=== PATIENT | female | born 1955 | race Caucasian/White ===

== ENCOUNTER → 2020-05-08 08:43 | Outpatient (BNV) | payer OTHER, SELFPAY | PROVIDERS: PCP Nurse Practitioner Family; Visit Provider Internal Medicine Medical Oncology | DX: I82.402 Acute embolism and thrombosis of unspecified deep veins of left lower extremity (principal) | CPT/HCPCS: 99213; 99214 ==

== ENCOUNTER → 2020-07-27 11:21 | Outpatient (BNVA) | payer OTHER, SELFPAY | PROVIDERS: PCP Nurse Practitioner Family; Visit Provider Student in an Organized Health Care Education/Training Program | DX: M05.9 Rheumatoid arthritis with rheumatoid factor, unspecified (principal); Z79.899 Other long term (current) drug therapy | CPT/HCPCS: 99212 ==

== ENCOUNTER 2020-08-07 08:45 | Outpatient (REF) | payer OTHER, SELFPAY ==
--- NOTE | ~2020-08-07 | MM_ITS ---
EXAMINATION: BONE DENSITOMETRY CLINICAL INDICATION: Rheumatoid arthritis. COMPARISON: None (current study represents initial baseline exam). TECHNIQUE: Using a [employer] DXA System (software version: 13.1) manufactured by [employer], dual-energy x-ray absorptiometry was performed of the lumbar spine and left hip. The images are of good technical quality. Summary results are attached. FINDINGS: AP SPINE L1-L3 (excluding L4): The data of L1-L4 has been changed to exclude the L4 vertebral body, because degenerative changes at this level may cause overestimation of lumbar spine density. BMD 0.966 g/cm2, Z-score -1.1, T-score -1.7, osteopenia. LEFT FEMUR, NECK: BMD 0.801 g/cm2, Z-score -0.9, T-score -1.7, osteopenia. LEFT FEMUR, TOTAL: BMD 0.854 g/cm2, Z-score -0.7, T-score -1.2, osteopenia. IDENTIFIED RISK FACTORS: Early menopause, rheumatoid arthritis, history of fracture (adult), secondary osteoporosis. HISTORY OF FRACTURE: Mandible, decades ago. No insufficiency fracture reported. MEDICATIONS: Calcium supplements or multivitamin. MM/XR DEXA axial skeleton IMPRESSION: 1. DIAGNOSIS: Osteopenia based on the lowest T-score value of -1.7 in the lumbar spine and femur neck applying World Health Organization criteria. 2. 10-YEAR FRACTURE RISK PREDICTION, FRAX: Major osteoporotic fracture (clinical spine, forearm, hip or shoulder) 6.1%. Hip fracture 0.7%. 3. Treatment Recommendations: NOF guidelines recommend consideration for treatment in postmenopausal women and men age 50 and older presenting with the following: -A hip or vertebral (clinical or morphometric) fracture. -T-score less than or equal to -2.5 at the femoral neck or spine after appropriate evaluation to exclude secondary causes. -Low bone mass at the hip or spine and a 10-year fracture probability by FRAX of greater than or equal to 3% for hip fracture or greater than or equal to 20% for major osteoporotic fracture based on the [place] adapted WHO algorithm. 4. Other Recommendations: All treatment decisions require clinical judgment and consideration of individual patient factors, including patient preferences, comorbidities, previous drug use, risk factors not captured in the FRAX model (e.g. frailty, falls, vitamin D deficiency, increased bone turnover, interval significant decline in bone density) and possible under or overestimation of fracture risk by FRAX. Additional medical evaluation for secondary cause of low bone mineral density may be appropriate. FUTURE SCAN RECOMMENDATION: People with diagnosed cases of osteoporosis or at high risk for fracture should have regular bone mineral density tests. For patients eligible for Medicare, routine testing is allowed once every 2 years. The testing frequency can be increased to one year for patients who have rapidly progressing disease, those who are receiving or discontinuing medical therapy to restore bone mass, or have additional risk factors.
== END 2020-08-07 08:46 | disposition home or self-care (01) ==
LOC: HO.MAMMO 08:45
PROVIDERS: Visit Provider Student in an Organized Health Care Education/Training Program
DX: Z13.820 Encounter for screening for osteoporosis (principal); Z78.0 Asymptomatic menopausal state; M05.9 Rheumatoid arthritis with rheumatoid factor, unspecified
CPT/HCPCS: 77080

== ENCOUNTER 2020-10-04 09:12 | Outpatient (REF) | payer OTHER, SELFPAY ==
[2020-10-04 11:17] LABS: MANUAL DIFF FLAG NO
[2020-10-04 11:43] LABS: Basophils Percent Auto 0.8 % (0-2); Eosinophils Absolute Auto 0.1 X10*3/uL (0.0-0.4); Hemoglobin 13.9 g/dl (12.0-16.0); Imm Gran Abs Auto 0.01 X10*3/uL (0.00-0.03); Imm Gran Pct Auto 0.2 % (0.0-0.4); Lymphocytes Absolute Auto 1.7 X10*3/uL (1.2-4.9); Mean Corpuscular HGB Conc 32.3 g/dl (31.0-35.0); Mean Corpuscular Hemoglobin 30.8 pg (27.0-33.0); Mean Corpuscular Volume 95.3 fL (80-98); Mean Platelet Volume 11.1 fL (9.4-12.3); Monocytes Absolute Auto 0.6 X10*3/uL (0.1-1.2); Neutrophils Absolute Auto 2.9 X10*3/uL (2.0-8.3); Platelet Count 275 X10*3/uL (160-400); Red Blood Count 4.51 X10*6/uL (4.20-5.50); Red Cell Distribution Width 13.5 % (11.0-16.0); White Blood Count 5.2 X10*3/uL (4.8-10.8)
[2020-10-04 12:30] LABS: TSH reflex Free T4 1.64 uIU/mL (0.32-4.0)
[2020-10-04 12:35] LABS: Alanine Aminotransferase 32 U/L (0-31); Albumin Level 4.5 g/dL (3.5-5.0); Alkaline Phosphatase 106 U/L (39-117); Anion Gap 15 (12-20); Aspartate Amino Transferase 27 U/L (5-31); Bilirubin Total 0.5 mg/dL (0.0-1.0); Blood Urea Nitrogen 17 mg/dL (9-16); Calcium 9.7 mg/dL (8.4-10.2); Carbon Dioxide 21 mmol/L (22-29); Chloride 109 mmol/L (96-108); Cholesterol 235 mg/dL; Estimated Glomerular Filt Rate > 60; Glucose Fasting 94 mg/dL (60-99); HDL Cholesterol 66 mg/dL; Iron 113 mcg/dL (30-160); LDL Cholesterol Calculated 145 mg/dl; Percent Iron Saturation 34 % (15-50); Potassium 5.2 mmol/L (3.3-5.1); Sodium 140 mmol/L (135-145); Total Iron Binding Capacity 329 mcg/dL (228-428); Total Protein 7.1 g/dL (6.5-8.0); Triglycerides 121 mg/dL; Unsaturated Iron Binding 216 ug/dL
[2020-10-04 13:43] LABS: Ferritin 113 ng/mL (10-250)
== END 2020-10-04 09:13 | disposition home or self-care (01) ==
LOC: HO.HMGCLDS 09:12
PROVIDERS: PCP Nurse Practitioner Family; Visit Provider Nurse Practitioner Family
DX: R53.83 Other fatigue (principal)
CPT/HCPCS: 36415; 80053; 80061; 82728; 83540; 84443; 85025

== ENCOUNTER 2020-10-10 08:52 | Outpatient (REF) | payer OTHER, SELFPAY ==
[2020-10-10 11:22] LABS: MANUAL DIFF FLAG NO
[2020-10-10 11:37] LABS: Basophils Percent Auto 0.7 % (0-2); Eosinophils Percent Auto 0.9 % (0-4); Hematocrit 42.1 % (37-47); Hemoglobin 13.7 g/dl (12.0-16.0); Imm Gran Abs Auto 0.01 X10*3/uL (0.00-0.03); Imm Gran Pct Auto 0.2 % (0.0-0.4); Lymphocytes Absolute Auto 1.6 X10*3/uL (1.2-4.9); Lymphocytes Percent Auto 37.4 % (20-40); Mean Corpuscular HGB Conc 32.5 g/dl (31.0-35.0); Mean Corpuscular Hemoglobin 30.6 pg (27.0-33.0); Mean Corpuscular Volume 94.2 fL (80-98); Mean Platelet Volume 11.2 fL (9.4-12.3); Monocytes Absolute Auto 0.5 X10*3/uL (0.1-1.2); Neutrophils Absolute Auto 2.2 X10*3/uL (2.0-8.3); Neutrophils Percent Auto 49.8 % (45-73); Platelet Count 261 X10*3/uL (160-400); Red Blood Count 4.47 X10*6/uL (4.20-5.50); Red Cell Distribution Width 13.6 % (11.0-16.0); White Blood Count 4.4 X10*3/uL (4.8-10.8)
[2020-10-10 11:45] LABS: Alanine Aminotransferase 28 U/L (0-31); Albumin Level 4.2 g/dL (3.5-5.0); Alkaline Phosphatase 104 U/L (39-117); Anion Gap 15 (12-20); Aspartate Amino Transferase 29 U/L (5-31); Bilirubin Total 0.5 mg/dL (0.0-1.0); Blood Urea Nitrogen 13 mg/dL (9-16); Calcium 9.6 mg/dL (8.4-10.2); Carbon Dioxide 23 mmol/L (22-29); Chloride 106 mmol/L (96-108); Cholesterol 222 mg/dL; Estimated Glomerular Filt Rate > 60; Glucose Random 91 mg/dL (60-115); HDL Cholesterol 63 mg/dL; LDL Cholesterol Calculated 138 mg/dl; Potassium 4.8 mmol/L (3.3-5.1); Sodium 139 mmol/L (135-145); Total Protein 6.8 g/dL (6.5-8.0); Triglycerides 106 mg/dL
[2020-10-10 12:28] LABS: Erythrocyte Sedimentation Rate 12 MM/HR (0-20)
== END 2020-10-10 08:53 | disposition home or self-care (01) ==
LOC: HO.HMGCLDS 08:52
PROVIDERS: PCP Nurse Practitioner Family; Visit Provider Student in an Organized Health Care Education/Training Program
DX: M05.9 Rheumatoid arthritis with rheumatoid factor, unspecified (principal); E78.5 Hyperlipidemia, unspecified
CPT/HCPCS: 36415; 80053; 80061; 85025; 85652; 86140

== ENCOUNTER 2020-12-04 11:38 | Emergency (ER) | payer OTHER, SELFPAY ==
--- NOTE | ~2020-12-04 | CT_ITS ---
EXAMINATION: CT ABDOMEN AND PELVIS WITH CONTRAST CLINICAL INFORMATION: Left lower quadrant pain. COMPARISON: Pelvic ultrasound dated 09/17/2017. TECHNIQUE: Multidetector volumetric images were obtained from the superior aspect of the liver through the pubic symphysis following administration 85 mL of Omnipaque 350 intravenous contrast. Sagittal and coronal reformatted images were obtained on the technologist's workstation. Oral contrast: No This CT examination was performed using dose optimization techniques as appropriate, variously including the following: *Automated exposure control *Adjustment of mA and/or kV according to patient size (this includes techniques or standardized protocols for targeted exams where dose is matched to indication/reason for exam; i.e. extremities or head) *Use of iterative reconstruction technique DLP: 795 mGy-cm FINDINGS: LUNG BASES: The visualized lung bases are unremarkable. LIVER, GALLBLADDER, AND BILIARY TREE: The liver is normal in size and shape. Parenchymal hypoattenuation, consistent with steatosis. No focal hepatic lesion or biliary ductal dilatation is present. The gallbladder is unremarkable with no evidence of radiopaque gallstones, gallbladder wall thickening, or obvious pericholecystic inflammatory changes. PANCREAS: Unremarkable. SPLEEN: Unremarkable. ADRENAL GLANDS: Unremarkable. KIDNEYS AND URETERS: The kidneys are normal in size, shape, and attenuation. Right upper pole renal stone measuring 0.3 cm, too small to characterize by Hounsfield units. No additional renal or ureteral stone. No hydronephrosis or hydroureter. Posterior left midpole 0.5 cm hypodensity, too small to characterize. BLADDER: Unremarkable. GASTROINTESTINAL TRACT: Sigmoid diverticulosis with left lower quadrant circumferential wall thickening adjacent to a prominent diverticulum. There is significant adjacent inflammatory change. Findings are consistent with acute diverticulitis. No extraluminal air or organized fluid collection to suggest perforation or abscess formation. No additional bowel wall thickening or associated inflammatory change. No small or large bowel obstruction. Unremarkable appendix. Small, sliding hiatal hernia. PERITONEAL CAVITY: No intra-abdominal free air or free fluid. No intra-abdominal mass or organized fluid collection/abscess formation. ABDOMINAL WALL: No significant hernia is appreciated. LYMPH NODES: Normal. VASCULAR: Atherosclerotic calcifications throughout the abdominal aorta and its branch vessels. Peripherally calcified splenic artery aneurysm measuring up to 1.0 cm. PELVIC VISCERA: Redemonstration of a probable posterior fibroid. OSSEOUS STRUCTURES: No concerning lytic or blastic osseous lesion. CT/CT abdomen pelvis w con IMPRESSION: 1. Acute left lower quadrant diverticulitis. No evidence of perforation or abscess formation. 2. Small, sliding hiatal hernia. 3. Hepatic steatosis. No hepatic parenchymal lesion or biliary ductal dilatation. 4. Calcified splenic artery aneurysm measuring up to 1.0 cm.
[2020-12-04 16:46] VITALS: BP 148/69; PULSE 127; RESP 18; TEMP 37.4; O2SAT 98; BMI 36.3
--- NOTE | 2020-12-04 17:11 | ECG_ITS ---
Test Reason : ABDOMINAL PAIN Blood Pressure : / mmHG Vent. Rate : 112 BPM Atrial Rate : 112 BPM P-R Int : 150 ms QRS Dur : 082 ms QT Int : 328 ms P-R-T Axes : 040 000 047 degrees QTc Int : 447 ms Sinus tachycardia Possible Left atrial enlargement Possible Inferior infarct , age undetermined Abnormal ECG No previous ECGs available Referred By: Ibis Islas Electronically Signed By:JANEY PARK MD
[2020-12-04 17:18] LABS: Glucose Urine UA NEG (NEG); Leukocyte Esterase Urine 2+ (NEG); Nitrite Urine NEG (NEG); UACC Culture Trigger YES; Urine Blood NEG (NEG); Urine Ketones NEG (NEG); Urine Protein NEG (NEG-TRACE)
[2020-12-04 17:22] LABS: Appearance Urine CLEAR; Color Urine YELLOW
[2020-12-04 17:40] LABS: MANUAL DIFF FLAG NO
[2020-12-04 17:43] LABS: Bacteria Urine TRACE /LPF; Squamous Epithelial Cell Urine TRACE /LPF
[2020-12-04 17:44] LABS: Basophils Percent Auto 0.4 % (0-2); Eosinophils Absolute Auto 0.1 X10*3/uL (0.0-0.4); Eosinophils Percent Auto 0.6 % (0-4); Hematocrit 38.7 % (37-47); Imm Gran Abs Auto 0.02 X10*3/uL (0.00-0.03); Imm Gran Pct Auto 0.2 % (0.0-0.4); Lymphocytes Absolute Auto 1.5 X10*3/uL (1.2-4.9); Lymphocytes Percent Auto 16.2 % (20-40); Mean Corpuscular HGB Conc 33.6 g/dl (31.0-35.0); Mean Corpuscular Hemoglobin 30.9 pg (27.0-33.0); Mean Corpuscular Volume 91.9 fL (80-98); Mean Platelet Volume 10.8 fL (9.4-12.3); Monocytes Percent Auto 10.9 % (2-11); Neutrophils Absolute Auto 6.5 X10*3/uL (2.0-8.3); Neutrophils Percent Auto 71.7 % (45-73); Platelet Count 246 X10*3/uL (160-400); Red Blood Count 4.21 X10*6/uL (4.20-5.50); Red Cell Distribution Width 13.3 % (11.0-16.0); White Blood Count 9.1 X10*3/uL (4.8-10.8)
[2020-12-04 17:46] LABS: INTERNATIONAL NORM RATIO 1.4 (0.9-1.1); Prothrombin Time 16.2 SEC (10.8-13.0)
[2020-12-04 17:49] VITALS: BP 128/77; PULSE 114; RESP 20; TEMP 37.6; O2SAT 98
[2020-12-04 18:06] LABS: Alanine Aminotransferase 20 U/L (0-31); Albumin Level 4.2 g/dL (3.5-5.0); Alkaline Phosphatase 109 U/L (39-117); Anion Gap 15 (12-20); Aspartate Amino Transferase 19 U/L (5-31); Bilirubin Direct 0.3 mg/dL (0.0-0.5); Bilirubin Total 0.4 mg/dL (0.0-1.0); Blood Urea Nitrogen 18 mg/dL (9-16); Calcium 8.9 mg/dL (8.4-10.2); Carbon Dioxide 19 mmol/L (22-29); Chloride 105 mmol/L (96-108); Creatinine Clr Calc Pharmacy 74.1; Estimated Glomerular Filt Rate > 60; Glucose Random 102 mg/dL (60-115); Lipase 46 U/L (8-78); Potassium 4.3 mmol/L (3.3-5.1); Sodium 135 mmol/L (135-145); Total Protein 6.8 g/dL (6.5-8.0)
--- NOTE | 2020-12-04 18:23 | ED_ITS ---
HPI - Abdominal Pain General Chief Complaint: Abdominal Pain Stated Complaint: lower abd pain Time Seen by Provider: 12/04/20 16:48 Source: patient Mode of arrival: ambulatory Limitations: no limitations History of Present Illness HPI narrative: patient comes emergency room complaining of bilateral lower quadrant pain, seems to be worse in the left lower quadrant. Patient states that she has had increased abdominal pain in the abdomen for the last 2 months, reports dark blood and mucus in the stool for the last month. Patient denies vomiting, had 1 episode of diarrhea, no URI symptoms, no fever. Related Data Home Medications Medication Instructions Recorded Confirmed apixaban [Eliquis] 1 tab PO BID 05/08/20 10/03/20 apixaban 2.5 mg tablet 2.5 mg PO BID 12/04/20 Previous Rx's Medication Instructions Recorded amlodipine 5 mg tablet 5 mg PO DAILY 90 Days #90 tab 04/23/20 methotrexate sodium 2.5 mg tablet 15 mg PO QWEEK #24 tab 08/16/20 etanercept 50 mg/mL (1 mL) 50 mg SUBCUT QWEEK #4 ml 09/11/20 subcutaneous cartridge folic acid 1 mg tablet 1 mg PO DAILY #30 tab 10/02/20 lisinopril 20 mg tablet 20 mg PO DAILY #30 cap 10/02/20 atorvastatin 10 mg tablet 10 mg PO BEDTIME #30 tab 11/01/20 ciprofloxacin HCl 500 mg PO BID #19 tab 12/04/20 metronidazole 500 mg PO BID #19 tab 12/04/20 Allergies Allergy/AdvReac Type Severity Reaction Status Date / Time penicillin G [PENICILLIN G] Allergy Severe ANAPHYLAXIS Verified 10/03/20 15:05 Review of Systems Review of Systems Constitutional : No Weight loss, No Fever, No Chills, No Night Sweats, No Fatigue, No Malaise ENT/Mouth : No Hearing loss, No Ear Pain, No Nasal Congestion, No Sinus Pain, No Hoarseness, No sore throat, No Rhinorrhea, No Swallowing Difficulty Eyes: No Eye Pain, No Swelling, No Redness, No Foreign Body, No Discharge, No Vision Changes Cardiovascular : No Chest Pain, No SOB, No Dyspnea on Exertion, No Orthopnea, No Edema, No Palpitations Respiratory : No Cough, No Sputum, No Wheezing, No Smoke Exposure, No Dyspnea Gastrointestinal : No Nausea, No Vomiting, One episode of Diarrhea, No Constipation, complaining of worsening abdominal pain for 2 months, worse in the left lower quadrant, reports dark bloody like stool and mucus Genitourinary : no irregular bleeding, No Dysuria, No Urinary Frequency, No Hematuria, No Urinary Incontinence, No Urgency, No Flank Pain, No Urinary Flow Changes, No Hesitancy Musculoskeletal : No joint pain, No Myalgias, No Joint Swelling Skin : No Skin Lesions, No rash Neuro : No Weakness, No Numbness, No Paresthesias, No Loss of Consciousness, No Dizziness, No Headache Psych : No Anxiety/Panic, No Depression, No SI/HI/AH/VH, No Social Issues, Heme/Lymph: No Bruising, No Bleeding,No Lymphadenopathy Endocrine : No Polyuria, No Polydipsia, No Temperature Intolerance Physical Exam Vital Signs: Vital Signs: Last Vital Signs Temp 98.8 F 12/04/20 19:15 Pulse 107 H 12/04/20 19:15 Resp 18 12/04/20 19:15 BP 130/79 12/04/20 19:15 Pulse Ox 97 12/04/20 19:15 Body Mass Index 36.3 Appearance: Alert. Oriented X3. No acute distress. Eyes: Pupils equal, round and reactive to light. ENT: Pharynx normal. Neck: Normal inspection. Neck supple. No lymph nodes noted. No crepitus CVS: Normal heart rate and rhythm. Pulses normal. Normal S1 and S2 Respiratory: No respiratory distress. Breath sounds normal. No Wheezing. No rales Abdomen: Soft tenderness to palpation over the left lower quadrant,. No rigidity. No distention. Skin: Skin warm and dry. Normal skin color. Normal skin turgor. Extremities: No lower extremity edema. No lower extremity edema. No Lacerations. No Rash Neuro: Oriented X 3. No motor deficit. No sensory deficit. Moving all extermities. No slurred speech. Course Course Course Narrative: I discussed the labs and imaging with the patient, patient has diverticulitis. So far patient refused pain medication. Patient feels comfortable going home with oral antibiotics and pain medication. Patient instructed to follow-up with her primary care physician MDM - Abdominal Pain Lab Data Result diagrams: 12/04/20 17:34 12/04/20 17:34 Labs: Lab Results 12/04/20 12/04/20 12/04/20 Range/Units 16:57 17:34 17:34 WBC 9.1 (4.8-10.8) X10*3/uL RBC 4.21 (4.20-5.50) X10*6/uL Hgb 13.0 (12.0-16.0) g/dl Hct 38.7 (37-47) % MCV 91.9 (80-98) fL MCH 30.9 (27.0-33.0) pg MCHC 33.6 (31.0-35.0) g/dl RDW 13.3 (11.0-16.0) % Plt Count 246 (160-400) X10*3/uL MPV 10.8 (9.4-12.3) fL Immature Gran % (Auto) 0.2 (0.0-0.4) % Neut % (Auto) 71.7 (45-73) % Lymph % (Auto) 16.2 L (20-40) % [place] % (Auto) 10.9 (2-11) % Eos % (Auto) 0.6 (0-4) % Baso % (Auto) 0.4 (0-2) % Lymph # (Auto) 1.5 (1.2-4.9) X10*3/uL [place] # (Auto) 1.0 (0.1-1.2) X10*3/uL Eos # (Auto) 0.1 (0.0-0.4) X10*3/uL Baso # (Auto) 0.0 (0.0-0.2) X10*3/uL Abs Immat Gran (auto) 0.02 (0.00-0.03) X10*3/uL Absolute Neuts (auto) 6.5 (2.0-8.3) X10*3/uL Absolute Nucleated RBC 0.000 (0.0-0.012) X10*3/uL Nucleated RBC % (auto) 0.0 (0.0-0.2) /100WBC PT (10.8-13.0) SEC INR (0.9-1.1) Sodium 135 (135-145) mmol/L Potassium 4.3 D (3.3-5.1) mmol/L Chloride 105 (96-108) mmol/L Carbon Dioxide 19 L (22-29) mmol/L Anion Gap 15 (12-20) BUN 18 H (9-16) mg/dL Creatinine 0.81 (0.5-1.4) mg/dL Estim Creat Clear Calc 74.1 Estimated GFR > 60 Random Glucose 102 (60-115) mg/dL Lactic Acid (0.5-2.0) mmol/L Calcium 8.9 D (8.4-10.2) mg/dL Total Bilirubin 0.4 (0.0-1.0) mg/dL Direct Bilirubin 0.3 (0.0-0.5) mg/dL AST 19 D (5-31) U/L ALT 20 (0-31) U/L Alkaline Phosphatase 109 (39-117) U/L Total Protein 6.8 (6.5-8.0) g/dL Albumin 4.2 (3.5-5.0) g/dL Lipase 46 (8-78) U/L Urine Color YELLOW Urine Appearance CLEAR Urine pH 6.0 (5.0-8.0) Ur Specific [place] 1.010 (1.005-1.025) Urine Protein NEG (NEG-TRACE) MG/DL Urine Glucose (UA) NEG (NEG) MG/DL Urine Ketones NEG (NEG) MG/DL Urine Blood NEG (NEG) Urine Nitrite NEG (NEG) Ur Leukocyte Esterase 2+ H (NEG) Urine RBC 1-4 (0) /HPF Urine WBC 5-9 H (0-4) /HPF Ur Squamous Epith Cells TRACE /LPF Urine Bacteria TRACE /LPF Stool Occult Blood (NEGATIVE) 12/04/20 12/04/20 12/04/20 Range/Units 17:34 17:34 20:02 WBC (4.8-10.8) X10*3/uL RBC (4.20-5.50) X10*6/uL Hgb (12.0-16.0) g/dl Hct (37-47) % MCV (80-98) fL MCH (27.0-33.0) pg MCHC (31.0-35.0) g/dl RDW (11.0-16.0) % Plt Count (160-400) X10*3/uL MPV (9.4-12.3) fL Immature Gran % (Auto) (0.0-0.4) % Neut % (Auto) (45-73) % Lymph % (Auto) (20-40) % [place] % (Auto) (2-11) % Eos % (Auto) (0-4) % Baso % (Auto) (0-2) % Lymph # (Auto) (1.2-4.9) X10*3/uL [place] # (Auto) (0.1-1.2) X10*3/uL Eos # (Auto) (0.0-0.4) X10*3/uL Baso # (Auto) (0.0-0.2) X10*3/uL Abs Immat Gran (auto) (0.00-0.03) X10*3/uL Absolute Neuts (auto) (2.0-8.3) X10*3/uL Absolute Nucleated RBC (0.0-0.012) X10*3/uL Nucleated RBC % (auto) (0.0-0.2) /100WBC PT 16.2 H (10.8-13.0) SEC INR 1.4 H (0.9-1.1) Sodium (135-145) mmol/L Potassium (3.3-5.1) mmol/L Chloride (96-108) mmol/L Carbon Dioxide (22-29) mmol/L Anion Gap (12-20) BUN (9-16) mg/dL Creatinine (0.5-1.4) mg/dL Estim Creat Clear Calc Estimated GFR Random Glucose (60-115) mg/dL Lactic Acid 1.0 (0.5-2.0) mmol/L Calcium (8.4-10.2) mg/dL Total Bilirubin (0.0-1.0) mg/dL Direct Bilirubin (0.0-0.5) mg/dL AST (5-31) U/L ALT (0-31) U/L Alkaline Phosphatase (39-117) U/L Total Protein (6.5-8.0) g/dL Albumin (3.5-5.0) g/dL Lipase (8-78) U/L Urine Color Urine Appearance Urine pH (5.0-8.0) Ur Specific [place] (1.005-1.025) Urine Protein (NEG-TRACE) MG/DL Urine Glucose (UA) (NEG) MG/DL Urine Ketones (NEG) MG/DL Urine Blood (NEG) Urine Nitrite (NEG) Ur Leukocyte Esterase (NEG) Urine RBC (0) /HPF Urine WBC (0-4) /HPF Ur Squamous Epith Cells /LPF Urine Bacteria /LPF Stool Occult Blood NEGATIVE (NEGATIVE) Imaging Data CT scan - abdomen: Radiologist's impression: FINDINGS: LUNG BASES: The visualized lung bases are unremarkable. LIVER, GALLBLADDER, AND BILIARY TREE: The liver is normal in size and shape. Parenchymal hypoattenuation, consistent with steatosis. No focal hepatic lesion or biliary ductal dilatation is present. The gallbladder is unremarkable with no evidence of radiopaque gallstones, gallbladder wall thickening, or obvious pericholecystic inflammatory changes. PANCREAS: Unremarkable. SPLEEN: Unremarkable. ADRENAL GLANDS: Unremarkable. KIDNEYS AND URETERS: The kidneys are normal in size, shape, and attenuation. Right upper pole renal stone measuring 0.3 cm, too small to characterize by Hounsfield units. No additional renal or ureteral stone. No hydronephrosis or hydroureter. Posterior left midpole 0.5 cm hypodensity, too small to characterize. BLADDER: Unremarkable. GASTROINTESTINAL TRACT: Sigmoid diverticulosis with left lower quadrant circumferential wall thickening adjacent to a prominent diverticulum. There is significant adjacent inflammatory change. Findings are consistent with acute diverticulitis. No extraluminal air or organized fluid collection to suggest perforation or abscess formation. No additional bowel wall thickening or associated inflammatory change. No small or large bowel obstruction. Unremarkable appendix. Small, sliding hiatal hernia. PERITONEAL CAVITY: No intra-abdominal free air or free fluid. No intra-abdominal mass or organized fluid collection/abscess formation. ABDOMINAL WALL: No significant hernia is appreciated. LYMPH NODES: Normal. VASCULAR: Atherosclerotic calcifications throughout the abdominal aorta and its branch vessels. Peripherally calcified splenic artery aneurysm measuring up to 1.0 cm. PELVIC VISCERA: Redemonstration of a probable posterior fibroid. OSSEOUS STRUCTURES: No concerning lytic or blastic osseous lesion. CT/CT abdomen pelvis w con IMPRESSION: 1. Acute left lower quadrant diverticulitis. No evidence of perforation or abscess formation. 2. Small, sliding hiatal hernia. 3. Hepatic steatosis. No hepatic parenchymal lesion or biliary ductal dilatation. 4. Calcified splenic artery aneurysm measuring up to 1.0 cm. Discharge Plan Discharge Clinical Impression: Diverticulitis Patient Disposition: Home, Self-Care Instructions: Diverticulitis (ED), Diverticulitis Diet (ED) Additional Instructions: Please follow-up with your primary care physician tomorrow. If you have any worsening or new symptoms, please return to the emergency room or call 911 Prescriptions: New ciprofloxacin HCl 500 mg tablet 500 mg PO BID Qty: 19 RF: 0 metronidazole 500 mg tablet 500 mg PO BID Qty: 19 RF: 0 No Action amlodipine 5 mg tablet 5 mg PO DAILY 90 Days Qty: 90 RF: 1 methotrexate sodium 2.5 mg tablet 15 mg PO QWEEK Qty: 24 RF: 3 etanercept [Enbrel Mini] 50 mg/mL (1 mL) cartridge 50 mg subcut QWEEK Qty: 4 RF: 4 folic acid 1 mg tablet 1 mg PO DAILY Qty: 30 RF: 5 lisinopril 20 mg tablet 20 mg PO DAILY Qty: 30 RF: 2 atorvastatin 10 mg tablet 10 mg PO BEDTIME Qty: 30 RF: 5 Eliquis 5 mg tablet 1 tab PO BID RF: 0 Eliquis 2.5 mg tablet 2.5 mg PO BID RF: 0 Interventions: LWBS Worksheet Last Done: 12/04/20 13:38 PMFSH Past Medical History Medical History DVT (deep venous thrombosis) HTN (hypertension) Hyperlipemia Rheumatoid arthritis Seropositive rheumatoid arthritis Surgical History History of bunionectomy of both great toes Family History Family History Mother Colon cancer metastasized to multiple sites HTN (hypertension) Maternal Aunt Breast cancer Father HTN (hypertension) Brother HTN (hypertension) Heart attack Enlarged heart Brain aneurysm Brother HTN (hypertension) Sister HTN (hypertension) Sister HTN (hypertension) Sister HTN (hypertension) Social History Social History Alcohol intake: current Alcohol intake frequency: holidays/special occasions only Alcohol type: beer Advance Directives: Yes Advance Directives Information Provided: No Advance Directives on File: No Patient : No
[2020-12-04 19:15] VITALS: BP 130/79; PULSE 107; RESP 18; TEMP 37.1; O2SAT 97
[2020-12-04] MEDS: iohexoL 350 MG/ML 100 ML INFUS..BTL 85 ML IV (19:26)
[2020-12-04 20:09] LABS: OBS Int Ctl Valid YES; OBS1 NEGATIVE (NEGATIVE)
[2020-12-04] MEDS: levoFLOXacin 500 MG TABLET PO (20:22)
[2020-12-04] MEDS: metroNIDAZOLE 500 MG TABLET PO (20:22)
== END 2020-12-04 20:29 | disposition home or self-care (01) ==
PROVIDERS: Emergency Provider Emergency Medicine; PCP Nurse Practitioner Family
DX: K57.92 Diverticulitis of intestine, part unspecified, without perforation or abscess without bleeding (principal); I10 Essential (primary) hypertension; M05.9 Rheumatoid arthritis with rheumatoid factor, unspecified; Z86.718 Personal history of other venous thrombosis and embolism; Z79.01 Long term (current) use of anticoagulants; Z79.899 Other long term (current) drug therapy
CPT/HCPCS: 36415; 74177; 80048; 80076; 81001; 81003; 82272; 83605; 83690; 85025; 85610; 87040; 87086; 93005; 99284; Q9967

== ENCOUNTER 2020-12-06 08:46 | Emergency (ER) | payer OTHER, SELFPAY ==
--- NOTE | ~2020-12-06 | XR_ITS ---
EXAMINATION: XR FOOT, LEFT CLINICAL INFORMATION: Pain. COMPARISON: None TECHNIQUE: AP, lateral, and oblique views of the left foot. FINDINGS: There is loss of first MTP joint space with moderate periarticular spurring. There is a cup deformity distal end proximal phalanx second digit. No visible acute fracture, dislocation or subluxation seen. XR/XR foot LT 2V IMPRESSION: No acute fracture or dislocation. Degenerative arthritic changes first MTP joint. Deformity DIP joint second digit. .
[2020-12-06 09:08] VITALS: BP 130/71; PULSE 110; RESP 16; TEMP 36.7; O2SAT 99; BMI 34.1
--- NOTE | 2020-12-06 10:12 | ED_ITS ---
HPI - General Adult General Chief complaint: Extremity Injury, Lower Stated complaint: FALL FOOT INJ Time Seen by Provider: 12/06/20 10:12 Source: patient Limitations: no limitations History of Present Illness HPI narrative: Patient states she injured her left foot when tripping while getting into a chair. Pain is on the lateral aspect of the left foot that increases with range of motion or weight-bearing. Pain is 7/10. No other com plaints at this time. Symptoms are moderate. onset of symptoms yesterday Related Data Home Medications Medication Instructions Recorded Confirmed apixaban [Eliquis] 1 tab PO BID 05/08/20 10/03/20 apixaban 2.5 mg tablet 2.5 mg PO BID 12/04/20 Previous Rx's Medication Instructions Recorded amlodipine 5 mg tablet 5 mg PO DAILY 90 Days #90 tab 04/23/20 methotrexate sodium 2.5 mg tablet 15 mg PO QWEEK #24 tab 08/16/20 etanercept 50 mg/mL (1 mL) 50 mg SUBCUT QWEEK #4 ml 09/11/20 subcutaneous cartridge folic acid 1 mg tablet 1 mg PO DAILY #30 tab 10/02/20 lisinopril 20 mg tablet 20 mg PO DAILY #30 cap 10/02/20 atorvastatin 10 mg tablet 10 mg PO BEDTIME #30 tab 11/01/20 ciprofloxacin HCl 500 mg PO BID #19 tab 12/04/20 metronidazole 500 mg PO BID #19 tab 12/04/20 Allergies Allergy/AdvReac Type Severity Reaction Status Date / Time penicillin G [PENICILLIN G] Allergy Severe ANAPHYLAXIS Verified 10/03/20 15:05 Review of Systems Constitutional: Constitutional: Denies body ache(s), Denies chills and Denies fever(s) Cardiovascular: Cardiovascular: Denies chest pain, Reports pedal edema and Denies dyspnea Respiratory: Respiratory: Denies cough and Denies dyspnea Gastrointestinal: Gastrointestinal: Denies nausea and Denies vomiting Musculoskeletal: Musculoskeletal: Denies back pain, Denies numbness and Reports other ( left foot pain) Neurologic: Denies numbness and Denies paresthesias Endocrine: Endocrine: Reports no additional endocrine complaints Hematologic/Lymphatic: Hematologic/Lymphatic: Reports no additional hematologic/lymphatic complaints [facility] Past Medical History Attestation statement: The following information was validated with the patient. Medical History DVT (deep venous thrombosis) HTN (hypertension) Hyperlipemia Rheumatoid arthritis Seropositive rheumatoid arthritis Surgical History History of bunionectomy of both great toes Family History Family History Mother Colon cancer metastasized to multiple sites HTN (hypertension) Maternal Aunt Breast cancer Father HTN (hypertension) Brother HTN (hypertension) Heart attack Enlarged heart Brain aneurysm Brother HTN (hypertension) Sister HTN (hypertension) Sister HTN (hypertension) Sister HTN (hypertension) Social History Social History Alcohol intake: current Alcohol intake frequency: a few times a month Alcohol type: beer Patient Tobacco Use Status: Former Tobacco user Smoked in Last 30 Days: No Use of substances other than those prescribed or required for medical reasons: No Advance Directives: Yes Advance Directives Information Provided: No Advance Directives on File: No Physical Exam Vital Signs: Vital Signs: Last Vital Signs Temp 98.0 F 12/06/20 09:08 Pulse 110 H 12/06/20 09:08 Resp 16 12/06/20 09:08 BP 130/71 12/06/20 09:08 Pulse Ox 99 12/06/20 09:08 Body Mass Index 34.1 vital signs have been reviewed as normal and appeared to be correct. Blood pressure normal. Heart rate normal. Respiration rate normal. Temperature normal. Oxygen saturation normal. Appearance: Alert. Oriented X3. No acute distress. Head: Normal external exam. Normocephalic. Atraumatic. No Saavedra signs noted. No raccoon eyes noted Eyes: PERRLA. EOMI. Conjunctiva and sclera normal. Eyelids normal. ENT: Pharynx normal. Uvula midline. Moist mucous membranes. No trismus noted. No drooling noted. No muffled voice noted. Neck: Soft full range of motion, no JVD CVS: Heart regular rate and rhythm no murmurs and rubs Respiratory: Breath sounds are clear to auscultation bilaterally. No accessory muscle use noted. Abdomen: Soft nontender no rebound or guarding positive bowel sounds Back: No CVA tenderness. Full range of motion noted. Skin: Skin warm and dry. Normal skin color. Normal skin turgor. No rashes/lesions/lacerations noted. Extremities: positive tenderness left foot medial aspect positive pulses positive edema Neuro: Oriented X 3. No motor deficit. No sensory deficit. Reflexes normal. 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 Will place patient in a postop shoe follow-up as needed Medical Decision Making Imaging Data foot: Radiologist's impression: [address] [id number] ReportSigned Patient: Krista Liu JMR#: [id number]: 8Acct:[id number]/Sex: 65 / FADM Date: 12/06/20Loc: HO.EDAttending Dr: Ordering Physician: Helder Partida MD Date of Service: 12/06/20 Procedure(s): XR foot LT 2V Accession Number(s): [id number] cc: Helder Partida MD~ EXAMINATION: XR FOOT, LEFT CLINICAL INFORMATION: Pain. COMPARISON: None TECHNIQUE: AP, lateral, and oblique views of the left foot. FINDINGS: There is loss of first MTP joint space with moderate periarticular spurring. There is a cup deformity distal end proximal phalanx second digit. No visible acute fracture, dislocation or subluxation seen. XR/XR foot LT 2V IMPRESSION: No acute fracture or dislocation. Degenerative arthritic changes first MTP joint. Deformity DIP joint second digit. . 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[facility] [place] Discharge Plan Discharge Clinical Impression: Sprain of foot, left Patient Disposition: Home, Self-Care Instructions: Foot Sprain (ED) Additional Instructions: x-ray showed no acute fractures rest ice elevation Prescriptions: No Action amlodipine 5 mg tablet 5 mg PO DAILY 90 Days Qty: 90 RF: 1 methotrexate sodium 2.5 mg tablet 15 mg PO QWEEK Qty: 24 RF: 3 etanercept [Enbrel Mini] 50 mg/mL (1 mL) cartridge 50 mg subcut QWEEK Qty: 4 RF: 4 folic acid 1 mg tablet 1 mg PO DAILY Qty: 30 RF: 5 lisinopril 20 mg tablet 20 mg PO DAILY Qty: 30 RF: 2 atorvastatin 10 mg tablet 10 mg PO BEDTIME Qty: 30 RF: 5 Eliquis 5 mg tablet 1 tab PO BID RF: 0 ciprofloxacin HCl 500 mg tablet 500 mg PO BID Qty: 19 RF: 0 metronidazole 500 mg tablet 500 mg PO BID Qty: 19 RF: 0 Eliquis 2.5 mg tablet 2.5 mg PO BID RF: 0 Referrals: Dennis Hsu, [employer] ERGON[employer]IST-BC [Primary Care Provider] - 2 days
== END 2020-12-06 11:31 | disposition home or self-care (01) ==
PROVIDERS: Emergency Provider Emergency Medicine Emergency Medical Services; PCP Nurse Practitioner Family
DX: S93.602A Unspecified sprain of left foot, initial encounter (principal); I10 Essential (primary) hypertension; Z86.718 Personal history of other venous thrombosis and embolism; Z79.01 Long term (current) use of anticoagulants; Z79.899 Other long term (current) drug therapy; W18.49XA Other slipping, tripping and stumbling without falling, initial encounter; Y93.9 Activity, unspecified; Y92.9 Unspecified place or not applicable; Y99.9 Unspecified external cause status
CPT/HCPCS: 73620; 99283

== ENCOUNTER → 2021-02-13 13:58 | Outpatient (BNVA) | payer OTHER, SELFPAY | PROVIDERS: Visit Provider Student in an Organized Health Care Education/Training Program | DX: M05.9 Rheumatoid arthritis with rheumatoid factor, unspecified (principal) ==

== ENCOUNTER 2021-02-28 09:33 | Outpatient (REF) | payer OTHER, SELFPAY ==
[2021-03-07 06:00] LABS: HPV 16 RNA NOT DETECTED (NOT DETECTED); HPV mRNA E6/E7 rflx Detected (Not Detected)
== END 2021-02-28 09:34 | disposition home or self-care (01) ==
LOC: HO.LAB 09:33
PROVIDERS: Visit Provider Advanced Practice Midwife
DX: Z01.411 Encounter for gynecological examination (general) (routine) with abnormal findings (principal); Z11.51 Encounter for screening for human papillomavirus (HPV); R10.2 Pelvic and perineal pain
CPT/HCPCS: 81003; 87624; 87625; 88142

== ENCOUNTER 2021-03-21 10:36 | Outpatient (REF) | payer OTHER, SELFPAY ==
--- NOTE | ~2021-03-21 | US_ITS ---
EXAMINATION: US PELVIC AND TRANSVAGINAL CLINICAL INFORMATION: Pelvic and perineal pain. Left lower quadrant pain. COMPARISON: Most recent CT abdomen/pelvis dated 12/04/2020. Pelvic ultrasound dated 09/17/2017. TECHNIQUE: Ultrasound of the pelvis is performed using both transabdominal and transvaginal transducers along with Doppler. Transvaginal imaging is performed due to inadequate visualization transabdominally. FINDINGS: Uterus: The uterus is anteverted and measures 6.5 x 1.6 x 5 cm. Trace fluid within the endometrial canal. The double wall endometrial thickness is 0.1 mm. The uterus is smooth in contour and has heterogeneous myometrial echogenicity. No visible fibroid. Adnexa: The ovaries are not well seen on the current examination. US/US pelvic and transvaginal IMPRESSION: 1. Trace fluid within the endometrial canal, similar when compared to the prior ultrasound. Heterogeneous myometrium without a discrete myometrial lesion. 2. Right and left ovary not seen on the current examination.
== END 2021-03-21 10:37 | disposition home or self-care (01) ==
LOC: HO.US 10:36
PROVIDERS: Visit Provider Advanced Practice Midwife
DX: R10.2 Pelvic and perineal pain (principal)
CPT/HCPCS: 76830; 76856

== ENCOUNTER 2021-04-03 10:10 | Outpatient (REF) | payer OTHER, SELFPAY ==
--- NOTE | ~2021-04-03 | XR_ITS ---
EXAMINATION: XR HIP, LEFT CLINICAL INFORMATION: M25.552 - Pain in left hip COMPARISON: Radiographs left hip the 2017, CT abdomen and pelvis 12/04/2020 TECHNIQUE: Two views of the left hip. FINDINGS: There is no fracture, dislocation, destructive process. No interval hip joint narrowing or erosive change or chondrocalcinosis. There is transitional vertebrae again seen at the lumbosacral junction with left hemisacralization right porfirio lumbarization. The SI joints and pubis are unremarkable. Soft tissue planes around the hips are unremarkable. XR/XR hip LT min 2V IMPRESSION: Normal left hip.
[2021-04-03 11:25] LABS: Appearance Urine HAZY; Color Urine STRAW; Glucose Urine UA NEG (NEG); Leukocyte Esterase Urine 1+ (NEG); Nitrite Urine NEG (NEG); PH 5.5 (5.0-8.0); UACC Culture Trigger YES; Urine Blood NEG (NEG); Urine Ketones NEG (NEG); Urine Protein NEG (NEG-TRACE)
[2021-04-03 11:29] LABS: MANUAL DIFF FLAG NO
[2021-04-03 11:33] LABS: Basophils Percent Auto 0.8 % (0-2); Eosinophils Percent Auto 0.3 % (0-4); Hematocrit 42.4 % (37-47); Hemoglobin 13.9 g/dl (12.0-16.0); Imm Gran Abs Auto 0.01 X10*3/uL (0.00-0.03); Imm Gran Pct Auto 0.3 % (0.0-0.4); Lymphocytes Absolute Auto 1.7 X10*3/uL (1.2-4.9); Lymphocytes Percent Auto 43.2 % (20-40); Mean Corpuscular HGB Conc 32.8 g/dl (31.0-35.0); Mean Corpuscular Hemoglobin 30.8 pg (27.0-33.0); Mean Corpuscular Volume 93.8 fL (80-98); Mean Platelet Volume 11.2 fL (9.4-12.3); Monocytes Absolute Auto 0.5 X10*3/uL (0.1-1.2); Monocytes Percent Auto 11.6 % (2-11); Neutrophils Absolute Auto 1.7 X10*3/uL (2.0-8.3); Neutrophils Percent Auto 43.8 % (45-73); Platelet Count 270 X10*3/uL (160-400); Red Blood Count 4.52 X10*6/uL (4.20-5.50); Red Cell Distribution Width 13.2 % (11.0-16.0); White Blood Count 3.9 X10*3/uL (4.8-10.8)
[2021-04-03 11:35] LABS: RBC Urine 0-2 /HPF (0); Squamous Epithelial Cell Urine 1+ /LPF
[2021-04-03 11:36] LABS: Bacteria Urine TRACE /LPF
[2021-04-03 12:12] LABS: Alanine Aminotransferase 25 U/L (0-31); Albumin Level 4.7 g/dL (3.5-5.0); Alkaline Phosphatase 88 U/L (39-117); Anion Gap 14 (12-20); Aspartate Amino Transferase 22 U/L (5-31); Bilirubin Total 0.5 mg/dL (0.0-1.0); Blood Urea Nitrogen 22 mg/dL (9-16); Calcium 10.3 mg/dL (8.4-10.2); Carbon Dioxide 23 mmol/L (22-29); Chloride 105 mmol/L (96-108); Cholesterol 191 mg/dL; Estimated Glomerular Filt Rate > 60; Glucose Fasting 88 mg/dL (60-99); HDL Cholesterol 60 mg/dL; LDL Cholesterol Calculated 110 mg/dl; Sodium 137 mmol/L (135-145); Total Protein 7.3 g/dL (6.5-8.0); Triglycerides 109 mg/dL
[2021-04-03 12:20] LABS: TSH reflex Free T4 2.56 uIU/mL (0.32-4.0)
== END 2021-04-03 10:11 | disposition home or self-care (01) ==
LOC: HO.HMGCLDS 10:10
PROVIDERS: Internal Medicine Medical Oncology; PCP Nurse Practitioner Family; Visit Provider Nurse Practitioner Family
DX: Z00.00 Encounter for general adult medical examination without abnormal findings (principal); I82.409 Acute embolism and thrombosis of unspecified deep veins of unspecified lower extremity; M25.552 Pain in left hip
CPT/HCPCS: 36415; 73502; 80053; 80061; 81001; 84443; 85025; 87086

== ENCOUNTER → 2021-04-10 11:32 | Outpatient (BNVA) | payer OTHER, SELFPAY | PROVIDERS: Visit Provider Advanced Practice Midwife ==

== ENCOUNTER 2021-04-16 09:42 | Outpatient (REF) | payer OTHER, SELFPAY | END 2021-04-16 09:43 | disposition home or self-care (01) | LOC: HO.LAB 09:42 | PROVIDERS: PCP Nurse Practitioner Family; Visit Provider Obstetrics & Gynecology | DX: A63.0 Anogenital (venereal) warts (principal); Z87.891 Personal history of nicotine dependence | CPT/HCPCS: 57454; 88305; 88342; 88360 ==

== ENCOUNTER → 2021-05-01 14:56 | Outpatient (BNVA) | payer OTHER, SELFPAY | PROVIDERS: PCP Nurse Practitioner Family; Visit Provider Obstetrics & Gynecology ==

== ENCOUNTER 2021-05-06 15:26 | Outpatient (REF) | payer OTHER, SELFPAY ==
--- NOTE | ~2021-05-06 | XR_ITS ---
EXAMINATION: XR BILATERAL HIPS CLINICAL INFORMATION: Pain in the right hip COMPARISON: Left hip 04/03/2021. CT scan abdomen pelvis 12/04/2020 TECHNIQUE: Cone-down AP and oblique view of each hip FINDINGS: Joint spaces of the hip are normal bilaterally. There is a small spur of the superior lateral margin of the left acetabular head. No bone erosion. No soft tissue calcification. Normal sacroiliac joints. There is a transitional lumbar vertebrae with the left transverse process articulating with the sacrum. Degenerative disc narrowing and endplate spur at L4-L5. XR/XR hips BELINAD min 3V IMPRESSION: Small degenerative spur the superior lateral margin of the left femoral head. Hip joints are normal bilaterally otherwise.
== END 2021-05-06 15:27 | disposition home or self-care (01) ==
LOC: HO.HMGCX 15:26
PROVIDERS: PCP Nurse Practitioner Family; Visit Provider Nurse Practitioner Family
DX: M25.551 Pain in right hip (principal); M25.552 Pain in left hip; M54.50 Low back pain, unspecified
CPT/HCPCS: 73522

== ENCOUNTER 2021-05-23 15:32 | Outpatient (REF) | payer OTHER, SELFPAY ==
--- NOTE | ~2021-05-23 | XR_ITS ---
EXAMINATION: XR LUMBOSACRAL SPINE CLINICAL INFORMATION: Low back pain COMPARISON: CT 12/04/2020. Lumbar spine radiographs 02/03/2028 TECHNIQUE: AP and lateral views of the lumbar spine with an additional coned down lateral spot view of the lumbosacral junction. FINDINGS: There is transitional thoracolumbar and lumbosacral anatomy. 5 nonrib-bearing lumbar type vertebral bodies are seen. The next segment has a lumbar-type right transverse process with a prominent left transverse process that forms a pseudoarticulation with the sacrum. This can be a pain generator. Following the conventional the prior lumbar spine radiograph, the first nonrib-bearing vertebral body is designated T12. The transitional lumbosacral segment is designated L5. There is severe degenerative disc disease at L4-L5 with loss of disc height, endplate sclerosis, and anterior osteophytosis. Severe lower lumbar facet arthropathy L4-L5 and L5-S1. Abdominal aortic vascular calcifications. No compression fracture. Normal sagittal alignment. Posterior elements are intact. XR/XR lumbar spine 2-3V IMPRESSION: Transitional thoracolumbar and lumbosacral anatomy as described above. Recommend careful anatomic localization prior to any intervention or surgery. No compression fracture or acute osseous abnormality. Severe degenerative disc disease at L4-L5, similar to the earlier CT but progressed since 2018. Worsened facet arthropathy at L4-L5 and L5-S1.
== END 2021-05-23 15:33 | disposition home or self-care (01) ==
LOC: HO.HMGCX 15:32
PROVIDERS: PCP Nurse Practitioner Family; Visit Provider Nurse Practitioner Family
DX: M54.50 Low back pain, unspecified (principal)
CPT/HCPCS: 72100

== ENCOUNTER 2021-06-05 16:00 | Outpatient (RCR) | payer OTHER, SELFPAY ==
--- NOTE | 2021-04-11 19:24 | MHC.PT.EP ---
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 Pt is deemed an appropriate candidate to receive skilled PT in order to address her physical limitations to improve her functional ability. Frequency and Duration: The patient will be seen 2 x / wk x 5 wks. Short Term Goals: Initiate HEP. In 3 weeks: improve baseline pain to , 6/10, initial: 9/10. 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 In 5 weeks: I with HEP. Treatment Plan: Modalities to reduce pain, spasms and effusion. Manual therapy to restore motion and function. Therapeutic exercise to improve strength and flexibility. Neuromuscular re-education for posture and balance. Therapeutic activities to return to functional activities of daily living. Electronically signed by: Arthur Schumacher PT Please sign and return to therapist. Thank you for your referral.
--- NOTE | 2021-06-24 10:37 | MHC.PT.DC ---
[facility] [place] Office [place] Office [place] Office [address] [phone] F: [phone] F: [phone] F: [phone] F: [phone] Physical Therapy Discharge Report Diagnosis: L hip pain Date of Surgery: Date of Evaluation: 04/11/21 Date of Discharge: 06/24/21 Treatments to Date: 11 Cancellations to Date: 2 No Shows to Date: 1 Discharge Status: Improved Function Independent with HEP Patient Elected to Stop Physician Discontinued Tx Discharge Summary: Pt has improved her function significantly while in PT though persisted with lumbar and Leg pain; Pt has had a consult with [facility] and aneudy CORRALES'jorge luis to their care. Electronically signed by: Arthur Schumacher PT. Please sign and return to therapist. Thank you for your referral.
== END 2021-06-24 10:37 | disposition home or self-care (01) ==
LOC: HO.PTCHIC 16:00
PROVIDERS: PCP Nurse Practitioner Family; Visit Provider Nurse Practitioner Family
DX: M25.552 Pain in left hip (principal); M05.9 Rheumatoid arthritis with rheumatoid factor, unspecified; M54.9 Dorsalgia, unspecified
CPT/HCPCS: 97110; 97140; 97161

== ENCOUNTER 2021-06-26 15:19 | Outpatient (REF) | payer OTHER, SELFPAY ==
[2021-06-26 16:59] LABS: C Reactive Protein 0.72 mg/dL (< or = 0.50)
[2021-06-26 17:07] LABS: Erythrocyte Sedimentation Rate 6 MM/HR (0-20)
== END 2021-06-26 15:20 | disposition home or self-care (01) ==
LOC: HO.HMGCLDS 15:19
PROVIDERS: PCP Nurse Practitioner Family; Visit Provider Nurse Practitioner Family
DX: M05.9 Rheumatoid arthritis with rheumatoid factor, unspecified (principal)
CPT/HCPCS: 36415; 85652; 86140

== ENCOUNTER → 2021-07-02 09:09 | Outpatient (BNVA) | payer OTHER, SELFPAY | PROVIDERS: PCP Nurse Practitioner Family; Visit Provider Nurse Practitioner Family | DX: M05.9 Rheumatoid arthritis with rheumatoid factor, unspecified (principal); M54.50 Low back pain, unspecified; Z79.899 Other long term (current) drug therapy | CPT/HCPCS: 99212 ==

== ENCOUNTER 2021-09-30 08:32 | Outpatient (REF) | payer OTHER, SELFPAY ==
[2021-09-30 11:35] LABS: MANUAL DIFF FLAG NO
[2021-09-30 11:54] LABS: Prothrombin Time 11.5 SEC (9.9-13.0)
[2021-09-30 11:56] LABS: Partial Thromboplastin Time 34.6 SEC (24.1-38.0)
[2021-09-30 12:11] LABS: Alanine Aminotransferase 28 U/L (0-31); Albumin Level 4.4 g/dL (3.5-5.0); Alkaline Phosphatase 94 U/L (39-117); Anion Gap 13 (12-20); Aspartate Amino Transferase 23 U/L (5-31); Basophils Percent Auto 0.9 % (0-2); Bilirubin Total 0.4 mg/dL (0.0-1.0); Blood Urea Nitrogen 15 mg/dL (9-16); Calcium 9.9 mg/dL (8.4-10.2); Carbon Dioxide 23 mmol/L (22-29); Chloride 107 mmol/L (96-108); Eosinophils Percent Auto 0.6 % (0-4); Estimated Glomerular Filt Rate > 60; Glucose Random 101 mg/dL (60-115); Lymphocytes Absolute Auto 1.9 X10*3/uL (1.2-4.9); Lymphocytes Percent Auto 39.6 % (20-40); Mean Corpuscular HGB Conc 33.3 g/dl (31.0-35.0); Mean Corpuscular Volume 93.1 fL (80.0-98.0); Mean Platelet Volume 11.1 fL (9.4-12.3); Monocytes Absolute Auto 0.5 X10*3/uL (0.1-1.2); Monocytes Percent Auto 10.2 % (2-11); Neutrophils Absolute Auto 2.3 x10*3/uL (2.0-8.3); Neutrophils Percent Auto 48.7 % (45-73); Platelet Count 275 X10*3/uL (160-400); Potassium 4.5 mmol/L (3.3-5.1); Red Blood Count 4.51 X10*6/uL (4.20-5.50); Red Cell Distribution Width 12.9 % (11.0-16.0); Sodium 138 mmol/L (135-145); Total Protein 7.2 g/dL (6.5-8.0); White Blood Count 4.7 X10*3/uL (4.8-10.8)
== END 2021-09-30 08:33 | disposition home or self-care (01) ==
LOC: HO.HMGCLDS 08:32
PROVIDERS: Visit Provider Nurse Practitioner Family
DX: Z01.818 Encounter for other preprocedural examination (principal)
CPT/HCPCS: 36415; 80053; 85025; 85610; 85730

== ENCOUNTER → 2021-10-03 09:14 | Outpatient (BNVA) | payer OTHER, SELFPAY | PROVIDERS: PCP Nurse Practitioner Family; Visit Provider Nurse Practitioner Family | DX: M05.9 Rheumatoid arthritis with rheumatoid factor, unspecified (principal); M54.50 Low back pain, unspecified; Z86.718 Personal history of other venous thrombosis and embolism; Z79.01 Long term (current) use of anticoagulants; Z79.899 Other long term (current) drug therapy | CPT/HCPCS: 99212 ==

== ENCOUNTER → 2021-11-21 13:39 | Outpatient (BNVA) | payer OTHER, SELFPAY | PROVIDERS: PCP Nurse Practitioner Family; Visit Provider Nurse Practitioner Family | DX: M05.9 Rheumatoid arthritis with rheumatoid factor, unspecified (principal); M54.50 Low back pain, unspecified; Z86.718 Personal history of other venous thrombosis and embolism; Z79.01 Long term (current) use of anticoagulants; Z79.899 Other long term (current) drug therapy | CPT/HCPCS: 99212 ==

== ENCOUNTER 2021-12-05 08:30 | Outpatient (REF) | payer OTHER, SELFPAY ==
[2021-12-05 10:38] LABS: C Reactive Protein 1.51 mg/dL (< or = 0.50)
[2021-12-05 10:51] LABS: Erythrocyte Sedimentation Rate 8 MM/HR (0-20)
== END 2021-12-05 08:31 | disposition home or self-care (01) ==
LOC: HO.LAB 08:30
PROVIDERS: PCP Nurse Practitioner Family; Visit Provider Nurse Practitioner Family
DX: M05.9 Rheumatoid arthritis with rheumatoid factor, unspecified (principal)
CPT/HCPCS: 36415; 85652; 86140

== ENCOUNTER 2022-02-21 11:25 | Outpatient (REF) | payer OTHER, SELFPAY ==
[2022-02-21 12:02] LABS: Basophils Percent Auto 1.3 % (0-2); Hematocrit 38.3 % (37.0-47.0); Hemoglobin 12.7 g/dl (12.0-16.0); Lymphocytes Absolute Auto 1.6 X10*3/uL (1.2-4.9); Lymphocytes Percent Auto 52.2 % (20-40); MANUAL DIFF FLAG SCAN; Mean Corpuscular HGB Conc 33.2 g/dl (31.0-35.0); Mean Corpuscular Hemoglobin 30.7 pg (27.0-33.0); Mean Corpuscular Volume 92.5 fL (80.0-98.0); Mean Platelet Volume 10.4 fL (9.4-12.3); Monocytes Absolute Auto 0.4 X10*3/uL (0.1-1.2); Monocytes Percent Auto 14.4 % (2-11); Neutrophils Absolute Auto 0.9 x10*3/uL (2.0-8.3); Neutrophils Percent Auto 31.1 % (45-73); Platelet Count 213 X10*3/uL (160-400); Red Blood Count 4.14 X10*6/uL (4.20-5.50); Red Cell Distribution Width 13.2 % (11.0-16.0); SCAN SMEAR FLAG 1
[2022-02-21 12:31] LABS: SLIDE REVIEW VERIFIED
[2022-02-21 12:34] LABS: Alanine Aminotransferase 22 U/L (0-31); Aspartate Amino Transferase 23 U/L (5-31); C Reactive Protein 0.81 mg/dL (< or = 0.50); Estimated Glomerular Filt Rate > 60
[2022-02-21 13:24] LABS: Erythrocyte Sedimentation Rate 7 MM/HR (0-20)
== END 2022-02-21 11:26 | disposition home or self-care (01) ==
LOC: HO.LAB 11:25
PROVIDERS: PCP Nurse Practitioner Family; Visit Provider Nurse Practitioner Family
DX: M05.9 Rheumatoid arthritis with rheumatoid factor, unspecified (principal); M54.50 Low back pain, unspecified; D70.9 Neutropenia, unspecified; Z79.899 Other long term (current) drug therapy
CPT/HCPCS: 36415; 82565; 84450; 84460; 85025; 85652; 86140; 99212

== ENCOUNTER 2022-02-26 09:14 | Outpatient (REF) | payer OTHER, SELFPAY ==
[2022-02-26 09:29] LABS: MANUAL DIFF FLAG NO
[2022-02-26 09:43] LABS: Basophils Percent Auto 1.1 % (0-2); Eosinophils Percent Auto 0.8 % (0-4); Hematocrit 40.8 % (37.0-47.0); Hemoglobin 13.4 g/dl (12.0-16.0); Lymphocytes Absolute Auto 1.6 X10*3/uL (1.2-4.9); Lymphocytes Percent Auto 43.4 % (20-40); Mean Corpuscular HGB Conc 32.8 g/dl (31.0-35.0); Mean Corpuscular Hemoglobin 30.5 pg (27.0-33.0); Mean Corpuscular Volume 92.7 fL (80.0-98.0); Mean Platelet Volume 10.2 fL (9.4-12.3); Monocytes Absolute Auto 0.5 X10*3/uL (0.1-1.2); Monocytes Percent Auto 14.2 % (2-11); Neutrophils Absolute Auto 1.5 x10*3/uL (2.0-8.3); Neutrophils Percent Auto 40.5 % (45-73); Platelet Count 233 X10*3/uL (160-400); Red Cell Distribution Width 13.3 % (11.0-16.0); White Blood Count 3.7 X10*3/uL (4.8-10.8)
[2022-02-26 10:13] LABS: Alanine Aminotransferase 30 U/L (0-31); Albumin Level 4.4 g/dL (3.5-5.0); Alkaline Phosphatase 91 U/L (39-117); Anion Gap 16 (12-20); Aspartate Amino Transferase 30 U/L (5-31); Bilirubin Total 0.5 mg/dL (0.0-1.0); Blood Urea Nitrogen 18 mg/dL (9-16); Calcium 9.2 mg/dL (8.4-10.2); Carbon Dioxide 20 mmol/L (22-29); Chloride 109 mmol/L (96-108); Cholesterol 240 mg/dL; Estimated Glomerular Filt Rate > 60; Glucose Fasting 107 mg/dL (60-99); HDL Cholesterol 66 mg/dL; LDL Cholesterol Calculated 148 mg/dl; Potassium 4.5 mmol/L (3.3-5.1); Sodium 140 mmol/L (135-145); Total Protein 6.9 g/dL (6.5-8.0); Triglycerides 133 mg/dL
[2022-02-26 10:37] LABS: TSH reflex Free T4 2.67 uIU/mL (0.32-4.0)
[2022-02-26 11:02] LABS: Appearance Urine Clear; Color Urine Yellow; Glucose Urine UA Negative (Negative); Leukocyte Esterase Urine Small (1+) (Negative); Nitrite Urine Negative (Negative); PH 5.5 (5.0-9.0); UMIC TRIGGER UACC YES; Urine Blood Negative (Negative); Urine Ketones Negative (Negative); Urine Protein Negative (Neg-Trace)
[2022-02-26 11:22] LABS: Bacteria Urine None Seen (None Seen); Hyaline Casts Urine 0-2 /LPF (0-2); RBC Urine 0-2 /HPF (0-2); Squamous Epithelial Cell Urine 0-2 /HPF (0-2); UACC Culture Trigger YES; WBC Urine 0-5 /HPF (0-5)
== END 2022-02-26 09:15 | disposition home or self-care (01) ==
LOC: HO.LAB 09:14
PROVIDERS: PCP Nurse Practitioner Family; Visit Provider Nurse Practitioner Family
DX: Z00.00 Encounter for general adult medical examination without abnormal findings (principal); D70.9 Neutropenia, unspecified
CPT/HCPCS: 36415; 80053; 80061; 81001; 81003; 84443; 85025; 87086

== ENCOUNTER 2022-03-12 08:48 | Outpatient (REF) | payer OTHER, SELFPAY ==
[2022-03-12 10:18] LABS: Eosinophils Percent Auto 0.7 % (0-4); Hematocrit 41.7 % (37.0-47.0); Hemoglobin 13.8 g/dl (12.0-16.0); Lymphocytes Absolute Auto 1.6 X10*3/uL (1.2-4.9); Lymphocytes Percent Auto 55.2 % (20-40); MANUAL DIFF FLAG SCAN; Mean Corpuscular HGB Conc 33.1 g/dl (31.0-35.0); Mean Corpuscular Hemoglobin 30.6 pg (27.0-33.0); Mean Corpuscular Volume 92.5 fL (80.0-98.0); Monocytes Absolute Auto 0.5 X10*3/uL (0.1-1.2); Neutrophils Absolute Auto 0.8 x10*3/uL (2.0-8.3); Neutrophils Percent Auto 27.1 % (45-73); Platelet Count 253 X10*3/uL (160-400); Red Blood Count 4.51 X10*6/uL (4.20-5.50); Red Cell Distribution Width 13.1 % (11.0-16.0); SCAN SMEAR FLAG 1; White Blood Count 2.9 X10*3/uL (4.8-10.8)
[2022-03-12 11:03] LABS: Anion Gap 17 (12-20); Carbon Dioxide 20 mmol/L (22-29); Chloride 107 mmol/L (96-108); Cholesterol 231 mg/dL; HDL Cholesterol 66 mg/dL; LDL Cholesterol Calculated 133 mg/dl; Potassium 4.6 mmol/L (3.3-5.1); Sodium 139 mmol/L (135-145); Triglycerides 160 mg/dL
[2022-03-12 11:14] LABS: SLIDE REVIEW VERIFIED
[2022-03-12 11:24] LABS: Vitamin D 25-OH Total 35.7 ng/mL (>30)
[2022-03-14 16:46] LABS: Calcium, Ionized 4.8 mg/dL (4.8-5.6)
[2022-03-14 19:41] LABS: Calcium (PTHI) 9.2 mg/dL (8.6-10.4); PTHI 54 pg/mL (16-77)
== END 2022-03-12 08:49 | disposition home or self-care (01) ==
LOC: HO.LAB 08:48
PROVIDERS: PCP Nurse Practitioner Family; Visit Provider Nurse Practitioner Family
DX: Z00.00 Encounter for general adult medical examination without abnormal findings (principal); E87.5 Hyperkalemia; E83.52 Hypercalcemia; E78.5 Hyperlipidemia, unspecified
CPT/HCPCS: 36415; 80051; 80061; 82306; 82330; 83970; 85025

== ENCOUNTER 2022-03-25 08:54 | Outpatient (REF) | payer OTHER, SELFPAY ==
[2022-03-25 09:54] LABS: Hematocrit 41.6 % (37.0-47.0); Imm Gran Abs Auto 0.01 X10*3/uL (0.00-0.03); Imm Gran Pct Auto 0.3 % (0.0-0.4); Lymphocytes Absolute Auto 1.4 X10*3/uL (1.2-4.9); Lymphocytes Percent Auto 49.3 % (20-40); MANUAL DIFF FLAG SCAN; Mean Corpuscular HGB Conc 33.7 g/dl (31.0-35.0); Mean Corpuscular Hemoglobin 30.2 pg (27.0-33.0); Mean Corpuscular Volume 89.7 fL (80.0-98.0); Mean Platelet Volume 10.6 fL (9.4-12.3); Monocytes Absolute Auto 0.7 X10*3/uL (0.1-1.2); Monocytes Percent Auto 22.6 % (2-11); Neutrophils Absolute Auto 0.8 x10*3/uL (2.0-8.3); Neutrophils Percent Auto 25.8 % (45-73); Platelet Count 235 X10*3/uL (160-400); Red Blood Count 4.64 X10*6/uL (4.20-5.50); Red Cell Distribution Width 12.4 % (11.0-16.0); SCAN SMEAR FLAG 1; White Blood Count 2.9 X10*3/uL (4.8-10.8)
[2022-03-25 10:23] LABS: SLIDE REVIEW VERIFIED
[2022-03-25 10:25] LABS: Alanine Aminotransferase 16 U/L (0-31); Albumin Level 4.5 g/dL (3.5-5.0); Alkaline Phosphatase 113 U/L (39-117); Anion Gap 18 (12-20); Aspartate Amino Transferase 19 U/L (5-31); Bilirubin Total 0.6 mg/dL (0.0-1.0); Blood Urea Nitrogen 20 mg/dL (9-16); Calcium 9.7 mg/dL (8.4-10.2); Carbon Dioxide 21 mmol/L (22-29); Chloride 104 mmol/L (96-108); Estimated Glomerular Filt Rate > 60; Glucose Random 86 mg/dL (60-115); Potassium 4.9 mmol/L (3.3-5.1); Sodium 138 mmol/L (135-145); Total Protein 7.3 g/dL (6.5-8.0)
[2022-03-25 10:52] LABS: Appearance Urine Clear; Color Urine Yellow; Glucose Urine UA Negative (Negative); Leukocyte Esterase Urine Small (1+) (Negative); Nitrite Urine Negative (Negative); UMIC TRIGGER UACC YES; Urine Blood Negative (Negative); Urine Ketones Negative (Negative); Urine Protein Negative (Neg-Trace)
[2022-03-25 11:24] LABS: Bacteria Urine None Seen (None Seen); Hyaline Casts Urine 0-2 /LPF (0-2); RBC Urine 0-2 /HPF (0-2); Squamous Epithelial Cell Urine 0-2 /HPF (0-2); UACC Culture Trigger YES; WBC Urine 0-5 /HPF (0-5)
== END 2022-03-25 08:55 | disposition home or self-care (01) ==
LOC: HO.LAB 08:54
PROVIDERS: PCP Nurse Practitioner Family; Visit Provider Nurse Practitioner Family
DX: D70.9 Neutropenia, unspecified (principal); M05.9 Rheumatoid arthritis with rheumatoid factor, unspecified
CPT/HCPCS: 36415; 80053; 81001; 85025; 87086; 87147

== ENCOUNTER 2022-04-02 08:52 | Outpatient (REF) | payer OTHER, SELFPAY ==
[2022-04-02 11:31] LABS: Appearance Urine Clear; Color Urine Yellow; Glucose Urine UA Negative (Negative); Leukocyte Esterase Urine Negative (Negative); Nitrite Urine Negative (Negative); Urine Blood Negative (Negative); Urine Ketones Negative (Negative); Urine Protein Negative (Neg-Trace)
== END 2022-04-02 08:53 | disposition home or self-care (01) ==
LOC: HO.HMGCLDS 08:52
PROVIDERS: Absent Provider Nurse Practitioner Family; PCP Nurse Practitioner Family; Visit Provider Nurse Practitioner Family
DX: Z00.00 Encounter for general adult medical examination without abnormal findings (principal)
CPT/HCPCS: 81003

== ENCOUNTER 2022-05-06 08:56 | Outpatient (REF) | payer OTHER, SELFPAY ==
[2022-05-08 19:59] LABS: HPV mRNA E6/E7 rflx Not Detected (Not Detected)
== END 2022-05-06 08:57 | disposition home or self-care (01) ==
LOC: HO.LNP 08:56
PROVIDERS: PCP Nurse Practitioner Family; Visit Provider Obstetrics & Gynecology
DX: Z01.419 Encounter for gynecological examination (general) (routine) without abnormal findings (principal); Z11.51 Encounter for screening for human papillomavirus (HPV); N88.9 Noninflammatory disorder of cervix uteri, unspecified; N87.0 Mild cervical dysplasia; N90.89 Other specified noninflammatory disorders of vulva and perineum
CPT/HCPCS: 57500; 87624; 88142; 88305

== ENCOUNTER 2022-05-09 12:48 | Outpatient (REF) | payer OTHER, SELFPAY ==
--- NOTE | ~2022-05-09 | MM_ITS ---
EXAMINATION: MM SCREENING DIGITAL BREAST TOMOSYNTHESIS, BILATERAL CLINICAL INFORMATION: Screening. Asymptomatic. The lifetime risk of breast cancer based on the Tyrer-Cuzick Model is 4%. COMPARISON: Mammography: 02/20/2020, 02/14/2019, 10/08/2016 TECHNIQUE: Digital breast tomosynthesis is performed in both the craniocaudal and mediolateral oblique views along with computer-aided detection (CAD). Synthesized 2D images are generated from the tomosynthesis. FINDINGS: There are scattered areas of fibroglandular density (ACR BI-RADS breast composition Category b). There are no significant masses, abnormal calcifications, or other abnormalities. Parenchymal pattern is similar to prior studies. There is no developing density or architectural abnormality. The axilla are unremarkable. No significant changes. MM/MM tomosynthesis screening BI IMPRESSION: No mammographic evidence of malignancy. ASSESSMENT: BI-RADS 1: Negative RECOMMENDATION: Routine annual mammography screening. This patient's information was entered into a reminder system with a target due date for their next mammogram.
== END 2022-05-09 12:49 | disposition home or self-care (01) ==
LOC: HO.MAMMO 12:48
PROVIDERS: PCP Nurse Practitioner Family; Visit Provider Nurse Practitioner Family
DX: Z12.31 Encounter for screening mammogram for malignant neoplasm of breast (principal)
CPT/HCPCS: 77063; 77067

== ENCOUNTER → 2022-05-26 08:53 | Outpatient (BNVA) | payer OTHER, SELFPAY | PROVIDERS: PCP Nurse Practitioner Family; Visit Provider Nurse Practitioner Family | DX: M05.9 Rheumatoid arthritis with rheumatoid factor, unspecified (principal); M54.50 Low back pain, unspecified | CPT/HCPCS: 99212 ==

== ENCOUNTER 2022-06-18 13:43 | Outpatient (REF) | payer MEDICARE, MEDICAID, SELFPAY | END 2022-06-18 13:44 | disposition home or self-care (01) | LOC: HO.LNP 13:43 | PROVIDERS: PCP Nurse Practitioner Family; Visit Provider Obstetrics & Gynecology | DX: N90.89 Other specified noninflammatory disorders of vulva and perineum (principal); N88.9 Noninflammatory disorder of cervix uteri, unspecified | CPT/HCPCS: 56605; 88305; 99212 ==

== ENCOUNTER → 2022-07-03 09:13 | Outpatient (BNVA) | payer MEDICARE, MEDICAID, SELFPAY | PROVIDERS: PCP Nurse Practitioner Family; Visit Provider Nurse Practitioner Family | DX: M05.9 Rheumatoid arthritis with rheumatoid factor, unspecified (principal); M54.50 Low back pain, unspecified | CPT/HCPCS: 36415; 82565; 84450; 84460; 85025; 85652; 86140; 99212 ==

== ENCOUNTER 2022-07-03 10:08 | Outpatient (REF) | payer MEDICARE, MEDICAID, SELFPAY ==
[2022-07-03 10:48] LABS: MANUAL DIFF FLAG NO
[2022-07-03 10:58] LABS: Basophils Percent Auto 1.3 % (0-2); Eosinophils Percent Auto 1.3 % (0-4); Hematocrit 41.6 % (37.0-47.0); Hemoglobin 13.9 g/dl (12.0-16.0); Lymphocytes Absolute Auto 1.5 X10*3/uL (1.2-4.9); Lymphocytes Percent Auto 46.2 % (20-40); Mean Corpuscular HGB Conc 33.4 g/dl (31.0-35.0); Mean Corpuscular Hemoglobin 29.1 pg (27.0-33.0); Mean Platelet Volume 10.1 fL (9.4-12.3); Monocytes Absolute Auto 0.5 X10*3/uL (0.1-1.2); Monocytes Percent Auto 14.6 % (2-11); Neutrophils Absolute Auto 1.2 x10*3/uL (2.0-8.3); Neutrophils Percent Auto 36.6 % (45-73); Platelet Count 292 X10*3/uL (160-400); Red Blood Count 4.78 X10*6/uL (4.20-5.50); Red Cell Distribution Width 12.7 % (11.0-16.0); White Blood Count 3.1 X10*3/uL (4.8-10.8)
[2022-07-03 11:22] LABS: Alanine Aminotransferase 15 U/L (0-31); Aspartate Amino Transferase 18 U/L (5-31); C Reactive Protein 1.95 mg/dL (< or = 0.50); Estimated Glomerular Filt Rate > 60
[2022-07-03 11:37] LABS: Erythrocyte Sedimentation Rate 23 MM/HR (0-20)
== END 2022-07-03 10:09 | disposition home or self-care (01) ==
LOC: HO.10HDL 10:08
PROVIDERS: Visit Provider Nurse Practitioner Family
DX: Z13.89 Encounter for screening for other disorder (principal)
CPT/HCPCS: 36415; 82565; 84450; 84460; 85025; 85652; 86140; 99212

== ENCOUNTER 2022-07-09 09:42 | Outpatient (REF) | payer MEDICARE, MEDICAID, SELFPAY ==
[2022-07-09 11:36] LABS: Basophils Percent Auto 0.7 % (0-2); Eosinophils Percent Auto 0.4 % (0-4); Hematocrit 38.8 % (37.0-47.0); Hemoglobin 13.1 g/dl (12.0-16.0); Lymphocytes Absolute Auto 1.2 X10*3/uL (1.2-4.9); Lymphocytes Percent Auto 42.8 % (20-40); MANUAL DIFF FLAG SCAN; Mean Corpuscular HGB Conc 33.8 g/dl (31.0-35.0); Mean Corpuscular Hemoglobin 29.8 pg (27.0-33.0); Mean Corpuscular Volume 88.4 fL (80.0-98.0); Mean Platelet Volume 10.6 fL (9.4-12.3); Monocytes Absolute Auto 0.7 X10*3/uL (0.1-1.2); Monocytes Percent Auto 26.4 % (2-11); Neutrophils Absolute Auto 0.8 x10*3/uL (2.0-8.3); Neutrophils Percent Auto 29.7 % (45-73); Platelet Count 226 X10*3/uL (160-400); Red Blood Count 4.39 X10*6/uL (4.20-5.50); Red Cell Distribution Width 12.5 % (11.0-16.0); SCAN SMEAR FLAG 1; White Blood Count 2.7 X10*3/uL (4.8-10.8)
[2022-07-09 11:49] LABS: Alanine Aminotransferase 18 U/L (0-31); Alkaline Phosphatase 113 U/L (39-117); Anion Gap 13 (12-20); Aspartate Amino Transferase 23 U/L (5-31); Bilirubin Total 0.3 mg/dL (0.0-1.0); Blood Urea Nitrogen 14 mg/dL (9-16); Calcium 8.8 mg/dL (8.4-10.2); Carbon Dioxide 26 mmol/L (22-29); Chloride 103 mmol/L (96-108); Estimated Glomerular Filt Rate > 60; Glucose Random 87 mg/dL (60-115); Potassium 4.2 mmol/L (3.3-5.1); Sodium 138 mmol/L (135-145); Total Protein 6.7 g/dL (6.5-8.0)
[2022-07-09 12:17] LABS: Influenza A PCR NEGATIVE (Negative); Influenza B PCR NEGATIVE (Negative); Resp Syncy Virus RNA Qual PCR NEGATIVE (Negative); SARS COV2 PCR INHOUSE POSITIVE (Negative)
[2022-07-09 12:22] LABS: SLIDE REVIEW VERIFIED
== END 2022-07-09 09:43 | disposition home or self-care (01) ==
LOC: HO.HMGCLDS 09:42
PROVIDERS: PCP Nurse Practitioner Family; Visit Provider Nurse Practitioner Family
DX: Z20.822 Contact with and (suspected) exposure to COVID-19 (principal)
CPT/HCPCS: 0241U; 36415; 80053; 85025

== ENCOUNTER → 2022-12-11 09:18 | Outpatient (BNVA) | payer MEDICARE, MEDICAID, SELFPAY | PROVIDERS: PCP Nurse Practitioner Family; Visit Provider Internal Medicine Rheumatology | DX: M05.9 Rheumatoid arthritis with rheumatoid factor, unspecified (principal); D72.819 Decreased white blood cell count, unspecified | CPT/HCPCS: 99212 ==

== ENCOUNTER 2022-12-11 10:38 | Outpatient (REF) | payer MEDICARE, MEDICAID, SELFPAY | END 2022-12-11 10:39 | disposition home or self-care (01) | LOC: HO.10HDL 10:38 | PROVIDERS: Visit Provider Internal Medicine Rheumatology | DX: D72.819 Decreased white blood cell count, unspecified (principal); M05.9 Rheumatoid arthritis with rheumatoid factor, unspecified; Z79.899 Other long term (current) drug therapy | CPT/HCPCS: 36415; 85025; 85652; 86140 ==

== ENCOUNTER 2023-05-06 11:16 | Outpatient (AMB) | payer MEDICARE, MEDICAID, SELFPAY ==
--- NOTE | 2023-05-06 11:56 | MHC.PC.OV ---
Vital Signs 05/06/23 12:09 Height 5 ft 4 in Weight 186 lb 6 oz BMI 32.0 BP 100/70 Blood Pressure Location Rt brachial Position Sitting Pulse 80 Pulse Source Pulse Oximeter Pulse Oximetry (%) 99 Oxygen Delivery Method Room Air Intake Visit Reasons: Annual Physical Intake Note: Patient here for physical exam. Pt would like to talk about multiple issues such as mood swings, easily annoyed, forgetfulness. Allergies penicillin G [PENICILLIN G] Allergy (Severe, Verified 05/06/23 12:12) ANAPHYLAXIS Tobacco use date assessed: 11/06/22 Fall risk assessment: No Falls in past year Last assessed Fall Risk: 05/06/23 Dental Screening Dental Screen Date: 05/06/23 Did you have a dental visit in the last 12 months?: No Did you have a dental problem in the last 6 months where you did not have access to dental care?: No Was dental information given to patient?: Patient has dentist HPI Annual Physical HPI Details Pt is here for a PE. Will order labs. Due for colon screen. Due for mammo, will order. Due for bone density, will order. Has a multigraph operator. Pt follows up with rheumatology. Will refer for colon screen. Pt reports snapping more at her . Do ? more depression/anxiety lately (+ PQH-9 today). Pt denies any SI or HI. Pt is not interested in meds or therapy, currently, i will think about it . Lastly, pt reported having a possible tick bite on her calf a couple of weeks ago. Denies any current fevers, chills, rashes. Will order tick testing [facility] Medical History (Updated 05/06/23 @ 12:36 by BRANDON Yeboah-VENUS) Cervical carcinoma DDD (degenerative disc disease), lumbar ASCUS (atypical squamous cells of undetermined significance) on gynecologic Papanicolaou smear complicating , antepartum Seropositive rheumatoid arthritis HTN (hypertension) Rheumatoid arthritis Hyperlipemia DVT (deep venous thrombosis) Surgical History History of back surgery S/P lumbar microdiscectomy S/P biopsy of cervix History of bunionectomy of both great toes Family History Mother Colon cancer metastasized to multiple sites HTN (hypertension) Substance use disorder Maternal Aunt Breast cancer Father HTN (hypertension) Substance use disorder Brother HTN (hypertension) Heart attack Enlarged heart Brain aneurysm Brother HTN (hypertension) Sister HTN (hypertension) Sister HTN (hypertension) Sister HTN (hypertension) Social History Household Members: Spouse Housing: Apartment Are you a primary skin care instructor to a significant other at home: No Do you presently have visiting nurse or other home services: No Alcohol intake: current Alcohol intake frequency: a few times a month Alcohol type: beer Patient Tobacco Use Status: Former Tobacco user Years Smoked: 40 years ago e-Cigarette/Vaping Use: Never Used Second Hand Smoke Exposure: No service: No Current occupational status: employed 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 1. Little interest or pleasure in doing things: more than half the days 2. Feeling down, depressed, or hopeless: more than half the days 3. Trouble falling or staying asleep, or sleeping too much: nearly every day 4. Feeling tired or having little energy: several days 5. Poor appetite or overeating: more than half the days 6. Feeling bad about yourself - or that you are a failure or have let yourself or your family down: more than half the days 7. Trouble concentrating on things, such as reading the newspaper or watching television: more than half the days 8. Moving or speaking so slowly that other people could have noticed. Or the opposite - being so fidgety or restless that you have been moving around a lot more than usual: not at all 9. Thoughts that you would be better off or of hurting yourself in some way: not at all Total score: 14 Depression Screening Interpretation: Positive Depression Screening Done: Yes 69560 - PHQ-9 Billing: Yes Source: Developed by Drs. Bobby Barton, Megan Wallace, Da Young and colleagues, with an educational rowan from [employer] Thrive Questionnaire Date Thrive assessed: 11/29/23 I am a: Patient What is your living situation today?: I have a steady place to live Within the past 12 months, did the food you bought not last and you didn't have the money to get more?: Never true Within the past 12 months, did you worry whether your food would run out before you got money to buy more?: Never true Do you have trouble paying for medicines?: No Do you have trouble getting transportation to medical appointments?: No Do you have trouble paying your heating and electricity bill?: No Do you have trouble taking care of your child, family member or friend?: No Do you have trouble with day-to-day activities such as bathing, preparing meals, shopping, managing finances, etc.?: No Are you currently unemployed and looking for a job?: No Are you interested in more education?: No AUDIT C Alcohol Use Questionnaire (AUDIT-C) 1. How often do you have a drink containing alcohol?: Never 3. How often do you have six or more drinks on one occasion?: Never Total Score: 0 Score Reviewed/Action Taken: No ROSA-7 AMB Questionnaire ROSA-7 Date ROSA - 7 assessed: 05/06/23 Source: Developed by Drs. Bobby Barton, Megan Wallace, Da Young and colleagues, with an educational rowan from [employer] ROSA-7 Assessment Billing ROSA-7 Assessment Tool: pt declined-do not bill Review of Systems Const Denies chills and Denies fever(s) Eyes Denies blurry vision ENT Denies vertigo, Denies dizziness and Denies sore throat Card Denies chest pain at rest, Denies chest pain with activity, Denies diaphoresis, Denies dyspnea and Denies dyspnea on exertion Resp Denies cough, Denies dyspnea, Denies dyspnea on exertion and Denies wheezing GI Denies abdominal pain, Denies melena, Denies hematochezia, Denies constipation, Denies diarrhea and Denies loose stools Denies hematuria Musc Denies numbness and Denies tingling Skin/Breast Denies lesions Neuro Denies vertigo, Denies dizziness, Denies numbness and Denies tingling Psych Denies anxiety, Denies depression, Denies homicidal ideation, Denies suicidal ideation and Denies other (substance abuse) Aller/Immun Denies wheezing Physical exam (Primary Care) Vital Signs: Last Vital Signs Pulse 80 05/06/23 12:09 BP 100/70 05/06/23 12:09 Pulse Ox 99 05/06/23 12:09 Oxygen Delivery Method Room Air 05/06/23 12:09 BMI result Body Mass Index 32.0 Tobacco/Smoking Status: Tobacco use Status Tobacco use date assessed 11/06/22 05/06/23 11:57 Patient Tobacco Use Status Former Tobacco user 05/06/23 11:57 e-Cigarette/Vaping Use Never Used 05/06/23 11:57 Depression Screening Interpretation: Positive Thrive Assessment: Date of Thrive Assessment Date Thrive assessed 09/30/21 05/06/23 11:57 Const General: cooperative Nutritional Appearance: well nourished Orientation/consciousness: patient oriented x3 HENMT Head: Yes normal to inspection, Yes normocephalic and Yes atraumatic Ears: TM's normal bilaterally Eyes General: appearance normal, both eyes and all related structures Alignment and Position: alignment normal and position normal Neck Neck: Yes normal visual inspection and Yes no lymphadenopathy Thyroid: Thyroid normal Resp Effort & Inspection: normal respiratory effort Auscultation: clear to auscultation bilaterally Cardio Rate: regular rate Rhythm: regular rhythm Heart sounds: S1 normal heart sound present, S2 normal heart sound present and no murmurs GI Palpation (GI): Soft to palpation and nontender Auscultation: normal bowel sounds Skin Other: several seborrheic keratosis lesions to face, scalp, extrem. several darker skin tags also noted. Rashes: no rashes Neuro General: patient oriented x3, moves all extremities, no focal motor deficits and deep tendon reflexes 2+ bilaterally Romberg Test: Negative Psych Appearance: grossly normal Mental Status: mental status grossly normal Speech and movement: Normal speech and movement present Affect: normal affect Attitude: cooperative Thought process: Normal thought process present Thought content: Normal thought content present Insight: Good insight present (Psych) Judgement: Good judgement present (Psych) Assessment and Plan Assessment & Plan (1) senior living methotrexate user: Code(s): Z79.899 - Other bed bug exterminator (current) drug therapy (2) Postmenopausal: Code(s): Z78.0 - Asymptomatic menopausal state (3) Physical exam: Code(s): Z00.00 - Encounter for general adult medical examination without abnormal findings Plan: labs ordered, gastro referral placed, mammo ordered, pt has a multigraph operator (4) Anxiety with depression: Code(s): F41.8 - Other specified anxiety disorders (5) Tick bite: Code(s): W57.XXXA - Bitten or stung by nonvenomous insect and other nonvenomous arthropods, initial encounter Plan pt will think about meds/therapy Orders: Orders MM screening mammo BI Today Z12.31 - Encounter for screening mammogram for malignant neoplasm of breast Complete Blood Count Auto Diff Today Z00.00 - Encounter for general adult medical examination without abnormal findings TSH reflex Free T4 Today Z00.00 - Encounter for general adult medical examination without abnormal findings Lipid Panel Today Z00.00 - Encounter for general adult medical examination without abnormal findings Vitamin D 25-OH Total Today Z78.0 - Asymptomatic menopausal state Tick-borne Disease Molecular Today W57.XXXA - Bitten or stung by nonvenomous insect and other nonvenomous arthropods, initial encounter XR DEXA axial skeleton Today Z78.0 - Asymptomatic menopausal state, Z79.899 - Other bed bug exterminator (current) drug therapy Comprehensive [place]. Panel Fast Today Z00.00 - Encounter for general adult medical examination without abnormal findings UA CC w/rflx Micro + Cult Today Z00.00 - Encounter for general adult medical examination without abnormal findings Coding Level of Care Code Est Pt Prev Care >65y(37298) Diagnoses bed bug exterminator methotrexate user Z79.899 Postmenopausal Z78.0 Physical exam Z00.00 Anxiety with depression F41.8 Tick bite W57.XXXA
[2023-05-06 12:09] VITALS: BP 100/70; PULSE 80; O2SAT 99; BMI 32.0
== END 2023-05-06 13:51 | disposition home or self-care (01) ==
PROVIDERS: PCP Nurse Practitioner Family; Visit Provider Nurse Practitioner Family
DX: Z00.00 Encounter for general adult medical examination without abnormal findings (principal); Z79.899 Other long term (current) drug therapy; Z78.0 Asymptomatic menopausal state; F41.8 Other specified anxiety disorders; W57.XXXA Bitten or stung by nonvenomous insect and other nonvenomous arthropods, initial encounter
CPT/HCPCS: 99397

== ENCOUNTER 2023-05-07 08:49 | Outpatient (REF) | payer MEDICARE, SELFPAY ==
[2023-05-07 11:42] LABS: Appearance Urine Clear; Color Urine Yellow; Glucose Urine UA Negative (Negative); Leukocyte Esterase Urine Small (1+) (Negative); Nitrite Urine Negative (Negative); PH 5.5 (5.0-9.0); Specific Gravity - Urine 1.015 (1.005-1.025); UMIC TRIGGER UACC YES; Urine Blood Negative (Negative); Urine Ketones Negative (Negative); Urine Protein Negative (Neg-Trace)
[2023-05-07 11:48] LABS: Bacteria Urine None Seen (None Seen); Hyaline Casts Urine 0-2 /LPF (0-2); RBC Urine 0-2 /HPF (0-2); UACC Culture Trigger YES
[2023-05-07 12:27] LABS: Eosinophils Percent Auto 1.5 % (0-4); Hematocrit 40.6 % (37.0-47.0); Hemoglobin 13.4 g/dl (12.0-16.0); Lymphocytes Absolute Auto 1.1 X10*3/uL (1.2-4.9); Lymphocytes Percent Auto 54.9 % (20-40); MANUAL DIFF FLAG SCAN; Mean Corpuscular Hemoglobin 27.7 pg (27.0-33.0); Mean Corpuscular Volume 84.1 fL (80.0-98.0); Mean Platelet Volume 10.3 fL (9.4-12.3); Monocytes Absolute Auto 0.4 X10*3/uL (0.1-1.2); Monocytes Percent Auto 19.1 % (2-11); Neutrophils Absolute Auto 0.5 x10*3/uL (2.0-8.3); Neutrophils Percent Auto 22.5 % (45-73); Platelet Count 271 X10*3/uL (160-400); Red Blood Count 4.83 X10*6/uL (4.20-5.50); Red Cell Distribution Width 13.2 % (11.0-16.0); SCAN SMEAR FLAG 1
[2023-05-07 12:29] LABS: Alanine Aminotransferase 16 U/L (0-31); Albumin Level 4.1 g/dL (3.5-5.0); Alkaline Phosphatase 124 U/L (39-117); Anion Gap 15 (12-20); Aspartate Amino Transferase 17 U/L (5-31); Bilirubin Total 0.5 mg/dL (0.0-1.0); Blood Urea Nitrogen 20 mg/dL (9-16); Calcium 9.7 mg/dL (8.4-10.2); Carbon Dioxide 19 mmol/L (22-29); Chloride 105 mmol/L (96-108); Cholesterol 144 mg/dL (<200); Estimated Glomerular Filt Rate > 60; Glucose Fasting 94 mg/dL (60-99); HDL Cholesterol 42 mg/dL (>40); LDL Cholesterol Calculated 80 mg/dL (<100); Potassium 4.6 mmol/L (3.3-5.1); Sodium 134 mmol/L (135-145); Total Protein 7.6 g/dL (6.5-8.0); Triglycerides 110 mg/dL (<150)
[2023-05-07 12:52] LABS: TSH reflex Free T4 3.28 uIU/mL (0.32-4.0); Vitamin D 25-OH Total 39.8 ng/mL (>30)
[2023-05-07 13:30] LABS: SLIDE REVIEW VERIFIED
[2023-05-09 01:58] LABS: A. Phagocytphilium DNA,RT-PCR NOT DETECTED (NOT DETECTED); Babesia Microti DNA, RT-PCR NOT DETECTED (NOT DETECTED); Borrelia Miyamotoi,DNA RT-PCR NOT DETECTED (NOT DETECTED); E.Chaffeensis DNA RT-PCR NOT DETECTED (NOT DETECTED); Lyme(Borrelia ssp)DNA RT-PCR NOT DETECTED (NOT DETECTED)
== END 2023-05-07 08:50 | disposition home or self-care (01) ==
LOC: HO.HMGCLDS 08:49
PROVIDERS: PCP Nurse Practitioner Family; Visit Provider Nurse Practitioner Family
DX: Z00.00 Encounter for general adult medical examination without abnormal findings (principal); T14.8XXA Other injury of unspecified body region, initial encounter; W57.XXXA Bitten or stung by nonvenomous insect and other nonvenomous arthropods, initial encounter; Z78.0 Asymptomatic menopausal state; R82.90 Unspecified abnormal findings in urine; E55.9 Vitamin D deficiency, unspecified; E78.5 Hyperlipidemia, unspecified; R53.83 Other fatigue
CPT/HCPCS: 36415; 80053; 80061; 81001; 82306; 84443; 85025; 87086; 87468; 87469; 87478; 87484; 87798

== ENCOUNTER 2023-05-12 09:23 | Outpatient (AMB) | payer MEDICARE, SELFPAY ==
--- NOTE | 2023-05-12 09:28 | MHC.OFFVIS ---
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 Complaining of facial hair growth Last Pap/HPV was negative in 04/29, this was preceded by negative Pap/HPV positive, colpo biopsy JACQUE 1 in 02/26 Last Mammogram was BI-RADS 1 in 05/29 No previa Colonoscopy No previous screening DEXA scan [facility] Medical History (Updated 05/12/23 @ 09:54 by Joe Muhammad MD) JACQUE I (cervical intraepithelial neoplasia I) Depression Cervical carcinoma DDD (degenerative disc disease), lumbar ASCUS (atypical squamous cells of undetermined significance) on gynecologic Papanicolaou smear complicating , antepartum Seropositive rheumatoid arthritis HTN (hypertension) Rheumatoid arthritis Hyperlipemia DVT (deep venous thrombosis) Surgical History History of back surgery S/P lumbar microdiscectomy S/P biopsy of cervix History of bunionectomy of both great toes Family History Mother Colon cancer metastasized to multiple sites HTN (hypertension) Substance use disorder Maternal Aunt Breast cancer Father HTN (hypertension) Substance use disorder Brother HTN (hypertension) Heart attack Enlarged heart Brain aneurysm Brother HTN (hypertension) Sister HTN (hypertension) Sister HTN (hypertension) Sister HTN (hypertension) Social History Household Members: Spouse Housing: Apartment Are you a primary gericare aide to a significant other at home: No Do you presently have visiting nurse or other home services: No Alcohol intake: current Alcohol intake frequency: a few times a month Alcohol type: beer Patient Tobacco Use Status: Former Tobacco user Years Smoked: 40 years ago e-Cigarette/Vaping Use: Never Used Second Hand Smoke Exposure: No service: No Current occupational status: employed 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 Current occupational exposures/hazards: No Cognitive needs: No Hearing needs: No Vision needs: No Female Reproductive History Menstrual Total pregnancies: 4 Full term: 3 Number of Living Children: 3 Ab induced: 1 Date of last pap smear: 05/06/22 Date of Mammogram: 05/09/22 Review of Systems Const All systems reviewed & are unremarkable except as noted in HPI and below Card Reports as per HPI Resp Reports as per HPI GI Reports as per HPI and Reports no additional complaints Reports as per HPI Physical Exam Vital Signs: Last Vital Signs BP 114/66 05/12/23 09:35 BMI result Body Mass Index 31.8 Const General: cooperative, healthy appearing and comfortable Chest Chest palpation & inspection: normal inspection of the chest and normal palpation of entire chest wall Breast/axilla inspection: normal inspection of the breasts and normal inspection of the axillae Breast/axilla palpation: normal palpation of the breasts, normal palpation of the axillae and no axillary lymphadenopathy Resp Effort & Inspection: normal respiratory effort Auscultation: clear to auscultation bilaterally Percussion: percussion normal Cardio Palpation: normal PMI Rate: regular rate Rhythm: regular rhythm Heart sounds: no murmurs and no rubs Peripheral pulses: Peripheral pulses 2+ throughout GI Inspection: Yes normal to inspection Palpation (GI): Soft to palpation, nontender, no guarding, not rigid and No hepatosplenomegaly present Percussion: Yes normal to percussion Auscultation: normal bowel sounds Rectal Exam - Female: deferred General: Yes bladder normal to palpation External Female Exam: No lesion Speculum Exam - Vagina: normal appearance of the vagina, normal palpation, normal vaginal discharge and not erythematous Speculum Exam - Cervix: normal appearance of the cervix and normal palpation Bimanual exam- vagina & uterus: normal bimanual exam, normal palpation, uterine size normal, bladder normal to palpation, consistency normal and normal palpation Bimanual Exam- Adnexa, other: normal adnexae, no masses and no tenderness Assessment & Plan Assessment & Plan (1) Well woman exam: Code(s): Z01.419 - Encounter for gynecological examination (general) (routine) without abnormal findings Plan: Co testing not indicated this year, co testing will be done in 2024 Counseled the patient about the recommended dietary allowance of 1200 mg of Calcium & 800 IU of vitamin D. Mammogram ordered. Referred her for screening colonoscopy done. Will order DEXA scan . The patient was instructed to perform monthly self-breast exams and to schedule a 2 week DEXA scan follow-up appointment and an annual exam in a year; All questions answered and the patient verbalized understanding. (2) JACQUE I (cervical intraepithelial neoplasia I): Comment: 02/26 negative Pap/HPV positive, colpo biopsy JACQUE 1 04/29 co testing negative Code(s): N87.0 - Mild cervical dysplasia Plan: Repeat co testing in 2024. (3) Hirsutism: Code(s): L68.0 - Hirsutism Plan: Will order 17 hydroxyprogesterone, testosterone total and free and 24 hour urine cortisol. Instructions given to patient to schedule a 2 week follow-up appointment Orders: Orders MM screening mammo BI Today Z12.31 - Encounter for screening mammogram for malignant neoplasm of breast XR DEXA axial skeleton Today Z78.0 - Asymptomatic menopausal state Testosterone, Free/Total Today L68.0 - Hirsutism 17 Hydroxyprogesterone Today L68.0 - Hirsutism Cortisol, Free 24Hr Urine Today L68.0 - Hirsutism Referrals Gastroenterology Referral Z12.11 - Encounter for screening for malignant neoplasm of colon Coding Level of Care Code Est Pt Level 3 (61267) Est Pt Prev Care 40-64y(23015) Diagnoses Well woman exam Z01.419 JACQUE I (cervical intraepithelial neoplasia I) N87.0 Hirsutism L68.0
[2023-05-12 09:35] VITALS: BP 114/66; BMI 31.8
== END 2023-05-12 09:57 | disposition home or self-care (01) ==
PROVIDERS: Visit Provider Obstetrics & Gynecology
DX: Z01.419 Encounter for gynecological examination (general) (routine) without abnormal findings (principal); L68.0 Hirsutism; N87.0 Mild cervical dysplasia
CPT/HCPCS: 99213; 99397

== ENCOUNTER → 2023-05-12 09:23 | Outpatient (BNVA) | payer MEDICARE, SELFPAY | PROVIDERS: Visit Provider Obstetrics & Gynecology | DX: Z01.419 Encounter for gynecological examination (general) (routine) without abnormal findings (principal); N87.0 Mild cervical dysplasia; L68.0 Hirsutism | CPT/HCPCS: 99212 ==

== ENCOUNTER 2023-05-18 10:43 | Outpatient (AMB) | payer MEDICARE, SELFPAY ==
[2023-05-18 11:09] VITALS: BP 118/74; PULSE 81; BMI 31.9
--- NOTE | 2023-05-18 11:09 | A.OFFVIS_ITS ---
Intake Vital Signs 05/18/23 11:09 Height 5 ft 4 in Weight 186 lb 1.122 oz BMI 31.9 BP 118/74 Blood Pressure Location Lt brachial Position Sitting Pulse 81 Pulse Source Pulse Oximeter Intake Visit Reasons: RA Intake Note: Patient presents today to follow up on RA. Last seen by AIDEN on 12/11/22. Blindstitch Hemmer Required: No Accompanied by: Self / Same As Patient Allergies penicillin G [PENICILLIN G] Allergy (Severe, Verified 05/18/23 11:11) ANAPHYLAXIS HPI HPI Comments History of Present Illness Details Mrs. Liu, 67 yoF, here for follow-up for rheumatoid arthritis. She has had RA for about 9 years. Initial treatment with Enbrel was supplemented with methotrexate in 2016. During 2021 she was noted to have falling white blood cell counts, mostly neutrophils. Hematology workup did not reveal a source. She stopped the methotrexate in February of last year and then in March stopped the Enbrel. She felt a little bit worse after that but then started taking omrg-jxd-snhzkjh turmeric and she thinks that is helpful for her. She also uses occasional Tylenol. She has had no fevers or chills. She continues without swelling, redness and tenderness to her joints. She believes that she is doing well without the immunosuppressants. [facility] Medical History (Updated 05/19/23 @ 09:51 by Isamar Whittaker [facility]) Felty syndrome Leukopenia Leucopenia JACQUE I (cervical intraepithelial neoplasia I) Depression Cervical carcinoma DDD (degenerative disc disease), lumbar ASCUS (atypical squamous cells of undetermined significance) on gynecologic Papanicolaou smear complicating , antepartum Seropositive rheumatoid arthritis HTN (hypertension) Rheumatoid arthritis Hyperlipemia DVT (deep venous thrombosis) Surgical History History of back surgery S/P lumbar microdiscectomy S/P biopsy of cervix History of bunionectomy of both great toes Family History Mother Colon cancer metastasized to multiple sites HTN (hypertension) Substance use disorder Maternal Aunt Breast cancer Father HTN (hypertension) Substance use disorder Brother HTN (hypertension) Heart attack Enlarged heart Brain aneurysm Brother HTN (hypertension) Sister HTN (hypertension) Sister HTN (hypertension) Sister HTN (hypertension) Social History Household Members: Spouse Housing: Apartment Are you a primary complex care nurse practitioner to a significant other at home: No Do you presently have visiting nurse or other home services: No Alcohol intake: current Alcohol intake frequency: a few times a month Alcohol type: beer Patient Tobacco Use Status: Former Tobacco user Years Smoked: 40 years ago e-Cigarette/Vaping Use: Never Used Second Hand Smoke Exposure: No service: No Current occupational status: employed 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 JOINT EXAM:? Cervical Spine:.? Full range of motion without pain; no tenderness. Thoracic Spine:.? No scoliosis.? No tenderness on palpation. Lumbar Spine:.? Alignment normal.? Full range of motion with mild pain at the extremes. No tenderness. She walks with a slapping gait but she said developed after she had back surgery. The Chest Wall:.? No tenderness, swelling, increased warmth or erythema. Hands:.? Right: Normal pain-free range of motion. There is no swelling or tenderness. No thenar atrophy or sensory loss. Left: Normal pain-free range of motion with mild swelling at the 1st 2 MCP joints. There is some mild bony enlargement with tenderness at the base of the thumb. Elsewhere there is no tenderness or swelling. No thenar atrophy, flexor tendon triggering, or sensory loss. Wrists:.? Flexion and extension to limited to about 75 degrees but without pain. There is slight dorsal tenderness on the right but neither wrist has any swelling, increased warmth or erythema. Elbows:. Normal pain-free range of motion without tenderness, swelling, increased warmth or erythema. Shoulders:.?? Full range of motion without pain. No tenderness, weakness, swelling, increased warmth or erythema. Hips:.? Full range of motion without pain. Hip bursa:.? No tenderness. Knees:.?? Normal pain-free range of motion with mild patellofemoral crepitus but no effusion, tenderness, swelling, increased warmth or erythema.? Ankles:.? Normal pain-free range of motion without tenderness, swelling, increased warmth or erythema. Feet:.? Right: There is evidence for surgery over the 1st and 2nd MTP regions. There is limitation of motion, perhaps total fusion at the 1st MTP joint. None of the MTPs have any tenderness. There is no tenderness or swelling in the instep. Left: There is mild bony enlargement and evidence for surgery at the 1st 2 MTP areas. There is no tenderness, soft tissue swelling, redness or warmth. Tender points:.? No tenderness to digital palpation at the occiput, trapezius, second rib, lateral epicondyle, knees, greater trochanter and gluteal area bilaterally. ? Results Reviewed Results Reviewed: Laboratory Tests 12/11/22 12/11/22 05/07/23 10:41 10:41 08:56 WBC 2.0 L Neut % (Auto) 22.5 L Lymph % (Auto) 54.9 H [place] % (Auto) 19.1 H Lymph # (Auto) 1.1 L Absolute Neuts (auto) 0.5 L ESR 30 H Sodium Carbon Dioxide BUN Alkaline Phosphatase C-Reactive Protein 3.94 H 05/07/23 05/07/23 08:56 08:56 WBC Neut % (Auto) Lymph % (Auto) [place] % (Auto) Lymph # (Auto) Absolute Neuts (auto) ESR Sodium 134 L Carbon Dioxide 19 L BUN 20 H Alkaline Phosphatase 124 H C-Reactive Protein Assessment & Plan Assessment & Plan (1) Seropositive rheumatoid arthritis: Comment: Enbrel 05/2014 to March 2022 held because of leukopenia Methotrexate 06/2016 to February 2022 held because of leukopenia Code(s): M05.9 - Rheumatoid arthritis with rheumatoid factor, unspecified (2) Leukopenia: Code(s): D72.819 - Decreased white blood cell count, unspecified Qualifiers: Leukopenia type: neutropenia Neutropenia type: other drug-induced Qualified Code(s): D70.2 - Other drug-induced agranulocytosis (3) 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 Liu has a history of Rheumatoid arthritis and has been off immunosuppressants for over 1 year because of luekopenia. She does not have synovitis on PE and denies any since last visit. There is is enlargement across some of the MCP joints reflecting chronic disease. The leukopenia(05/07/2023 labs) has worsened since last visit 12/2022 and ESR/CRP were elevated on December 25 labs. Patient's exam is more consistent with osteoarthritis. She will continue to take Tylenol as needed. Patient will obtain updated labs before end of year. #Felty/Leukupenia-Neutropenia: The patient was diagnosed with Seropositive rheumatoid arthritis (RF+ CCP++) in 2005 and was taking 6 tabs MTX and Enbrel weekly. Monitoring labs showed consistent leukopenia and neutropenia since 02/2022. Myelosuppression is risk a concern for patients on immunomodulating therapy. Therefore, Methotrexate discontinued, then Enbrel to see if her labs would improve, but there was no stable improvement, hence the nutropenia is less likely due to Myelosuppression. 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 She was referred to Hematology where she was already being followed for DVT on Elequis. Hematology completed further workup for viral infection, collagen vascular disorder, LDH, SIEP(Serum immunoreactive erythropoietin) and all were unrevealing. 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 However, patient has not had imaging of her spleen since the leukopenia started - last CT of abdomen was 12/04/2020(spleen unremarkable). I will obtain a CT scan to check for spleen enlargement. If the spleen shows enlargment, we will restart MTX at a low dose, 4 or five pills. Treatment for?Felty syndrome focuses on controlling the und erlying RA and treating the neutropenia to prevent infections. I discussed with patient, her increased risk for infection given her low WBC. We discussed increased precautions with germ exposure and food. Patient verbalized understanding. The goal is to achieve a?granulocyte count of more than 2000/microliter.?Neutropenia without evidence of infection is not an indication for treatment; however, the presence of neutropenia in patients with RA can help in adjusting disease-modifying antirheumatic drugs (DMARD) therapy. Improvement of the neutrophil count with the treatment of RA indicates a component of FS. Patients with neutropenia should undergo a thorough examination to look for signs of infection. The presence of systemic symptoms should prompt treatment. Care of neutropenic patients involves good dental and oral hygiene as well as scheduled age-appropriate immunizations. The clinician should initiate appropriate treatment of infections with broad-spectrum antibiotics, and neutro penic precautions are necessary. An infectious disease specialist consult can be helpful (Gomez Jade. Felty Syndrome. [Updated 2021Dec 09]. In: [employer] [Internet]. [facility]): [employer]; 2022-.?Available from: https://www.ncbi.nlm.nih.gov/books/BEH086220/). Follow-up in 6 months - patient knows to call if sooner appointment is needed. Orders: Orders CT abdomen wo/w IV con 05/18/23 D72.819 - Decreased white blood cell count, unspecified, M05.9 - Rheumatoid arthritis with rheumatoid factor, unspecified C Reactive Protein 05/18/23 D72.819 - Decreased white blood cell count, unspecified, M05.9 - Rheumatoid arthritis with rheumatoid factor, unspecified Coding Level of Care Code Est Pt Level 4 (81455) Diagnoses Seropositive rheumatoid arthritis M05.9 Other drug-induced neutropenia D70.2 Leukopenia type: neutropenia Neutropenia type: other drug-induced Felty syndrome M05.00
== END 2023-05-18 11:42 | disposition home or self-care (01) ==
PROVIDERS: PCP Nurse Practitioner Family; Visit Provider Nurse Practitioner Family
DX: M05.79 Rheumatoid arthritis with rheumatoid factor of multiple sites without organ or systems involvement (principal); D70.2 Other drug-induced agranulocytosis; M05.00 Felty's syndrome, unspecified site
CPT/HCPCS: 99214

== ENCOUNTER → 2023-05-18 10:43 | Outpatient (BNVA) | payer MEDICARE, SELFPAY | PROVIDERS: PCP Nurse Practitioner Family; Visit Provider Nurse Practitioner Family | DX: M05.9 Rheumatoid arthritis with rheumatoid factor, unspecified (principal); D70.2 Other drug-induced agranulocytosis; M05.00 Felty's syndrome, unspecified site | CPT/HCPCS: 99212 ==

== ENCOUNTER 2023-05-22 08:55 | Outpatient (REF) | payer MEDICARE, SELFPAY ==
[2023-05-22 10:40] LABS: Alanine Aminotransferase 10 U/L (0-31); Albumin Level 4.2 g/dL (3.5-5.0); Alkaline Phosphatase 117 U/L (39-117); Anion Gap 14 (12-20); Aspartate Amino Transferase 15 U/L (5-31); Bilirubin Total 0.6 mg/dL (0.0-1.0); Blood Urea Nitrogen 15 mg/dL (9-16); C Reactive Protein 6.82 mg/dL (< or = 0.50); Calcium 9.4 mg/dL (8.4-10.2); Carbon Dioxide 21 mmol/L (22-29); Chloride 106 mmol/L (96-108); Estimated Glomerular Filt Rate > 60; Glucose Random 86 mg/dL (60-115); Potassium 4.2 mmol/L (3.3-5.1); Sodium 137 mmol/L (135-145); Total Protein 7.6 g/dL (6.5-8.0)
== END 2023-05-22 08:56 | disposition home or self-care (01) ==
LOC: HO.LAB 08:55
PROVIDERS: Nurse Practitioner Family; PCP Nurse Practitioner Family; Visit Provider Internal Medicine Medical Oncology
DX: M05.9 Rheumatoid arthritis with rheumatoid factor, unspecified (principal); D72.819 Decreased white blood cell count, unspecified; R93.5 Abnormal findings on diagnostic imaging of other abdominal regions, including retroperitoneum
CPT/HCPCS: 36415; 80053; 86140

== ENCOUNTER 2023-05-28 10:48 | Outpatient (REF) | payer MEDICARE, SELFPAY ==
[2023-05-28] MEDS: iohexoL 350 MG/ML 100 ML INFUS..BTL IV (11:50)
== END 2023-05-28 10:49 | disposition home or self-care (01) ==
LOC: HO.CT 10:48
PROVIDERS: PCP Nurse Practitioner Family; Visit Provider Nurse Practitioner Family
DX: D72.819 Decreased white blood cell count, unspecified (principal); M05.9 Rheumatoid arthritis with rheumatoid factor, unspecified
CPT/HCPCS: 74170; Q9967

== ENCOUNTER 2023-06-16 13:35 | Outpatient (REF) | payer MEDICARE, SELFPAY ==
--- NOTE | ~2023-06-16 | MM_ITS ---
EXAMINATION: BONE DENSITOMETRY CLINICAL INDICATION: Menopause. COMPARISON: Baseline BD dated 08/07/2020. TECHNIQUE: Using a [employer] DXA System (software version: 13.1) manufactured by [employer], dual-energy x-ray absorptiometry was performed of the lumbar spine and left hip. The images are of good technical quality. Summary results are attached. FINDINGS: LEFT FEMUR, NECK: Current: BMD 0.758 g/cm2, Z-score -0.9, T-score -2.0, osteopenia. Baseline: BMD 0.801 g/cm2. LEFT FEMUR, TOTAL: Current: BMD 0.805 g/cm2, Z-score -0.8, T-score -1.6, osteopenia, 5.7% decrease from baseline (<5% change is not significant). Baseline: BMD 0.854 g/cm2. AP SPINE L1-L3 (excluding L4): The data of L1-L4 has been changed to exclude the L4 vertebral body, because degenerative sclerosis at this level may cause overestimation of lumbar spine density. Current: BMD 0.953 g/cm2, Z-score -0.8, T-score -1.8, osteopenia, 1.3% decrease from baseline (<5% change is not significant). Baseline: BMD 0.966 g/cm2. IDENTIFIED RISK FACTORS: Early menopause, rheumatoid arthritis, secondary osteoporosis. HISTORY OF FRACTURE: None listed. MEDICATIONS: Calcium, vitamin D. MM/XR DEXA axial skeleton IMPRESSION: 1. DIAGNOSIS: Osteopenia based on the lowest T-score value of -2.0 in the femoral neck applying World Health Organization criteria. 2. 10-YEAR FRACTURE RISK PREDICTION, FRAX: Major osteoporotic fracture (clinical spine, forearm, hip or shoulder) 13.5%. Hip fracture 2.3%. 3. Treatment Recommendations: NOF guidelines recommend consideration for treatment in postmenopausal women and men age 50 and older presenting with the following: -A hip or vertebral (clinical or morphometric) fracture. -T-score less than or equal to -2.5 at the femoral neck or spine after appropriate evaluation to exclude secondary causes. -Low bone mass at the hip or spine and a 10-year fracture probability by FRAX of greater than or equal to 3% for hip fracture or greater than or equal to 20% for major osteoporotic fracture based on the [place] adapted WHO algorithm. 4. Other Recommendations: All treatment decisions require clinical judgment and consideration of individual patient factors, including patient preferences, comorbidities, previous drug use, risk factors not captured in the FRAX model (e.g. frailty, falls, vitamin D deficiency, increased bone turnover, interval significant decline in bone density) and possible under or overestimation of fracture risk by FRAX. Additional medical evaluation for secondary cause of low bone mineral density may be appropriate. FUTURE SCAN RECOMMENDATION: People with diagnosed cases of osteoporosis or at high risk for fracture should have regular bone mineral density tests. For patients eligible for Medicare, routine testing is allowed once every 2 years. The testing frequency can be increased to one year for patients who have rapidly progressing disease, those who are receiving or discontinuing medical therapy to restore bone mass, or have additional risk factors.
== END 2023-06-16 13:36 | disposition home or self-care (01) ==
LOC: HO.MAMMO 13:35
PROVIDERS: PCP Nurse Practitioner Family; Visit Provider Obstetrics & Gynecology
DX: Z12.31 Encounter for screening mammogram for malignant neoplasm of breast (principal); Z13.820 Encounter for screening for osteoporosis; Z78.0 Asymptomatic menopausal state
CPT/HCPCS: 77063; 77067; 77080

== ENCOUNTER → 2023-06-16 14:30 | Outpatient (BNV) | payer MEDICARE, SELFPAY | PROVIDERS: PCP Nurse Practitioner Family; Visit Provider Radiology Diagnostic Radiology | DX: Z12.31 Encounter for screening mammogram for malignant neoplasm of breast (principal) | CPT/HCPCS: 77063; 77067 ==

== ENCOUNTER 2023-07-06 09:56 | Outpatient (REF) | payer MEDICARE, SELFPAY ==
[2023-07-06 10:19] LABS: Baso%MD 1.8 %; Eos%MD 1.2 %; Hematocrit 41.3 % (37.0-47.0); Hemoglobin 13.7 g/dl (12.0-16.0); Mean Corpuscular HGB Conc 33.2 g/dl (31.0-35.0); Mean Corpuscular Hemoglobin 27.8 pg (27.0-33.0); Mean Corpuscular Volume 83.9 fL (80.0-98.0); Platelet Count 218 X10*3/uL (160-400); Red Blood Count 4.92 X10*6/uL (4.20-5.50); Red Cell Distribution Width 13.1 % (11.0-16.0)
[2023-07-06 10:20] LABS: White Blood Count 1.7 X10*3/uL (4.8-10.8)
[2023-07-06 11:10] LABS: Band Neutrophils Percent 0 % (3-5); Neutrophils Absolute Manual 0.3 X10*3/uL (2.0-8.3); Neutrophils Percent Manual 18 % (45-73)
[2023-07-06 11:11] LABS: Basophils Percent Manual 1 % (0-2); Eosinophils Percent Manual 2 % (0-4); Metamyelocytes Absolute 1.1 X10*3/uL; Metamyelocytes Percent 64 %; Monocytes Absolute Manual 0.2 X10*3/uL (0.1-1.2); Monocytes Percent Manual 14 % (2-11)
[2023-07-06 11:12] LABS: Platelet Estimate NORMAL (NORMAL); RBC Morphology NORMAL
[2023-07-06 11:13] LABS: Platelet Morphology Comment NORM
== END 2023-07-06 09:57 | disposition home or self-care (01) ==
LOC: HO.LAB 09:56
PROVIDERS: PCP Nurse Practitioner Family; Visit Provider Internal Medicine Medical Oncology
DX: D72.819 Decreased white blood cell count, unspecified (principal)
CPT/HCPCS: 36415; 85007; 85027

== ENCOUNTER 2023-07-20 09:41 | Outpatient (REF) | payer MEDICARE, SELFPAY ==
[2023-07-20 10:25] LABS: Eos%MD 1.5 %; Hematocrit 40.2 % (37.0-47.0); Hemoglobin 13.3 g/dl (12.0-16.0); Lymph%MD 44.8 %; Mean Corpuscular HGB Conc 33.1 g/dl (31.0-35.0); Mean Corpuscular Hemoglobin 27.7 pg (27.0-33.0); Mean Corpuscular Volume 83.6 fL (80.0-98.0); Mean Platelet Volume 10.4 fL (9.4-12.3); Mono%MD 20.2 %; Neut%MD 31.5 %; Platelet Count 217 X10*3/uL (160-400); Red Blood Count 4.81 X10*6/uL (4.20-5.50); Red Cell Distribution Width 12.6 % (11.0-16.0)
[2023-07-20 10:44] LABS: Alanine Aminotransferase 11 U/L (0-31); Albumin Level 4.1 g/dL (3.5-5.0); Alkaline Phosphatase 130 U/L (39-117); Anion Gap 14 (12-20); Aspartate Amino Transferase 14 U/L (5-31); Bilirubin Total 0.4 mg/dL (0.0-1.0); Blood Urea Nitrogen 15 mg/dL (9-16); Calcium 9.6 mg/dL (8.4-10.2); Carbon Dioxide 25 mmol/L (22-29); Chloride 106 mmol/L (96-108); Estimated Glomerular Filt Rate > 60; Glucose Random 96 mg/dL (60-115); Potassium 4.9 mmol/L (3.3-5.1); Sodium 140 mmol/L (135-145); Total Protein 7.6 g/dL (6.5-8.0)
[2023-07-20 11:14] LABS: Atypical Lymphs Percent Manual 1 % (0-6); Band Neutrophils Percent 12 % (3-5); Eosinophils Percent Manual 1 % (0-4); Lymphocytes Absolute Manual 0.9 X10*3/uL (1.2-4.9); Lymphocytes Percent Manual 47 % (20-40); Microcytosis 1+ (5-14) /OIF; Monocytes Absolute Manual 0.3 X10*3/uL (0.1-1.2); Monocytes Percent Manual 17 % (2-11); Neutrophils Absolute Manual 0.7 X10*3/uL (2.0-8.3); Neutrophils Percent Manual 22 % (45-73); Platelet Estimate NORMAL (NORMAL); Platelet Morphology Comment NORMAL; RBC Morphology NOTED
[2023-07-20 11:15] LABS: Ovalocytes 1+ (5-14) /OIF; Rouleau PRESENT; Schistocytes 1+ (0-2) /OIF; Tear Drop Cells 1+ (0-2) /OIF
== END 2023-07-20 09:42 | disposition home or self-care (01) ==
LOC: HO.LAB 09:41
PROVIDERS: PCP Nurse Practitioner Family; Visit Provider Internal Medicine Medical Oncology
DX: D72.819 Decreased white blood cell count, unspecified (principal); Z86.718 Personal history of other venous thrombosis and embolism
CPT/HCPCS: 36415; 80053; 85007; 85027

== ENCOUNTER 2023-08-03 12:02 | Outpatient (AMB) | payer MEDICARE, SELFPAY ==
--- NOTE | 2023-08-03 12:03 | MHC.OFFVIS ---
Intake Vital Signs 08/03/23 12:10 Height 5 ft 4 in Weight 186 lb 1.122 oz BMI 31.9 BP 141/79 H Blood Pressure Location Lt brachial Position Sitting Pulse 80 Intake Visit Reasons: colonoscopy screening Intake Note: Patient is seen in office for colonoscopy screening. Pt c/o: admits to diarrhea, gas at all times, unable to have meals after 6pm due to bloating, denies blood in stool and when cleaning Automation Qa Tester Required: No Accompanied by: Spouse Allergies penicillin G [PENICILLIN G] Allergy (Severe, Verified 08/03/23 12:08) ANAPHYLAXIS Medication List - Last Reconciled 08/03/23 by Rabia Adams PA-C acetaminophen (Tylenol Extra Strength) 1,000 mg PO Q6H aspirin (Adult Low Dose Aspirin) 81 mg PO DAILY atorvastatin 40 mg PO BEDTIME buspirone 5 mg PO BID leflunomide 10 mg PO DAILY lisinopril 20 mg PO DAILY 90 days omega 6-eim-fiw-fish oil 100-160-1,000 mg (Fish Oil) 100 caps PO DAILY vitamin F90-ybafb acid 500-400 mcg 1 tab PO DAILY HPI HPI Comments History of Present Illness Details A 68 y/o female chronic diarrhea- her entire life-gassy- lsfwzfny-rsueqrxdux-igg day- taking imodium/ gasx- very little benefit She has multiple episodes at least every other day with urgency-no blood noted stool. 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 Anguiano hx diverticulitis-she has not had any recent events Appetite is good-acid reflux- takes husbands ppi-unable to identify anything specific No nausea, vomiting hematemesis, hematochezia fever or chills No body rash Colonoscopy- 2018- [facility]- [facility] Medical History (Updated 08/03/23 @ 14:52 by Rabia Adams PA-C) Leukopenia Leucopenia JACQUE I (cervical intraepithelial neoplasia I) Depression Cervical carcinoma DDD (degenerative disc disease), lumbar ASCUS (atypical squamous cells of undetermined significance) on gynecologic Papanicolaou smear complicating , antepartum Seropositive rheumatoid arthritis HTN (hypertension) Rheumatoid arthritis Hyperlipemia DVT (deep venous thrombosis) Surgical History History of back surgery S/P lumbar microdiscectomy S/P biopsy of cervix History of bunionectomy of both great toes Family History Mother Colon cancer metastasized to multiple sites HTN (hypertension) Substance use disorder Maternal Aunt Breast cancer Father HTN (hypertension) Substance use disorder Brother HTN (hypertension) Heart attack Enlarged heart Brain aneurysm Brother HTN (hypertension) Sister HTN (hypertension) Sister HTN (hypertension) Sister HTN (hypertension) Social History Household Members: Spouse Housing: Apartment Are you a primary clinical care coordinator to a significant other at home: No Do you presently have visiting nurse or other home services: No Alcohol intake: current Alcohol intake frequency: a few times a month Alcohol type: beer Patient Tobacco Use Status: Former Tobacco user Years Smoked: 40 years ago e-Cigarette/Vaping Use: Never Used Second Hand Smoke Exposure: No service: No Current occupational status: employed 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 Current occupational exposures/hazards: No Cognitive needs: No Hearing needs: No Vision needs: No Review of Systems Const All systems reviewed & are unremarkable except as noted in HPI and below Card Denies chest pain and Denies dyspnea Resp Denies dyspnea GI Denies abdominal pain, Denies hematochezia, Reports heartburn, Reports diarrhea, Denies nausea and Denies vomiting Psych Reports anxiety Physical Exam Vital Signs: Last Vital Signs Pulse 80 08/03/23 12:10 BP 141/79 H 08/03/23 12:10 BMI result Body Mass Index 31.9 Const General: cooperative, healthy appearing, comfortable and no acute distress Orientation/consciousness: patient oriented x3 Limitations: no limitations Eyes Sclerae: sclerae normal Resp Effort & Inspection: normal respiratory effort and able to speak in complete sentences Auscultation: clear to auscultation bilaterally, no rales, no rhonchi and no wheezes Cardio Rate: regular rate Rhythm: regular rhythm Heart sounds: S1 normal heart sound present and S2 normal heart sound present GI Palpation (GI): Soft to palpation and nontender Auscultation: normal bowel sounds Skin General skin exam: no rashes or lesions noted Neuro General: patient oriented x3 Extrem General: Yes full ROM Psych Appearance: well kempt Mental Status: mental status grossly normal Speech and movement: Normal speech and movement present and Clear speech present Affect: Anxious affect present Attitude: cooperative Thought process: Normal thought process present Thought content: Normal thought content present Insight: Good insight present (Psych) Judgement: Good judgement present (Psych) Results Reviewed Results Reviewed: 05/2023- IMPRESSION: Mild splenomegaly. Stable central mesenteric haziness and mild prominent lymph nodes. This is a nonspecific finding and may represent panniculitis. The finding can rarely be associated with lymphoma, however the lymph nodes are not bulky and the stability over 2 years would argue against the diagnosis of lymphoma. Hepatic steatosis without evidence of cirrhosis. Small hiatal hernia. Colonic diverticulosis. Assessment & Plan Assessment & Plan (1) Chronic diarrhea: Comment: entire life- gassy- otc imodium- anti gas- Code(s): K52.9 - Noninfective gastroenteritis and colitis, unspecified (2) Acid reflux: Comment: Acid reflux ongoing however had been using her 's medications-with good response Code(s): K21.9 - Gastro-esophageal reflux disease without esophagitis Plan: EGD colonoscopy, Pantoprazole 40 mg May continue Imodium Plan EGD/colon- soon if possible TY MG Orders: Orders EGD/[place] Combo - GI Use Only 08/03/23 D72.819 - Decreased white blood cell count, unspecified, K52.9 - Noninfective gastroenteritis and colitis, unspecified Lactoferrin, Fecal, Quant. 08/03/23 K52.9 - Noninfective gastroenteritis and colitis, unspecified Transglutaminase IgA 08/03/23 R19.7 - Diarrhea, unspecified CDiff Gene PCR 08/03/23 R19.7 - Diarrhea, unspecified GI Panel 08/03/23 R19.7 - Diarrhea, unspecified H pylori Ag Stool 08/03/23 A04.8 - Other specified bacterial intestinal infections Medications: New bisacodyl (Dulcolax (bisacodyl)) Day before procedure @ 12 noon Take 4 tablets by mouth followed by large glass of water 20 mg (4 x 5 mg) PO ONCE 1 day PRN 4 tabs 0RF colonoscopy prep Z12.11 - Encounter for screening for malignant neoplasm of colon polyethylene glycol 3350 (Miralax) Take as directed by mouth the day before your procedure. 238 grams PO ONCE 1 day PRN 238 grams 0RF laxative effect pantoprazole 40 mg PO DAILY 30 days 30 tabs 11RF menthol-zinc oxide 0.44-20.6 % (Calmoseptine) 1 appl topical BID PRN 113 grams 1RF skin irritation Patient Instructions: Pleasant 68-year-old female chronic diarrhea-needs further evaluation rule out underlying cause to include IBD/CD etc She is agreeable to stool studies as well as labs to include celiac markers Schedule EGD colonoscopy Pantoprazole 40 mg Reflux precautions reviewed May continue Imodium Encouraged to call questions or concerns Coding Level of Care Code New Pt Level 4 (68360) Diagnoses Chronic diarrhea K52.9 Acid reflux K21.9 Time Spent (min) 35
[2023-08-03 12:10] VITALS: BP 141/79; PULSE 80; BMI 31.9
== END 2023-08-03 13:20 | disposition home or self-care (01) ==
PROVIDERS: PCP Nurse Practitioner Family; Visit Provider Physician Assistant
DX: K52.9 Noninfective gastroenteritis and colitis, unspecified (principal); K21.9 Gastro-esophageal reflux disease without esophagitis
CPT/HCPCS: 99204; 99214

== ENCOUNTER → 2023-08-03 12:02 | Outpatient (BNVA) | payer MEDICARE, SELFPAY | PROVIDERS: PCP Nurse Practitioner Family; Visit Provider Physician Assistant | DX: K52.9 Noninfective gastroenteritis and colitis, unspecified (principal); K21.9 Gastro-esophageal reflux disease without esophagitis | CPT/HCPCS: 99202 ==

== ENCOUNTER 2023-10-06 08:22 | Day surgery (SDC) | payer MEDICARE, SELFPAY ==
[2023-10-02 12:27] VITALS: BMI 31.9
--- NOTE | 2023-10-05 08:53 | HO.ANESPROP2 ---
Documented by User: Roxana Cat NP 10/05/23 08:54 HPI - Anesthesia Eval Consult details Narrative: 68yo F for Upper Endoscopy and Colonoscopy PMFSH Active Problems Active Problems: All Active Problems Acid reflux (Acute) Chronic diarrhea (Acute) Felty syndrome (Acute) Hirsutism (Acute) Tick bite (Acute) Anxiety with depression (Acute) Postmenopausal (Acute) Leucopenia (Acute) Labial lesion (Acute) Cervical lesion (Acute) HPV in female (Acute) Hyperkalemia (Acute) FDC methotrexate user (Acute) DVT (deep venous thrombosis) (Acute) Leukopenia (Acute) JACQUE I (cervical intraepithelial neoplasia I) (Acute) HTN (hypertension) (Acute) DDD (degenerative disc disease), lumbar (Acute) Hyperlipemia (Acute) Seropositive rheumatoid arthritis (Acute) Past Medical History Medical History Leukopenia Depression Cervical carcinoma DDD (degenerative disc disease), lumbar JACQUE I (cervical intraepithelial neoplasia I) ASCUS (atypical squamous cells of undetermined significance) on gynecologic Papanicolaou smear complicating , antepartum Seropositive rheumatoid arthritis HTN (hypertension) Rheumatoid arthritis Hyperlipemia DVT (deep venous thrombosis) Family History Family History Mother Colon cancer metastasized to multiple sites HTN (hypertension) Substance use disorder Maternal Aunt Breast cancer Father HTN (hypertension) Substance use disorder Brother HTN (hypertension) Heart attack Enlarged heart Brain aneurysm Brother HTN (hypertension) Sister HTN (hypertension) Sister HTN (hypertension) Sister HTN (hypertension) Surgical History Surgical History History of back surgery S/P lumbar microdiscectomy S/P biopsy of cervix History of bunionectomy of both great toes Social History Social History Household Members: Spouse Housing: Apartment Are you a primary team primary care physician to a significant other at home: No Do you presently have visiting nurse or other home services: No Alcohol intake: current Alcohol intake frequency: a few times a month Alcohol type: beer Patient Tobacco Use Status: Former Tobacco user Quit Date: age 28 Tobacco use type: Cigarette Years Smoked: 40 years ago e-Cigarette/Vaping Use: Never Used Second Hand Smoke Exposure: No Advance Directives: No Advance Directives Information Provided: Yes Advance Directives on File: No service: No Current occupational status: employed 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 Current occupational exposures/hazards: No Cognitive needs: No Hearing needs: No Vision needs: No Meds Allergies Allergy/AdvReac Type Severity Reaction Status Date / Time penicillin G [PENICILLIN G] Allergy Severe ANAPHYLAXIS Verified 08/03/23 12:08 Home Medications ?Medication ?Instructions ?Recorded ?Confirmed ?Last Taken ?Type acetaminophen 500 mg tablet 1,000 mg PO Q6H 07/02/21 10/02/23 Unknown History (Tylenol Extra Strength) aspirin 81 mg tablet,delayed 81 mg PO DAILY 01/06/22 10/02/23 10/05/23 History release (Adult Low Dose Aspirin) vitamin B12 500 mcg-folic acid 400 1 tab PO DAILY 11/06/22 10/06/23 Unknown History mcg tablet omega 4-vgk-rma-fish oil 100 100 cap PO DAILY 05/06/23 10/02/23 09/06/23 History mg-160 mg-1,000 mg capsule (Fish Oil) Exam Height,Weight and Vital Signs: Height 5 ft 4 in Weight 84.368 kg Assessment and Plan Assessment Anesthesia Assessment: Chart Reviewed Documented by User: Halie Mathis MD 10/06/23 09:54 [facility] Past Medical History Medical History Leukopenia Depression Cervical carcinoma DDD (degenerative disc disease), lumbar JACQUE I (cervical intraepithelial neoplasia I) ASCUS (atypical squamous cells of undetermined significance) on gynecologic Papanicolaou smear complicating , antepartum Seropositive rheumatoid arthritis HTN (hypertension) Rheumatoid arthritis Hyperlipemia DVT (deep venous thrombosis) Family History Family History Mother Colon cancer metastasized to multiple sites HTN (hypertension) Substance use disorder Maternal Aunt Breast cancer Father HTN (hypertension) Substance use disorder Brother HTN (hypertension) Heart attack Enlarged heart Brain aneurysm Brother HTN (hypertension) Sister HTN (hypertension) Sister HTN (hypertension) Sister HTN (hypertension) Surgical History Surgical History History of back surgery S/P lumbar microdiscectomy S/P biopsy of cervix History of bunionectomy of both great toes History of Problems with Anesthesia: No Social History Social History Household Members: Spouse Housing: Apartment Are you a primary team primary care physician to a significant other at home: No Do you presently have visiting nurse or other home services: No Alcohol intake: current Alcohol intake frequency: a few times a month Alcohol type: beer Patient Tobacco Use Status: Former Tobacco user Quit Date: age 28 Tobacco use type: Cigarette Years Smoked: 40 years ago e-Cigarette/Vaping Use: Never Used Second Hand Smoke Exposure: No Advance Directives: No Advance Directives Information Provided: Yes Advance Directives on File: No service: No Current occupational status: employed 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 Current occupational exposures/hazards: No Cognitive needs: No Hearing needs: No Vision needs: No Meds Allergies Allergy/AdvReac Type Severity Reaction Status Date / Time penicillin G [PENICILLIN G] Allergy Severe ANAPHYLAXIS Verified 08/03/23 12:08 Home Medications ?Medication ?Instructions ?Recorded ?Confirmed ?Last Taken ?Type acetaminophen 500 mg tablet 1,000 mg PO Q6H 07/02/21 10/02/23 Unknown History (Tylenol Extra Strength) aspirin 81 mg tablet,delayed 81 mg PO DAILY 01/06/22 10/02/23 10/05/23 History release (Adult Low Dose Aspirin) vitamin B12 500 mcg-folic acid 400 1 tab PO DAILY 11/06/22 10/06/23 Unknown History mcg tablet omega 5-las-zaa-fish oil 100 100 cap PO DAILY 05/06/23 10/02/23 09/06/23 History mg-160 mg-1,000 mg capsule (Fish Oil) Exam Airway Mallampati Class: II TM Dist: >3cm Neck ROM: Full Loose/Missing/Broken Teeth: No Heart: RRR Lungs: CTA Assessment and Plan Assessment Anesthesia Assessment: Anesthesia Plan Discussed Final Anesthetic Review History of Problems with Anesthesia: No NPO: Yes ASA Class: II Final Preanesthetic Review: Meds/Allgs Chart Reviewed, Consent Obtained/Reviewed and Anes Risks/Benef Reviewed Patient Risk: Low Procedure Risk: Intermediate Anesthetic Plan Anesthetic Plan: MAC: Disposition: Standard PACU
[2023-10-06 08:58] VITALS: BMI 31.2
[2023-10-06 09:06] VITALS: BP 150/90; RESP 18; TEMP 36.1; O2SAT 98
[2023-10-06] MEDS: Lactated Ringers 1,000 ML 100 ML IVCONT (09:19)
--- NOTE | 2023-10-06 10:44 | MHC.SHP ---
Pre-Procedural Eval Section A - 24 Hr Update-Section A only Date of Service: 10/06/23 Section B - Complete if H&P > 30 days Chief Complaint: GERD, diarrhea Details of Present Illness: Leukopenia Leucopenia JACQUE I (cervical intraepithelial neoplasia I) Depression Cervical carcinoma DDD (degenerative disc disease), lumbar ASCUS (atypical squamous cells of undetermined significance) on gynecologic Papanicolaou smear complicating , antepartum Seropositive rheumatoid arthritis HTN (hypertension) Rheumatoid arthritis Hyperlipemia DVT (deep venous thrombosis) Surgical History History of back surgery S/P lumbar microdiscectomy S/P biopsy of cervix History of bunionectomy of both great toes Present Medications: see Short Stay Collaborative assessment Allergies: Allergies Allergy/AdvReac Type Severity Reaction Status Date / Time penicillin G [PENICILLIN G] Allergy Severe ANAPHYLAXIS Verified 08/03/23 12:08 Review of Systems Review of Systems Comment: Ten point ROS as above Exam Exam Comment: Gen appear: No acute distress HEENT: no icterus Chest: No overt resp distress Abd: soft, nontender, nondistended Psych: Stable affect, answering questions appropriately Neuro: A/Ox3 noted to move all extremities spontaneously Ext: no peripheral edema Plan Diagnosis/Plan: Unchanged I have reviewed the history and physical and performed a pertinent physical examination on my patient. No changes have occurred unless specified. Time Spent With Patient Time: Total time managing care of this patient today ____ minutes.
--- NOTE | 2023-10-06 10:45 | P.OP_ITS ---
Operative Note Operative Note Date of Service: 10/06/23 Narrative: Procedure: Upper endoscopy and colonoscopy Indication: GERD, chronic diarrhea Endoscopist: Bonnie Valle MD Anesthesia Provider: Wero Simms CRNA Anesthesia type: MAC Instrument: [id number] and [id number]-[id number] EGD Procedure:?? The procedure, indications, preparation and potential complications were reviewed with the patient, who indicated understanding and gave written informed consent to proceed. Physical exam was performed. The endoscope was introduced through the mouth, and advanced to the 3rd part of the duodenum. The mucosa was carefully examined on slow withdrawal of the endoscope. The patient tolerated the procedure well. There were no immediate complications.? EGD Findings:? * Esophagus:? Tortuous esophagus but otherwise normal mucosa. The Z-line was at 33 cm. A moderate sized hiatal hernia was noted with the diaphragmatic pinch at 37 cm. * Stomach:?Nodularity and enlarged folds were noted in the cardia. Cold forceps biopsies were taken. Remaining mucosa had patchy erythema with lacy whitish/pale centers. Cold forceps biopsies were taken to r/o H Pylori and GIM. Retroflexion was performed in the cardia that showed Hill grade III hiatal hernia. * Duodenum:? Normal duodenal mucosa. Large duodenal diverticulum next to the ampulla with a small gallstone in it. Cold forceps biopsies were taken from the duodenal bulb and 2nd portion of the duodenum to rule out celiac sprue. Colonoscopy Procedure:? The patient was then turned for the colonoscopy. A digital rectal exam was performed which was normal.? A distal attachment cap was affixed to the tip of the scope and the colonoscope was then inserted through the anus and advanced through the colon and advanced to the cecum at 75 cm and terminal ileum.? Appendiceal orifice and ileocecal valve were identified. Mucosa was carefully examined under high definition white light as the instrument was slowly withdrawn in a retrograde panoramic fashion. Retroflexion was performed in rectum. The procedure was not difficult. The quality of the prep was BBPS: 2+2+2 = adequate Withdrawal time 8 minutes Limitations: No limitations Findings: Mucosa: Normal colon and terminal ileum mucosa. Cold forceps biopsies were taken from right and left-sided colon to rule out microscopic colitis. Protruding lesions: * Medium internal hemorrhoids without stigmata of recent bleeding. Excavated lesions: * Moderate diverticulosis in the left colon Impression: 1. Tortuous esophagus 2. Hiatal hernia 3. Gastritis 4. Duodenal diverticulum with gallstone 5. Normal colon and terminal ileum mucosa 6. Diverticulosis 7. Internal hemorrhoids Recommendations:?? * Follow-up path results * Repeat colonoscopy in 5-7 years due to prep
[2023-10-06 11:33] VITALS: BP 96/66; PULSE 84; RESP 16; TEMP 36.6; O2SAT 96
[2023-10-06 11:48] VITALS: BP 101/51; PULSE 85; RESP 18; TEMP 36.6; O2SAT 99
== END 2023-10-06 14:05 | disposition home or self-care (01) ==
PROVIDERS: PCP Nurse Practitioner Family; Visit Provider Internal Medicine
PROC: (CPT 45380; principal; 2023-10-06 11:00)
DX: K52.9 Noninfective gastroenteritis and colitis, unspecified (principal); K57.30 Diverticulosis of large intestine without perforation or abscess without bleeding; K64.8 Other hemorrhoids; K21.9 Gastro-esophageal reflux disease without esophagitis; K22.89 Other specified disease of esophagus; K29.70 Gastritis, unspecified, without bleeding; K57.10 Diverticulosis of small intestine without perforation or abscess without bleeding; K80.20 Calculus of gallbladder without cholecystitis without obstruction; K44.9 Diaphragmatic hernia without obstruction or gangrene; I10 Essential (primary) hypertension; Z86.718 Personal history of other venous thrombosis and embolism
CPT/HCPCS: 45380; 43239; 88305; 88313; 88342; J2704; J3010

== ENCOUNTER → 2023-10-06 08:22 | Outpatient (BNV) | payer MEDICARE, SELFPAY | PROVIDERS: PCP Nurse Practitioner Family; Visit Provider Internal Medicine | DX: K21.9 Gastro-esophageal reflux disease without esophagitis (principal); K22.89 Other specified disease of esophagus; K29.70 Gastritis, unspecified, without bleeding; K57.11 Diverticulosis of small intestine without perforation or abscess with bleeding; K52.9 Noninfective gastroenteritis and colitis, unspecified; K64.8 Other hemorrhoids; K57.30 Diverticulosis of large intestine without perforation or abscess without bleeding | CPT/HCPCS: 43239; 45380 ==

== ENCOUNTER 2023-10-14 15:48 | Outpatient (AMB) | payer MEDICARE, SELFPAY ==
--- NOTE | 2023-10-14 15:59 | MHC.PC.OV ---
Vital Signs 10/14/23 16:03 Height 5 ft 4 in Weight 186 lb BMI 31.9 BP 122/80 Blood Pressure Location Rt brachial Position Sitting Pulse 82 Pulse Source Pulse Oximeter Pulse Oximetry (%) 97 Oxygen Delivery Method Room Air Intake Visit Reasons: Follow UP Intake Note: Patient here for anxiety follow up. pt states her anxiety has been very good lately. Allergies penicillin G [PENICILLIN G] Allergy (Severe, Verified 10/14/23 17:41) ANAPHYLAXIS Medication List - Last Reconciled 10/14/23 by GRAEME Yeboah acetaminophen (Tylenol Extra Strength) 1,000 mg PO Q6H apixaban (Eliquis) 10 mg (2 x 5 mg) PO BID 30 days atorvastatin 40 mg PO BEDTIME buspirone 5 mg PO BID leflunomide 10 mg PO DAILY lisinopril 20 mg PO DAILY 90 days menthol-zinc oxide 0.44-20.6 % (Calmoseptine) 1 appl topical BID PRN omega 8-gcv-sgw-fish oil 100-160-1,000 mg (Fish Oil) 100 caps PO DAILY pantoprazole 40 mg PO DAILY 30 days Tobacco use date assessed: 10/14/23 Fall risk assessment: No Falls in past year Last assessed Fall Risk: 10/14/23 Dental Screening Dental Screen Date: 10/14/23 Did you have a dental visit in the last 12 months?: No Did you have a dental problem in the last 6 months where you did not have access to dental care?: No Was dental information given to patient?: No HPI Follow UP HPI Details Pt has a hx of DVT. She is currently on aspirin and no other blood thinner. Pt reports pain and swelling of her left calf, noticed it more a few days ago. Will order US, though I assume this is a DVT. Will restart eliquis 10mg bid x7 days then 5mg bid, stop ASA when starting eliquis. Will have pt follow up with hematology as she has not recently. Denies chest pain, shortness of breath, and dizziness. Pt reports several papular skin tags/moles to her upper chest as well as more macular raised lesions to her face. Will refer to derm. [facility] Medical History (Updated 10/14/23 @ 16:44 by GRAEME Yeboah) Leukopenia Depression Cervical carcinoma DDD (degenerative disc disease), lumbar JACQUE I (cervical intraepithelial neoplasia I) ASCUS (atypical squamous cells of undetermined significance) on gynecologic Papanicolaou smear complicating , antepartum Seropositive rheumatoid arthritis HTN (hypertension) Rheumatoid arthritis Hyperlipemia DVT (deep venous thrombosis) Surgical History (Updated 10/14/23 @ 10:06 by Alena Gale) History of esophagogastroduodenoscopy (EGD) Hx of colonoscopy History of back surgery S/P lumbar microdiscectomy S/P biopsy of cervix History of bunionectomy of both great toes Family History Mother Colon cancer metastasized to multiple sites HTN (hypertension) Substance use disorder Maternal Aunt Breast cancer Father HTN (hypertension) Substance use disorder Brother HTN (hypertension) Heart attack Enlarged heart Brain aneurysm Brother HTN (hypertension) Sister HTN (hypertension) Sister HTN (hypertension) Sister HTN (hypertension) Social History Household Members: Spouse Housing: Apartment Are you a primary memory care program resident to a significant other at home: No Do you presently have visiting nurse or other home services: No Alcohol intake: current Alcohol intake frequency: a few times a month Alcohol type: beer Patient Tobacco Use Status: Former Tobacco user Quit Date: age 28 Tobacco use type: Cigarette Years Smoked: 40 years ago e-Cigarette/Vaping Use: Never Used Second Hand Smoke Exposure: No service: No Current occupational status: employed 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 76397 - PHQ-9 Billing: Patient declined-do not bill Source: Developed by Drs. Bobby Barton, Megan Wallace, Da Young and colleagues, with an educational rowan from [employer]. Thrive Questionnaire Date Thrive assessed: 05/06/23 Currently or been in a relationship where the following occur: no concerns reported THRIVE Score: 0 AUDIT C Alcohol Use Questionnaire (AUDIT-C) 1. How often do you have a drink containing alcohol?: Never 3. How often do you have six or more drinks on one occasion?: Never Total Score: 0 Score Reviewed/Action Taken: No ROSA-7 AMB Questionnaire ROSA-7 Date ROSA - 7 assessed: 05/06/23 Source: Developed by Drs. Bobby Barton, Megan Wallace, Da Young and colleagues, with an educational rowan from [employer]. ROSA-7 Assessment Billing ROSA-7 Assessment Tool: pt declined-do not bill Review of Systems Const Reports as per HPI Physical exam (Primary Care) Vital Signs: Last Vital Signs Pulse 82 10/14/23 16:03 BP 122/80 10/14/23 16:03 Pulse Ox 97 10/14/23 16:03 Oxygen Delivery Method Room Air 10/14/23 16:03 BMI result Body Mass Index 31.9 Tobacco/Smoking Status: Tobacco use Status Tobacco use date assessed 10/14/23 10/14/23 16:12 Patient Tobacco Use Status Former Tobacco user 10/14/23 16:00 Tobacco use type Cigarette 10/14/23 16:00 e-Cigarette/Vaping Use Never Used 10/14/23 16:00 Thrive Assessment: Date of Thrive Assessment Date Thrive assessed 05/06/23 10/14/23 16:00 Currently or been in a relationship where the following occur: no concerns reported Const General: cooperative Nutritional Appearance: obese Orientation/consciousness: patient oriented x3 Resp Effort & Inspection: normal respiratory effort Auscultation: clear to auscultation bilaterally Cardio Rate: regular rate Rhythm: regular rhythm Heart sounds: S1 normal heart sound present and S2 normal heart sound present Skin Other: several papular skin tags/moles to upper chest, more macular raised lesions to face Neuro General: patient oriented x3 Extrem Other: left calf tenderness with palpation, swelling, indurated Psych Appearance: grossly normal Mental Status: mental status grossly normal Speech and movement: Normal speech and movement present Affect: normal affect Attitude: cooperative Thought process: Normal thought process present Thought content: Normal thought content present Insight: Good insight present (Psych) Judgement: Good judgement present (Psych) Assessment and Plan Assessment & Plan (1) Left leg swelling: Code(s): M79.89 - Other specified soft tissue disorders Plan: US ordered, eliquis sent, pt will follow up with hematology (2) Skin lesions: Code(s): L98.9 - Disorder of the skin and subcutaneous tissue, unspecified Plan: referred to derm Plan The patient agreed to the use of a chief medical officer for this encounter. Scribed for GRAEME Fair by Cande Sosa chief medical officer, on 10/14/2023 at 16:30 EST. Orders: Orders US venous duplex LE LT Today M79.89 - Other specified soft tissue disorders Referrals Dermatology Referral L98.9 - Disorder of the skin and subcutaneous tissue, unspecified Medications: New apixaban (Eliquis) 10mg twice a day for 7 days, then 5mg twice a day thereafter 10 mg (2 x 5 mg) PO BID 74 tabs 1RF 30 days Coding Level of Care Code Est Pt Level 3 (01309) Diagnoses Left leg swelling M79.89 Skin lesions L98.9
[2023-10-14 16:03] VITALS: BP 122/80; PULSE 82; O2SAT 97; BMI 31.9
== END 2023-10-14 17:12 | disposition home or self-care (01) ==
PROVIDERS: PCP Nurse Practitioner Family; Visit Provider Nurse Practitioner Family
DX: M79.89 Other specified soft tissue disorders (principal); L98.9 Disorder of the skin and subcutaneous tissue, unspecified
CPT/HCPCS: 99213

== ENCOUNTER 2023-10-15 08:54 | Outpatient (REF) | payer MEDICARE, SELFPAY ==
--- NOTE | ~2023-10-15 | US_ITS ---
EXAMINATION: US VENOUS ULTRASOUND WITH DOPPLER LOWER EXTREMITY, LEFT CLINICAL INFORMATION: Left lower extremity edema with history of DVT COMPARISON: Left lower extremity DVT study 11/07/2019 TECHNIQUE: Ultrasound of the deep veins is performed from the hip to the calf with compression sonography and color and pulse Doppler assessment. Spectral analysis with color-flow imaging is performed. FINDINGS: Extensive left lower extremity DVT is present with thrombus in the peroneal vein extending up through the popliteal vein, femoral vein and common femoral vein. The profunda femoris vein and the posterior tibial vein appear patent, There is no significant popliteal fossa cyst. The contralateral right common femoral vein appeared normal. Should be noted that in the past on 12/20/2018 the patient had similar appearing disease which had resolved by 11/07/2019 with persistent chronic changes. The findings on today's study represents recurrent acute disease on top of chronic disease. 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 The patient's physician is aware of this diagnosis and was prescribed anticoagulation.
== END 2023-10-15 08:55 | disposition home or self-care (01) ==
LOC: HO.HMGCX 08:54
PROVIDERS: PCP Nurse Practitioner Family; Visit Provider Nurse Practitioner Family
DX: M79.89 Other specified soft tissue disorders (principal); M79.605 Pain in left leg
CPT/HCPCS: 93971

== ENCOUNTER 2023-10-19 09:32 | Outpatient (AMB) | payer MEDICARE, SELFPAY ==
--- NOTE | 2023-10-19 09:44 | A.OFFVIS_ITS ---
Vital Signs 10/19/23 09:48 Height 5 ft 2 in Weight 182 lb BMI 33.3 BP 129/65 Blood Pressure Location Lt brachial Position Sitting Pulse 92 Intake Visit Reasons: s/p egd/colon Intake Note: Patient follow up for EGD/Colonoscopy results Patient cc: acid reflex with burning sensation, swallowing problems with solid and some liquid, too and everything is taste like sodium. Denies any other GI issues. Clerk General Required: No Accompanied by: Self / Same As Patient Allergies penicillin G [PENICILLIN G] Allergy (Severe, Verified 10/19/23 09:44) ANAPHYLAXIS HPI Comments Details: A 68 y/o female f/u after EGD and and colonoscopy She has hx DVT-no anticoags She had DVT post procedure- next day- now taking eliquis- She has no GI c/o Appetite gd- episodes of dysphagia, heartburn-unable to identify anything specific -, eats night snack/ cereal/ yogurt-notes increased heartburn Bowels- ok, no issues there No abdominal pain- Reviewed procedure report, pathology and recommendation Opportunity for questions [facility] Medical History (Updated 10/19/23 @ 12:40 by Rabia Adams PA-C) Leukopenia Depression Cervical carcinoma DDD (degenerative disc disease), lumbar JACQUE I (cervical intraepithelial neoplasia I) ASCUS (atypical squamous cells of undetermined significance) on gynecologic Papanicolaou smear complicating , antepartum Seropositive rheumatoid arthritis HTN (hypertension) Rheumatoid arthritis Hyperlipemia DVT (deep venous thrombosis) Surgical History History of esophagogastroduodenoscopy (EGD) Hx of colonoscopy History of back surgery S/P lumbar microdiscectomy S/P biopsy of cervix History of bunionectomy of both great toes Family History Mother Colon cancer metastasized to multiple sites HTN (hypertension) Substance use disorder Maternal Aunt Breast cancer Father HTN (hypertension) Substance use disorder Brother HTN (hypertension) Heart attack Enlarged heart Brain aneurysm Brother HTN (hypertension) Sister HTN (hypertension) Sister HTN (hypertension) Sister HTN (hypertension) Social History Household Members: Spouse Housing: Apartment Are you a primary specialist wound care to a significant other at home: No Do you presently have visiting nurse or other home services: No Alcohol intake: current Alcohol intake frequency: a few times a month Alcohol type: beer Patient Tobacco Use Status: Former Tobacco user Quit Date: age 28 Tobacco use type: Cigarette Years Smoked: 40 years ago e-Cigarette/Vaping Use: Never Used Second Hand Smoke Exposure: No service: No Current occupational status: employed 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 Current occupational exposures/hazards: No Cognitive needs: No Hearing needs: No Vision needs: No Review of Systems Const All systems reviewed & are unremarkable except as noted in HPI and below Card Denies chest pain and Denies dyspnea Resp Denies dyspnea GI Denies abdominal pain, Reports heartburn, Denies nausea and Denies vomiting Physical Exam Vital Signs: Last Vital Signs Pulse 92 10/19/23 09:48 BP 129/65 10/19/23 09:48 BMI result Body Mass Index 33.3 Const General: cooperative, healthy appearing, comfortable and no acute distress Orientation/consciousness: patient oriented x3 Limitations: no limitations Resp Effort & Inspection: normal respiratory effort and able to speak in complete sentences Neuro General: patient oriented x3 Psych Appearance: grossly normal Mental Status: mental status grossly normal Speech and movement: Normal speech and movement present Affect: normal affect Attitude: cooperative Thought process: Normal thought process present Thought content: Normal thought content present Insight: Good insight present (Psych) Judgement: Good judgement present (Psych) Results Reviewed Results Reviewed: Impression: 1. Tortuous esophagus 2. Hiatal hernia 3. Gastritis 4. Duodenal diverticulum with gallstone 5. Normal colon and terminal ileum mucosa 6. Diverticulosis 7. Internal hemorrhoids Recommendations:?? * Follow-up path results * Repeat colonoscopy in 5-7 years due to prep Addendum Addendum #1 Immunostains for H. pylori are non-reactive (B and C). No other additions or changes are made to the diagnoses. Electronically Signed By: Roman Yoo MD 10/12/23 1312 Diagnosis A. Duodenum, biopsy: Duodenal mucosa with preserved villi and no specific change; no evidence of celiac disease. B. Gastric cardia, nodular mucosa, biopsy: Moderate chronic gastritis with minimal activity; negative for intestinal metaplasia and dysplasia (see comment). C. Stomach, random, biopsy: Mild chronic gastritis with minimal activity and focal intestinal metaplasia; negative for dysplasia (see comment). D. Colon, right, biopsy: Colonic mucosa with lymphoid aggregates and no specific change; no evidence of microscopic colitis. E. Colon, left, biopsy: Colonic mucosa with lymphoid aggregates and no specific change; no evidence of microscopic colitis. Comment: (B and C): Immunostains for H. pylori pending; addendum to follow. Clinical History Pre-Op Dx: GERD, diarrhea Post-Op Dx: Duodenal diverticulum, hiatal hernia, gallstones, gastritis, diverticulosis, hemorrhoids Microscopic Description Microscopic sections reviewed. AB/PAS on A is negative for evidence of chronic injury. AB/PAS on B is negative for intestinal metaplasia. AB/PAS on C is positive for focal intestinal metaplasia. Control stains Patient: Krista Liu Age/Sex: 68/F MR#: [id number] Page 1 of 3 Assessment & Plan Assessment & Plan (1) Acid reflux: Comment: Acid reflux Code(s): K21.9 - Gastro-esophageal reflux disease without esophagitis Category: Medical Plan: Continue PPI Reflux precautions Eat slowly, chew well (2) Hemorrhoids: Code(s): K64.9 - Unspecified hemorrhoids Category: Medical Plan: High-fiber Avoid straining Offer surgical consult (3) Diverticulosis of colon: Code(s): K57.30 - Diverticulosis of large intestine without perforation or abscess withou t bleeding Category: Medical Plan: ER protocol Maintain high-fiber diet (4) Dysphagia: Code(s): R13.10 - Dysphagia, unspecified Category: Medical Plan: BS with pill if need f/u EGD -[phone] Consider ref [place]-consult (5) Hiatal hernia: Code(s): K44.9 - Diaphragmatic hernia without obstruction or gangrene Category: Medical (6) Duodenal diverticulum: Code(s): K57.10 - Diverticulosis of small intestine without perforation or abscess without bleeding Category: Medical Plan Repeat asymptomatic colonoscopy 5 years Reflux precautions Eat slowly, chew well Continue PPI Maintain high-fiber Avoid straining ER protocol Orders: Orders FL barium swallow Today K44.9 - Diaphragmatic hernia without obstruction or gangrene, K57.10 - Diverticulosis of small intestine without perforation or abscess without bleeding, R13.10 - Dysphagia, unspecified Patient Instructions: Repeat asymptomatic colonoscopy 5 years Reflux precautions-remain upright 2-3 hours after eating especially evening meal Eat slowly, chew well-avoid choking-continue to monitor symptoms Continue PPI Barium swallow with pill to further evaluate- Maintain [id number]-agqke-dbnhuxvxion Avoid straining-surgical consult offered declined this time will keep us posted ER protocol= diverticulosis/diverticular Encouraged to call with questions or concerns Coding Level of Care Code Est Pt Level 4 (55230) Diagnoses Acid reflux K21.9 Hemorrhoids K64.9 Diverticulosis of colon K57.30 Dysphagia R13.10 Hiatal hernia K44.9 Duodenal diverticulum K57.10 Time Spent (min) 35
[2023-10-19 09:48] VITALS: BP 129/65; PULSE 92; BMI 33.3
== END 2023-10-19 11:30 | disposition home or self-care (01) ==
PROVIDERS: PCP Nurse Practitioner Family; Visit Provider Physician Assistant
DX: K21.9 Gastro-esophageal reflux disease without esophagitis (principal); K64.9 Unspecified hemorrhoids; K57.30 Diverticulosis of large intestine without perforation or abscess without bleeding; R13.10 Dysphagia, unspecified; K44.9 Diaphragmatic hernia without obstruction or gangrene; K57.10 Diverticulosis of small intestine without perforation or abscess without bleeding
CPT/HCPCS: 99214

== ENCOUNTER → 2023-10-19 09:32 | Outpatient (BNVA) | payer MEDICARE, SELFPAY | PROVIDERS: PCP Nurse Practitioner Family; Visit Provider Physician Assistant | DX: K21.9 Gastro-esophageal reflux disease without esophagitis (principal); K64.9 Unspecified hemorrhoids; K57.30 Diverticulosis of large intestine without perforation or abscess without bleeding; K44.9 Diaphragmatic hernia without obstruction or gangrene; K57.10 Diverticulosis of small intestine without perforation or abscess without bleeding; R13.10 Dysphagia, unspecified | CPT/HCPCS: 99212 ==

== ENCOUNTER 2023-11-18 09:42 | Outpatient (AMB) | payer MEDICARE, SELFPAY ==
[2023-11-18 09:47] VITALS: BP 122/64; PULSE 85; O2SAT 98; BMI 31.8
--- NOTE | 2023-11-18 09:47 | A.OFFVIS_ITS ---
Vital Signs 11/18/23 09:47 Height 5 ft 4 in Weight 185 lb 3.013 oz BMI 31.8 BP 122/64 Blood Pressure Location Rt brachial Position Sitting Pulse 85 Pulse Source Pulse Oximeter Pulse Oximetry (%) 98 Oxygen Delivery Method Room Air Intake Visit Reasons: Rheumatoid Arthritis in Remission. Intake Note: Patient last seen 05/18/23 by Remedios, presents today for follow up and test results. Mailing Machine Helper Required: No Accompanied by: Self / Same As Patient Allergies penicillin G [PENICILLIN G] Allergy (Severe, Verified 11/18/23 09:53) ANAPHYLAXIS HPI Comments Details: Mrs. 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 She denies side effect from Leflunomide, and has no rash on PE. Since last visit; had EGD/Colonoscopy for trouble swallowing - started one year ago; choking and gagging. vomits at nights; sees GI. - recent colonoscopy and endoscopy, developed a blood clot to leg within same week after procedures - was put on Eloquis. Will be doing a repeat egd to assess hiatal hernia - incidental finding on on last procedure. Was started on pantaprozole, was prescribed 40mg QD but takes it BID due to having more reflux at night. She has had RA for about 9 years. Initial treatment with Enbrel was supplemented with methotrexate in 2016. During 2021 she was noted to have decreased white blood cell counts, mostly neutrophils. Hematology workup did not reveal a source. She stopped the methotrexate in February of last year and then in March stopped the Enbrel. She felt a little bit worse after that but then started taking ezxc-hlf-alhsoov turmeric and she thinks that is helpful for her. She also uses occasional Tylenol. She has had no fevers or chills. She continues without swelling, redness and tenderness to her joints. [facility] Medical History (Updated 10/29/23 @ 09:05 by Nikhil Anguiano MD) Leukopenia Depression Cervical carcinoma DDD (degenerative disc disease), lumbar JACQUE I (cervical intraepithelial neoplasia I) ASCUS (atypical squamous cells of undetermined significance) on gynecologic Papanicolaou smear complicating , antepartum Seropositive rheumatoid arthritis HTN (hypertension) Rheumatoid arthritis Hyperlipemia DVT (deep venous thrombosis) Surgical History History of esophagogastroduodenoscopy (EGD) Hx of colonoscopy History of back surgery S/P lumbar microdiscectomy S/P biopsy of cervix History of bunionectomy of both great toes Family History Mother Colon cancer metastasized to multiple sites HTN (hypertension) Substance use disorder Maternal Aunt Breast cancer Father HTN (hypertension) Substance use disorder Brother HTN (hypertension) Heart attack Enlarged heart Brain aneurysm Brother HTN (hypertension) Sister HTN (hypertension) Sister HTN (hypertension) Sister HTN (hypertension) Social History Household Members: Spouse Housing: Apartment Are you a primary pet care technician to a significant other at home: No Do you presently have visiting nurse or other home services: No Alcohol intake: current Alcohol intake frequency: a few times a month Alcohol type: beer Patient Tobacco Use Status: Former Tobacco user Tobacco use type: Cigarette Years Smoked: 40 years ago e-Cigarette/Vaping Use: Never Used Second Hand Smoke Exposure: No service: No Current occupational status: employed 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 Antalgic gait JOINT EXAM:? Cervical Spine:.? Full range of motion without pain; no tenderness. Thoracic Spine:.? No scoliosis.? No tenderness on palpation. Lumbar Spine:.? Alignment normal.? Full range of motion with mild pain at the extremes. No tenderness. She walks with a slapping gait but she said developed after she had back surgery. The Chest Wall:.? No tenderness, swelling, increased warmth or erythema. Hands:.? Right: Normal pain-free range of motion. There is no swelling or tenderness. No thenar atrophy or sensory loss. Left: Normal pain-free range of motion with mild swelling at the 1st 2 MCP joints. There is some mild bony enlargement with tenderness at the base of the thumb. Elsewhere there is no tenderness or swelling. No thenar atrophy, flexor tendon triggering, or sensory loss. Wrists:.? Flexion and extension to limited to about 75 degrees but without pain. Today there is no slight dorsal tenderness on the right and neither wrist has any swelling, increased warmth or erythema. Elbows:. Normal pain-free range of motion without tenderness, swelling, increased warmth or erythema. Shoulders:.?? Full range of motion without pain. No tenderness, weakness, swe lling, increased warmth or erythema. Hips:.? Full range of motion without pain. Hip bursa:.? No tenderness. Knees:.?? Normal pain-free range of motion with mild patellofemoral crepitus but no effusion, tenderness, swelling, increased warmth or erythema.? Ankles:.? Normal pain-free range of motion without tenderness, swelling, increased warmth or erythema. Feet:.? Right: There is evidence for surgery over the 1st and 2nd MTP regions. There is limitation of motion, perhaps total fusion at the 1st MTP joint. None of the MTPs have any tenderness. There is no tenderness or swelling in the instep. Left: There is mild bony enlargement and evidence for surgery at the 1st 2 MTP areas. There is no tenderness, soft tissue swelling, redness or warmth. Tender points:.? No tenderness to digital palpation at the occiput, trapezius, second rib, lateral epicondyle, knees, greater trochanter and gluteal area bilaterally. ? Results Reviewed Results Reviewed: Laboratory Tests 10/29/23 09:02 WBC 2.0 L Neut % (Auto) 30.5 L Lymph % (Auto) 51.0 H [place] % (Auto) 14.0 H Creatinine 0.80 Estimated GFR > 60 Calcium 9.4 AST 19 ALT 14 Alkaline Phosphatase [address] [address] [address] Scan Report Signed Patient: Krista Liu MR#: [id number] : 1955 Acct:[id number] Age/Sex: 67 / F ADM Date: 05/28/23 Loc: HO.CT Attending Dr: Isamar Whittaker [facility] Ordering Physician: Isamar Whittaker Date of Service: 05/28/23 Procedure(s): CT abdomen wo/w IV con Accession Number(s): [id number] cc: Dennis Hsu [facility]; Isamar Whittaker [facility]~ EXAMINATION: CT ABDOMEN WITHOUT AND WITH CONTRAST CLINICAL INFORMATION: Decreased white blood cell count, history of rheumatoid arthritis and leukopenia. Question Felty's syndrome. Question enlarged spleen. COMPARISON: CT abdomen and pelvis 01/03/2021. TECHNIQUE: Contiguous axial thin section helical images of the abdomen were performed before and after the administration of oral contrast and 85 mL of Omnipaque 350 intravenous contrast. The data set was reformatted in the coronal and sagittal planes and reviewed on an independent workstation. This CT examination was performed using dose optimization techniques as appropriate, variously including the following: *Automated exposure control *Adjustment of mA and/or kV according to patient size (this includes techniques or standardized protocols for targeted exams where dose is matched to indication/reason for exam; i.e. extremities or head) *Use of iterative reconstruction technique DLP: 667 mGy-cm FINDINGS: LUNG BASES: No suspicious lung nodules. No pericardial effusion. LIVER, GALLBLADDER, AND BILIARY TREE: Noncontrast attenuation of the liver is low relative to the spleen suggesting mild hepatic steatosis. Postcontrast imaging of the liver shows no discrete liver mass. There is no biliary ductal dilatation. The gallbladder is unremarkable. The portal vein is patent. No evidence of portosystemic collateralization. PANCREAS: No discrete pancreatic mass. No pancreatic ductal dilatation SPLEEN: Elongated spleen measuring 15.3 cm without discrete lesion. Longest radial thickness measurable on the current study is 7.3 cm and on the prior study 5.7 cm. 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 The splenic vein is patent. ADRENAL GLANDS AND KIDNEYS: No adrenal mass. Mild cortical scarring bilaterally. No suspicious renal mass. No visible nephrolithiasis. No hydronephrosis. BOWEL LOOPS: Small hiatal hernia. Diverticulosis of the visible ascending and transverse colonic segments. Unchanged mild haziness in the central mesentery with mildly prominent mesenteric lymph nodes. LYMPH NODES: No retroperitoneal, peripancreatic, ceferino hepatic, or gastrohepatic lymphadenopathy. VASCULAR: Mild aortoiliac atherosclerosis. Stable small peripherally calcified splenic artery aneurysm. No aortic aneurysm. Retroaortic left renal vein. BONES: Degenerative changes in the spine. CT/CT abdomen wo/w IV con IMPRESSION: Mild splenomegaly. Stable central mesenteric haziness and mild prominent lymph nodes. This is a nonspecific finding and may represent panniculitis. The finding can rarely be associated with lymphoma, however the lymph nodes are not bulky and the stability over 2 years would argue against the diagnosis of lymphoma. Hepatic steatosis without evidence of cirrhosis. Small hiatal hernia. Colonic diverticulosis. Fleischner guidelines were followed. Dictated By: William Fowler MD Signed By: <Electronically signed by William Fowler MD in OV> 06/10/23 1254 DD/ 1152 TD/TT: Liquor Blender: DANA Assessment & Plan Assessment & Plan (1) Seropositive rheumatoid arthritis: Comment: Enbrel 05/2014 to March 2022 held because of leukopenia Methotrexate 06/2016 to February 2022 held because of leukopenia Code(s): M05.9 - Rheumatoid arthritis with rheumatoid factor, unspecified Category: Medical (2) Leukopenia: Code(s): D72.819 - Decreased white blood cell count, unspecified Category: Medical Qualifiers: Leukopenia type: neutropenia Neutropenia type: other drug-induced Qualified Code(s): D70.2 - Other drug-induced agranulocytosis (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 - CT abdomen 05/2023 Mild Splenomegaly compared to 2020. The patient was diagnosed with Seropositive rheumatoid arthritis (RF+ CCP++) in 2005 and was taking 6 tabs MTX and Enbrel weekly. Monitoring labs showed consistent leukopenia and neutropenia since 02/2022. Myelosuppression is risk a concern for patients on immunomodulating therapy. Therefore, Methotrexate discontinued, then Enbrel to see if her labs would improve, but there was no stable improvement, hence the nutropenia is less likely due to Myelosuppression. 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 She was referred to Hematology where she was already being followed for DVT on Elequis. Hematology completed further workup for viral infection, collagen vascular disorder, LDH, SIEP(Serum immunoreactive erythropoietin) and all were unrevealing. 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 However, patient has not had imaging of her spleen since the leukopenia started - last CT of abdomen was 11/07(spleen unremarkable). I obtain a CT scan to check for spleen enlargement and it shows mild splenomegaly compared to [address] CT. Treatment for?Felty syndrome focuses on controlling the underlying RA and treating the neutropenia to prevent infections. I discussed with patient, her increased risk for infection given her low WBC. We discussed increased precautions with germ exposure and food. Patient verbalized understanding. #Sandblaster Supervisor Use: Continue to monitor CBC and CMP. #Mrs. Liu has a history of Rheumatoid arthritis and has been off immunosuppressants for over 1 year because of luekopenia. She does not have synovitis on PE and denies any since last visit. There is is enlargement across some of the MCP joints reflecting chronic disease. The leukopenia(05/07/2023 labs) has worsened since last visit 12/2022 and ESR/CRP were elevated on December 2022 labs. Patient's exam is more consistent with osteoarthritis. She will continue to take Tylenol as needed. Patient will obtain updated labs before end of year. The goal is to achieve a?granulocyte count of more than 2000/microliter.?Neutropenia without evidence of infection is not an indication for treatment; however, the presence of neutropenia in patients with RA can help in adjusting disease-modifying antirheumatic drugs (DMARD) therapy. Improvement of the neutrophil count with the treatment of RA indicates a component of FS. Patients with neutropenia should undergo a thorough examination to look for signs of infection. The presence of systemic symptoms should prompt treatment. Care of neutropenic patients involves good dental and oral hygiene as well as scheduled age-appropriate immunizations. The clinician should initiate appropriate treatment of infections with broad-spectrum antibiotics, and neutropenic precautions are necessary. An infectious disease specialist consult can be helpful (Philip R, Akhondi H. Felty Syndrome. [Updated 2021Dec 09]. In: [employer]Medicare [Internet]. [place] ([place]): [employer]; 2022-.?Available from: https://www.ncbi.nlm.nih.gov/books/JEW393676/). Follow-up in 4 months - patient knows to call if sooner appointment is needed. 30 mins to review chart, evaluate patient and document Orders: Orders Erythrocyte Sedimentation Rate 4 Months M05.9 - Rheumatoid arthritis with rheumatoid factor, unspecified, Z79.899 - Other termite exterminator helper (current) drug therapy Complete Blood Count Auto Diff 4 Months M05.9 - Rheumatoid arthritis with rheumatoid factor, unspecified, Z79.899 - Other termite exterminator helper (current) drug therapy Immunofixation Pnl, Serum 4 Months M05.9 - Rheumatoid arthritis with rheumatoid factor, unspecified, Z79.899 - Other residential (current) drug therapy Protein Electrophoresis, Serum 4 Months M05.9 - Rheumatoid arthritis with rheumatoid factor, unspecified, Z79.899 - Other residential (current) drug therapy Comprehensive Met. Panel 4 Months M05.9 - Rheumatoid arthritis with rheumatoid factor, unspecified, Z79.899 - Other termite exterminator helper (current) drug therapy C Reactive Protein 4 Months M05.9 - Rheumatoid arthritis with rheumatoid factor, unspecified, Z79.899 - Other residential (current) drug therapy Immunoglobulins,IgG IgA IgM 4 Months M05.9 - Rheumatoid arthritis with rheumatoid factor, unspecified, Z79.899 - Other termite exterminator helper (current) drug therapy Coding Level of Care Code Est Pt Level 3 (21809) Complex EM visit Add On G2211 Diagnoses Seropositive rheumatoid arthritis M05.9 Other drug-induced neutropenia D70.2 Leukopenia type: neutropenia Neutropenia type: other drug-induced Felty syndrome M05.00
== END 2023-11-18 10:29 | disposition home or self-care (01) ==
PROVIDERS: PCP Nurse Practitioner Family; Visit Provider Nurse Practitioner Family
DX: M05.79 Rheumatoid arthritis with rheumatoid factor of multiple sites without organ or systems involvement (principal); D70.2 Other drug-induced agranulocytosis; M05.00 Felty's syndrome, unspecified site
CPT/HCPCS: 99214; G2211

== ENCOUNTER → 2023-11-18 09:42 | Outpatient (BNVA) | payer MEDICARE, SELFPAY | PROVIDERS: PCP Nurse Practitioner Family; Visit Provider Nurse Practitioner Family | DX: M05.9 Rheumatoid arthritis with rheumatoid factor, unspecified (principal); M05.00 Felty's syndrome, unspecified site; D70.2 Other drug-induced agranulocytosis | CPT/HCPCS: 99212 ==

== ENCOUNTER 2023-12-16 09:19 | Outpatient (REF) | payer MEDICARE, SELFPAY ==
[2023-12-16 10:24] LABS: Baso%MD 1.8 %; Eos%MD 0.4 %; Hematocrit 39.1 % (37.0-47.0); Hemoglobin 12.8 g/dl (12.0-16.0); Lymph%MD 46.4 %; Mean Corpuscular HGB Conc 32.7 g/dl (31.0-35.0); Mean Corpuscular Hemoglobin 27.5 pg (27.0-33.0); Mean Corpuscular Volume 84.1 fL (80.0-98.0); Mean Platelet Volume 10.9 fL (9.4-12.3); Mono%MD 20.5 %; Neut%MD 30.9 %; Platelet Count 240 X10*3/uL (160-400); Red Blood Count 4.65 X10*6/uL (4.20-5.50); Red Cell Distribution Width 13.9 % (11.0-16.0)
[2023-12-16 10:25] LABS: White Blood Count 2.2 X10*3/uL (4.8-10.8)
[2023-12-16 10:50] LABS: Atypical Lymphs Percent Manual 2 % (0-6); Band Neutrophils Percent 2 % (3-5); Basophils Percent Manual 2 % (0-2); Lymphocytes Absolute Manual 1.2 X10*3/uL (1.2-4.9); Lymphocytes Percent Manual 56 % (20-40); Monocytes Absolute Manual 0.2 X10*3/uL (0.1-1.2); Monocytes Percent Manual 10 % (2-11); Neutrophils Absolute Manual 0.7 X10*3/uL (2.0-8.3); Neutrophils Percent Manual 28 % (45-73)
[2023-12-16 10:52] LABS: Platelet Estimate NORMAL (NORMAL); Platelet Morphology Comment NORMAL; RBC Morphology NORMAL
[2023-12-16 11:16] LABS: Alanine Aminotransferase 16 U/L (0-31); Albumin Level 4.2 g/dL (3.5-5.0); Alkaline Phosphatase 116 U/L (39-117); Anion Gap 13 (12-20); Aspartate Amino Transferase 18 U/L (5-31); Bilirubin Total 0.2 mg/dL (0.0-1.0); Blood Urea Nitrogen 19 mg/dL (9-16); Calcium 9.3 mg/dL (8.4-10.2); Carbon Dioxide 22 mmol/L (22-29); Chloride 109 mmol/L (96-108); Estimated Glomerular Filt Rate 49; Glucose Random 99 mg/dL (60-115); Potassium 4.8 mmol/L (3.3-5.1); Sodium 139 mmol/L (135-145); Total Protein 7.5 g/dL (6.5-8.0)
== END 2023-12-16 09:20 | disposition home or self-care (01) ==
LOC: HO.10HDL 09:19
PROVIDERS: Visit Provider Internal Medicine Medical Oncology
DX: D72.819 Decreased white blood cell count, unspecified (principal)
CPT/HCPCS: 36415; 80053; 85007; 85027

== ENCOUNTER 2023-12-23 07:27 | Outpatient (REF) | payer MEDICARE, SELFPAY | END 2023-12-23 07:28 | disposition home or self-care (01) | LOC: HO.XRAY 07:27 | PROVIDERS: Visit Provider Physician Assistant | DX: Z13.89 Encounter for screening for other disorder (principal) ==

== ENCOUNTER 2024-03-01 09:03 | Outpatient (REF) | payer MEDICARE, SELFPAY ==
--- NOTE | ~2024-03-01 | FL_ITS ---
EXAMINATION: XR FLUOROSCOPY UPPER GI WITH AIR CLINICAL INFORMATION: Dysphagia COMPARISON: None TECHNIQUE: Fluoroscopic air contrast upper GI examination was performed utilizing standard techniques with thin and thick barium and effervescent granules. Numerous spot images were obtained. FINDINGS: Lateral cine images of the oropharynx and hypopharynx demonstrate normal swallow mechanism with normal epiglottic inversion and soft palate elevation. No tracheal penetration, glottic or subglottic aspiration identified. No nasopharyngeal reflux present. Hypopharyngeal structures appear normal without evidence of mass or diverticulum. There was no significant cricopharyngeal achalasia. Dual and single contrast images of the esophagus demonstrate normal caliber, contour, and mucosal pattern. No evidence of stricture, mass, or ulcerations identified. Esophageal peristalsis was normal. The patient swallowed barium tablet without any difficulty. The tablet passed freely into the stomach without any evidence of stasis. A small type I hiatal hernia is present. Gastroesophageal reflux seen up to the thoracic inlet. Dual contrast and single contrast images of the stomach demonstrated a normal contour. The areae gastrica have a thickened appearance, suggestive of gastritis. No masses are seen. Contrast freely passed into the gastric antrum and duodenal bulb without delay. Single and air-contrast images of the duodenal bulb demonstrate no abnormality. The duodenal sweep has a normal appearance, course, and mucosal fold appearance. Second segment duodenal diverticulum. The imaged proximal jejunum has a normal fold pattern and caliber. FLUOROSCOPY TIME: 3 minutes 27 seconds Number of Spot Images: 4 Number of Cine: 16 DOSE AREA PRODUCT: 2213 uGy-m2 (microgray-meter squared) FL/FL barium swallow with air IMPRESSION: 1. Small type I hiatal hernia. 2. Moderate severe gastroesophageal reflux. 3. Prominent appearance of the areae gastricae, suggestive of gastritis. 4. Second segment duodenal diverticulum. This procedure was performed by Christiano Lyles PA-C, and supervised by Dr. Tapia Electronically signed by: Ryan Tapia MD 03/04/2024 04:43 PM EDT
== END 2024-03-01 09:04 | disposition home or self-care (01) ==
LOC: HO.XRAY 09:03
PROVIDERS: PCP Nurse Practitioner Family; Visit Provider Physician Assistant
DX: R13.10 Dysphagia, unspecified (principal); K44.9 Diaphragmatic hernia without obstruction or gangrene; K57.10 Diverticulosis of small intestine without perforation or abscess without bleeding
CPT/HCPCS: 74221

== ENCOUNTER → 2024-03-01 09:06 | Outpatient (BNV) | payer MEDICARE, SELFPAY | PROVIDERS: PCP Nurse Practitioner Family; Visit Provider Radiology Diagnostic Radiology | DX: R13.10 Dysphagia, unspecified (principal) | CPT/HCPCS: 74246 ==

== ENCOUNTER 2024-04-05 08:54 | Outpatient (REF) | payer MEDICARE, SELFPAY ==
[2024-04-05 10:22] LABS: Basophils Percent Auto 2.2 % (0-2); Eosinophils Percent Auto 2.2 % (0-4); Hematocrit 34.6 % (37.0-47.0); Hemoglobin 11.2 g/dl (12.0-16.0); Lymphocytes Absolute Auto 0.5 X10*3/uL (1.2-4.9); Lymphocytes Percent Auto 57.1 % (20-40); MANUAL DIFF FLAG SCAN; Mean Corpuscular HGB Conc 32.4 g/dl (31.0-35.0); Mean Corpuscular Hemoglobin 27.8 pg (27.0-33.0); Mean Corpuscular Volume 85.9 fL (80.0-98.0); Mean Platelet Volume 10.7 fL (9.4-12.3); Monocytes Absolute Auto 0.2 X10*3/uL (0.1-1.2); Monocytes Percent Auto 25.3 % (2-11); Neutrophils Absolute Auto 0.1 x10*3/uL (2.0-8.3); Neutrophils Percent Auto 13.2 % (45-73); Platelet Count 211 X10*3/uL (160-400); Red Blood Count 4.03 X10*6/uL (4.20-5.50); SCAN SMEAR FLAG 1
[2024-04-05 10:46] LABS: Alanine Aminotransferase 10 U/L (0-31); Albumin Level 3.7 g/dL (3.5-5.0); Alkaline Phosphatase 103 U/L (39-117); Anion Gap 12 (12-20); Aspartate Amino Transferase 19 U/L (5-31); Bilirubin Total 0.4 mg/dL (0.0-1.0); Blood Urea Nitrogen 15 mg/dL (9-16); C Reactive Protein 3.69 mg/dL (< or = 0.50); Calcium 9.1 mg/dL (8.4-10.2); Carbon Dioxide 22 mmol/L (22-29); Chloride 111 mmol/L (96-108); Estimated Glomerular Filt Rate > 60; Glucose Random 100 mg/dL (60-115); Potassium 4.2 mmol/L (3.3-5.1); Sodium 141 mmol/L (135-145); Total Protein 6.8 g/dL (6.5-8.0)
[2024-04-05 11:08] LABS: White Blood Count 0.9 X10*3/uL (4.8-10.8)
[2024-04-05 11:11] LABS: SLIDE REVIEW VERIFIED
[2024-04-05 12:08] LABS: Erythrocyte Sedimentation Rate 34 MM/HR (0-20)
[2024-04-07 14:28] LABS: Prot Elec - Albumin 3.5 g/dL (3.8-4.8); Prot Elec - Alpha1 0.5 g/dL (0.2-0.3); Prot Elec - Alpha2 0.7 g/dL (0.5-0.9); Prot Elec - Beta 1 0.5 g/dL (0.4-0.6); Prot Elec - Beta 2 0.5 g/dL (0.2-0.5); Prot Elec - Gamma 0.7 g/dL (0.8-1.7); Prot Elec - Total Protein 6.3 g/dL (6.1-8.1)
[2024-04-08 16:23] LABS: IgA 398 mg/dL (70-320); IgG 786 mg/dL (600-1540); IgM 78 mg/dL (50-300)
== END 2024-04-05 08:55 | disposition home or self-care (01) ==
LOC: HO.HMGCLDS 08:54
PROVIDERS: PCP Nurse Practitioner Family; Visit Provider Nurse Practitioner Family
DX: M05.9 Rheumatoid arthritis with rheumatoid factor, unspecified (principal); Z79.899 Other long term (current) drug therapy
CPT/HCPCS: 36415; 80053; 82784; 84165; 85025; 85652; 86140; 86334

== ENCOUNTER 2024-04-07 08:40 | Outpatient (AMB) | payer MEDICARE, SELFPAY ==
[2024-04-07 08:49] VITALS: BP 118/68; PULSE 72; O2SAT 99; BMI 32.2
--- NOTE | 2024-04-07 08:49 | A.OFFVIS_ITS ---
Vital Signs 04/07/24 08:49 Height 5 ft 4 in Weight 187 lb 9.814 oz BMI 32.2 BP 118/68 Blood Pressure Location Lt brachial Position Sitting Pulse 72 Pulse Source Pulse Oximeter Pulse Oximetry (%) 99 Oxygen Delivery Method Room Air Intake Visit Reasons: Rheumatoid Arthritis in Remission./cm Intake Note: Patient is here for follow up on RA, she states she has no symptoms today. Allergies penicillin G [PENICILLIN G] Allergy (Severe, Verified 04/07/24 08:53) ANAPHYLAXIS Medication List - Last Reconciled 04/07/24 by Tanika Oliva MD acetaminophen (Tylenol Extra Strength) 1,000 mg PO Q6H apixaban (Eliquis) 5 mg PO BID apixaban (Eliquis) 10 mg (2 x 5 mg) PO BID 30 days atorvastatin 40 mg PO BEDTIME buspirone 5 mg PO BID 90 days folic acid 1 mg PO DAILY 90 days lisinopril 20 mg PO DAILY 90 days menthol-zinc oxide 0.44-20.6 % (Calmoseptine) 1 appl topical BID PRN methotrexate sodium 15 mg (6 x 2.5 mg) PO QWEEK 90 days pantoprazole 40 mg PO DAILY 30 days HPI Comments Details: Patient is a 68-year-old female with hypertension, hyperlipidemia who presents for follow-up of 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 At that time she was started on leflunomide. Her rheumatoid arthritis was Jenna flare in the setting of not being on any medication on a background of methotrexate and Enbrel being stopped because of Felty syndrome. Today patient reports that she is doing well overall. Has some minor aches and pains but no prolonged morning stiffness. No recent fevers or illness. Rheumatologic History: Diagnosed with rheumatoid arthritis in 2005. Previously on methotrexate and Enbrel and was stable on this. However in 2021 she was noted to have falling white counts mostly neutrophils. Was seen by Hematology for workup but this did not reveal a source. The methotrexate was held and then the Enbrel was held. This did not improve her counts. She was subsequently evaluated for Felty syndrome and CT imaging of her abdomen showed splenomegaly. She was s ubsequently restarted on leflunomide and the Enbrel was held given the possibility of Felty syndrome Current Rheumatology Medication(s): Leflunomide 10mg PFSH Medical History (Updated 04/07/24 @ 09:27 by Tanika Oliva MD) Leukopenia Depression Cervical carcinoma DDD (degenerative disc disease), lumbar JACQUE I (cervical intraepithelial neoplasia I) ASCUS (atypical squamous cells of undetermined significance) on gynecologic Papanicolaou smear complicating , antepartum Seropositive rheumatoid arthritis HTN (hypertension) Rheumatoid arthritis Hyperlipemia DVT (deep venous thrombosis) Surgical History History of esophagogastroduodenoscopy (EGD) Hx of colonoscopy History of back surgery S/P lumbar microdiscectomy S/P biopsy of cervix History of bunionectomy of both great toes Family History Mother Colon cancer metastasized to multiple sites HTN (hypertension) Substance use disorder Maternal Aunt Breast cancer Father HTN (hypertension) Substance use disorder Brother HTN (hypertension) Heart attack Enlarged heart Brain aneurysm Brother HTN (hypertension) Sister HTN (hypertension) Sister HTN (hypertension) Sister HTN (hypertension) Social History Household Members: Spouse Housing: Apartment Are you a primary intensive care ambulance paramedic to a significant other at home: No Do you presently have visiting nurse or other home services: No Alcohol intake: current Alcohol intake frequency: a few times a month Alcohol type: beer Patient Tobacco Use Status: Former Tobacco user Tobacco use type: Cigarette Years Smoked: 40 years ago e-Cigarette/Vaping Use: Never Used Second Hand Smoke Exposure: No service: No Current occupational status: employed 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 Current occupational exposures/hazards: No Cognitive needs: No Hearing needs: No Vision needs: No Review of Systems Const Details: Review of Systems Constitutional: Denies fever, chills, weight loss ENT: Denies vision changes, eye pain or eye redness, dental caries, dry mouth GI: Denies nausea, vomiting, diarrhea, abdominal pain, change in BM Pulm: Denies SOB, KAMARA, hemoptysis, wheezing Cards: Denies chest pain, palpitations Skin: Denies Raynaud's, rash, nail changes, photosensitivity, PRODUCT SUPPORT TECHNICIAN: Denies headaches, weakness, paresthesias, recurrent falls MSK: as per HPI All other systems reviewed and are unremarkable except noted above Physical Exam Vital Signs: Last Vital Signs Pulse 72 04/07/24 08:49 BP 118/68 04/07/24 08:49 Pulse Ox 99 04/07/24 08:49 Oxygen Delivery Method Room Air 04/07/24 08:49 BMI result Body Mass Index 32.2 Physical Examination CONSTITUITIONAL Patient alert and cooperative. Well appearing and in no apparent painful distress HEENT Conjunctiva and sclera clear. ?Pupils equal round and reactive to light. ?No lymphadenopathy. ?Normal dentition. No oral or nasal ulcers noted. No evidence of discoid rash to the anali of ears CHEST/RESPIRATORY SYSTEM Normal respiratory effort and able to speak in complete sentences. ?Clear to auscultation bilaterally. ?No crackles, rales, rhonchi, wheezes heard. CARDIAC SYSTEM Regular rate and rhythm. ?S1 and S2 heard no murmurs. ?Radial pulses intact bila terally MSK Hands: ?Good avionics manager strength bilaterally - 5/5. ?No deformities noted. ?No synovitis noted to the MCPs, PIPs or DIPs. ?No tenderness to palpation of these joints. Wrists: ?Full range of motion at the wrists without pain. ?No tenderness to palpation or synovitis noted to the wrists. Elbows: Full range of motion without pain. No tenderness, weakness, swelling, increased warmth or erythema. Shoulders: Full range of motion without pain. No tenderness, weakness, swelling, increased warmth or erythema. Knees: ?Full range of motion. ?No tenderness, swelling, increased warmth or erythema.?No effusion or crepitations Ankles: Full range of motion. ?No tenderness, swelling, increased warmth or erythema.? Feet: ?Negative squeeze test. ?No tenderness to palpation or swelling of the MTPs. Tender points:??No tenderness to palpation of the neck, shoulders, chest, elbows, hips, buttocks or knees. SKIN Skin intact without rashes. Results Reviewed Results Reviewed: Laboratory Tests 12/16/23 04/05/24 09:24 09:02 WBC 2.2 L 0.9 L* RBC 4.65 4.03 L Hgb 12.8 11.2 L Hct 39.1 34.6 L Plt Count 240 211 Neut % (Auto) 13.2 L Absolute Neuts (auto) 0.1 L ESR 34 H Sodium 141 Potassium 4.2 Chloride 111 H Carbon Dioxide 22 Anion Gap 12 BUN 15 Creatinine 0.88 AST 19 ALT 10 C-Reactive Protein 3.69 H Assessment & Plan Assessment & Plan (1) Seropositive rheumatoid arthritis: Comment: Enbrel 05/2014 to March 2022 held because of leukopenia Methotrexate 06/2016 to February 2022 held because of leukopenia Leflunomide started 11/2023, stopped 03/2024 Methotrexate restarted 03/2024 Code(s): M05.9 - Rheumatoid arthritis with rheumatoid factor, unspecified Category: Medical Plan: #Seropositive RA Patient with 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 Today she has pretty severe neutropenia with ANC of 1000. No fevers or chills. No evidence of infection at this time. We will stop leflunomide as this not has not been shown to be effective in Felty syndrome. The 2 medications that have been shown to be effective and feels his syndrome are methotrexate and rituximab. We will restart methotrexate at 6 pills weekly (50 mg weekly) and folic acid 1 mg daily. Discussed with patient at length about the diagnosis of Felty syndrome and the importance of keeping away from ill contacts. Also if she is to get a fever or chills she is to present to the emergency department at once for evaluation. 1. Vinny Mcpherson, King MW, King JM. Oral methotrexate in the treatment of Felty's syndrome. J Rheumatol. 1992;20(3):599-601. PMID: [id number]. (2) Felty syndrome: Code(s): M05.00 - Felty's syndrome, unspecified site Category: Medical Plan: #RA Complicated by Felty's Syndrome Patient with a diagnosis of Felty syndrome based on seropositive rheumatoid arthritis, unexplained neutropenia and splenomegaly Started on methotrexate. If this is not effective we will consider rituximab. 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 Limit alcohol and avoid Bactrim ? Monitoring: ?CBC, BMP, LFTs every 3 months. Hepatitis serologies as needed Plan I spent 30 minutes reviewing the record and labs, seeing the patient, discussing the treatment plan and documenting in the medical record ? For next visit: * Neutrophil count Orders: Orders Comprehensive Met. Panel 3 Months M05.00 - Felty's syndrome, unspecified site, M05.9 - Rheumatoid arthritis with rheumatoid factor, unspecified, Z79.899 - Other senior care (current) drug therapy C Reactive Protein 3 Months M05.00 - Felty's syndrome, unspecified site, M05.9 - Rheumatoid arthritis with rheumatoid factor, unspecified, Z79.899 - Other senior care (current) drug therapy Erythrocyte Sedimentation Rate 3 Months M05.00 - Felty's syndrome, unspecified site, M05.9 - Rheumatoid arthritis with rheumatoid factor, unspecified, Z79.899 - Other buttermilk drier operator (current) drug therapy Hepatitis A,B,C Profile 3 Months M05.00 - Felty's syndrome, unspecified site, M05.9 - Rheumatoid arthritis with rheumatoid factor, unspecified, Z79.899 - Other buttermilk drier operator (current) drug therapy Complete Blood Count Auto Diff 3 Months M05.00 - Felty's syndrome, unspecified site, M05.9 - Rheumatoid arthritis with rheumatoid factor, unspecified, Z79.899 - Other buttermilk drier operator (current) drug therapy Medications: New methotrexate sodium 15 mg (6 x 2.5 mg) PO QWEEK 90 days 78 tabs 1RF M05.00 - Felty's syndrome, unspecified site, M05.9 - Rheumatoid arthritis with rheumatoid factor, unspecified folic acid 1 mg PO DAILY 90 days 90 tabs 1RF M05.00 - Felty's syndrome, unspecified site, M05.9 - Rheumatoid arthritis with rheumatoid factor, unspecified Discontinued leflunomide Discontinued Reason: Doctor's Order 10 mg PO DAILY 90 tabs 1RF M05.00 - Felty's syndrome, unspecified site, M05.9 - Rheumatoid arthritis with rheumatoid factor, unspecified Coding Level of Care Code Est Pt Level 4 (86499) Complex EM visit Add On G2211 Diagnoses Seropositive rheumatoid arthritis M05.9 Felty syndrome M05.00 intermission coordinator methotrexate user Z79.899
== END 2024-04-07 09:24 | disposition home or self-care (01) ==
LOC: HO.RHE 08:41
PROVIDERS: PCP Nurse Practitioner Family; Visit Provider Student in an Organized Health Care Education/Training Program
DX: M05.79 Rheumatoid arthritis with rheumatoid factor of multiple sites without organ or systems involvement (principal); M05.00 Felty's syndrome, unspecified site; Z79.899 Other long term (current) drug therapy
CPT/HCPCS: 99214; G2211

== ENCOUNTER → 2024-04-07 08:40 | Outpatient (BNVA) | payer MEDICARE, SELFPAY | PROVIDERS: PCP Nurse Practitioner Family; Visit Provider Student in an Organized Health Care Education/Training Program | DX: M05.9 Rheumatoid arthritis with rheumatoid factor, unspecified (principal); M05.00 Felty's syndrome, unspecified site; Z79.899 Other long term (current) drug therapy | CPT/HCPCS: 99212 ==

== ENCOUNTER 2024-04-21 08:52 | Outpatient (AMB) | payer MEDICARE, SELFPAY ==
[2024-04-21 08:54] VITALS: BP 126/80; PULSE 73; O2SAT 100; BMI 32.3
--- NOTE | 2024-04-21 08:54 | A.OFFPC_ITS ---
Vital Signs 04/21/24 08:54 Height 5 ft 4 in Weight 188 lb 7 oz BMI 32.3 BP 126/80 Blood Pressure Location Rt brachial Position Sitting Pulse 73 Pulse Source Pulse Oximeter Pulse Oximetry (%) 100 Oxygen Delivery Method Room Air Intake Visit Reasons: PE Intake Note: Pt is here today for her Annual Physical. Allergies penicillin G [PENICILLIN G] Allergy (Severe, Verified 04/21/24 08:55) ANAPHYLAXIS Medication List - Last Reconciled 04/21/24 by GRAEME Yeboah acetaminophen (Tylenol Extra Strength) 1,000 mg PO Q6H apixaban (Eliquis) 5 mg PO BID atorvastatin 40 mg PO BEDTIME buspirone 5 mg PO BID 90 days folic acid 1 mg PO DAILY 90 days lisinopril 20 mg PO DAILY 90 days methotrexate sodium 15 mg (6 x 2.5 mg) PO QWEEK 90 days pantoprazole 40 mg PO DAILY 30 days Tobacco use date assessed: 04/21/24 Fall risk assessment: No Falls in past year Last assessed Fall Risk: 04/21/24 Dental Screening Dental Screen Date: 04/21/24 Did you have a dental visit in the last 12 months?: Yes Did you have a dental problem in the last 6 months where you did not have access to dental care?: No Was dental information given to patient?: Patient has dentist HPI PE HPI Details Pt is here for a PE. Will order labs. Colon screen is up to date. Mammo is up to date. 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 Due for bone density, will order. Pt is following up with rheumatology, hematology/oncology, and GI. Pt has scattered skin tags, freckles, and age related spots to her face, chest, and upper torso. These range in size, shape, and pigmentation. Will refer to derm. NOTE: pt denies any SI or HI. Pt reports fighting more with her at home. I mentioned couples therapy. She reports he is not interested in this. Pt feels safe and does not feel threatened. She does have some depression, would rather not start or change any meds. She knows to contact myself with any further questions or concerns. [facility] Medical History (Updated 04/21/24 @ 10:15 by GRAEME Yeboah) Leukopenia Depression Cervical carcinoma DDD (degenerative disc disease), lumbar JACQUE I (cervical intraepithelial neoplasia I) ASCUS (atypical squamous cells of undetermined significance) on gynecologic Papanicolaou smear complicating , antepartum Seropositive rheumatoid arthritis HTN (hypertension) Rheumatoid arthritis Hyperlipemia DVT (deep venous thrombosis) Surgical History History of esophagogastroduodenoscopy (EGD) Hx of colonoscopy History of back surgery S/P lumbar microdiscectomy S/P biopsy of cervix History of bunionectomy of both great toes Family History Mother Colon cancer metastasized to multiple sites HTN (hypertension) Substance use disorder Maternal Aunt Breast cancer Father HTN (hypertension) Substance use disorder Brother HTN (hypertension) Heart attack Enlarged heart Brain aneurysm Brother HTN (hypertension) Sister HTN (hypertension) Sister HTN (hypertension) Sister HTN (hypertension) Social History Household Members: Spouse Housing: Apartment Are you a primary live in caregiver to a significant other at home: No Do you presently have visiting nurse or other home services: No Alcohol intake: current Alcohol intake frequency: a few times a month Alcohol type: beer Patient Tobacco Use Status: Former Tobacco user Tobacco use type: Cigarette Years Smoked: 40 years ago e-Cigarette/Vaping Use: Never Used Second Hand Smoke Exposure: No service: No Current occupational status: employed 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 1. Little interest or pleasure in doing things: not at all 2. Feeling down, depressed, or hopeless: not at all 3. Trouble falling or staying asleep, or sleeping too much: not at all 4. Feeling tired or having little energy: not at all 5. Poor appetite or overeating: not at all 6. Feeling bad about yourself - or that you are a failure or have let yourself or your family down: not at all 7. Trouble concentrating on things, such as reading the newspaper or watching television: not at all 8. Moving or speaking so slowly that other people could have noticed. Or the opposite - being so fidgety or restless that you have been moving around a lot more than usual: not at all 9. Thoughts that you would be better off or of hurting yourself in some way: not at all Total score: 0 Depression Screening Interpretation: Negative Depression Screening Done: Yes 62429 - PHQ-9 Billing: Yes Source: Developed by Drs. Bobby Barton, Megan Wallace, Da Young and colleagues, with an educational rowan from [employer]. Thrive Questionnaire Date Thrive assessed: 04/21/24 I am a: Patient What is your living situation today?: I choose not to answer this question Within the past 12 months, did the food you bought not last and you didn't have the money to get more?: I choose not to answer this question Within the past 12 months, did you worry whether your food would run out before you got money to buy more?: I choose not to answer this question Do you have trouble paying for medicines?: I choose not to answer this question Do you have trouble getting transportation to medical appointments?: I choose not to answer this question Do you have trouble paying your heating and electricity bill?: I choose not to answer this question Do you have trouble taking care of your child, family member or friend?: I choose not to answer this question Do you have trouble with day-to-day activities such as bathing, preparing meals, shopping, managing finances, etc.?: I choose not to answer this question Are you currently unemployed and looking for a job?: I choose not to answer this question Are you interested in more education?: I choose not to answer this question Please select the resources that you would like help with: None Currently or been in a relationship where the following occur: I choose not to answer THRIVE Score: 0 AUDIT C Alcohol Use Questionnaire (AUDIT-C) 1. How often do you have a drink containing alcohol?: Never 3. How often do you have six or more drinks on one occasion?: Never Total Score: 0 Score Reviewed/Action Taken: Yes ROSA-7 AMB Questionnaire ROSA-7 Date ROSA - 7 assessed: 04/21/24 Feeling nervous, anxious, or on edge: 0 = Not at all Not being able to stop or control worryin = Not at all Worrying too much about different things: 0 = Not at all Trouble relaxin = Not at all Being so restless that it is hard to sit still: 0 = Not at all Becoming easily annoyed or irritable: 0 = Not at all Feeling afraid as if something awful might happen: 0 = Not at all Total ROSA-7 score (0-4 normal; 5-9 mild; 10-14 moderate; 15-21 severe): 0 Source: Developed by Drs. Bobby Barton, Megan Wallace, Da Young and colleagues, with an educational rowan from [employer]. ROSA-7 Assessment Billing ROSA-7 Assessment Tool: ROSA-7 Assessment 75042 Review of Systems Const Denies chills and Denies fever(s) Eyes Denies blurry vision ENT Denies vertigo, Denies dizziness and Denies sore throat Card Denies chest pain at rest, Denies chest pain with activity, Denies diaphoresis, Denies dyspnea and Denies dyspnea on exertion Resp Denies cough, Denies dyspnea, Denies dyspnea on exertion and Denies wheezing GI Denies abdominal pain, Denies melena, Denies hematochezia, Denies constipation, Denies diarrhea and Denies loose stools Denies hematuria Musc Denies numbness and Denies tingling Skin/Breast Denies lesions Neuro Denies vertigo, Denies dizziness, Denies numbness and Denies tingling Psych Denies anxiety, Denies depression, Denies homicidal ideation, Denies suicidal ideation and Denies other (substance abuse) Aller/Immun Denies wheezing Physical exam (Primary Care) Vital Signs: Last Vital Signs Pulse 73 04/21/24 08:54 BP 126/80 04/21/24 08:54 Pulse Ox 100 04/21/24 08:54 Oxygen Delivery Method Room Air 04/21/24 08:54 BMI result Body Mass Index 32.3 Tobacco/Smoking Status: Tobacco use Status Tobacco use date assessed 04/21/24 04/21/24 08:57 Patient Tobacco Use Status Former Tobacco user 04/21/24 08:57 Tobacco use type Cigarette 04/21/24 08:57 e-Cigarette/Vaping Use Never Used 04/21/24 08:57 PHQ-9: PHQ-9 Score PHQ-9: Total score 0 04/21/24 09:20 Depression Screening Interpretation: Negative Thrive Assessment: Date of Thrive Assessment Date Thrive assessed 04/21/24 04/21/24 09:04 Currently or been in a relationship where the following occur: I choose not to answer Const General: cooperative Nutritional Appearance: obese Orientation/consciousness: patient oriented x3 HENMT Head: Yes normal to inspection, Yes normocephalic and Yes atraumatic Ears: TM's normal bilaterally Eyes General: appearance normal, both eyes and all related structures Alignment and Position: alignment normal and position normal Neck Neck: Yes normal visual inspection, Yes no lymphadenopathy and Yes supple Resp Effort & Inspection: normal respiratory effort Auscultation: clear to auscultation bilaterally Cardio Rate: regular rate Rhythm: regular rhythm Heart sounds: S1 normal heart sound present, S2 normal heart sound present and no murmurs GI Palpation (GI): Soft to palpation and nontender Auscultation: normal bowel sounds Skin Other: scattered skin tags, freckles, and age related growths to face, chest, and upper torso, ranging in size, shape, and pigmentation Rashes: no rashes Neuro General: patient oriented x3, moves all extremities, no focal motor deficits and deep tendon reflexes 2+ bilaterally Romberg Test: Negative Extrem Right lower extremity: no edema Left lower extremity: no edema Psych Appearance: grossly normal Mental Status: mental status grossly normal Speech and movement: Normal speech and movement present Affect: normal affect Attitude: cooperative Thought process: Normal thought process present Thought content: Normal thought content present Insight: Good insight present (Psych) Judgement: Good judgement present (Psych) Office Procedures Flu Questionnaire Does the patient have a severe egg allergy?: No Does the patient have severe life threatening allergies?: No Does the patient have a fever or illness today?: No Has the patient ever had Guillain-[place] Syndrome?: No Has the patient ever had any past reaction to a flu shot?: No Immunizations Fluarix Triv [id number] (PF) 45 mcg (15 mcg x 3)/0.5 mL IM syringe Performing Provider: GRAEME Yeboah Performing Location: [facility] – [place] Adult Primary [facility] Administered by: Nicky Oneil CMA on 04/21/24 10:06 Dose Route Admin Location Dispensed Lot Number Expiration Date [employer] Contract Manager 0.5 mL IM Left Deltoid 0.5 mL [id number] 12/05/24 [id number] [place] VIS Given Date VIS Provided VIS Publication Date 04/21/24 Single Vaccine 21 Eligibility Eligibility Date Funding Source Not VFC Eligible 04/21/24 Private Coding Level of Care Code Est Pt Prev Care >65y(09208) Diagnoses Physical exam Z00.00 Postmenopausal Z78.0 Skin lesions L98.9 Stress at home F43.9 Depression F32.A Additional Codes ROSA-7 Assessment Billing - ROSA-7 Assessment Tool: ROSA-7 Assessment 77377 ([id number]) PHQ-9 - 89820 - PHQ-9 Billing: Yes ([id number]) Assessment & Plan Assessment & Plan (1) Physical exam: Code(s): Z00.00 - Encounter for general adult medical examination without abnormal findings Category: Medical Plan: Labs ordered (2) Postmenopausal: Code(s): Z78.0 - Asymptomatic menopausal state Category: Medical Plan: Bone density ordered, vitamin d (3) Skin lesions: Code(s): L98.9 - Disorder of the skin and subcutaneous tissue, unspecified Category: Medical Plan: Referred to derm (4) Stress at home: Code(s): F43.9 - Reaction to severe stress, unspecified Category: Social Hx Plan: did mention couples therapy, pt knows to contact myself with further questions or concerns or with wishes for a therapist for herself. (5) Depression: Code(s): F32.A - Depression, unspecified Category: Medical Plan: did mention couples therapy, pt knows to contact myself with further questions or concerns or with wishes for a therapist herself Plan The patient agreed to the use of a program medical director for this encounter. Scribed for [employer] by Cande Sosa program medical director, on 04/21/2024 at 09:15 EST. Orders: Orders Complete Blood Count Auto Diff Today Z00.00 - Encounter for general adult medical examination without abnormal findings Comprehensive [place]. Panel Fast Today Z00.00 - Encounter for general adult medical examination without abnormal findings UA CC w/rflx Micro + Cult Today Z00.00 - Encounter for general adult medical examination without abnormal findings Lipid Panel Today Z00.00 - Encounter for general adult medical examination without abnormal findings XR DEXA axial skeleton Today Z78.0 - Asymptomatic menopausal state Vitamin D 25-OH Total Today Z78.0 - Asymptomatic menopausal state TSH reflex Free T4 Today Z00.00 - Encounter for general adult medical examination without abnormal findings Influenza [id number] Immunization Today Z23 - Encounter for immunization Referrals Dermatology Referral L98.9 - Disorder of the skin and subcutaneous tissue, unspecified
== END 2024-04-21 10:09 | disposition home or self-care (01) ==
PROVIDERS: PCP Nurse Practitioner Family; Visit Provider Nurse Practitioner Family
DX: Z00.00 Encounter for general adult medical examination without abnormal findings (principal); Z78.0 Asymptomatic menopausal state; L98.9 Disorder of the skin and subcutaneous tissue, unspecified; F43.9 Reaction to severe stress, unspecified; F32.A Depression, unspecified

== ENCOUNTER → 2024-04-21 08:52 | Outpatient (BNVA) | payer MEDICARE, SELFPAY | PROVIDERS: PCP Nurse Practitioner Family; Visit Provider Nurse Practitioner Family | DX: Z00.00 Encounter for general adult medical examination without abnormal findings (principal); Z23 Encounter for immunization; L98.9 Disorder of the skin and subcutaneous tissue, unspecified; F43.9 Reaction to severe stress, unspecified; F32.A Depression, unspecified; Z78.0 Asymptomatic menopausal state | CPT/HCPCS: 90471; 90656; 96127; 99397 ==

== ENCOUNTER 2024-07-05 09:10 | Outpatient (REF) | payer MEDICARE, SELFPAY ==
[2024-07-05 10:20] LABS: Basophils Percent Auto 2.1 % (0-2); Hematocrit 31.4 % (37.0-47.0); Hemoglobin 10.1 g/dl (12.0-16.0); Lymphocytes Absolute Auto 0.6 X10*3/uL (1.2-4.9); Lymphocytes Percent Auto 57.7 % (20-40); MANUAL DIFF FLAG SCAN; Mean Corpuscular HGB Conc 32.2 g/dl (31.0-35.0); Mean Corpuscular Hemoglobin 28.1 pg (27.0-33.0); Mean Corpuscular Volume 87.2 fL (80.0-98.0); Mean Platelet Volume 10.1 fL (9.4-12.3); Monocytes Absolute Auto 0.2 X10*3/uL (0.1-1.2); Monocytes Percent Auto 22.7 % (2-11); Neutrophils Absolute Auto 0.2 x10*3/uL (2.0-8.3); Neutrophils Percent Auto 16.5 % (45-73); Platelet Count 230 X10*3/uL (160-400); Red Cell Distribution Width 14.2 % (11.0-16.0); SCAN SMEAR FLAG 1
[2024-07-05 10:59] LABS: Erythrocyte Sedimentation Rate 38 MM/HR (0-20)
[2024-07-05 11:03] LABS: Alanine Aminotransferase 13 U/L (0-31); Albumin Level 3.6 g/dL (3.5-5.0); Alkaline Phosphatase 99 U/L (39-117); Anion Gap 9 (12-20); Aspartate Amino Transferase 23 U/L (5-31); Bilirubin Total 0.4 mg/dL (0.0-1.0); Blood Urea Nitrogen 15 mg/dL (9-16); C Reactive Protein 4.87 mg/dL (< or = 0.50); Calcium 8.5 mg/dL (8.4-10.2); Carbon Dioxide 21 mmol/L (22-29); Chloride 111 mmol/L (96-108); Estimated Glomerular Filt Rate > 60; Glucose Random 81 mg/dL (60-115); Potassium 4.5 mmol/L (3.3-5.1); Sodium 136 mmol/L (135-145)
[2024-07-05 11:06] LABS: SLIDE REVIEW VERIFIED
[2024-07-05 11:29] LABS: HBS Num1 > 1000.00 mIU/mL (0-7.99); HBc Num1 9.31 S/CO (0.00-0.79); HBsAGNum1 0.34 S/CO (0.00-0.99); Hepatitis A Antibody IgM 0.31 Index (0-0.79); Hepatitis B Surface Antigen Negative (Negative); ~HepC Num1 0.07 S/CO (0.00-0.79); ~Hepatitis A Antibody IgM Nonreactive (Nonreactive); ~Hepatitis B Surface Antibody REACTIVE (Nonreactive); ~Hepatitis C Antibody Nonreactive (Nonreactive)
[2024-07-05 14:23] LABS: HBc Num2 9.28 S/CO; Hepatitis B Core Antibody Reactive (Nonreactive)
== END 2024-07-05 09:11 | disposition home or self-care (01) ==
LOC: HO.HMGCLDS 09:10
PROVIDERS: PCP Nurse Practitioner Family; Visit Provider Student in an Organized Health Care Education/Training Program
DX: M05.00 Felty's syndrome, unspecified site (principal); M05.9 Rheumatoid arthritis with rheumatoid factor, unspecified; Z79.899 Other long term (current) drug therapy
CPT/HCPCS: 36415; 80053; 85025; 85652; 86140; 86704; 86706; 86709; 86803; 87340

== ENCOUNTER 2024-08-24 10:48 | Outpatient (AMB) | payer MEDICARE, SELFPAY ==
--- NOTE | 2024-08-24 11:02 | MHC.OFFVIS ---
Vital Signs 08/24/24 11:14 Height 5 ft 4 in Weight 186 lb 4.65 oz BMI 32.0 BP 122/80 Blood Pressure Location Lt brachial Position Sitting Pulse 96 Pulse Source Pulse Oximeter Pulse Oximetry (%) 98 Oxygen Delivery Method Room Air Intake Visit Reasons: RA Intake Note: Patient presents for RA. 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 At that time she was leflunomide for her RA c/b felty syndrome. Discussed with her that ideally she should be on methotrexate for her Felty syndrome and she was restarted on methotrexate. Unfortunately since that time patient switched insurances and the new insurance requires her to pay a deductible of over 300 dollars per month to get all of her medications including methotrexate, Eliquis and others. Patient states that she is on a fixed income and is unable to afford that monthly and so she has not been taking any of her medications including Eliquis. To help with her joint pain she has been doing turmeric teas In addition to that she has had viral illness and so has not felt comfortable taking her medications due to concern about suppressing the immune system while having an infection. Rheumatologic History: Diagnosed with rheumatoid arthritis in 2005. Previously on methotrexate and Enbrel and was stable on this. However in 2021 she was noted to have falling white counts mostly neutrophils. Was seen by Hematology for workup but this did not reveal a source. The methotrexate was held and then the Enbrel was held. This did not improve her counts. She was subsequently evaluated for Felty syndrome and CT imaging of her abdomen showed splenomegaly. She was subsequently restarted on leflunomide and the Enbrel was held given the possibility of Felty syndrome Current Rheumatology Medication(s): Methotrexate 15mg PO weekly Folic acid 1mg daily PFSH Medical History (Updated 04/21/24 @ 10:15 by Dennis Hsu [facility]) Leukopenia Depression Cervical carcinoma DDD (degenerative disc disease), lumbar JACQUE I (cervical intraepithelial neoplasia I) ASCUS (atypical squamous cells of undetermined significance) on gynecologic Papanicolaou smear complicating , antepartum Seropositive rheumatoid arthritis HTN (hypertension) Rheumatoid arthritis Hyperlipemia DVT (deep venous thrombosis) Surgical History History of esophagogastroduodenoscopy (EGD) Hx of colonoscopy History of back surgery S/P lumbar microdiscectomy S/P biopsy of cervix History of bunionectomy of both great toes Family History Mother Colon cancer metastasized to multiple sites HTN (hypertension) Substance use disorder Maternal Aunt Breast cancer Father HTN (hypertension) Substance use disorder Brother HTN (hypertension) Heart attack Enlarged heart Brain aneurysm Brother HTN (hypertension) Sister HTN (hypertension) Sister HTN (hypertension) Sister HTN (hypertension) Social History Household Members: Spouse Housing: Apartment Are you a primary career guidance counselor to a significant other at home: No Do you presently have visiting nurse or other home services: No Alcohol intake: current Alcohol intake frequency: a few times a month Alcohol type: beer Patient Tobacco Use Status: Former Tobacco user Tobacco use type: Cigarette Years Smoked: 40 years ago e-Cigarette/Vaping Use: Never Used Second Hand Smoke Exposure: No service: No Current occupational status: employed 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 Current occupational exposures/hazards: No Cognitive needs: No Hearing needs: No Vision needs: No Review of Systems Const Details: Review of Systems Constitutional: Denies fever, chills, weight loss ENT: Denies vision changes, eye pain or eye redness, dental caries, dry mouth GI: Denies nausea, vomiting, diarrhea, abdominal pain, change in BM Pulm: Denies SOB, KAMARA, hemoptysis, wheezing Cards: Denies chest pain, palpitations Skin: Denies Raynaud's, rash, nail changes, photosensitivity, TECHNICAL PROGRAM MANAGER: Denies headaches, weakness, paresthesias, recurrent falls MSK: as per HPI All other systems reviewed and are unremarkable except noted above Physical Exam Vital Signs: Last Vital Signs Pulse 96 08/24/24 11:14 BP 122/80 08/24/24 11:14 Pulse Ox 98 08/24/24 11:14 Oxygen Delivery Method Room Air 08/24/24 11:14 BMI result Body Mass Index 32.0 Vital signs reviewed Physical Examination CONSTITUITIONAL Patient alert and cooperative. Well appearing and in no apparent painful distress HEENT Conjunctiva and sclera clear. ?Pupils equal round and reactive to light. ?No lymphadenopathy. ?Normal dentition. No oral or nasal ulcers noted. No evidence of discoid rash to the anali of ears CHEST/RESPIRATORY SYSTEM Normal respiratory effort and able to speak in complete sentences. ?Clear to auscultation bilaterally. ?No crackles, rales, rhonchi, wheezes heard. CARDIAC SYSTEM Regular rate and rhythm. ?S1 and S2 heard no murmurs. ?Radial pulses intact bilaterally MSK Hands: ?Good prosthetic lab technician strength bilaterally. No deformities noted. ?No synovitis noted to the MCPs, PIPs or DIPs. ?No tenderness to palpation of these joints. Herbeden's nodes noted Wrists: ?Full range of motion at the wrists without pain. ?No tenderness to palpation or synovitis noted to the wrists. Elbows: Full range of motion without pain. No tenderness, weakness, swelling, increased warmth or erythema. Shoulders: Full range of motion without pain. No tenderness, weakness, swelling, increased warmth or erythema. Knees: ?Full range of motion. ?No tenderness, swelling, increased warmth or erythema.?No effusion or crepitations Ankles: Full range of motion. ?Mild swelling noted bilaterally but no tenderness to palpation of the ankle joint? Feet: ?Negative squeeze test. ?No tenderness to palpation or swelling of the MTPs. Tender points:??No tenderness to palpation of the neck, shoulders, chest, elbows, hips, buttocks or knees. SKIN Skin intact without rashes. Results Reviewed Results Reviewed: Laboratory Tests 04/05/24 07/05/24 09:02 09:26 WBC 0.9 L* 1.0 L RBC 4.03 L 3.60 L Hgb 11.2 L 10.1 L Hct 34.6 L 31.4 L ESR 34 H 38 H Sodium 136 Potassium 4.5 Chloride 111 H Carbon Dioxide 21 L BUN 15 Creatinine 0.82 Total Bilirubin 0.4 AST 23 ALT 13 Alkaline Phosphatase 99 C-Reactive Protein 3.69 H 4.87 H Total Protein 7.0 Albumin 3.6 Immunology labs 06/19/23 08:59 Rheumatoid Factor 56.9 H NURY Screen NEGATIVE Assessment & Plan Assessment & Plan (1) Seropositive rheumatoid arthritis: Comment: Enbrel 05/2014 to March 2022 held because of leukopenia Methotrexate 06/2016 to February 2022 held because of leukopenia Leflunomide started 11/2023, stopped 03/2024 Methotrexate restarted 03/2024 Code(s): M05.9 - Rheumatoid arthritis with rheumatoid factor, unspecified Category: Medical Plan: #Seropositive RA Patient with 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 She was started on methotrexate for her Felty syndrome but due to insurance issues and a recent viral illness she has not been on methotrexate or any other immunosuppression since May 2024 Her most recent blood work showed slight improvement in her white blood cell count. My concern for this patient is at because of her insurance issues she may not be able to afford methotrexate which is slightly more expensive than leflunomide. Because of her insurance issues we will switch her back to leflunomide and I can give her a good Rx coupon for three-month supply which is only $45 I will also try to reach out to social work to see if they can assist her in getting better insurance coverage She is to repeat her blood work as soon as possible Plan - Stop methotrexate and folic acid - Start leflunomide 20mg PO daily - Labs today: CBC, CMP, ESR, CRP, hepatitis panel, T spot - RTC 3 months - Social work referral (2) Felty syndrome: Code(s): M05.00 - Felty's syndrome, unspecified site Category: Medical Plan: #RA Complicated by Felty's Syndrome Patient with a diagnosis of Felty syndrome based on seropositive rheumatoid arthritis, unexplained neutropenia and splenomegaly Had to switch back to leflunomide due to insurance issues. 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 ?Has a very long half-life. ?Needs cholestyramine washout if there is desire for Initiation: ?CBC, BMP, LFTs, hepatitis-B and C serologies every 2-4 weeks for 3 months Monitoring: ?CBC, BMP, LFTs, hepatitis B and C serologies Plan I spent 45 minutes reviewing the record and labs, taking a history, examining the patient, discussing the treatment plan, ordering diagnostic work up, discussing patient's insurance issues and researching alternative treatment options that are cost effective and documenting in the medical record Orders: Orders Complete Blood Count Auto Diff Today M05.9 - Rheumatoid arthritis with rheumatoid factor, unspecified C Reactive Protein Today M05.9 - Rheumatoid arthritis with rheumatoid factor, unspecified Comprehensive Met. Panel Today M05.9 - Rheumatoid arthritis with rheumatoid factor, unspecified Erythrocyte Sedimentation Rate Today M05.9 - Rheumatoid arthritis with rheumatoid factor, unspecified Hepatitis A,B,C Profile Today M05.9 - Rheumatoid arthritis with rheumatoid factor, unspecified T Spot TB Today M05.9 - Rheumatoid arthritis with rheumatoid factor, unspecified Referrals Safety Counselor Referral Z59.71 - Insufficient health insurance coverage Medications: New leflunomide 20 mg PO DAILY 90 tabs 1RF M05.9 - Rheumatoid arthritis with rheumatoid factor, unspecified Discontinued folic acid Discontinued Reason: Doctor's Order 1 mg PO DAILY 90 tabs 1RF M05.00 - Felty's syndrome, unspecified site, M05.9 - Rheumatoid arthritis with rheumatoid factor, unspecified methotrexate sodium Discontinued Reason: Doctor's Order 15 mg (6 x 2.5 mg) PO QWEEK 90 days 78 tabs 1RF M05.00 - Felty's syndrome, unspecified site, M05.9 - Rheumatoid arthritis with rheumatoid factor, unspecified Coding Level of Care Code Est Pt Level 5 (30064) Complex EM visit Add On G2211 Diagnoses Seropositive rheumatoid arthritis M05.9 Felty syndrome M05.00 Encounter for monitoring leflunomide therapy Z51.81; Z79.69
[2024-08-24 11:14] VITALS: BP 122/80; PULSE 96; O2SAT 98; BMI 32.0
== END 2024-08-24 12:09 | disposition home or self-care (01) ==
LOC: HO.RHE 10:49
PROVIDERS: PCP Nurse Practitioner Family; Visit Provider Student in an Organized Health Care Education/Training Program
DX: M05.79 Rheumatoid arthritis with rheumatoid factor of multiple sites without organ or systems involvement (principal); M05.00 Felty's syndrome, unspecified site; Z51.81 Encounter for therapeutic drug level monitoring; Z79.69 Long term (current) use of other immunomodulators and immunosuppressants
CPT/HCPCS: 99215; G2211

== ENCOUNTER → 2024-08-24 10:48 | Outpatient (BNVA) | payer MEDICARE, SELFPAY | PROVIDERS: PCP Nurse Practitioner Family; Visit Provider Student in an Organized Health Care Education/Training Program | DX: M05.9 Rheumatoid arthritis with rheumatoid factor, unspecified (principal); M05.00 Felty's syndrome, unspecified site; Z51.89 Encounter for other specified aftercare; Z79.69 Long term (current) use of other immunomodulators and immunosuppressants | CPT/HCPCS: 99212 ==

== ENCOUNTER 2024-09-15 09:11 | Outpatient (AMB) | payer MEDICARE, SELFPAY ==
--- NOTE | 2024-09-15 09:27 | AM.OFFWIN_ITS ---
Intake Vital Signs 09/15/24 09:35 Height 5 ft 4 in Weight 186 lb BMI 31.9 BP 122/78 Blood Pressure Location Lt brachial Position Sitting Pulse 99 Pulse Source Pulse Oximeter Pulse Oximetry (%) 97 Oxygen Delivery Method Room Air Intake Visit Reasons: EP ? sinus infection Patient Tobacco Use Status: Former Tobacco user Allergies penicillin G [PENICILLIN G] Allergy (Severe, Verified 09/15/24 09:35) ANAPHYLAXIS Do you need a note to return to daycare/school/sports/work: Yes HPI HPI Comments History of Present Illness Details History of Present Illness - The patient is a 69-year-old female pr esenting with acute left sided facial/under eye swellingx1 wk. - Extensive swelling on the side of the face, affecting areas around the nose, ear, and eye, experienced over the past month following a cold. - Notable head congestion and associated headaches with no episode of fever recorded. - Visual disturbances, particularly blur riness in left eye from the swelling below it, have impacted daily activities like crossing guards and driving. - Tenderness and warmth observed locally in this area. - Initially noted the presence of ocular crusts, now predominantly on one side, raising consideration for infection. - Uses a generic allergy medication anjana men recently commenced every four hours for symptomatic relief. - Includes a history of rheumatoid arthr itis with prior use of corticosteroid treatments, currently under oral medication management. Physical Exam General: Cooperative, healthy appearing, comfortable, no acute distress and well developed Orientation: Patient oriented x3 Limitations: No limitations Head: Normal to inspection Ears: Hearing grossly normal bilaterally, TMs normal bilaterally Nose: left nare ttp Face and sinus: Inferior to left lower eyelid with edema, erythema, warmth and ttp. Eyes: right eye normal appearing. left eye is normal appearing. Neck: Normal visual inspection and Yes full ROM Respiratory: Normal respiratory effort and able to speak in complete sentences. Skin: No rashes or lesions noted Neuro: Patient oriented x3 Extremities: Normal to inspection [facility] Medical History (Updated 09/15/24 @ 10:12 by Carmelina Tabares PA-C) Leukopenia Depression Cervical carcinoma DDD (degenerative disc disease), lumbar JACQUE I (cervical intraepithelial neoplasia I) ASCUS (atypical squamous cells of undetermined significance) on gynecologic Papanicolaou smear complicating , antepartum Seropositive rheumatoid arthritis HTN (hypertension) Rheumatoid arthritis Hyperlipemia DVT (deep venous thrombosis) Surgical History History of esophagogastroduodenoscopy (EGD) Hx of colonoscopy History of back surgery S/P lumbar microdiscectomy S/P biopsy of cervix History of bunionectomy of both great toes Family History Mother Colon cancer metastasized to multiple sites HTN (hypertension) Substance use disorder Maternal Aunt Breast cancer Father HTN (hypertension) Substance use disorder Brother HTN (hypertension) Heart attack Enlarged heart Brain aneurysm Brother HTN (hypertension) Sister HTN (hypertension) Sister HTN (hypertension) Sister HTN (hypertension) Social History Household Members: Spouse Housing: Apartment Are you a primary child adolescent care to a significant other at home: No Do you presently have visiting nurse or other home services: No Alcohol intake: current Alcohol intake frequency: a few times a month Alcohol type: beer Patient Tobacco Use Status: Former Tobacco user Tobacco use type: Cigarette Years Smoked: 40 years ago e-Cigarette/Vaping Use: Never Used Second Hand Smoke Exposure: No service: No Current occupational status: employed 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 Current occupational exposures/hazards: No Cognitive needs: No Hearing needs: No Vision needs: No Review of Systems Const All systems reviewed & are unremarkable except as noted in HPI and below Physical Exam Vital Signs: Last Vital Signs Pulse 99 09/15/24 09:35 BP 122/78 09/15/24 09:35 Pulse Ox 97 09/15/24 09:35 Oxygen Delivery Method Room Air 09/15/24 09:35 BMI result Body Mass Index 31.9 Assessment & Plan Assessment & Plan (1) Cellulitis: Code(s): L03.90 - Cellulitis, unspecified Qualifiers: Site of cellulitis: face Qualified Code(s): L03.211 - Cellulitis of face Plan: The patient presents with symptoms consistent with both allergic rhinitis and a possible sinus infection, necessitating a multifaceted treatment approach. An oral antibiotic regimen with Cephalexin, administered every six hours, was selected considering her penicillin allergy. To control acute inflammation, a daily dose of Prednisone was instructed for five days, scheduled in the morning to minimize sleep disturbances. The importance of monitoring for any further changes in vision was emphasized, with a recommendation for an immediate ophthalmology consultation or ED if symptoms worsen. The patient's recent history with a generic allergy medication supports its current use for managing symptoms. Patient was informed and verbally consented to the use of an ambient scribe for clinic note documentation during this visit. Medications: New cephalexin 500 mg PO Q6H 28 caps 0RF prednisone 40 mg (2 x 20 mg) PO QAM 10 tabs 0RF Coding Level of Care Code Est Pt Level 3 (48845) Diagnoses Cellulitis of face L03.211 Site of cellulitis: face
[2024-09-15 09:35] VITALS: BP 122/78; PULSE 99; O2SAT 97; BMI 31.9
== END 2024-09-15 10:22 | disposition home or self-care (01) ==
PROVIDERS: PCP Nurse Practitioner Family; Visit Provider Physician Assistant
DX: L03.211 Cellulitis of face (principal)

== ENCOUNTER → 2024-09-15 09:11 | Outpatient (BNVA) | payer MEDICARE, SELFPAY | PROVIDERS: PCP Nurse Practitioner Family; Visit Provider Physician Assistant | DX: L03.211 Cellulitis of face (principal) | CPT/HCPCS: 99212 ==

== ENCOUNTER 2024-09-21 08:56 | Outpatient (AMB) | payer MEDICARE, SELFPAY ==
[2024-09-21 09:05] VITALS: BP 120/90; PULSE 75; TEMP 36.5; O2SAT 98
--- NOTE | 2024-09-21 09:05 | MHC.OFFWIV ---
Intake Vital Signs 09/21/24 09:05 Weight 187 lb BP 120/90 H Blood Pressure Location Rt brachial Position Sitting Pulse 75 Pulse Source Pulse Oximeter Temp 97.7 F Temp Source Oral Pulse Oximetry (%) 98 Oxygen Delivery Method Room Air Intake Visit Reasons: EP-sinus infection Intake Note: Patient here for sinus infection. Patient Tobacco Use Status: Former Tobacco user Allergies penicillin G [PENICILLIN G] Allergy (Severe, Verified 09/21/24 09:05) ANAPHYLAXIS Do you need a note to return to daycare/school/sports/work: No HPI HPI Comments History of Present Illness Details SHe was seen 09/15 for L sided facial cellulitis Given Prednisone 40mg x 5 days and then antibiotic Has 4 days left of antibiotic pain to face now No vision changes Redness gone States she feels the swelling L lower eye upon waking yesterday am; last dose of prednisone was day before No fever or chills Swelling was worse in am; she did not notice it getting worse throughout day No cough, CP, SOB, cough + sinus congestion is baseline for her and unchanged [facility] Medical History (Updated 09/21/24 @ 09:20 by Ana Maria Elkins PA-C) Leukopenia Depression Cervical carcinoma DDD (degenerative disc disease), lumbar JACQUE I (cervical intraepithelial neoplasia I) ASCUS (atypical squamous cells of undetermined significance) on gynecologic Papanicolaou smear complicating , antepartum Seropositive rheumatoid arthritis HTN (hypertension) Rheumatoid arthritis Hyperlipemia DVT (deep venous thrombosis) Surgical History History of esophagogastroduodenoscopy (EGD) Hx of colonoscopy History of back surgery S/P lumbar microdiscectomy S/P biopsy of cervix History of bunionectomy of both great toes Family History Mother Colon cancer metastasized to multiple sites HTN (hypertension) Substance use disorder Maternal Aunt Breast cancer Father HTN (hypertension) Substance use disorder Brother HTN (hypertension) Heart attack Enlarged heart Brain aneurysm Brother HTN (hypertension) Sister HTN (hypertension) Sister HTN (hypertension) Sister HTN (hypertension) Social History Household Members: Spouse Housing: Apartment Are you a primary workforce investment act career manager to a significant other at home: No Do you presently have visiting nurse or other home services: No Alcohol intake: current Alcohol intake frequency: a few times a month Alcohol type: beer Patient Tobacco Use Status: Former Tobacco user Tobacco use type: Cigarette Years Smoked: 40 years ago e-Cigarette/Vaping Use: Never Used Second Hand Smoke Exposure: No service: No Current occupational status: employed 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 Current occupational exposures/hazards: No Cognitive needs: No Hearing needs: No Vision needs: No Review of Systems Const Denies chills, Denies fatigue, Denies fever(s) and Denies headache(s) Eyes Denies change in vision ENT Denies dizziness, Denies headache(s), Reports nasal discharge, Denies sinus pain, Denies sore throat and Denies throat swelling Card Denies chest pain, Denies syncope and Denies dyspnea Resp Denies cough and Denies dyspnea Skin/Breast Denies rash and Reports skin swelling (under L eye) Neuro Denies dizziness, Denies syncope and Denies headache(s) Endo Denies fatigue Aller/Immun Denies throat swelling Physical Exam Vital Signs: Last Vital Signs Temp 97.7 F 09/21/24 09:05 Pulse 75 09/21/24 09:05 BP 120/90 H 09/21/24 09:05 Pulse Ox 98 09/21/24 09:05 Oxygen Delivery Method Room Air 09/21/24 09:05 General: Non-toxic, NAD. Speaking full sentences. Skin: Warm dry throughout. Face is symmetrical bilaterally. I do not appreciate any edema, erythema or ecchymosis. Eyelids are symmetrical and there is no facial droop appreciated Eye: EOMI, PERRL HENT: Airway patent. Uvula midline. No pharyngeal erythema or edema. No SQL SSIS DEVELOPER. Bilateral canals clear. TM non-erythematous, non-bulging. No TM perforation or hemotympanum noted. Respiratory: CTA bilaterally. No wheezes, rales or rhonchi Cardiac: RRR. No murmur Neurology: Alert. No aphasia or facial droop. Gait without abnormality Psych: Good mood and affect Assessment & Plan Assessment & Plan (1) Encounter for wound re-check: Code(s): Z51.89 - Encounter for other specified aftercare Plan: Patient seen and evaluated. She has no sign of remaining cellulitis No facial edema noted She will finish antibiotic course Discussed extended script for prednisone was not warranted She has eliquis located on med list but states was on it for DVT and has not had since May due to cost increase into the 300 She said she called boat worker about it but not able to be seen yet. Has appointment with pcp in 3 weeks I discussed the importance of blood thinner use with hx of DVT and advised that she call her specialist immediately upon leaving to discuss management as this can lead to serious medical conditions She will be given naproxen to take for next 3-4 days for concern edema Told her to keep head elevated at rest to avoid worsening swelling in the morning Patient gave verbal understanding and had no additional questions or concerns at time of discharge All questions answered Medications: New naproxen 375 mg PO BID PRN 10 tabs 0RF pain Coding Level of Care Code Est Pt Level 3 (80780) Diagnoses Encounter for wound re-check Z51.89
== END 2024-09-21 09:44 | disposition home or self-care (01) ==
PROVIDERS: PCP Nurse Practitioner Family; Visit Provider Physician Assistant
DX: Z51.89 Encounter for other specified aftercare (principal)

== ENCOUNTER → 2024-09-21 08:56 | Outpatient (BNVA) | payer MEDICARE, SELFPAY | PROVIDERS: PCP Nurse Practitioner Family; Visit Provider Physician Assistant | DX: L03.211 Cellulitis of face (principal) | CPT/HCPCS: 99212 ==

== ENCOUNTER 2024-09-28 07:59 | Outpatient (REF) | payer MEDICARE, SELFPAY ==
[2024-09-28 10:17] LABS: Basophils Percent Auto 2.3 % (0-2); Eosinophils Percent Auto 3.1 % (0-4); Hematocrit 39.1 % (37.0-47.0); Hemoglobin 12.7 g/dl (12.0-16.0); Imm Gran Abs Auto 0.01 X10*3/uL (0.00-0.03); Imm Gran Pct Auto 0.8 % (0.0-0.4); Lymphocytes Absolute Auto 0.7 X10*3/uL (1.2-4.9); Lymphocytes Percent Auto 53.9 % (20-40); MANUAL DIFF FLAG SCAN; Mean Corpuscular HGB Conc 32.5 g/dl (31.0-35.0); Mean Corpuscular Hemoglobin 27.9 pg (27.0-33.0); Mean Corpuscular Volume 85.9 fL (80.0-98.0); Mean Platelet Volume 10.6 fL (9.4-12.3); Monocytes Absolute Auto 0.3 X10*3/uL (0.1-1.2); Monocytes Percent Auto 23.4 % (2-11); Neutrophils Absolute Auto 0.2 x10*3/uL (2.0-8.3); Neutrophils Percent Auto 16.5 % (45-73); Platelet Count 212 X10*3/uL (160-400); Red Blood Count 4.55 X10*6/uL (4.20-5.50); Red Cell Distribution Width 12.9 % (11.0-16.0); SCAN SMEAR FLAG 1
[2024-09-28 10:19] LABS: White Blood Count 1.3 X10*3/uL (4.8-10.8)
[2024-09-28 10:36] LABS: D Dimer High Sensitivity 2228 NG/ML
[2024-09-28 10:57] LABS: Appearance Urine Clear; Color Urine Yellow; Glucose Urine UA Negative (Negative); Leukocyte Esterase Urine Negative (Negative); Nitrite Urine Negative (Negative); Specific Gravity - Urine <= 1.005 (1.005-1.025); Urine Blood Negative (Negative); Urine Ketones Negative (Negative); Urine Protein Negative (Neg-Trace)
[2024-09-28 11:02] LABS: SLIDE REVIEW VERIFIED
[2024-09-28 11:24] LABS: Alanine Aminotransferase 13 U/L (0-31); Albumin Level 4.2 g/dL (3.5-5.0); Alkaline Phosphatase 114 U/L (39-117); Anion Gap 14 (12-20); Aspartate Amino Transferase 23 U/L (5-31); Bilirubin Total 0.4 mg/dL (0.0-1.0); Blood Urea Nitrogen 19 mg/dL (9-16); Calcium 9.3 mg/dL (8.4-10.2); Carbon Dioxide 22 mmol/L (22-29); Chloride 105 mmol/L (96-108); Cholesterol 230 mg/dL (<200); Estimated Glomerular Filt Rate > 60; Glucose Fasting 95 mg/dL (60-99); HDL Cholesterol 50 mg/dL (>40); LDL Cholesterol Calculated 145 mg/dL (<100); Potassium 4.6 mmol/L (3.3-5.1); Sodium 136 mmol/L (135-145); TSH reflex Free T4 3.17 uIU/mL (0.32-4.0); Total Protein 7.9 g/dL (6.5-8.0); Triglycerides 176 mg/dL (<150); Vitamin D 25-OH Total 30.5 ng/mL (>30)
== END 2024-09-28 08:00 | disposition home or self-care (01) ==
LOC: HO.HMGCLDS 07:59
PROVIDERS: PCP Nurse Practitioner Family; Referring Provider Internal Medicine Medical Oncology; Visit Provider Nurse Practitioner Family
DX: Z13.89 Encounter for screening for other disorder (principal)
CPT/HCPCS: 36415; 80053; 80061; 81003; 82306; 84443; 85025; 85379

== ENCOUNTER 2024-09-28 17:08 | Emergency (ER) | payer MEDICARE, SELFPAY ==
--- NOTE | ~2024-09-28 | XR_ITS ---
CLINICAL HISTORY: sob Two views of the chest. COMPARISON: None FINDINGS: Normal heart and mediastinal contours. No consolidation. No pleural effusion or pneumothorax. No fracture identified. IMPRESSION: 1. No consolidation. This document has been electronically signed by: Elvin Reyes MD on 09/28/2024 19:22:56
--- NOTE | ~2024-09-28 | CT_ITS ---
CLINICAL HISTORY: sob CT angiography chest with contrast. 3D Postprocessing. Comparison: None Findings: The heart size is normal. RV/LV ratio is normal. Unremarkable thoracic aorta and great vessels. No aneurysm. No acute pulmonary embolus. Small hiatal hernia. There are a few scattered micro nodules in both lungs. Largest measures 3 mm right lower lobe image 62. No consolidation or effusion. 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 No acute fractures. IMPRESSION: 1. No acute pulmonary embolus. 2. A few scattered micro nodules are noted. Recommend 1 year follow-up chest CT if there are risk factors for lung cancer. 3. Additional nonacute findings as above. This document has been electronically signed by: Leonidas Wynn MD on 09/28/2024 21:28:42
[2024-09-28 17:51] VITALS: BP 171/96; PULSE 103; RESP 18; TEMP 36.6; O2SAT 100; BMI 31.9
--- NOTE | 2024-09-28 17:51 | ED.SOB ---
HPI - SOB/Dyspnea General Chief Complaint: Dyspnea Stated Complaint: sob, sent from Dr. Anguiano Time Seen by Provider: 09/28/24 18:42 Related Data Home Medications ?Medication ?Instructions ?Recorded ?Confirmed acetaminophen 500 mg tablet 1,000 mg PO Q6H 07/02/21 08/24/24 (Tylenol Extra Strength) Previous Rx's ?Medication ?Instructions ?Recorded apixaban 5 mg tablet (Eliquis) 5 mg PO BID #60 tabs 01/14/24 buspirone 5 mg tablet 5 mg PO BID 90 days #180 tabs 06/28/24 lisinopril 20 mg tablet 20 mg PO DAILY 90 days #90 caps 08/12/24 leflunomide 20 mg tablet 20 mg PO DAILY #90 tabs 08/24/24 cephalexin 500 mg capsule 500 mg PO Q6H #28 caps 09/15/24 prednisone 20 mg tablet 40 mg (2 x 20 mg) PO QAM #10 tabs 09/15/24 naproxen 375 mg tablet 375 mg PO BID PRN pain #10 tabs 09/21/24 apixaban 5 mg tablet (Eliquis) 5 mg PO BID dvt 28 days #70 tabs 09/28/24 Allergies Allergy/AdvReac Type Severity Reaction Status Date / Time penicillin G [PENICILLIN G] Allergy Severe ANAPHYLAXIS Verified 09/28/24 17:51 PMFSH Past Medical History Medical History Leukopenia Depression Cervical carcinoma DDD (degenerative disc disease), lumbar JACQUE I (cervical intraepithelial neoplasia I) ASCUS (atypical squamous cells of undetermined significance) on gynecologic Papanicolaou smear complicating , antepartum Seropositive rheumatoid arthritis HTN (hypertension) Rheumatoid arthritis Hyperlipemia DVT (deep venous thrombosis) Surgical History History of esophagogastroduodenoscopy (EGD) Hx of colonoscopy History of back surgery S/P lumbar microdiscectomy S/P biopsy of cervix History of bunionectomy of both great toes Family History Family History Mother Colon cancer metastasized to multiple sites HTN (hypertension) Substance use disorder Maternal Aunt Breast cancer Father HTN (hypertension) Substance use disorder Brother HTN (hypertension) Heart attack Enlarged heart Brain aneurysm Brother HTN (hypertension) Sister HTN (hypertension) Sister HTN (hypertension) Sister HTN (hypertension) Social History Social History Household Members: Spouse Housing: Apartment Are you a primary care professional to a significant other at home: No Do you presently have visiting nurse or other home services: No Alcohol intake: current Alcohol intake frequency: a few times a month Alcohol type: beer Patient Tobacco Use Status: Former Tobacco user Tobacco use type: Cigarette Years Smoked: 40 years ago Smoked in Last 30 Days: No e-Cigarette/Vaping Use: Never Used Second Hand Smoke Exposure: No Use of substances other than those prescribed or required for medical reasons: No Advance Directives: No Advance Directives Information Provided: No service: No Current occupational status: employed 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 Full HPI, ROS and PE to be performed by primary ED provider. 69 yo F w/PMHx DDD, HTN, RA, HLD, DVT presenting to the ED c/o SOB x3 weeks, sent in by Dr. Anguiano to r/o PE. States stopped taking Eliquis in May (for DVT) due to dean @ pharmacy (is supposed to be taking it). +CP. denies pedal edema PE: appears SOB, talking in complete sentences, HTNsive Plan: EKG, labs, CXR, SARs Medications Administered Discontinued Medications Generic Name Dose Route Start Last Admin Trade Name Freq PRN Reason Stop Dose Admin Iohexol 75 ml 09/28/24 20:22 09/28/24 20:22 Iohexol 350 Mg/Ml 100 Ml Infus..Btl IV 09/28/24 20:23 75 ml ONCE ONE Administration Medical Decision Making Lab Data 09/28/24 18:09 09/28/24 18:09 Labs: Lab Results 09/28/24 Range/Units 18:09 WBC 1.5 L (4.8-10.8) X10*3/uL RBC 4.47 (4.20-5.50) X10*6/uL Hgb 12.6 (12.0-16.0) g/dl Hct 37.5 (37.0-47.0) % MCV 83.9 (80.0-98.0) fL MCH 28.2 (27.0-33.0) pg MCHC 33.6 (31.0-35.0) g/dl RDW 12.7 (11.0-16.0) % Plt Count 204 (160-400) X10*3/uL MPV 10.1 (9.4-12.3) fL Immature Gran % (Auto) 0.0 (0.0-0.4) % Neut % (Auto) 8.9 L (45-73) % Lymph % (Auto) 64.4 H (20-40) % Price % (Auto) 21.9 H (2-11) % Eos % (Auto) 2.7 (0-4) % Baso % (Auto) 2.1 H (0-2) % Lymph # (Auto) 0.9 L (1.2-4.9) X10*3/uL Price # (Auto) 0.3 (0.1-1.2) X10*3/uL Eos # (Auto) 0.0 (0.0-0.4) X10*3/uL Baso # (Auto) 0.0 (0.0-0.2) X10*3/uL Abs Immat Gran (auto) 0.00 (0.00-0.03) X10*3/uL Absolute Neuts (auto) 0.1 L (2.0-8.3) x10*3/uL Absolute Nucleated RBC 0.000 (0.0-0.012) X10*3/uL Nucleated RBC % (auto) 0.0 (0.0-0.2) /100WBC Smear Tech's Comments VERIFIED PT 11.3 (10.9-12.4) SEC INR 1.0 (0.9-1.1) D-Dimer High Sensitivty 1917 NG/ML Sodium 138 (135-145) mmol/L Potassium 4.1 (3.3-5.1) mmol/L Chloride 106 (96-108) mmol/L Carbon Dioxide 22 (22-29) mmol/L Anion Gap 14 (12-20) BUN 21 H (9-16) mg/dL Creatinine 0.78 (0.5-1.4) mg/dL Estim Creat Clear Calc 73.4 Estimated GFR > 60 Random Glucose 111 (60-115) mg/dL Calcium 9.7 (8.4-10.2) mg/dL Magnesium 1.9 (1.6-2.6) mg/dL Total Bilirubin 0.3 (0.0-1.0) mg/dL Direct Bilirubin 0.1 (0.0-0.5) mg/dL AST 25 (5-31) U/L ALT 12 (0-31) U/L Alkaline Phosphatase 112 (39-117) U/L Troponin I High Sens < 2.7 (<3.5-17.0) ng/L B-Natriuretic Peptide < 10 (<100) pg/mL Total Protein 7.7 (6.5-8.0) g/dL Albumin 4.1 (3.5-5.0) g/dL Influenza Type A (PCR) NEGATIVE (Negative) Influenza Type B (PCR) NEGATIVE (Negative) RSV RNA Qual (PCR) NEGATIVE (Negative) SARS-CoV-2 RNA (RT-PCR) NEGATIVE (Negative) Discharge Plan Discharge Clinical Impression: Mild shortness of breath Patient Disposition: Home, Self-Care Instructions: Shortness of Breath (ED) Prescriptions: New Eliquis 5 mg tablet 5 mg PO BID 28 Days Qty: 70 0RF Rx Instructions: Two tabs twice a day for 7 days followed by 1 tab twice a day No Action buspirone 5 mg tablet 5 mg PO BID 90 Days Qty: 180 1RF lisinopril 20 mg tablet 20 mg PO DAILY 90 Days Qty: 90 1RF Eliquis 5 mg Tablet 5 mg PO BID Qty: 60 4RF acetaminophen [Tylenol Extra Strength] 500 mg tablet 1,000 mg PO Q6H prednisone 20 mg tablet 40 mg PO QAM Qty: 10 0RF cephalexin 500 mg capsule 500 mg PO Q6H Qty: 28 0RF leflunomide 20 mg tablet 20 mg PO DAILY Qty: 90 1RF naproxen 375 mg tablet 375 mg PO BID PRN (Reason: pain) Qty: 10 0RF Referrals: Nikhil Anguiano MD [Physician] - 10/03/24 Print Language: Singaporean
--- NOTE | 2024-09-28 17:55 | ECG_ITS ---
Test Reason : SOB Blood Pressure : */* mmHG Vent. 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
[2024-09-28 18:16] LABS: Basophils Percent Auto 2.1 % (0-2); Eosinophils Percent Auto 2.7 % (0-4); Hematocrit 37.5 % (37.0-47.0); Hemoglobin 12.6 g/dl (12.0-16.0); Lymphocytes Absolute Auto 0.9 X10*3/uL (1.2-4.9); Lymphocytes Percent Auto 64.4 % (20-40); MANUAL DIFF FLAG SCAN; Mean Corpuscular HGB Conc 33.6 g/dl (31.0-35.0); Mean Corpuscular Hemoglobin 28.2 pg (27.0-33.0); Mean Corpuscular Volume 83.9 fL (80.0-98.0); Mean Platelet Volume 10.1 fL (9.4-12.3); Monocytes Absolute Auto 0.3 X10*3/uL (0.1-1.2); Monocytes Percent Auto 21.9 % (2-11); Neutrophils Absolute Auto 0.1 x10*3/uL (2.0-8.3); Neutrophils Percent Auto 8.9 % (45-73); Platelet Count 204 X10*3/uL (160-400); Red Blood Count 4.47 X10*6/uL (4.20-5.50); Red Cell Distribution Width 12.7 % (11.0-16.0); SCAN SMEAR FLAG 1; White Blood Count 1.5 X10*3/uL (4.8-10.8)
[2024-09-28 18:25] VITALS: BP 176/89; PULSE 100; RESP 18; O2SAT 99
[2024-09-28 18:29] LABS: Alanine Aminotransferase 12 U/L (0-31); Albumin Level 4.1 g/dL (3.5-5.0); Alkaline Phosphatase 112 U/L (39-117); Anion Gap 14 (12-20); Aspartate Amino Transferase 25 U/L (5-31); Bilirubin Direct 0.1 mg/dL (0.0-0.5); Bilirubin Total 0.3 mg/dL (0.0-1.0); Blood Urea Nitrogen 21 mg/dL (9-16); Calcium 9.7 mg/dL (8.4-10.2); Carbon Dioxide 22 mmol/L (22-29); Chloride 106 mmol/L (96-108); Creatinine Clr Calc Pharmacy 73.4; Estimated Glomerular Filt Rate > 60; Glucose Random 111 mg/dL (60-115); Magnesium 1.9 mg/dL (1.6-2.6); Potassium 4.1 mmol/L (3.3-5.1); Prothrombin Time 11.3 SEC (10.9-12.4); Sodium 138 mmol/L (135-145); Total Protein 7.7 g/dL (6.5-8.0)
[2024-09-28 18:35] LABS: B Type Natriuretic Peptide < 10 pg/mL (<100); SLIDE REVIEW VERIFIED
[2024-09-28 18:36] LABS: Troponin-I High Sensitivity < 2.7 ng/L (<3.5-17.0)
[2024-09-28 18:50] LABS: D Dimer High Sensitivity 1917 NG/ML
[2024-09-28 18:51] LABS: Influenza A PCR NEGATIVE (Negative); Influenza B PCR NEGATIVE (Negative); Resp Syncy Virus RNA Qual PCR NEGATIVE (Negative); SARS COV2 PCR INHOUSE NEGATIVE (Negative)
--- NOTE | 2024-09-28 20:11 | ED.SOB ---
HPI - SOB/Dyspnea General Chief Complaint: Dyspnea Stated Complaint: sob, sent from Dr. Anguiano Time Seen by Provider: 09/28/24 18:42 History of Present Illness HPI Narrative: Patient is a 69-year-old female with a history of DVT presented today with having shortness of breath. Patient denies any worsening leg swelling but feels that she is short of breath. She is supposed to be on Eliquis but has been off her medication since May due to insufficient fundus. Patient denies any fever chills. There is no chest pain there is no diaphoresis. Shortness breath is worse with ambulation. Patient is from home. History of hypertension. Did take her medication. No coughing or congestion or upper respiratory symptoms. No diaphoresis. Related Data Home Medications ?Medication ?Instructions ?Recorded ?Confirmed acetaminophen 500 mg tablet 1,000 mg PO Q6H 07/02/21 08/24/24 (Tylenol Extra Strength) Previous Rx's ?Medication ?Instructions ?Recorded apixaban 5 mg tablet (Eliquis) 5 mg PO BID #60 tabs 01/14/24 buspirone 5 mg tablet 5 mg PO BID 90 days #180 tabs 06/28/24 lisinopril 20 mg tablet 20 mg PO DAILY 90 days #90 caps 08/12/24 leflunomide 20 mg tablet 20 mg PO DAILY #90 tabs 08/24/24 cephalexin 500 mg capsule 500 mg PO Q6H #28 caps 09/15/24 prednisone 20 mg tablet 40 mg (2 x 20 mg) PO QAM #10 tabs 09/15/24 naproxen 375 mg tablet 375 mg PO BID PRN pain #10 tabs 09/21/24 apixaban 5 mg tablet (Eliquis) 5 mg PO BID dvt 28 days #70 tabs 09/28/24 Allergies Allergy/AdvReac Type Severity Reaction Status Date / Time penicillin G [PENICILLIN G] Allergy Severe ANAPHYLAXIS Verified 09/28/24 17:51 Review of Systems Review of Systems: Positive shortness of breath Yes all other systems are reviewed and are negative PMFSH Past Medical History Attestation statement: The following information was validated with the patient. Medical History Leukopenia Depression Cervical carcinoma DDD (degenerative disc disease), lumbar AJCQUE I (cervical intraepithelial neoplasia I) ASCUS (atypical squamous cells of undetermined significance) on gynecologic Papanicolaou smear complicating , antepartum Seropositive rheumatoid arthritis HTN (hypertension) Rheumatoid arthritis Hyperlipemia DVT (deep venous thrombosis) Surgical History History of esophagogastroduodenoscopy (EGD) Hx of colonoscopy History of back surgery S/P lumbar microdiscectomy S/P biopsy of cervix History of bunionectomy of both great toes Family History Family History Mother Colon cancer metastasized to multiple sites HTN (hypertension) Substance use disorder Maternal Aunt Breast cancer Father HTN (hypertension) Substance use disorder Brother HTN (hypertension) Heart attack Enlarged heart Brain aneurysm Brother HTN (hypertension) Sister HTN (hypertension) Sister HTN (hypertension) Sister HTN (hypertension) Social History Social History Household Members: Spouse Housing: Apartment Are you a primary childcare center administrator to a significant other at home: No Do you presently have visiting nurse or other home services: No Alcohol intake: current Alcohol intake frequency: a few times a month Alcohol type: beer Patient Tobacco Use Status: Former Tobacco user Tobacco use type: Cigarette Years Smoked: 40 years ago Smoked in Last 30 Days: No e-Cigarette/Vaping Use: Never Used Second Hand Smoke Exposure: No Use of substances other than those prescribed or required for medical reasons: No Advance Directives: No Advance Directives Information Provided: No service: No Current occupational status: employed 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 Oriented X3. No acute distress. Eyes: Pupils equal, round and reactive to light. ENT: Pharynx normal. Neck: Normal inspection. Neck supple. No lymph nodes noted. No crepitus CVS: Normal heart rate and rhythm. Pulses normal. Normal S1 and S2 Respiratory: No respiratory distress. Breath sounds normal. No Wheezing. No rales Abdomen: Soft and nontender. No rigidity. No distention. good BS x4 Skin: Skin warm and dry. Normal skin color. Normal skin turgor. Extremities: No lower extremity edema. Neurovascular intact to all extremities. No Lacerations. No Rash Neuro: Oriented X 3. No motor deficit. No sensory deficit. Moving all extermities. No slurred speech Medications Administered Discontinued Medications Generic Name Dose Route Start Last Admin Trade Name Freq PRN Reason Stop Dose Admin Iohexol 75 ml 09/28/24 20:22 09/28/24 20:22 Iohexol 350 Mg/Ml 100 Ml Infus..Btl IV 09/28/24 20:23 75 ml ONCE ONE Administration Medical Decision Making Medical Decision Making [facility] Narrative: My interpretation patient's EKG showed a sinus pattern heart rate is 90 there is a Q-wave over the anterior leads. There is no acute ST segment elevation MA QRS QTC normal when compared to previous EKGs unchanged. Patient's chest x-ray by my interpretation showed no acute infiltrate no pneumonia. Patient's COVID flu RSV were all negative. Troponin is negative. Her BNP is negative no signs of congestive heart failure. Patient's D-dimer was elevated at 1917 in the setting of history of DVT will get a CTA of the chest to rule out the possibility PE O2 sat is actually normal in the emergency department. Patient's O2 sat was normal. CTA of the chest was negative for PE he did not have any chest pain. She is well-appearing. Will discharge patient home. Started patient on Eliquis 10 mg twice a day for 7 days followed by 5 mg twice a day for another 3 weeks total 4 week supply given. Patient explained the need for follow-up on an outpatient basis. In stable condition. Differential Diagnosis Differential Diagnoses: The differential diagnosis associated with the presentation includes DVT, PE, congestive heart failure, ACS Lab Data [facility] Lab Attestation statement: I reviewed the patient's lab results. 09/28/24 18:09 09/28/24 18:09 Labs: Lab Results 09/28/24 Range/Units 18:09 WBC 1.5 L (4.8-10.8) X10*3/uL RBC 4.47 (4.20-5.50) X10*6/uL Hgb 12.6 (12.0-16.0) g/dl Hct 37.5 (37.0-47.0) % MCV 83.9 (80.0-98.0) fL MCH 28.2 (27.0-33.0) pg MCHC 33.6 (31.0-35.0) g/dl RDW 12.7 (11.0-16.0) % Plt Count 204 (160-400) X10*3/uL MPV 10.1 (9.4-12.3) fL Immature Gran % (Auto) 0.0 (0.0-0.4) % Neut % (Auto) 8.9 L (45-73) % Lymph % (Auto) 64.4 H (20-40) % Reagan % (Auto) 21.9 H (2-11) % Eos % (Auto) 2.7 (0-4) % Baso % (Auto) 2.1 H (0-2) % Lymph # (Auto) 0.9 L (1.2-4.9) X10*3/uL Reagan # (Auto) 0.3 (0.1-1.2) X10*3/uL Eos # (Auto) 0.0 (0.0-0.4) X10*3/uL Baso # (Auto) 0.0 (0.0-0.2) X10*3/uL Abs Immat Gran (auto) 0.00 (0.00-0.03) X10*3/uL Absolute Neuts (auto) 0.1 L (2.0-8.3) x10*3/uL Absolute Nucleated RBC 0.000 (0.0-0.012) X10*3/uL Nucleated RBC % (auto) 0.0 (0.0-0.2) /100WBC Smear Tech's Comments VERIFIED PT 11.3 (10.9-12.4) SEC INR 1.0 (0.9-1.1) D-Dimer High Sensitivty 1917 NG/ML Sodium 138 (135-145) mmol/L Potassium 4.1 (3.3-5.1) mmol/L Chloride 106 (96-108) mmol/L Carbon Dioxide 22 (22-29) mmol/L Anion Gap 14 (12-20) BUN 21 H (9-16) mg/dL Creatinine 0.78 (0.5-1.4) mg/dL Estim Creat Clear Calc 73.4 Estimated GFR > 60 Random Glucose 111 (60-115) mg/dL Calcium 9.7 (8.4-10.2) mg/dL Magnesium 1.9 (1.6-2.6) mg/dL Total Bilirubin 0.3 (0.0-1.0) mg/dL Direct Bilirubin 0.1 (0.0-0.5) mg/dL AST 25 (5-31) U/L ALT 12 (0-31) U/L Alkaline Phosphatase 112 (39-117) U/L Troponin I High Sens < 2.7 (<3.5-17.0) ng/L B-Natriuretic Peptide < 10 (<100) pg/mL Total Protein 7.7 (6.5-8.0) g/dL Albumin 4.1 (3.5-5.0) g/dL Influenza Type A (PCR) NEGATIVE (Negative) Influenza Type B (PCR) NEGATIVE (Negative) RSV RNA Qual (PCR) NEGATIVE (Negative) SARS-CoV-2 RNA (RT-PCR) NEGATIVE (Negative) Independent Interpretation I performed an independent interpretation of an: EKG (Sinus heart rate is 90 MA QRS QTC normal no acute ST segment elevation) Radiology Impression Discussion of test interpretation with radiology: I have reviewed the radiologist's reading. (I reviewed radiology's reading of the CTA chest) External Record Review External record reviewed: Inpatient record Social Determinants Patient?s care significantly limited by Social Determinants of Health including: Low income Discharge Plan Discharge Clinical Impression: Mild shortness of breath Patient Disposition: Home, Self-Care Instructions: Shortness of Breath (ED) Prescriptions: New Eliquis 5 mg tablet 5 mg PO BID 28 Days Qty: 70 0RF Rx Instructions: Two tabs twice a day for 7 days followed by 1 tab twice a day No Action buspirone 5 mg tablet 5 mg PO BID 90 Days Qty: 180 1RF lisinopril 20 mg tablet 20 mg PO DAILY 90 Days Qty: 90 1RF Eliquis 5 mg Tablet 5 mg PO BID Qty: 60 4RF acetaminophen [Tylenol Extra Strength] 500 mg tablet 1,000 mg PO Q6H prednisone 20 mg tablet 40 mg PO QAM Qty: 10 0RF cephalexin 500 mg capsule 500 mg PO Q6H Qty: 28 0RF leflunomide 20 mg tablet 20 mg PO DAILY Qty: 90 1RF naproxen 375 mg tablet 375 mg PO BID PRN (Reason: pain) Qty: 10 0RF Referrals: Nikhil Anguiano MD [Physician] - 10/03/24 Print Language: Slovenian
[2024-09-28] MEDS: iohexoL 350 MG/ML 100 ML INFUS..BTL 75 ML IV (20:22)
[2024-09-28 22:27] VITALS: BP 151/89; RESP 18; TEMP 36.4; O2SAT 99
[2024-09-28] MEDS: Apixaban 5 MG TABLET 10 MG PO (22:28)
[2024-09-28 22:31] VITALS: BP 151/89; PULSE 97; RESP 18; TEMP 36.4; O2SAT 99
== END 2024-09-28 22:35 | disposition home or self-care (01) ==
PROVIDERS: Physician Assistant; Emergency Provider Emergency Medicine Emergency Medical Services; PCP Nurse Practitioner Family
DX: R06.02 Shortness of breath (principal); I10 Essential (primary) hypertension; E78.5 Hyperlipidemia, unspecified; M06.9 Rheumatoid arthritis, unspecified; Z86.718 Personal history of other venous thrombosis and embolism; Z79.01 Long term (current) use of anticoagulants; Z03.818 Encounter for observation for suspected exposure to other biological agents ruled out
CPT/HCPCS: 0241U; 36415; 71046; 71275; 80048; 80053; 80061; 80076; 81003; 82306; 83735; 83880; 84443; 84484; 85025; 85379; 85610; 93005; 99284; 99285; Q9967

== ENCOUNTER → 2024-09-28 17:55 | Outpatient (BNV) | payer MEDICARE, SELFPAY | PROVIDERS: Emergency Provider Emergency Medicine Emergency Medical Services; PCP Nurse Practitioner Family; Visit Provider Internal Medicine | DX: I25.2 Old myocardial infarction (principal); R06.02 Shortness of breath | CPT/HCPCS: 93010 ==

== ENCOUNTER → 2024-09-28 17:56 | Outpatient (BNV) | payer MEDICARE, SELFPAY | PROVIDERS: Emergency Provider Emergency Medicine Emergency Medical Services; PCP Nurse Practitioner Family; Visit Provider Radiology Diagnostic Radiology | DX: R91.8 Other nonspecific abnormal finding of lung field (principal); R06.02 Shortness of breath | CPT/HCPCS: 71046; 71275 ==

== ENCOUNTER 2024-10-03 09:52 | Outpatient (AMB) | payer MEDICARE, SELFPAY ==
--- NOTE | 2024-10-03 10:05 | A.OFFPC_ITS ---
Vital Signs 10/03/24 10:07 Height 5 ft 4 in Weight 184 lb BMI 31.6 BP 120/82 Blood Pressure Location Lt brachial Position Sitting Pulse 86 Pulse Source Pulse Oximeter Pulse Oximetry (%) 97 Intake Visit Reasons: 6 months f/up Accompanied by: Spouse Allergies penicillin G [PENICILLIN G] Allergy (Severe, Verified 10/03/24 10:56) ANAPHYLAXIS Medication List - Last Reconciled 10/03/24 by MYLA YeboahP- acetaminophen (Tylenol Extra Strength) 1,000 mg PO Q6H apixaban (Eliquis) 5 mg PO BID 28 days buspirone 5 mg PO BID 90 days leflunomide 20 mg PO DAILY lisinopril 20 mg PO DAILY 90 days naproxen 375 mg PO BID PRN pantoprazole 40 mg PO DAILY Tobacco use date assessed: 10/03/24 Fall risk assessment: No Falls in past year Last assessed Fall Risk: 10/03/24 Dental Screening Dental Screen Date: 10/03/24 Did you have a dental visit in the last 12 months?: Yes Did you have a dental problem in the last 6 months where you did not have access to dental care?: No Was dental information given to patient?: Patient has dentist HPI 6 months f/up HPI Details Chief Complaint The patient is here for a follow-up on dyslipidemia and ongoing leukopenia. History of Present Illness The patient is a 69-year-old female presenting with a follow-up for dyslipidemia and ongoing leukopenia. Recently, laboratory evaluations have confirmed the presence of dyslipidemia. Pertinent details regarding the onset and any initial management efforts were not discussed, yet the condition necessitates continuous monitoring. For leukopenia, hematologic evaluations have been previously established, as the patient is under specialized care for this purpose. The patient indicates that she has been feeling well overall with no notable exacerbations or complications related to these conditions. Social History - No social determinants of health were discussed in the conversation. Health Maintenance Review of Systems - Cardiovascular: Reports feeling well, no issues mentioned. - Respiratory: Reports feeling well, osmar gs were clear. Physical Exam General: Cooperative, healthy appearing, comfortable, no acute distress and well developed, obese Orientation: Patient oriented x3 Limitations: No limitations Head: Normal to inspection Ears: Hearing grossly normal bilaterally Nose: Normal external nose present Face and sinus: Normal facial exam Eyes: Appearance normal, both eyes and all related structures Neck: Normal visual inspection and Yes full ROM Respiratory: Normal respiratory effort and able to speak in complete sentences. Clear to auscultation bilaterally Cardiovascular: Regular rate and rhythm. Normal S1 and S2 GI: Normal to inspection. Soft to palpation and nontender Skin: No rashes or lesions noted Neuro: Patient oriented x3 Extremities: Normal to inspection Results - Labs: Recent lab results indicate dysl ipidemia. Ongoing evaluations for leukopenia. Plan I have initiated a low-dose statin regimen for the patient's dyslipidemia to be administered at night. This decision is based on recent laboratory findings. Potential side effects, such as muscle aches, and the necessity of adequate hydration were discussed. A follow-up to reassess her dyslipidemia is scheduled in two months. As for leukopenia, this condition continues to be monitored and managed by hematology, and no new interventions are required at this time. Discussion Notes I discussed the initiation of a low-dose statin for the management of dyslipi demia with the patient, outlining the potential side effects, including muscle aches, and stressed the importance of taking the medication at night. I explained that staying hydrated can help mitigate side effects. We agreed on a follow-up plan to recheck her lipid levels in two months. Regarding leukopenia, I confirmed that she will continue her care with hematology specialists and did not propose any additional interventions for it during this visit. Patient Instructions - Take the prescribed statin medication at night. - Stay hydrated to help prevent muscle a ches. - Return in two months for reevaluation of lipid levels. - Continue follow-up with hematology for leukopenia as scheduled. [facility] Medical History Leukopenia Depression Cervical carcinoma DDD (degenerative disc disease), lumbar JACQUE I (cervical intraepithelial neoplasia I) ASCUS (atypical squamous cells of undetermined significance) on gynecologic Papanicolaou smear complicating , antepartum Seropositive rheumatoid arthritis HTN (hypertension) Rheumatoid arthritis Hyperlipemia DVT (deep venous thrombosis) Surgical History History of esophagogastroduodenoscopy (EGD) Hx of colonoscopy History of back surgery S/P lumbar microdiscectomy S/P biopsy of cervix History of bunionectomy of both great toes Family History Mother Colon cancer metastasized to multiple sites HTN (hypertension) Substance use disorder Maternal Aunt Breast cancer Father HTN (hypertension) Substance use disorder Brother HTN (hypertension) Heart attack Enlarged heart Brain aneurysm Brother HTN (hypertension) Sister HTN (hypertension) Sister HTN (hypertension) Sister HTN (hypertension) Social History Household Members: Spouse Housing: Apartment Are you a primary healthcare economics manager to a significant other at home: No Do you presently have visiting nurse or other home services: No Alcohol intake: current Alcohol intake frequency: a few times a month Alcohol type: beer Patient Tobacco Use Status: Former Tobacco user Tobacco use type: Cigarette Years Smoked: 40 years ago e-Cigarette/Vaping Use: Never Used Second Hand Smoke Exposure: No service: No Current occupational status: employed 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 1. Little interest or pleasure in doing things: not at all 2. Feeling down, depressed, or hopeless: not at all 3. Trouble falling or staying asleep, or sleeping too much: not at all 4. Feeling tired or having little energy: not at all 5. Poor appetite or overeating: not at all 6. Feeling bad about yourself - or that you are a failure or have let yourself or your family down: not at all 7. Trouble concentrating on things, such as reading the newspaper or watching television: not at all 8. Moving or speaking so slowly that other people could have noticed. Or the opposite - being so fidgety or restless that you have been moving around a lot more than usual: not at all 9. Thoughts that you would be better off or of hurting yourself in some way: not at all Total score: 0 Depression Screening Interpretation: Negative Depression Screening Done: Yes 67861 - PHQ-9 Billing: Yes Source: Developed by Drs. Bobby Barton, Megan Wallace, Da Young and colleagues, with an educational rowan from [employer]. Thrive Questionnaire Date Thrive assessed: 10/03/24 I am a: Patient What is your living situation today?: I choose not to answer this question Within the past 12 months, did the food you bought not last and you didn't have the money to get more?: I choose not to answer this question Within the past 12 months, did you worry whether your food would run out before you got money to buy more?: I choose not to answer this question Do you have trouble paying for medicines?: I choose not to answer this question Do you have trouble getting transportation to medical appointments?: I choose not to answer this question Do you have trouble paying your heating and electricity bill?: I choose not to answer this question Do you have trouble taking care of your child, family member or friend?: I choose not to answer this question Do you have trouble with day-to-day activities such as bathing, preparing meals, shopping, managing finances, etc.?: I choose not to answer this question Are you currently unemployed and looking for a job?: I choose not to answer this question Are you interested in more education?: I choose not to answer this question Please select the resources that you would like help with: None Currently or been in a relationship where the following occur: I choose not to answer THRIVE Score: 0 AUDIT C Alcohol Use Questionnaire (AUDIT-C) 1. How often do you have a drink containing alcohol?: Never 3. How often do you have six or more drinks on one occasion?: Never Total Score: 0 Score Reviewed/Action Taken: Yes ROSA-7 AMB Questionnaire ROSA-7 Date ROSA - 7 assessed: 10/03/24 Feeling nervous, anxious, or on edge: 0 = Not at all Not being able to stop or control worryin = Not at all Worrying too much about different things: 0 = Not at all Trouble relaxin = Not at all Being so restless that it is hard to sit still: 0 = Not at all Becoming easily annoyed or irritable: 0 = Not at all Feeling afraid as if something awful might happen: 0 = Not at all Total ROSA-7 score (0-4 normal; 5-9 mild; 10-14 moderate; 15-21 severe): 0 Source: Developed by Drs. Bobby Barton, Megan Wallace, Da Young and colleagues, with an educational rowan from [employer]. ROSA-7 Assessment Billing ROSA-7 Assessment Tool: ROSA-7 Assessment 06447 Physical exam (Primary Care) Vital Signs: Last Vital Signs Pulse 86 10/03/24 10:07 BP 120/82 10/03/24 10:07 Pulse Ox 97 10/03/24 10:07 BMI result Body Mass Index 31.6 Tobacco/Smoking Status: Tobacco use Status Tobacco use date assessed 10/03/24 10/03/24 10:13 Patient Tobacco Use Status Former Tobacco user 10/03/24 10:05 Tobacco use type Cigarette 10/03/24 10:05 e-Cigarette/Vaping Use Never Used 10/03/24 10:05 PHQ-9: PHQ-9 Score PHQ-9: Total score 0 10/03/24 10:16 Depression Screening Interpretation: Negative Thrive Assessment: Date of Thrive Assessment Date Thrive assessed 10/03/24 10/03/24 10:13 Currently or been in a relationship where the following occur: I choose not to answer Coding Level of Care Code Est Pt Level 3 (15344) Diagnoses Hyperlipemia E78.5 Additional Codes ROSA-7 Assessment Billing - ROSA-7 Assessment Tool: ROSA-7 Assessment 55686 ([id number]) PHQ-9 - 22506 - PHQ-9 Billing: Yes ([id number]) Assessment & Plan Assessment & Plan (1) Hyperlipemia: Code(s): E78.5 - Hyperlipidemia, unspecified Category: Medical Plan . Orders: Orders Lipid Panel 2 Days E78.5 - Hyperlipidemia, unspecified Comprehensive [place]. Panel Fast 2 Days E78.5 - Hyperlipidemia, unspecified Medications: New pantoprazole 40 mg PO DAILY 90 tabs 0RF atorvastatin 10 mg PO BEDTIME 30 days 30 tabs 2RF
[2024-10-03 10:07] VITALS: BP 120/82; PULSE 86; O2SAT 97; BMI 31.6
== END 2024-10-03 11:06 | disposition home or self-care (01) ==
LOC: HO.HMCC 09:53
PROVIDERS: PCP Nurse Practitioner Family; Visit Provider Nurse Practitioner Family
DX: E78.5 Hyperlipidemia, unspecified (principal)

== ENCOUNTER → 2024-10-03 09:52 | Outpatient (BNVA) | payer MEDICARE, SELFPAY | PROVIDERS: PCP Nurse Practitioner Family; Visit Provider Nurse Practitioner Family | DX: E78.5 Hyperlipidemia, unspecified (principal) | CPT/HCPCS: 96127; 99212 ==

== ENCOUNTER 2024-12-27 09:13 | Outpatient (AMB) | payer MEDICARE, SELFPAY ==
--- NOTE | 2024-12-27 09:32 | A.OFFVIS_ITS ---
Vital Signs 12/27/24 09:38 Height 5 ft 4 in Weight 182 lb 1.629 oz BMI 31.3 BP 130/72 Blood Pressure Location Lt brachial Position Sitting Pulse 79 Pulse Source Pulse Oximeter Pulse Oximetry (%) 98 Oxygen Delivery Method Room Air Intake Visit Reasons: RA Intake Note: Patient presents for RA follow up. 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 - Stopped all her medications due to insurance issues - Drinking tumeric to help with joint pains - Gave good rx coupon for leflunomide and referred to social work Since then - Had appt 09/15 with PCP for cellulitis and placed on antibiotics and steroids - Improved 09/21 at follow up Today, - Restarted her meds - Doing well Rheumatologic History: Diagnosed with rheumatoid arthritis in 2005. Previously on methotrexate and Enbrel and was stable on this. However in 2021 she was noted to have falling white counts mostly neutrophils. Was seen by Hematology for workup but this did not reveal a source. The methotrexate was held and then the Enbrel was held. This did not improve her counts. She was subsequently evaluated for Felty syndrome and CT imaging of her abdomen showed splenomegaly. She was subsequently restarted on leflunomide and the Enbrel was held given the possibility of Felty syndrome Current Rheumatology Medication(s): Leflunomide 20mg daily [facility] Medical History (Updated 12/27/24 @ 10:08 by Tanika Oliva MD) Osteopenia Leukopenia Depression Cervical carcinoma DDD (degenerative disc disease), lumbar JACQUE I (cervical intraepithelial neoplasia I) ASCUS (atypical squamous cells of undetermined significance) on gynecologic Papanicolaou smear complicating , antepartum Seropositive rheumatoid arthritis HTN (hypertension) Rheumatoid arthritis Hyperlipemia DVT (deep venous thrombosis) Surgical History History of esophagogastroduodenoscopy (EGD) Hx of colonoscopy History of back surgery S/P lumbar microdiscectomy S/P biopsy of cervix History of bunionectomy of both great toes Family History Mother Colon cancer metastasized to multiple sites HTN (hypertension) Substance use disorder Maternal Aunt Breast cancer Father HTN (hypertension) Substance use disorder Brother HTN (hypertension) Heart attack Enlarged heart Brain aneurysm Brother HTN (hypertension) Sister HTN (hypertension) Sister HTN (hypertension) Sister HTN (hypertension) Social History Household Members: Spouse Housing: Apartment Are you a primary day care director to a significant other at home: No Do you presently have visiting nurse or other home services: No Alcohol intake: current Alcohol intake frequency: a few times a month Alcohol type: beer Patient Tobacco Use Status: Former Tobacco user Tobacco use type: Cigarette Years Smoked: 40 years ago e-Cigarette/Vaping Use: Never Used Second Hand Smoke Exposure: No service: No Current occupational status: employed 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 Current occupational exposures/hazards: No Cognitive needs: No Hearing needs: No Vision needs: No Review of Systems Const Details: Review of Systems Constitutional: Denies fever, chills, weight loss ENT: Denies vision changes, eye pain or eye redness, dental caries, dry mouth GI: Denies nausea, vomiting, diarrhea, abdominal pain, change in BM Pulm: Denies SOB, KAMARA, hemoptysis, wheezing Cards: Denies chest pain, palpitations Skin: Denies Raynaud's, rash, nail changes, photosensitivity, [employer] PRODUCTION MANAGER: Denies headaches, weakness, paresthesias, recurrent falls MSK: as per HPI All other systems reviewed and are unremarkable except noted above Physical Exam Exam Exam: Vital signs reviewed Physical Examination CONSTITUITIONAL Patient alert and cooperative. Well appearing and in no apparent painful distress HEENT Conjunctiva and sclera clear. No lymphadenopathy. CHEST/RESPIRATORY SYSTEM Normal respiratory effort and able to speak in complete sentences. Clear to auscultation bilaterally. No crackles, rales, rhonchi, wheezes heard. CARDIAC SYSTEM Regular rate and rhythm. S1 and S2 heard no murmurs. Radial pulses intact bilaterally MSK Hands * Right Hand: Able to make a fist. No swelling or tenderness to palpation of these joints. * Left Hand: Able to make a fist. No swelling or tenderness to palpation of these joints. * Herbedens nodes noted bilaterally Wrists * Right Wrist: Full ROM. 70 degrees of wrist flexion, 80 degrees of wrist extension. No swelling or TTP * Left Wrist: Full ROM. 70 degrees of wrist flexion, 80 degrees of wrist extension. No swelling or TTP Elbows * Right Elbow: Full ROM. No swelling or TTP. No TTP of the medial and lateral epicondyles * Left Elbow: Full ROM. No swelling or TTP. No TTP of the medial and lateral epicondyles Shoulders * Right shoulder: Full ROM. No swelling noted. No TTP of the AC joint, subacromial bursa or posterior shoulder * Left shoulder: Full ROM. No swelling noted. No TTP of the AC joint, subacromial bursa or posterior shoulder Knees * Right knee: Full ROM. No swelling noted. No TTP of the knee joint lie or pes anserine bursa * Left knee: Full ROM. No swelling noted. No TTP of the knee joint lie or pes anserine bursa. * Crepitations felt bilaterally Ankles * Right ankle: Good ankle dorsiflexion and plantar flexion. No swelling. No TTP of the ankle joint * Left ankle: Good ankle dorsiflexion and plantar flexion. No swelling. No TTP of the ankle joint Feet * Right foot: Negative squeeze test * Left foot: Negative squeeze test Tender points? * No tenderness to palpation of the bilateral trapezius, supraspinatus, anterior costochondral junctions, bilateral suboccipital muscle insertions SKIN No rashes Vital Signs: Last Vital Signs Pulse 79 12/27/24 09:38 BP 130/72 12/27/24 09:38 Pulse Ox 98 12/27/24 09:38 Oxygen Delivery Method Room Air 12/27/24 09:38 BMI result Body Mass Index 31.3 Results Reviewed Results Reviewed: Laboratory Tests 09/28/24 10/03/24 18:09 15:49 WBC 1.5 L RBC 4.47 Hgb 12.6 Plt Count 204 ESR 39 H Sodium 141 Potassium 4.3 Chloride 108 Carbon Dioxide 24 BUN 15 Creatinine 0.77 AST 19 ALT 10 C-Reactive Protein 4.40 H DEXA 06/2023 FINDINGS: LEFT FEMUR, NECK: Current: BMD 0.758 g/cm2, Z-score -0.9, T-score -2.0, osteopenia. Baseline: BMD 0.801 g/cm2. LEFT FEMUR, TOTAL: Current: BMD 0.805 g/cm2, Z-score -0.8, T-score -1.6, osteopenia, 5.7% decrease from baseline (<5% change is not significant). Baseline: BMD 0.854 g/cm2. AP SPINE L1-L3 (excluding L4): The data of L1-L4 has been changed to exclude the L4 vertebral body, because degenerative sclerosis at this level may cause overestimation of lumbar spine density. Current: BMD 0.953 g/cm2, Z-score -0.8, T-score -1.8, osteopenia, 1.3% decrease from baseline (<5% change is not significant). Baseline: BMD 0.966 g/cm2. 10-YEAR FRACTURE RISK PREDICTION, FRAX: Major osteoporotic fracture (clinical spine, forearm, hip or shoulder) 13.5%. Hip fracture 2.3%. 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 Currently on leflunomide and sx stable Elevated CRP in the setting of her infection Plan - Leflunomide 20mg PO daily - Labs today: CBC, CMP, ESR, CRP, hepatitis panel, T spot - RTC 6 months (2) Felty syndrome: Code(s): M05.00 - Felty's syndrome, unspecified site Category: Medical Plan: #RA Complicated by Felty's Syndrome Patient with a diagnosis of Felty syndrome based on seropositive rheumatoid arth ritis, unexplained neutropenia and splenomegaly Had to switch back to leflunomide due to insurance issues. We will continue to monitor closely (3) Osteopenia: Comment: DEXA 06/2023: AP Spine -1.8, Left femur neck -2.0, Left femur total -1.6. FRAX 13.5/2.3 Code(s): M85.80 - Other specified disorders of bone density and structure, unspecified site Category: Medical Qualifiers: Osteopenia location: multiple sites Qualified Code(s): M85.89 - Other specified disorders of bone density and structure, multiple sites Plan: #Osteopenia Patient with osteopenia and FRAX index not at the criteria for treatment Continue Vit D (4) Encounter for monitoring leflunomide therapy: Code(s): Z51.81 - Encounter for therapeutic drug level monitoring; Z79 - lobsterman (current) use of other immunomodulators and immunosuppressants Plan: #Long-term leflunomide Discussed with patient the benefits and risks of leflunomide for managing the rheumatic condition Benefits include: - Reduced pain, maintenance of remission and reduction of flares Risks include: - GI upset especially diarrhea, skin rash, cytopenias, hepatotoxicity, weight loss, neuropathy Leflunomide is highly teratogenic. Has a very long half-life. Needs cholestyramine washout if there is desire for Initiation: CBC, BMP, LFTs, hepatitis-B and C serologies every 2-4 weeks for 3 months Monitoring: CBC, BMP, LFTs, hepatitis B and C serologies Plan I spent 30 minutes reviewing the record and labs, taking a history, examining the patient, discussing the treatment plan, ordering diagnostic work up and documenting in the medical record Orders: Orders Erythrocyte Sedimentation Rate Today M05.9 - Rheumatoid arthritis with rheumatoid factor, unspecified C Reactive Protein 6 Months M05.9 - Rheumatoid arthritis with rheumatoid factor, unspecified C Reactive Protein Today M05.9 - Rheumatoid arthritis with rheumatoid factor, unspecified Complete Blood Count Auto Diff 6 Months M05.9 - Rheumatoid arthritis with rheumatoid factor, unspecified Comprehensive Met. Panel 6 Months M05.9 - Rheumatoid arthritis with rheumatoid factor, unspecified Erythrocyte Sedimentation Rate 6 Months M05.9 - Rheumatoid arthritis with rheumatoid factor, unspecified Vitamin D 25-OH Total Today E55.9 - Vitamin D deficiency, unspecified Vitamin D 25-OH Total 6 Months E55.9 - Vitamin D deficiency, unspecified Coding Level of Care Code Est Pt Level 4 (21507) Complex EM visit Add On G2211 Diagnoses Seropositive rheumatoid arthritis M05.9 Felty syndrome M05.00 Osteopenia of multiple sites M85.89 Osteopenia location: multiple sites Encounter for monitoring leflunomide therapy Z51.81; Z79.69
[2024-12-27 09:38] VITALS: BP 130/72; PULSE 79; O2SAT 98; BMI 31.3
--- OUTSIDE RECORDS SUMMARY | 2024-12-27 09:47 | XMS_ITS | Patient Health Record ---
Author Organization [facility] Address [address] [place] [id number] Care Team Providers Care Call Center Manager Name Role Phone GENIE GORE Primary Care Provider Jared Gupta Jr Unavailable [phone] Allergies Allergen (clinical drug ingredient) Drug/Non Drug Allergy documented on EMR Reaction Allergy Type Onset Date Status Penicillin Unknown Drug Allergy Active Reason For Referral No Information Medications Medication SIG (Take, Route, Fr equency, Duration) Notes Start Date End Date Status Vitamin C Active Vitamin D3 Active Multivitamin Adults Active Golytely 236 GM as directed before c olonoscopy Orally every 15 minutes for 1 day(s) Active Fish Oil Active Pravastatin Sodium A ctive amLODIPine Besylate Active Lisinopril 20 MG Orally Act hao Social History Tobacco Use: Social History Observation Description Date Details (start date - stop date) Never Smoker NA - NA Tobacco Use/Smoking Question Answer Notes Patient is a nonsmoker Alcohol Screen Question Answer Notes Did you have a drink containing alcohol in the p ast year? No Points 0 Interpretation Negative Problems Problem Type SNOMED Code ICD Code Onset Dates Problem Status W/U Status Risk Notes Problem [id number] Colon cancer screening (Z12.11) Active confirmed Plan Of Treatment Future Test Test Name Order Date COLONOSCOPY 10/22/2017 Insurance Providers Payer Name Payer Address Payer Phone Subscriber Number Group Number Insured Name Patient Relationship to Insured Coverage Start Date Coverage End Date [facility] [employer] [facility] [address] [address] [place], [place] [id number] LILIANE BINGHAMELA Self - patient is the insured MEDICAID OF [facility] [address] [place] [address] [id number] ZACHERY FRANCES Self - patient is the insured Medical (General) History Medical History History ICD Code hypertension elevated cholesterol vitamin D deficiency
== END 2024-12-27 10:02 | disposition home or self-care (01) ==
LOC: HO.RHE 09:14
PROVIDERS: PCP Nurse Practitioner Family; Visit Provider Student in an Organized Health Care Education/Training Program
DX: M05.79 Rheumatoid arthritis with rheumatoid factor of multiple sites without organ or systems involvement (principal); M05.00 Felty's syndrome, unspecified site; M85.89 Other specified disorders of bone density and structure, multiple sites; Z51.81 Encounter for therapeutic drug level monitoring; Z79.69 Long term (current) use of other immunomodulators and immunosuppressants
CPT/HCPCS: 99214; G2211

== ENCOUNTER → 2024-12-27 09:13 | Outpatient (BNVA) | payer MEDICARE, SELFPAY | PROVIDERS: PCP Nurse Practitioner Family; Visit Provider Student in an Organized Health Care Education/Training Program | DX: M05.9 Rheumatoid arthritis with rheumatoid factor, unspecified (principal); M05.00 Felty's syndrome, unspecified site; M85.89 Other specified disorders of bone density and structure, multiple sites; Z51.81 Encounter for therapeutic drug level monitoring; Z79.69 Long term (current) use of other immunomodulators and immunosuppressants | CPT/HCPCS: 99212 ==

== ENCOUNTER 2024-12-27 10:05 | Outpatient (REF) | payer MEDICARE, SELFPAY ==
[2024-12-27 13:49] LABS: Hematocrit 38.0 % (37.0-47.0); Hemoglobin 12.5 g/dl (12.0-16.0); Imm Gran Abs Auto 0.00 X10*3/uL (0.00-0.03); Imm Gran Pct Auto 0.0 % (0.0-0.4); Lymphocytes Absolute Auto 0.7 X10*3/uL (1.2-4.9); MANUAL DIFF FLAG SCAN; Mean Corpuscular HGB Conc 32.9 g/dl (31.0-35.0); Mean Corpuscular Hemoglobin 26.9 pg (27.0-33.0); Mean Corpuscular Volume 81.9 fL (80.0-98.0); NRBC Abs Auto 0.000 X10*3/uL (0.0-0.012); NRBC Pct Auto 0.0 /100WBC (0.0-0.2); Platelet Count 220 X10*3/uL (160-400); Red Blood Count 4.64 X10*6/uL (4.20-5.50); SCAN SMEAR FLAG 1
[2024-12-27 13:54] LABS: White Blood Count 1.1 X10*3/uL (4.8-10.8)
[2024-12-27 14:22] LABS: Alanine Aminotransferase 10 U/L (0-31); Albumin Level 4.5 g/dL (3.5-5.0); Alkaline Phosphatase 116 U/L (39-117); Anion Gap 16 (12-20); Aspartate Amino Transferase 20 U/L (5-31); Blood Urea Nitrogen 14 mg/dL (9-16); Calcium 9.3 mg/dL (8.4-10.2); Carbon Dioxide 24 mmol/L (22-29); Chloride 107 mmol/L (96-108); Estimated Glomerular Filt Rate > 60; Potassium 4.7 mmol/L (3.3-5.1); Sodium 142 mmol/L (135-145); Total Protein 7.6 g/dL (6.5-8.0)
[2024-12-27 14:24] LABS: HBS Num1 > 1000.00 mIU/mL (0-7.99); HBc Num1 11.40 S/CO (0.00-0.79); HBsAGNum1 0.34 S/CO (0.00-0.99); Hepatitis A Antibody IgM 0.31 Index (0-0.79); Hepatitis B Surface Antigen Negative (Negative); ~HepC Num1 0.07 S/CO (0.00-0.79); ~Hepatitis A Antibody IgM Nonreactive (Nonreactive); ~Hepatitis B Surface Antibody REACTIVE (Nonreactive); ~Hepatitis C Antibody Nonreactive (Nonreactive)
[2024-12-28 08:27] LABS: HBc Num2 10.15 S/CO; HBc Num3 10.24 S/CO
== END 2024-12-27 10:06 | disposition home or self-care (01) ==
LOC: HO.10HDL 10:05
PROVIDERS: Visit Provider Student in an Organized Health Care Education/Training Program
DX: M05.9 Rheumatoid arthritis with rheumatoid factor, unspecified (principal)
CPT/HCPCS: 36415; 80053; 85025; 86704; 86706; 86709; 86803; 87340

== ENCOUNTER 2025-04-03 15:28 | Outpatient (REF) | payer MEDICARE, SELFPAY | END 2025-04-03 15:29 | disposition home or self-care (01) | LOC: HO.LAB 15:28 | PROVIDERS: PCP Nurse Practitioner Family | DX: R30.0 Dysuria (principal); Z13.89 Encounter for screening for other disorder | CPT/HCPCS: 87086; 87088; 87186 ==

== ENCOUNTER 2025-04-03 15:28 | Outpatient (AMB) | payer MEDICARE, SELFPAY ==
[2025-04-03 15:32] VITALS: BP 122/88; PULSE 95; TEMP 36.6; O2SAT 99; BMI 30.5
--- NOTE | 2025-04-03 15:32 | AM.OFFWIN_ITS ---
Intake Vital Signs 04/03/25 15:32 Height 5 ft 4 in Weight 177 lb 8 oz BMI 30.5 BP 122/88 Blood Pressure Location Lt brachial Position Sitting Pulse 95 Pulse Source Pulse Oximeter Temp 97.9 F Temp Source Oral Pulse Oximetry (%) 99 Oxygen Delivery Method Room Air Intake Visit Reasons: EP-uti Intake Note: pt presents with lower abdominal pain and cramping, urine frequency for about 3 days Patient Tobacco Use Status: Former Tobacco user Allergies penicillin G (PENICILLIN G) Allergy (Severe, Verified 04/03/25 15:41) ANAPHYLAXIS Do you need a note to return to daycare/school/sports/work: No HPI HPI Comments History of Present Illness Details History - The patient is a 69-year-old female pr esenting with symptoms suggestive of a urinary tract infection. - Symptoms began three days ago, includi ng pain, burning sensation during urination, and urinary frequency. - The patient attempted self-treatment w ith vinegar water, which was ineffective. - No fever, chills, back pain, nausea, o r vomiting reported. - No blood noted with urination but has pressure and discomfort in the abdominal region. - No history of kidney stones. - She denies vaginal discharge or itchin g. Physical Exam General: Cooperative, healthy appearing, comfortable, no acute distress and well developed Cardiac: Normal S1 and S2. RRR, no M/R/G noted. Respiratory: Normal respiratory effort and able to speak in complete sentences. Clear to auscultation bilaterally. No w/r/r noted. Skin: No rashes or lesions noted. GI: Normal inspection. Normal BS noted. Soft, tender, non-distended. Tenderness to palpation noted in the lower abdomen. No guarding or rebound tenderness noted. Back: Negative CVA bilaterally Patient was informed and verbally consented to the use of an ambient scribe for clinic note documentation during this visit. [facility] Medical History Osteopenia Leukopenia Depression Cervical carcinoma DDD (degenerative disc disease), lumbar JACQUE I (cervical intraepithelial neoplasia I) ASCUS (atypical squamous cells of undetermined significance) on gynecologic Papanicolaou smear complicating , antepartum Seropositive rheumatoid arthritis HTN (hypertension) Rheumatoid arthritis Hyperlipemia DVT (deep venous thrombosis) Surgical History History of esophagogastroduodenoscopy (EGD) Hx of colonoscopy History of back surgery S/P lumbar microdiscectomy S/P biopsy of cervix History of bunionectomy of both great toes Family History Mother Colon cancer metastasized to multiple sites HTN (hypertension) Substance use disorder Maternal Aunt Breast cancer Father HTN (hypertension) Substance use disorder Brother HTN (hypertension) Heart attack Enlarged heart Brain aneurysm Brother HTN (hypertension) Sister HTN (hypertension) Sister HTN (hypertension) Sister HTN (hypertension) Social History Household Members: Spouse Housing: Apartment Are you a primary primary care sales representative to a significant other at home: No Do you presently have visiting nurse or other home services: No Alcohol intake: current Alcohol intake frequency: a few times a month Alcohol type: beer Patient Tobacco Use Status: Former Tobacco user Tobacco use type: Cigarette Years Smoked: 40 years ago e-Cigarette/Vaping Use: Never Used Second Hand Smoke Exposure: No service: No Current occupational status: employed 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 Current occupational exposures/hazards: No Cognitive needs: No Hearing needs: No Vision needs: No Review of Systems Const All systems reviewed & are unremarkable except as noted in HPI and below Physical Exam Vital Signs: Last Vital Signs Temp 97.9 F 04/03/25 15:32 Pulse 95 04/03/25 15:32 BP 122/88 04/03/25 15:32 Pulse Ox 99 04/03/25 15:32 Oxygen Delivery Method Room Air 04/03/25 15:32 BMI result Body Mass Index 30.5 Results AMB Urinalysis, Automated UA Leukoctes 0 Caity/uL Last Edit by Rika De Oliveira MA on 04/03/25 15:52 UA Nitrite Negative Last Edit by Rika De Oliveira MA on 04/03/25 15:52 UA Urobilinogen 0.2 mg/dL Last Edit by Rika De Oliveira MA on 04/03/25 15:52 UA Protein 0 mg/dL Last Edit by Rika De Oliveira MA on 04/03/25 15:52 UA pH 6.0 Last Edit by Rika De Oliveira MA on 04/03/25 15:52 UA Blood 200 Miah/uL Last Edit by Rika De Oliveira MA on 04/03/25 15:52 3+ Rika De Oliveira 04/03/25 15:52 UA Specific [place] 1.010 Last Edit by Rika De Oliveira MA on 04/03/25 15:5 2 UA Ketone Negative Last Edit by Rika De Oliveira MA on 04/03/25 15:52 UA Bilirubin 0 mg/dL Last Edit by Rika De Oliveira MA on 04/03/25 15:52 UA Glucose 0 mg/dL Last Edit by Rika De Oliveira MA on 04/03/25 15:52 Results Reviewed Results Reviewed: Laboratory Last Values Urine pH (Auto) 6.0 04/03/25 15:50 Specific [place] (Auto) 1.010 04/03/25 15:50 Urine Protein (Auto) 0 mg/dL 04/03/25 15:50 Glucose (UA)(Auto) 0 mg/dL 04/03/25 15:50 Urine Ketones (Auto) Negative 04/03/25 15:50 Urine Blood (Auto) 200 Miah/uL H* 04/03/25 15:50 Urine Nitrite (Auto) Negative 04/03/25 15:50 Urine Bilirubin (Auto) 0 mg/dL 04/03/25 15:50 Urine Urobilinogen (Auto) 0.2 mg/dL 04/03/25 15:50 Leukocyte Esterase (Auto) 0 Caity/uL 04/03/25 15:50 Assessment & Plan Assessment & Plan (1) Dysuria: Code(s): R30.0 - Dysuria Plan Most likely UTI UA 3+ blood Plan - Initiate antibiotic therapy to address the urinary tract infection symptoms. - Urine culture to be conducted to identify bacterial presence and guide antibiotic selection. - Consideration of phenazopyridine for symptomatic relief of urinary discomfort. - Advise increased fluid intake, including water and cranberry juice, to aid in symptom relief and prevention. Orders: Orders AMB Urinalysis Automated Today Z13.9 - Encounter for screening, unspecified Urine Culture Today N39.0 - Urinary tract infection, site not specified Medications: New phenazopyridine 100 mg PO tid PRN 6 tabs 0RF Pain nitrofurantoin monohyd/m-cryst 100 mg (Macrobid) must administer with a meal/food 100 mg PO Q12H 10 caps 0RF 5 days Coding Level of Care Code Est Pt Level 3 (11196) Diagnoses Dysuria R30.0
--- OUTSIDE RECORDS SUMMARY | 2025-04-03 18:38 | XMS_ITS | Patient Health Record ---
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 Assembly And Packing Supervisor Name Role Phone GENIE GORE Primary Care Provider Jared Gupta Jr Unavailable Allergies Allergen (clinical drug ingredient) Drug/Non Drug Allergy documented on EMR Reaction Allergy Type Onset Date Status Penicillin Unknown Drug Allergy Active Reason For Referral No Information Medications Medication SIG (Take, Route, Fr equency, Duration) Notes Start Date End Date Status Vitamin C Active Vitamin D3 Active Multivitamin Adults Active Golytely 236 GM as directed before c olonoscopy Orally every 15 minutes; Duration: 1 day(s) Active Fish Oil Active Pravastatin [...] Problem Status W/U Status Risk Notes Problem Colon cancer screening ([id number]) Colon cancer screening (Z12.11) Active confirmed Plan Of Treatment Future Test Test Name Order Date COLONOSCOPY 10/22/2017 Insurance Providers Payer Name Payer Address Payer Phone Subscriber Number Group Number Insured Name Patient Relationship to Insured Coverage Start Date Coverage End Date [facility] Plan [address] [address] [place], [place] [phone] [id number] ZACHERY FRANCES Self - patient is the insured MED[employer] [facility] [address] [place] [address] [phone] [id number] FRANCES BINGHAM Self - patient is the insured Medical (General) History Medical History History ICD Code hypertension elevated cholesterol vitamin D deficiency
== END 2025-04-03 16:15 | disposition home or self-care (01) ==
PROVIDERS: PCP Nurse Practitioner Family; Visit Provider Physician Assistant Medical
DX: R30.0 Dysuria (principal); Z13.9 Encounter for screening, unspecified

== ENCOUNTER 2025-04-27 09:10 | Outpatient (AMB) | payer MEDICARE, SELFPAY ==
--- NOTE | 2025-04-27 09:42 | MHC.PC.OV ---
Vital Signs 04/27/25 09:48 Height 5 ft 4 in Weight 172 lb BMI 29.5 BP 124/72 Blood Pressure Location Lt brachial Position Sitting Respiration 16 Pulse 92 Pulse Source Pulse Oximeter Pulse Oximetry (%) 97 Oxygen Delivery Method Room Air Intake Visit Reasons: Annual PE - see comments Business Services Representative Required: No Allergies penicillin G (PENICILLIN G) Allergy (Severe, Verified 04/27/25 10:38) ANAPHYLAXIS Medication List - Last Reconciled 04/27/25 by BRANDON Yeboah- acetaminophen (Tylenol Extra Strength) 1,000 mg PO Q6H apixaban (Eliquis) 5 mg PO BID atorvastatin 10 mg PO BEDTIME 30 days buspirone 5 mg PO BID 90 days folic acid 1 mg PO DAILY leflunomide 20 mg PO DAILY lisinopril 20 mg PO DAILY 90 days pantoprazole 40 mg PO DAILY phenazopyridine 100 mg PO tid PRN Tobacco use date assessed: 04/27/25 Fall risk assessment: No Falls in past year Last assessed Fall Risk: 04/27/25 Dental Screening Dental Screen Date: 04/27/25 Did you have a dental visit in the last 12 months?: No Did you have a dental problem in the last 6 months where you did not have access to dental care?: No Was dental information given to patient?: Patient has dentist HPI Annual PE - see comments HPI Details Chief Complaint The patient presents for a physical exam with a 2 to 3-week history of bloody diarrhea, left lower quadrant pain, suprapubic pain, and hematuria. History of Present Illness The patient is a 69 year old individual presenting for a physical exam. The patient reports a 2 to 3-week history of ongoing bloody diarrhea, left lower quadrant pain, suprapubic pain, and hematuria. The patient also experiences chills at night but is uncertain about the presence of fever. Social History - Transportation: The patient will be going to the emergency room by private car. Health Maintenance - The patient presented for a physical exam. Review of Systems - Constitutional: Reports chills at night; denies known fevers. - Gastrointestinal: Reports bloody diarrhea for 2-3 weeks and left lower quadrant pain. - Genitourinary: Reports hematuria and suprapubic pain. Physical Exam General: Cooperative, healthy appearing, comfortable, no acute distress and well developed,obese Orientation: Patient oriented x3 Limitations: No limitations Head: Normal to inspection Ears: Hearing grossly normal bilaterally Nose: Normal external nose present Face and sinus: Normal facial exam Eyes: Appearance normal, both eyes and all related structures Neck: Normal visual inspection and Yes full ROM Respiratory: Normal respiratory effort and able to speak in complete sentences. Clear to auscultation bilaterally Cardiovascular: Regular rate and rhythm. Normal S1 and S2 GI: Significant left lower quadrant tenderness with the slightest palpation. Tenderness noted over the suprapubic region with palpation. Skin: No rashes or lesions noted Neuro: Patient oriented x3 Extremities: Normal to inspection Results Plan 1. Acute Abdominal Pain, Hematochezia, And Hematuria Due to the patient's presentation with bloody diarrhea, LLQ pain, suprapubic pain, and hematuria, the patient will be referred directly to the [facility] emergency room for a full and expedited workup. The patient will travel via private car. Follow-up will be arranged post-discharge as needed. Discussion Notes I discussed with the patient that the presenting symptoms of bloody diarrhea, abdominal pain, and hematuria are concerning and warrant an urgent, comprehensive evaluation. I explained that this workup is best performed in an emergency department setting to ensure it is done as soon as possible. A report was called to the emergency room at [facility], and the patient will be proceeding there directly. We will follow up with the patient after discharge if needed. Patient Instructions - Go to the emergency room at [facility] right away for a full check-up. - You will travel there by a private car. - We will be in touch with you after you are released from the hospital, if necessary. [facility] Medical History Osteopenia Leukopenia Depression Cervical carcinoma DDD (degenerative disc disease), lumbar JACQUE I (cervical intraepithelial neoplasia I) ASCUS (atypical squamous cells of undetermined significance) on gynecologic Papanicolaou smear complicating , antepartum Seropositive rheumatoid arthritis HTN (hypertension) Rheumatoid arthritis Hyperlipemia DVT (deep venous thrombosis) Surgical History History of esophagogastroduodenoscopy (EGD) Hx of colonoscopy History of back surgery S/P lumbar microdiscectomy S/P biopsy of cervix History of bunionectomy of both great toes Family History Mother Colon cancer metastasized to multiple sites HTN (hypertension) Substance use disorder Maternal Aunt Breast cancer Father HTN (hypertension) Substance use disorder Brother HTN (hypertension) Heart attack Enlarged heart Brain aneurysm Brother HTN (hypertension) Sister HTN (hypertension) Sister HTN (hypertension) Sister HTN (hypertension) Social History Household Members: Spouse Housing: Apartment Are you a primary healthcare sales representative to a significant other at home: No Do you presently have visiting nurse or other home services: No Alcohol intake: current Alcohol intake frequency: a few times a month Alcohol type: beer Patient Tobacco Use Status: Former Tobacco user Tobacco use type: Cigarette Years Smoked: 40 years ago e-Cigarette/Vaping Use: Never Used Second Hand Smoke Exposure: No service: No Current occupational status: employed 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 1. Little interest or pleasure in doing things: not at all 2. Feeling down, depressed, or hopeless: not at all 3. Trouble falling or staying asleep, or sleeping too much: not at all 4. Feeling tired or having little energy: not at all 5. Poor appetite or overeating: not at all 6. Feeling bad about yourself - or that you are a failure or have let yourself or your family down: not at all 7. Trouble concentrating on things, such as reading the newspaper or watching television: not at all 8. Moving or speaking so slowly that other people could have noticed. Or the opposite - being so fidgety or restless that you have been moving around a lot more than usual: not at all 9. Thoughts that you would be better off or of hurting yourself in some way: not at all Total score: 0 Depression Screening Interpretation: Negative Depression Screening Done: Yes 08150 - PHQ-9 Billing: Yes Source: Developed by Drs. Bobby Barton, Megan B.W. Da Wallace and colleagues, with an educational rowan from [employer]. Thrive Questionnaire Date Thrive assessed: 10/03/24 I am a: Patient What is your living situation today?: I choose not to answer this question Within the past 12 months, did the food you bought not last and you didn't have the money to get more?: I choose not to answer this question Within the past 12 months, did you worry whether your food would run out before you got money to buy more?: I choose not to answer this question Do you have trouble paying for medicines?: I choose not to answer this question Do you have trouble getting transportation to medical appointments?: I choose not to answer this question Do you have trouble paying your heating and electricity bill?: I choose not to answer this question Do you have trouble taking care of your child, family member or friend?: I choose not to answer this question Do you have trouble with day-to-day activities such as bathing, preparing meals, shopping, managing finances, etc.?: I choose not to answer this question Are you currently unemployed and looking for a job?: I choose not to answer this question Are you interested in more education?: I choose not to answer this question Please select the resources that you would like help with: None Currently or been in a relationship where the following occur: I choose not to answer THRIVE Score: 0 ROSA-7 AMB Questionnaire ROSA-7 Date ROSA - 7 assessed: 10/03/24 Source: Developed by Drs. Bobby Barton, Da Briseno and colleagues, with an educational rowan from [employer]. Physical exam (Primary Care) Vital Signs: Last Vital Signs Pulse 92 04/27/25 09:48 Resp 16 04/27/25 09:48 BP 124/72 04/27/25 09:48 Pulse Ox 97 04/27/25 09:48 Oxygen Delivery Method Room Air 04/27/25 09:48 BMI result Body Mass Index 29.5 Tobacco/Smoking Status: Tobacco use Status Tobacco use date assessed 04/27/25 04/27/25 09:54 Patient Tobacco Use Status Former Tobacco user 04/27/25 09:44 Tobacco use type Cigarette 04/27/25 09:44 e-Cigarette/Vaping Use Never Used 04/27/25 09:44 PHQ-9: PHQ-9 Score PHQ-9: Total score 0 04/27/25 09:54 Depression Screening Interpretation: Negative Thrive Assessment: Date of Thrive Assessment Date Thrive assessed 10/03/24 04/27/25 09:44 Currently or been in a relationship where the following occur: I choose not to answer Coding Level of Care Code Est Pt Level 3 (40523) Diagnoses Pelvic pressure in female R10.20 Hematuria R31.9 Diarrhea R19.7 Additional Codes PHQ-9 - 74320 - PHQ-9 Billing: Yes ([id number]) Assessment & Plan Assessment & Plan (1) Pelvic pressure in female: Code(s): R10.20 - Pelvic and perineal pain unspecified side Category: Medical (2) Hematuria: Code(s): R31.9 - Hematuria, unspecified Category: Medical (3) Diarrhea: Code(s): R19.7 - Diarrhea, unspecified Category: Medical Plan . Orders: Orders Comprehensive [place]. Panel Fast Today Z00.01 - Encounter for general adult medical examination with abnormal findings TSH reflex Free T4 Today Z00.01 - Encounter for general adult medical examination with abnormal findings CT abdomen pelvis wo/w IV con Today R10.20 - Pelvic and perineal pain unspecified side, R19.7 - Diarrhea, unspecified, R31.9 - Hematuria, unspecified Complete Blood Count Auto Diff Today Z00.01 - Encounter for general adult medical examination with abnormal findings UA CC w/rflx Micro + Cult Today Z00.01 - Encounter for general adult medical examination with abnormal findings Lipid Panel Today Z00.01 - Encounter for general adult medical examination with abnormal findings Urine Culture Today R10.20 - Pelvic and perineal pain unspecified side
[2025-04-27 09:48] VITALS: BP 124/72; PULSE 92; RESP 16; O2SAT 97; BMI 29.5
--- OUTSIDE RECORDS SUMMARY | 2025-04-27 11:46 | XMS_ITS | Patient Health Record ---
Author Organization [facility] Address [address] [place] [id number] Care Team Providers Care Felt Cementer Name Role Phone GENIE GORE Primary Care Provider Jared Gupta Jr Unavailable Allergies Allergen (clinical drug ingredient) Drug/Non Drug Allergy documented on EMR Reaction Allergy Type Onset Date Status Penicillin Unknown Drug Allergy Active Reason For Referral No Information Medications Medication SIG (Take, Route, Frequency, Duration) Notes Start Date End Date Status Vitamin C Active Vitamin D3 Active Multivitamin Adults Active Golytely 236 GM Solution Reconstituted as directed before colonoscopy Orally every 15 minutes; Duration: 1 day(s) Active Fish Oil Active Pravastatin Sodium A ctive amLODIPine Besylate Active Lisinopril 20 MG Tablet Orally Active Social History Tobacco Use: Social History Observation Description Date Details (start date - stop date) Never Smoker NA - NA Social History Drugs/Alcohol: Social Info Question Answer Notes Alcohol Screen Did you have a drink containing alcohol in the past year? 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 Problems Problem Type SNOMED Code ICD Code Onset Dates Problem Status W/U Status Risk Notes Problem Colon cancer screening (875132170) Colon cancer screening (Z12.11) Active confirmed Plan Of Treatment Future Test Test Name Order Date COLONOSCOPY 10/22/2017 Insurance Providers Payer Name Payer Address Payer Phone Subscriber Number Group Number Insured Name Patient Relationship to Insured Coverage Start Date Coverage End Date [facility] [employer] [facility] [address] [address] [place], [place] [id number] FRANCES BINGHAM Self - patient is the insured MEDICAID OF [facility] [address] [place] [address] [id number] FRANCES BINGHAM Self - patient is the insured Medical (General) History Medical History History ICD Code hypertension elevated cholesterol vitamin D deficiency
== END 2025-04-27 11:44 | disposition home or self-care (01) ==
LOC: HO.HMCC 09:11
PROVIDERS: PCP Nurse Practitioner Family; Visit Provider Nurse Practitioner Family
DX: R10.20 Pelvic and perineal pain unspecified side (principal); R31.9 Hematuria, unspecified; R19.7 Diarrhea, unspecified

== ENCOUNTER 2025-04-27 10:32 | Inpatient (IN) | payer MEDICARE, SELFPAY ==
--- NOTE | ~2025-04-27 | CT_ITS ---
CLINICAL HISTORY: DVT --- Additional Notes or Special Instructions: Please do CT venogram with delayed images. Please evaluate CT angiography abdomen and pelvis with contrast. 3-D post processing. Comparison: CT/REG/VA/SR - CT ABDOMEN PELVIS WITH IV CONTRAST - 04/27/25 12:56 EST Findings: Aorta, mesenteric/renal arteries, and iliofemoral systems are within normal limits. No consolidation or effusion. Hepatic steatosis. The gallbladder is within normal limits. The spleen is homogeneous in attenuation. The left and right kidney demonstrate symmetric corticomedullary enhancement. The adrenals are within normal limits. The pancreas demonstrates homogeneous attenuation. Sigmoid colon pericolonic inflammatory changes with extraluminal fluid collection, 2.2 cm. Mild calcified atherosclerotic disease of the abdominal aorta. Diverticulosis. The appendix is within normal limits. The uterus is mildly atrophic. The bones are intact. IMPRESSION: 1. Sigmoid colon diverticulitis with 2.2 cm extraluminal abscess, stable. 2. Hepatic steatosis. This document has been electronically signed by: Trung Sharpe MD on 05/01/2025 21:36:31
--- NOTE | ~2025-04-27 | CT_ITS ---
EXAMINATION: CT ABDOMEN AND PELVIS WITH CONTRAST CLINICAL INFORMATION: Left lower quadrant pain and rectal bleed. COMPARISON: CT abdomen 05/28/2023 TECHNIQUE: Multidetector volumetric images were obtained from the superior aspect of the liver through the pubic symphysis following administration 85 mL of Omnipaque 350 intravenous contrast. Sagittal and coronal reformatted images were obtained on the technologist's workstation. Oral contrast: No This CT examination was performed using dose optimization techniques as appropriate, variously including the following: *Automated exposure control *Adjustment of mA and/or kV according to patient size (this includes techniques or standardized protocols for targeted exams where dose is matched to indication/reason for exam; i.e. extremities or head) *Use of iterative reconstruction technique FINDINGS: LUNG BASES: No suspicious findings. No focal consolidation. LIVER, GALLBLADDER, AND BILIARY TREE: Low-attenuation liver with respect to spleen, suggesting hepatic steatosis.. No suspicious hepatic lesion or biliary ductal dilatation is present. Gallbladder appears unremarkable. CBD caliber is within normal limits. PANCREAS: Unremarkable. Stable small calcification in the pancreatic neck. No inflammatory changes. No Main ductal dilatation. SPLEEN: Enlarged measuring 15.4 cm craniocaudal. ADRENAL GLANDS: Unremarkable. KIDNEYS AND URETERS: Symmetric enhancement. No suspicious lesions. No radiopaque calculi. No hydronephrosis. BLADDER: Partially distended. GASTROINTESTINAL TRACT: There is diverticulosis of the transverse, descending and sigmoid colon. There is a hypodense focus involving the anterior/right side of the sigmoid colon and the surrounding soft tissues. This measures 4.8 x 3.4 x 4.7 cm. (AP, transverse, length). Hounsfield measurement 6. This is prominent soft tissue stranding. These findings could could represent diverticulitis, phlegmon/abscess, or a combination of these.. There are multiple foci of air within this, which raises concern for possible bowel perforation, pneumoperitoneum. There is wall prominence of the left portion of the transverse colon, descending colon and the remainder of the sigmoid colon. This could relate to lack of distention versus colitis. Small hiatal hernia. The stomach is partially distended, thick-walled, which could be attributed to the lack of distention. No dilated small bowel loops. The appendix is normal. Redemonstrated mild haziness in the central mesentery with small lymph nodes, similar to the prior study. ABDOMINAL WALL: No significant hernia is appreciated. LYMPH NODES: No pathologically enlarged lymph nodes is seen. VASCULAR: Aortobiiliac vessel calcification redemonstrated. Redemonstrated is stable peripherally calcified small splenic artery aneurysm. PELVIC VISCERA: Unremarkable. OSSEOUS STRUCTURES: Degenerative changes in the spine. CT/CT abdomen pelvis w IV con IMPRESSION: *Sigmoid diverticulosis. Hypodense focus associated with the anterior/right side of the sigmoid colon, measuring 4.8 x 3.4 x 4.7 cm. (Hounsfield units 6). There is associated inflammatory changes present. Findings are suggestive of diverticulitis,, phlegmon/abscess or a combination of these. There are multiple foci of air in the hypodense region, region of inflammatory changes,, which raises concern for possible bowel perforation, pneumoperitoneum. Recommend surgical consultation. *Diverticulosis of the transverse, descending and sigmoid colon otherwise, with wall thickening which could be related to lack of distention or colitis. Given the clinical history of rectal bleeding, recommend follow-up workup such as colonoscopy to exclude neoplasm. *Hepatic steatosis. *Splenomegaly. *Redemonstrated haziness of the central mesentery with small lymph nodes. Findings similar to previous. This is nonspecific, could represent panniculitis. This result was discussed with and 1:50 PM on 04/27/2025 * Fleischner guidelines were followed. Electronically signed by: Dallas Greenberg MD 04/27/2025 01:54 PM [facility]
--- NOTE | ~2025-04-27 | US_ITS ---
EXAMINATION: US TRIPLEX LOWER EXTREMITY, LEFT CLINICAL INFORMATION: History of DVT left lower extremity. COMPARISON: 10/15/2023. TECHNIQUE: Color-flow triplex imaging with spectral analysis and compression Doppler were performed on the left lower extremity. FINDINGS: Respiratory variation, normal compression and augmented flow are noted throughout the left lower extremity. The visualized common femoral vein, profunda femoral vein, popliteal vein and midcalf peroneal and posterior tibial venous segments show no evidence of deep venous thrombosis. There is partial noncompressibility of the mid and distal superficial femoral vein, however there is color Doppler flow present, likely representing partially recannulated thrombus from old DVT. There is no Carlson's cyst. US/US venous duplex LE LT IMPRESSION: 1. The left mid and distal femoral vein are not fully compressible, although there is internal color Doppler flow present. This likely represents chronic changes of recannulated old thrombus. 2. There is otherwise no evidence of left lower extremity deep venous thrombosis. Electronically signed by: Ryan Tapia MD 05/01/2025 04:25 PM [facility]
[2025-04-27 10:42] VITALS: BP 169/78; PULSE 99; RESP 20; TEMP 36.9; O2SAT 99; BMI 31.3
--- NOTE | 2025-04-27 10:47 | ED_ITS ---
HPI - General Adult General Chief complaint: Abdominal Pain Stated complaint: abd pain, sent by PCP Time Seen by Provider: 04/27/25 12:12 Source: patient, family ( Daughter) and old records reviewed Mode of arrival: ambulatory Limitations: no limitations History of Present Illness ED Provider: DR. Felton HPI narrative: 69-year-old female came in for evaluation of left lower abdominal pain and blood in the urine and blood in the stool on and off for the past 2 weeks, had intermittent bloody bowel movement, no nausea, no vomiting, no dysuria, frequency urination, never had intra-abdominal surgery in the past, last bowel movement was this morning and was formed stool with maroon color blood mixed with the stool, no nausea, no vomiting, no recent use of antibiotic patient was placed on Pyridium for dysuria but no recent antibiotic use. Patient was seen by her PCP today who sent her for further evaluation in the ED. Related Data Home Medications ?Medication ?Instructions ?Recorded ?Confirmed acetaminophen 500 mg tablet 1,000 mg PO Q6H PRN Pain 0 07/02/21 04/27/25 (Tylenol Extra Strength) folic acid 1 mg tablet 1 mg PO DAILY 04/03/2504/27 pantoprazole 40 mg tablet,delayed 40 mg PO DAILY@1630 04/27/25 04/27/25 release Previous Rx's ?Medication ?Instructions ?Recorded buspirone 5 mg tablet 5 mg PO BID 90 days #180 tab s 01/30/25 leflunomide 20 mg tablet 20 mg PO DAILY #90 tabs 02/06 10/30 atorvastatin 10 mg tablet 10 mg PO BEDTIME 30 days #30 tabs 03/06/25 lisinopril 20 mg tablet 20 mg PO DAILY 90 days #90 c aps 03/06/25 apixaban 5 mg tablet (Eliquis) 5 mg PO BID #180 tabs 1 Allergies Allergy/AdvReac Type Severity Reaction Status Date / Time penicillin G (PENICILLIN G) Allergy Severe ANAPHYLAXIS Verified 04/27/25 10:45 Review of Systems 2 Review of Systems: All other systems are reviewed and are negative Constitutional: Reports as per HPI and Reports no additional constitutional complaints Eyes: Reports as per HPI and Reports no additional eye complaints Reports system reviewed and no additional complaints, except as documented Cardiovascular: Reports as per HPI and Reports no additional cardiovascular complaints Respiratory: Reports as per HPI and Reports no additional respiratory complaints Gastrointestinal: Reports as per HPI and Reports no additional gastrointestinal complaints Genitourinary: Reports no additional female genitourinary complaints Musculoskeletal: Reports no additional musculoskeletal complaints Skin/Breast: Reports system reviewed and no additional complaints, except as docu Psychiatric: Reports no additional psychiatric complaints Endocrine: Reports no additional endocrine complaints Hematologic/Lymphatic: Reports no additional hematologic/lymphatic complaints Allergic/Immunologic: Reports no additional allergic/immunologic complaints Reports system reviewed and no additional complaints, except as documented and Reports Abnormal speech present FOR[facility]LY [facility] Past Medical History Medical History Osteopenia Leukopenia Depression Cervical carcinoma DDD (degenerative disc disease), lumbar JACQUE I (cervical intraepithelial neoplasia I) ASCUS (atypical squamous cells of undetermined significance) on gynecologic Papanicolaou smear complicating , antepartum Seropositive rheumatoid arthritis HTN (hypertension) Rheumatoid arthritis Hyperlipemia DVT (deep venous thrombosis) Surgical History History of esophagogastroduodenoscopy (EGD) Hx of colonoscopy History of back surgery S/P lumbar microdiscectomy S/P biopsy of cervix History of bunionectomy of both great toes Family History Family History Mother Colon cancer metastasized to multiple sites HTN (hypertension) Substance use disorder Maternal Aunt Breast cancer Father HTN (hypertension) Substance use disorder Brother HTN (hypertension) Heart attack Enlarged heart Brain aneurysm Brother HTN (hypertension) Sister HTN (hypertension) Sister HTN (hypertension) Sister HTN (hypertension) Social History Social History Household Members: Spouse Housing: Apartment Are you a primary wild animal caretaker to a significant other at home: No Do you presently have visiting nurse or other home services: No Alcohol intake: current Alcohol intake frequency: does not drink Alcohol type: beer Patient Tobacco Use Status: Former Tobacco user Tobacco use type: Cigarette Years Smoked: 40 years ago e-Cigarette/Vaping Use: Never Used Second Hand Smoke Exposure: No service: No Current occupational status: employed 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 Blood pressure elevated. Heart rate normal. Respiratory rate normal. Temperature normal. Oxygen saturation normal. Appearance: Alert. Oriented X3. No acute distress. Head: Normal external exam. Normocephalic. Atraumatic. No Saavedra signs noted. No raccoon eyes noted Eyes: PERRLA. EOMI. Conjunctiva and sclera normal. Eyelids normal. ENT: TM's Normal. Pharynx normal. Uvula midline. Moist mucous membranes. No trismus noted. No drooling noted. No muffled voice noted. Neck: Normal inspection. Neck supple. FROM. No adenopathy. Thyroid Normal. No meningeal signs. No neck mass noted. CVS: Normal heart rate and rhythm. Heart sound normal. No murmurs noted. Pulses normal throughout. Respiratory: No respiratory distress. Painless inspiration. Breath sounds normal. No wheezes/rales/rhonchi noted. Chest nontender. No accessory muscle usage noted or decreased air movement noted. Abdomen: Soft , mild left lower quadrant abdominal tenderness, no rebound tenderness, no guarding. Bowel sounds normal in all 4 quadrants. No distention noted. No organomegaly noted. No visible injury noted. Rectal exam: Brown stool with trace of blood in the stool. Back: No CVA tenderness. Full range of motion noted. Skin: Skin warm and dry. Normal skin color. Normal skin turgor. No rashes/lesions/lacerations noted. Extremities: No lower extremity edema. Extremities exhibit normal range of motion. Extremities nontender. Neuro: Oriented X 3. Cranial nerve exam: II-XII are grossly intact No motor deficit. No sensory deficit. Reflexes normal. Course Course Course Narrative: RME: 69-year-old female with past medical history of diverticulitis presents to the ED for lower abdominal pain with blood in urine and stool. Patient is sent from PCP for evaluation. Labs ordered Reevaluation(s) Reevaluation #1: 69-year-old female came in with left lower quadrant abdominal pain CT reveals diverticulitis complicated with abscess, no definitive perforation or microperforation. Dr. Farris was consulted awaiting for evaluate the patient. Blood culture/lactic acid / the Zithromax and Flagyl was administrated. Time: 14:29 Reevaluation #2: patient was seen and evaluated by Fortino Hernandez from General surgery recommended to admit the patient to medical service secondary to her past medical history, continue with antibiotic and surgery will consult as an inpatient. Time: 15:36 Medications Administered Generic Name Dose Route Start Last Admin Trade Name Freq PRN Reason Stop Dose Admin Acetaminophen 650 mg 04/27/25 16:32 04/30/25 08:54 Acetaminophen 325 Mg Tablet PO 650 mg Q6H PRN Administration Pain, Mild 1-3,fever,headache Buspirone HCl 5 mg 04/27/25 21:00 05/01/25 08:51 Buspirone Hcl 5 Mg Tablet PO 5 mg BID KANDICE Administration Heparin Sodium (Porcine) 3,100 unit 04/27/25 18:09 04/28/25 15:48 Heparin Sodium,Porcine 5,000 Unit/Ml Vial 40 unit/kg (3100 unit) 3,100 unit IVPUSH Administration PROTOCOL BOLUS PRN 40 unit/kg - Heparin Protocol Protocol Heparin Sodium/Sodium Chloride 25,000 unit in 250 mls @ 0 mls/hr 04/27/25 18:15 05/01/25 06:53 Heparin Sodium,Porcine/1/2ns IVCONT 16 units/kg/hr .Q0M KANDICE 12.29 mls/hr Protocol Titration Per Protocol Aztreonam 1 gm/ Sodium 50 mls @ 100 mls/hr 04/28/25 18:00 05/01/25 10:21 Chloride IV Infused Q8H KANDICE Infusion Lisinopril 20 mg 04/29/25 11:30 05/01/25 08:51 Lisinopril 20 Mg Tablet PO 20 mg DAILY KANDICE Administration Protocol Metronidazole 500 mg 04/30/25 14:00 05/01/25 05:36 Metronidazole 500 Mg Tablet PO 500 mg Q8H KANDICE Administration Sodium Chloride 3 ml 04/28/25 00:00 05/01/25 08:52 0.9 % Sodium Chloride Flush 3 Ml Syringe IVFLUSH Not Given QSHIFT KANDICE Discontinued Medications Generic Name Dose Route Start Last Admin Trade Name Freq PRN Reason Stop Dose Admin Azithromycin 500 mg/ Sodium 250 mls @ 125 mls/hr 04/27/25 13:54 04/27/25 18:11 Chloride IV 04/27/25 15:53 Infused ONCE ONE Infusion Metronidazole 500 mg in 100 mls @ 100 mls/hr 04/27/25 13:54 04/27/25 15:27 Flagyl IV 04/27/25 14:53 Infused ONCE ONE Infusion Dextrose/Sodium Chloride 1,000 mls @ 100 mls/hr 04/27/25 16:45 04/29/25 18:30 D51/2ns IVCONT Infused .Q10H KANDICE Infusion Levofloxacin 750 mg in 150 mls @ 100 mls/hr 04/27/25 17:00 04/27/25 19:03 Levaquin IV Infused Q24H KANDICE Infusion Metronidazole 500 mg in 100 mls @ 100 mls/hr 04/27/25 22:00 04/30/25 07:03 Flagyl IV Infused Q8H KANDICE Infusion Doxycycline Hyclate 100 mg/ 250 mls @ 166.67 mls/hr 04/27/25 19:00 04/28/25 09:36 Sodium Chloride IV Infused Q12H KANDICE Infusion Iohexol 100 ml 04/27/25 13:02 04/27/25 13:03 Iohexol 350 Mg/Ml 100 Ml Infus..Btl IV 04/27/25 13:03 85 ml ONCE ONE Administration Pantoprazole Sodium 40 mg 04/27/25 18:05 04/30/25 05:42 Pantoprazole Sodium 40 Mg/10 Ml Vial IVPUSH 40 mg DAILY@0630 PENDING SALE TO [facility] Administration Medical Decision Making Differential Diagnosis Differential Diagnoses: The differential diagnosis associated with the presentation includes ( Diverticulitis, colitis, acute appendicitis, pancreatitis, perforated viscus, electrolyte derangement, severe anemia.) Admission/Observation Consideration of admission/observation: Escalation of care including admission/observation considered Consult Healthcare Provider Management of the patient was discussed with: Apprentice/Lineman ( Dr. Farris) Lab Data MDM Lab Attestation statement: I reviewed the patient's lab results. 04/30/25 03:32 04/28/25 05:51 Labs: Lab Results 04/27/25 04/27/25 04/27/25 Range/Units 11:11 12:06 12:24 WBC 2.5 L (4.8-10.8) X10*3/uL RBC 4.27 (4.20-5.50) X10*6/uL Hgb 11.4 L (12.0-16.0) g/dl Hct 34.6 L (37.0-47.0) % MCV 81.0 (80.0-98.0) fL MCH 26.7 L (27.0-33.0) pg MCHC 32.9 (31.0-35.0) g/dl RDW 13.6 (11.0-16.0) % Plt Count 288 D (160-400) X10*3/uL MPV 9.8 (9.4-12.3) fL Immature Gran % (Auto) 0.4 (0.0-0.4) % Neut % (Auto) 55.3 (45-73) % Lymph % (Auto) 26.5 (20-40) % [place] % (Auto) 15.8 H (2-11) % Eos % (Auto) 1.2 (0-4) % Baso % (Auto) 0.8 (0-2) % Lymph # (Auto) 0.7 L (1.2-4.9) X10*3/uL [place] # (Auto) 0.4 (0.1-1.2) X10*3/uL Eos # (Auto) 0.0 (0.0-0.4) X10*3/uL Baso # (Auto) 0.0 (0.0-0.2) X10*3/uL Abs Immat Gran (auto) 0.01 (0.00-0.03) X10*3/uL Absolute Neuts (auto) 1.4 L (2.0-8.3) x10*3/uL Absolute Nucleated RBC 0.000 (0.0-0.012) X10*3/uL Nucleated RBC % (auto) 0.0 (0.0-0.2) /100WBC PT 19.3 H (11.2-13.5) SEC INR 1.6 H (0.9-1.1) APTT 27.5 (26.7-34.1) SEC Sodium 138 (135-145) mmol/L Potassium 4.1 (3.3-5.1) mmol/L Chloride 108 (96-108) mmol/L Carbon Dioxide 18 L (22-29) mmol/L Anion Gap 16 (12-20) BUN 9 (9-16) mg/dL Creatinine 0.69 (0.5-1.4) mg/dL Estim Creat Clear Calc 76.3 Estimated GFR > 60 Random Glucose 96 (60-115) mg/dL Lactic Acid (0.5-2.0) mmol/L Calcium 9.2 (8.4-10.2) mg/dL Total Bilirubin 0.5 (0.0-1.0) mg/dL AST 24 (5-31) U/L ALT < 6 (0-31) U/L Alkaline Phosphatase 101 (39-117) U/L Total Protein 7.6 (6.5-8.0) g/dL Albumin 4.1 (3.5-5.0) g/dL Urine Color Yellow Urine Appearance Clear Urine pH 5.5 (5.0-9.0) Ur Specific [place] 1.015 (1.005-1.025) Urine Protein Trace (Neg-Trace) mg/dL Urine Glucose (UA) Negative (Negative) mg/dL Urine Ketones Negative (Negative) mg/dL Urine Blood Negative (Negative) Urine Nitrite Negative (Negative) Ur Leukocyte Esterase Negative (Negative) Stool Occult Blood NEGATIVE (NEGATIVE) 04/27/25 Range/Units 14:24 WBC (4.8-10.8) X10*3/uL RBC (4.20-5.50) X10*6/uL Hgb (12.0-16.0) g/dl Hct (37.0-47.0) % MCV (80.0-98.0) fL MCH (27.0-33.0) pg MCHC (31.0-35.0) g/dl RDW (11.0-16.0) % Plt Count (160-400) X10*3/uL MPV (9.4-12.3) fL Immature Gran % (Auto) (0.0-0.4) % Neut % (Auto) (45-73) % Lymph % (Auto) (20-40) % [place] % (Auto) (2-11) % Eos % (Auto) (0-4) % Baso % (Auto) (0-2) % Lymph # (Auto) (1.2-4.9) X10*3/uL [place] # (Auto) (0.1-1.2) X10*3/uL Eos # (Auto) (0.0-0.4) X10*3/uL Baso # (Auto) (0.0-0.2) X10*3/uL Abs Immat Gran (auto) (0.00-0.03) X10*3/uL Absolute Neuts (auto) (2.0-8.3) x10*3/uL Absolute Nucleated RBC (0.0-0.012) X10*3/uL Nucleated RBC % (auto) (0.0-0.2) /100WBC PT (11.2-13.5) SEC INR (0.9-1.1) APTT (26.7-34.1) SEC Sodium (135-145) mmol/L Potassium (3.3-5.1) mmol/L Chloride (96-108) mmol/L Carbon Dioxide (22-29) mmol/L Anion Gap (12-20) BUN (9-16) mg/dL Creatinine (0.5-1.4) mg/dL Estim Creat Clear Calc Estimated GFR Random Glucose (60-115) mg/dL Lactic Acid 0.8 (0.5-2.0) mmol/L Calcium (8.4-10.2) mg/dL Total Bilirubin (0.0-1.0) mg/dL AST (5-31) U/L ALT (0-31) U/L Alkaline Phosphatase (39-117) U/L Total Protein (6.5-8.0) g/dL Albumin (3.5-5.0) g/dL Urine Color Urine Appearance Urine pH (5.0-9.0) Ur Specific [place] (1.005-1.025) Urine Protein (Neg-Trace) mg/dL Urine Glucose (UA) (Negative) mg/dL Urine Ketones (Negative) mg/dL Urine Blood (Negative) Urine Nitrite (Negative) Ur Leukocyte Esterase (Negative) Stool Occult Blood (NEGATIVE) Independent Interpretation I performed an independent interpretation of an: CT Scan ( abdomen pelvis:Sigmoid diverticulosis. Hypodense focus associated with the anterior/right side of the sigmoid colon, measuring 4.8 x 3.4 x 4.7 cm. (Hounsfield units 6). There is associated inflammatory changes present. Findings are suggestive of diverticulitis,, phlegmon/abscess or a combinati) Radiology Impression Discussion of test interpretation with radiology: I have reviewed the radiologist's reading. Discharge Plan Discharge Clinical Impression: Diverticulitis, Colonic diverticular abscess Patient Disposition: Admitted As Inpatient Interventions: Admission Worksheet (ED) Last Done: 04/27/25 20:04 Discharge Date/Time: 04/27/25 20:22
[2025-04-27 11:18] LABS: MANUAL DIFF FLAG NO
[2025-04-27 11:19] LABS: Hematocrit 34.6 % (37.0-47.0); Hemoglobin 11.4 g/dl (12.0-16.0); Imm Gran Abs Auto 0.01 X10*3/uL (0.00-0.03); Imm Gran Pct Auto 0.4 % (0.0-0.4); Lymphocytes Absolute Auto 0.7 X10*3/uL (1.2-4.9); Mean Corpuscular HGB Conc 32.9 g/dl (31.0-35.0); Mean Corpuscular Hemoglobin 26.7 pg (27.0-33.0); Mean Corpuscular Volume 81.0 fL (80.0-98.0); NRBC Abs Auto 0.000 X10*3/uL (0.0-0.012); NRBC Pct Auto 0.0 /100WBC (0.0-0.2); Platelet Count 288 X10*3/uL (160-400); Red Blood Count 4.27 X10*6/uL (4.20-5.50)
[2025-04-27 11:27] LABS: INTERNATIONAL NORM RATIO 1.6 (0.9-1.1); Prothrombin Time 19.3 SEC (11.2-13.5)
[2025-04-27 11:30] LABS: Partial Thromboplastin Time 27.5 SEC (26.7-34.1)
[2025-04-27 11:35] LABS: Alanine Aminotransferase < 6 U/L (0-31); Albumin Level 4.1 g/dL (3.5-5.0); Alkaline Phosphatase 101 U/L (39-117); Anion Gap 16 (12-20); Aspartate Amino Transferase 24 U/L (5-31); Blood Urea Nitrogen 9 mg/dL (9-16); Calcium 9.2 mg/dL (8.4-10.2); Carbon Dioxide 18 mmol/L (22-29); Chloride 108 mmol/L (96-108); Creatinine Clr Calc Pharmacy 76.3; Estimated Glomerular Filt Rate > 60; Potassium 4.1 mmol/L (3.3-5.1); Sodium 138 mmol/L (135-145); Total Protein 7.6 g/dL (6.5-8.0)
[2025-04-27 11:51] LABS: White Blood Count 2.5 X10*3/uL (4.8-10.8)
[2025-04-27 12:04] VITALS: BP 158/87; PULSE 92; RESP 16; TEMP 36.8; O2SAT 99
[2025-04-27 12:19] LABS: Appearance Urine Clear; Glucose Urine UA Negative (Negative); PH 5.5 (5.0-9.0); Specific Gravity - Urine 1.015 (1.005-1.025)
[2025-04-27 12:35] LABS: OBS Int Ctl Valid YES; OBS1 NEGATIVE (NEGATIVE)
[2025-04-27] MEDS: iohexoL 350 MG/ML 100 ML INFUS..BTL IV (13:03)
[2025-04-27 14:10] VITALS: BP 137/82; PULSE 90; RESP 16; TEMP 37; O2SAT 96
[2025-04-27] MEDS: metroNIDAZOLE/NS 500 MG/100 ML PIGGYBACK 100 MG IV ×2 (14:28→21:40)
--- NOTE | 2025-04-27 15:54 | HO.NURTONUR ---
69 yo female presented to ED for concerns of lower abd pain x2 weeks. States seen at and was prescribed Pyridium due to urinary symptoms at time of visit. Intermittent blood in stool and in urine reported. Denies nausea. CT with concern for diverticulitis/abscess. Plan for IV antibiotics. Pt awake and alert, ambulates independently to bathroom. PIV to left AC. Receiving Azithromycin at this time, already completed Flagyl.
--- NOTE | 2025-04-27 16:02 | P.CONGS_ITS ---
History of Present Illness Consult details Consult date: 04/27/25 <Fortino Hernandez PA-C - Last Filed: 04/27/25 16:21> Reason for consult: other (Diverticulitis with abscess) <Fortino Hernandez PA-C - Last Filed: 04/27/25 16:21> Narrative: 69 year old female with a history of DTV on eliquis, HTN, HLD, RA, diverticulosis, seen in consult for diverticulitis with abscess and microperforation. Patient states her symptoms started about 1 month ago vague abdominal pain after exercising and continued to progress and worsen. States that about 2 weeks ago she began having intermittent bloody stools, nausea, diarrhea, fevers at home. Her pain began getting worse so she presented to the emergency department after seeing her primary care who recommended she be seen at the ED. Workup in the ED significant for CT scan showing diffuse diverticulosis and acute diverticulitis in the sigmoid with a 4 x 3 x 4 abscess microperforations. Heme-negative stool in the ED. She was started on azithromycin and metronidazole, IV fluids, NPO Currently pain is manageable. Mostly tender in the left lower quadrant denies nausea, fevers currently. <Fortino Hernandez PA-C - Last Filed: 04/27/25 16:21> [facility] Past Medical History Medical History: Medical History Osteopenia Leukopenia Depression Cervical carcinoma DDD (degenerative disc disease), lumbar JACQUE I (cervical intraepithelial neoplasia I) ASCUS (atypical squamous cells of undetermined significance) on gynecologic Papanicolaou smear complicating , antepartum Seropositive rheumatoid arthritis HTN (hypertension) Rheumatoid arthritis Hyperlipemia DVT (deep venous thrombosis) <Fortino Hernandez PA-C - Last Filed: 04/27/25 16:21> Family History Family History: Family History Mother Colon cancer metastasized to multiple sites HTN (hypertension) Substance use disorder Maternal Aunt Breast cancer Father HTN (hypertension) Substance use disorder Brother HTN (hypertension) Heart attack Enlarged heart Brain aneurysm Brother HTN (hypertension) Sister HTN (hypertension) Sister HTN (hypertension) Sister HTN (hypertension) <Fortino Hernandez PA-C - Last Filed: 04/27/25 16:21> Surgical History Surgical History: Surgical History History of esophagogastroduodenoscopy (EGD) Hx of colonoscopy History of back surgery S/P lumbar microdiscectomy S/P biopsy of cervix History of bunionectomy of both great toes <Fortino Hernandez PA-C - Last Filed: 04/27/25 16:21> Social History Social History: Social History Household Members: Spouse Housing: Apartment Are you a primary ambulatory care nurse to a significant other at home: No Do you presently have visiting nurse or other home services: No Alcohol intake: current Alcohol intake frequency: does not drink Alcohol type: beer Patient Tobacco Use Status: Former Tobacco user Tobacco use type: Cigarette Years Smoked: 40 years ago e-Cigarette/Vaping Use: Never Used Second Hand Smoke Exposure: No service: No Current occupational status: employed 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 Current occupational exposures/hazards: No Cognitive needs: No Hearing needs: No Vision needs: No <Fortino Hernandez PA-C - Last Filed: 04/27/25 16:21> Meds Allergies/Adverse reactions: Allergies Allergy/AdvReac Type Severity Reaction Status Date / Time penicillin G (PENICILLIN G) Allergy Severe ANAPHYLAXIS Verified 04/27/25 10:45 <Fortino Hernandez PA-C - Last Filed: 04/27/25 16:21> Home medications: Home Medications ?Medication ?Instructions ?Recorded ?Confirmed ?Last Taken ?Type acetaminophen 500 mg tablet 1,000 mg PO Q6H PRN Pain 0 07/02/21 04/27/25 Unknown History (Tylenol Extra Strength) folic acid 1 mg tablet 1 mg PO DAILY 04/03/2504/2704/27/25 History pantoprazole 40 mg tablet,delayed 40 mg PO DAILY@1630 04/27/25 04/27/25 04/27/25 History release <Fortino Hernandez PA-C - Last Filed: 04/27/25 16:21> Physical Exam 2 Vital Signs: Vital Signs: Last Vital Signs Temp 98.6 F 04/27/25 14:10 Pulse 90 04/27/25 14:10 Resp 16 04/27/25 14:10 BP 137/82 04/27/25 14:10 Pulse Ox 96 04/27/25 14:10 O2 Del Method Room Air 04/27/25 14:10 BMI result Body Mass Index 31.3 <Fortino Hernandez PA-C - Last Filed: 04/27/25 16:21> Const: General: cooperative, comfortable and no acute distress <Jesús Farris MD - Last Filed: 04/27/25 16:17> Nutritional Appearance: obese morbidly obese <Jesús Farris MD - Last Filed: 04/27/25 16:17> Orientation/consciousness: oriented to person, oriented to place and oriented to time <Jesús Farris MD - Last Filed: 04/27/25 16:17> HEENT: Head: Yes normal to inspection and Yes normocephalic <Jesús Farris MD - Last Filed: 04/27/25 16:17> Eyes: General: appearance normal, both eyes and all related structures < Jesús Farris MD - Last Filed: 04/27/25 16:17> Pupils: Equal, round and reactive pupils present <Jesús Farris MD - Last Filed: 04/27/25 16:17> EOM: EOMs intact bilaterally <Jesús Farris MD - Last Filed: 04/27/25 16:17> Resp: Effort & Inspection: normal respiratory effort and able to speak in complete sentences <Jesús Farris MD - Last Filed: 04/27/25 16:17> GI: Other: Large morbidly obese abdomen. Nondistended. Patient denies pain at rest but there is vague tenderness to palpation lower regions. No peritoneal signs. No erythematous changes. <Jesús Farris MD - Last Filed: 04/27/25 16:17> Inspection: Yes obesity <Jesús Farris MD - Last Filed: 04/27/25 16:17> Neuro: General: oriented to person, oriented to place and oriented to time <Jesús Farris MD - Last Filed: 04/27/25 16:17> Cranial nerves: Yes Equal, round and reactive pupils present <Jesús Farris MD - Last Filed: 04/27/25 16:17> Results Labs Result diagrams: 04/27/25 11:11 04/27/25 11:11 <Fortino Hernandez PA-C - Last Filed: 04/27/25 16:21> Labs: Abnormal lab results 04/27/25 Range/Units 11:11 WBC 2.5 L (4.8-10.8) X10*3/uL Hgb 11.4 L (12.0-16.0) g/dl Hct 34.6 L (37.0-47.0) % MCH 26.7 L (27.0-33.0) pg [place] % (Auto) 15.8 H (2-11) % Lymph # (Auto) 0.7 L (1.2-4.9) X10*3/uL Absolute Neuts (auto) 1.4 L (2.0-8.3) x10*3/uL PT 19.3 H (11.2-13.5) SEC INR 1.6 H (0.9-1.1) Carbon Dioxide 18 L (22-29) mmol/L Short CBC 04/27/25 Range/Units 11:11 WBC 2.5 L (4.8-10.8) X10*3/uL Hgb 11.4 L (12.0-16.0) g/dl Hct 34.6 L (37.0-47.0) % Plt Count 288 D (160-400) X10*3/uL BMP 04/27/25 11:11 Sodium 138 Potassium 4.1 Chloride 108 Carbon Dioxide 18 L BUN 9 Creatinine 0.69 Calcium 9.2 Liver Function 04/27/25 Range/Units 11:11 Total Bilirubin 0.5 (0.0-1.0) mg/dL AST 24 (5-31) U/L ALT < 6 (0-31) U/L Alkaline Phosphatase 101 (39-117) U/L Albumin 4.1 (3.5-5.0) g/dL Urine 04/27/25 Range/Units 12:06 Urine Color Yellow Urine Appearance Clear Urine pH 5.5 (5.0-9.0) Ur Specific [place] 1.015 (1.005-1.025) Urine Protein Trace (Neg-Trace) mg/dL Urine Glucose (UA) Negative (Negative) mg/dL All other labs normal. <EMERSON Tatum Last Filed: 04/27/25 16:21> Assessment and Plan (1) Colonic diverticular abscess: Status: Acute <Fortino Hernandez PA-C - Last Filed: 04/27/25 16:21> 69 year old female with a history of DTV on eliquis, HTN, HLD, RA, diverticulosis, seen in consult for diverticulitis with abscess and microperforation. Symptoms began one-month ago and progressively worsened. Endorses intermittent bloody stools. Guaiac today negative. Labs significant for leukopenia, this is her baseline. No electrolyte abnormalities. There is CT findings significant for sigmoid diverticulitis with abscess formation and microperforations. Her exam is relatively benign, some tenderness in left lower quadrant suprapubic area, no guarding. At this point not requiring emergent surgical intervention. Would recommend IV antibiotics, levofloxacin and metronidazole, bowel rest, NPO, she is okay to have p.o. meds with small sips of water, ice chips. This point we recommend that Eliquis to be held if possible due to the likelihood that this is contributing to a fluid collection and her continued lower GI bleeding. We will continue to follow for deterioration or improvement. Would hold off on IR drain for now possibly down the road during this admission if not improving with antibiotics but would need to hold anticoagulation prior to this. We discussed the possibility of colon resection electively in the future. NPO IV levofloxacin, Flagyl Ambulation as tolerated We will continue to follow up I told the patient that her current situation did not mandate emergent operative intervention. No doubt the Eliquis place a significant role in her lower GI bleeding and recommended that this be held. I also recommended that she undergo antibiotic therapy and remain NPO except for medicine and ice chips. I also told her I would not restart any sort of p.o. responsibility until she is pain- free and has a nontender abdomen on physical examination and has normal laboratory studies. She indicated that she understood. She told me that she did not want to undergo any kind of emergent operation at this point but considered that she may require elective colonic resection in the future. The plan will be for close observation with IV antibiotic therapy. <Fortino Hernandez PA-C - Last Filed: 04/27/25 16:21> I told the patient that her current situation did not mandate emergent operative intervention. No doubt the Eliquis place a significant role in her lower GI bleeding and recommended that this be held. I also recommended that she undergo antibiotic therapy and remain NPO except for medicine and ice chips. I also told her I would not restart any sort of p.o. responsibility until she is pain-free and has a nontender abdomen on physical examination and has normal laboratory studies. She indicated that she understood. She told me that she did not want to undergo any kind of emergent operation at this point but considered that she may require elective colonic resection in the future. The plan will be for close observation with IV antibiotic therapy. <Jesús Farris MD - Last Filed: 04/27/25 16:17> Total time managing care of this patient today: 45 minutes. <Jesús Farris MD - Last Filed: 04/27/25 16:17> Procedures Date of Service Date of Service: 04/27/25 <Fortino Hernandez PA-C - Last Filed: 04/27/25 16:21> 04/27/25 <Jesús Farris MD - Last Filed: 04/27/25 16:17>
--- NOTE | 2025-04-27 16:03 | PHA.MEDREC ---
Addendum entered by Yandel Muñoz PharmD 04/27/25 16:07: reviewed Original Note: Pharmacy Consult ? Medication Reconciliation Pharmacy has completed the medication reconciliation. Spoke with pt and she confirmed her medications. Pt taking her Pantoprazole 40mg tab in the afternoon and not in the morning before breakfast.
--- NOTE | 2025-04-27 17:20 | P.CONHOSP_ITS ---
History of Present Illness Data of Consult Service Date: 04/27/25 Primary Care Provider: Dennis Hsu, [facility]- HPI Reason for consult: multiple medical problems This is a 69 year old female with history of RA, HTN, HLD, h/o DVT on Eliquis who presented to the ED with rectal bleeding and abdominal pain. Patient reports 2-3 weeks of lower abdominal pain associated with painful bloody diarrhea. Her pain is located primarily in the left lower quadrant and is intermittent in nature, becoming more severe. She has had night sweats, intermittent vomiting and intermittent hematuria. She initially was seen by her PCP today who recommended she go to the ED for evaluation. In the ED, she had a CT scan of her abdomen which was concerning for perforated diverticulitis. She was started on antibiotics and admitted to the surgical service. The hospitalists were asked to see her in consultation due to history of multiple medical issues. Review of Systems 2 Review of Systems: Yes all other systems are reviewed and are negative Constitutional: Constitutional: Denies chills Cardiovascular: Cardiovascular: Denies chest pain, Denies palpitations and Denies dyspnea Respiratory: Respiratory: Denies cough and Denies dyspnea Gastrointestinal: Gastrointestinal: Reports abdominal pain and Reports nausea Endocrine: Endocrine: Denies palpitations PMFSH Medical History Osteopenia Leukopenia Depression Cervical carcinoma DDD (degenerative disc disease), lumbar JACQUE I (cervical intraepithelial neoplasia I) ASCUS (atypical squamous cells of undetermined significance) on gynecologic Papanicolaou smear complicating , antepartum Seropositive rheumatoid arthritis HTN (hypertension) Rheumatoid arthritis Hyperlipemia DVT (deep venous thrombosis) Family History Mother Colon cancer metastasized to multiple sites HTN (hypertension) Substance use disorder Maternal Aunt Breast cancer Father HTN (hypertension) Substance use disorder Brother HTN (hypertension) Heart attack Enlarged heart Brain aneurysm Brother HTN (hypertension) Sister HTN (hypertension) Sister HTN (hypertension) Sister HTN (hypertension) Surgical History History of esophagogastroduodenoscopy (EGD) Hx of colonoscopy History of back surgery S/P lumbar microdiscectomy S/P biopsy of cervix History of bunionectomy of both great toes Social History Household Members: Spouse Housing: Apartment Are you a primary healthcare consulting manager to a significant other at home: No Do you presently have visiting nurse or other home services: No Alcohol intake: current Alcohol intake frequency: does not drink Alcohol type: beer Patient Tobacco Use Status: Former Tobacco user Tobacco use type: Cigarette Years Smoked: 40 years ago Smoked in Last 30 Days: No e-Cigarette/Vaping Use: Never Used Second Hand Smoke Exposure: No Use of substances other than those prescribed or required for medical reasons: No Advance Directives: No Advance Directives Information Provided: Yes Do you have a plan to hurt others: No Plan Nutrition Risks: No Nutritional Risk service: No Current occupational status: employed 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 Current occupational exposures/hazards: No Cognitive needs: No Hearing needs: No Vision needs: No Meds Allergies Allergy/AdvReac Type Severity Reaction Status Date / Time penicillin G (PENICILLIN G) Allergy Severe ANAPHYLAXIS Verified 04/27/25 10:45 Active Medications: Current Medications Acetaminophen (Acetaminophen 325 Mg Tablet) 650 mg PO Q6H PRN PRN Reason: Pain, Mild 1-3,fever,headache Calcium Carbonate (Calcium Carbonate 750 Mg Tab.Chew) 750 mg PO Q4H PRN PRN Reason: Heartburn Dextrose/Sodium Chloride (D51/2ns) 1,000 mls @ 100 mls/hr IVCONT .Q10H KANDICE Levofloxacin (Levaquin) 750 mg in 150 mls @ 100 mls/hr IV Q24H KANDICE Metronidazole (Flagyl) 500 mg in 100 mls @ 100 mls/hr IV Q8H KANDICE Magnesium Hydroxide (Milk Of Magnesia 30 Ml Oral.Susp) 30 ml PO DAILY PRN PRN Reason: Constipation Melatonin (Melatonin 3 Mg Tablet) 6 mg PO BEDTIME PRN PRN Reason: Insomnia Ondansetron HCl (Ondansetron Hcl 4 Mg/2 Ml Vial) 4 mg IVPUSH Q8H PRN PRN Reason: Nausea and Vomiting Oxycodone HCl (Oxycodone Hcl Immed Release 5 Mg Tablet) 5 mg PO Q6H PRN PRN Reason: Pain, Severe (Pain Scale 7-10) Sodium Chloride (0.9 % Sodium Chloride Flush 3 Ml Syringe) 3 ml IVFLUSH QSHIFT [facility] Home Medications ?Medication ?Instructions ?Recorded ?Confirmed ?Last Taken ?Type acetaminophen 500 mg tablet 1,000 mg PO Q6H PRN Pain 0 07/02/21 04/27/25 Unknown History (Tylenol Extra Strength) folic acid 1 mg tablet 1 mg PO DAILY 04/03/2504/2704/27/25 History pantoprazole 40 mg tablet,delayed 40 mg PO DAILY@1630 04/27/25 04/27/25 04/27/25 History release Physical Exam 2 Vital Signs and Narrative: Vital Signs: Last Vital Signs Temp 98.6 F 04/27/25 14:10 Pulse 90 04/27/25 14:10 Resp 16 04/27/25 14:10 BP 137/82 04/27/25 14:10 Pulse Ox 96 04/27/25 14:10 O2 Del Method Room Air 04/27/25 14:10 BMI result Body Mass Index 31.3 Const: General: cooperative, alert and awake Nutritional Appearance: a verage body habitus Orientation/consciousness: patient oriented x3 Resp: Effort & Inspection: normal respiratory effort, able to speak in complete sentences, no respiratory distress and no use of accessory muscles Cardio: Rate: regular rate GI: Other: TTP LLQ Inspection: No distended Palpation (GI): Soft to palpation Neuro: General: patient oriented x3, moves all extremities and CN's II-XI intact bilaterally Extrem: Other: no leg edema Results Labs 04/27/25 11:11 04/27/25 11:11 Labs: Laboratory Results - last 24 hr 04/27/25 04/27/25 04/27/25 11:11 12:06 12:24 MCV 81.0 MCH 26.7 L MCHC 32.9 RDW 13.6 Plt Count 288 D MPV 9.8 Immature Gran % (Auto) 0.4 Neut % (Auto) 55.3 Lymph % (Auto) 26.5 [place] % (Auto) 15.8 H Eos % (Auto) 1.2 Baso % (Auto) 0.8 Lymph # (Auto) 0.7 L [place] # (Auto) 0.4 Eos # (Auto) 0.0 Baso # (Auto) 0.0 Abs Immat Gran (auto) 0.01 Absolute Neuts (auto) 1.4 L Absolute Nucleated RBC 0.000 Nucleated RBC % (auto) 0.0 PT 19.3 H INR 1.6 H APTT 27.5 Anion Gap 16 Estim Creat Clear Calc 76.3 Estimated GFR > 60 Random Glucose 96 Lactic Acid Calcium 9.2 Total Bilirubin 0.5 AST 24 ALT < 6 Alkaline Phosphatase 101 Total Protein 7.6 Albumin 4.1 Urine Color Yellow Urine Appearance Clear Urine pH 5.5 Ur Specific [place] 1.015 Urine Protein Trace Urine Glucose (UA) Negative Urine Ketones Negative Urine Blood Negative Urine Nitrite Negative Ur Leukocyte Esterase Negative Stool Occult Blood NEGATIVE 04/27/25 14:24 MCV MCH MCHC RDW Plt Count MPV Immature Gran % (Auto) Neut % (Auto) Lymph % (Auto) [place] % (Auto) Eos % (Auto) Baso % (Auto) Lymph # (Auto) [place] # (Auto) Eos # (Auto) Baso # (Auto) Abs Immat Gran (auto) Absolute Neuts (auto) Absolute Nucleated RBC Nucleated RBC % (auto) PT INR APTT Anion Gap Estim Creat Clear Calc Estimated GFR Random Glucose Lactic Acid 0.8 Calcium Total Bilirubin AST ALT Alkaline Phosphatase Total Protein Albumin Urine Color Urine Appearance Urine pH Ur Specific [place] Urine Protein Urine Glucose (UA) Urine Ketones Urine Blood Urine Nitrite Ur Leukocyte Esterase Stool Occult Blood Imaging Radiologist's Impressions: Impressions Abdomen/Pelvis CT 04/27/25 12:56 IMPRESSION: *Sigmoid diverticulosis. Hypodense focus associated with the anterior/right side of the sigmoid colon, measuring 4.8 x 3.4 x 4.7 cm. (Hounsfield units 6). There is associated inflammatory changes present. Findings are suggestive of diverticulitis,, phlegmon/abscess or a combination of these. There are multiple foci of air in the hypodense region, region of inflammatory changes,, which raises concern for possible bowel perforation, pneumoperitoneum. Recommend surgical consultation. *Diverticulosis of the transverse, descending and sigmoid colon otherwise, with wall thickening which could be related to lack of distention or colitis. Given the clinical history of rectal bleeding, recommend follow-up workup such as colonoscopy to exclude neoplasm. *Hepatic steatosis. *Splenomegaly. *Redemonstrated haziness of the central mesentery with small lymph nodes. Findings similar to previous. This is nonspecific, could represent panniculitis. This result was discussed with and 1:50 PM on 04/27/2025 * Fleischner guidelines were followed. 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 who presents to the emergency department with abdominal pain and bloody diarrhea found to have concern for perforated diverticulitis Possible perforated diverticulitis Management as per surgical team Plan for conservative management with IV antibiotics for now If no improvement may need colectomy GI bleeding, likely lower due to above hold Eliquis follow H/H h/o recurrent DVT hold Eliquis hematology rec heparin drip as bridge formal hematology consult requested monitor 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
--- NOTE | 2025-04-27 17:27 | PC.NURSE ---
Azithromycin still running at this time causing delay in hanging of Levaquin. IV positional.
[2025-04-27] MEDS: Dextrose 5 % and 0.45 % NaCl 1,000 ML 100 ML IVCONT (17:54)
[2025-04-27 18:07] VITALS: BMI 31.0
[2025-04-27 18:10] VITALS: BP 137/66; PULSE 74; RESP 16; TEMP 37; O2SAT 96
--- NOTE | 2025-04-27 18:45 | PC.NURSE ---
About 20 minutes into Levaquin infusion, pateint left arm above IV site appears red and itchy per patient. Infusion stopped. Inpatient provider notified.
[2025-04-27 19:26] LABS: Hematocrit 29.4 % (37.0-47.0); Hemoglobin 9.7 g/dl (12.0-16.0); Mean Corpuscular HGB Conc 33.0 g/dl (31.0-35.0); Mean Corpuscular Hemoglobin 26.9 pg (27.0-33.0); Mean Corpuscular Volume 81.7 fL (80.0-98.0); NRBC Abs Auto 0.000 X10*3/uL (0.0-0.012); NRBC Pct Auto 0.0 /100WBC (0.0-0.2); Platelet Count 252 X10*3/uL (160-400); Red Blood Count 3.60 X10*6/uL (4.20-5.50)
[2025-04-27] MEDS: Heparin Sodium,Porcine/1/2NS 25,000 UNIT/250 ML IV.SOLN 10.76 UNIT IVCONT (19:35)
--- NOTE | 2025-04-27 19:38 | PC.NURSE ---
Second IV access obtained. Heparin gtt started as ordered after clarifying order with Dr. Tang and clinical coordinator. Awaiting transport to floor
[2025-04-27 19:52] LABS: INTERNATIONAL NORM RATIO 1.4 (0.9-1.1); Prothrombin Time 17.3 SEC (11.2-13.5)
[2025-04-27 19:54] LABS: PTT Heparin Drip 28.2 SEC (53-77.9)
[2025-04-27 20:16] LABS: White Blood Count 2.0 X10*3/uL (4.8-10.8)
[2025-04-27 20:21] VITALS: BMI 29.5
[2025-04-28 02:02] LABS: PTT Heparin Drip 40.8 SEC (53-77.9)
--- NOTE | 2025-04-28 02:40 | PC.NURSE ---
Heparin gtt titrated at 0235 as PTT-HD low at 40.8, bolus as ordered. Next lab draw PTT-HD at 0835.
[2025-04-28 04:00] VITALS: BP 167/77; PULSE 77; RESP 18; TEMP 36.8; O2SAT 95
[2025-04-28 06:03] LABS: Hematocrit 29.7 % (37.0-47.0); Hemoglobin 9.8 g/dl (12.0-16.0); Imm Gran Abs Auto 0.01 X10*3/uL (0.00-0.03); Imm Gran Pct Auto 0.5 % (0.0-0.4); Lymphocytes Absolute Auto 0.7 X10*3/uL (1.2-4.9); MANUAL DIFF FLAG SCAN; Mean Corpuscular HGB Conc 33.0 g/dl (31.0-35.0); Mean Corpuscular Hemoglobin 26.7 pg (27.0-33.0); Mean Corpuscular Volume 80.9 fL (80.0-98.0); NRBC Abs Auto 0.000 X10*3/uL (0.0-0.012); NRBC Pct Auto 0.0 /100WBC (0.0-0.2); Platelet Count 249 X10*3/uL (160-400); Red Blood Count 3.67 X10*6/uL (4.20-5.50); SCAN SMEAR FLAG 1
[2025-04-28 06:05] LABS: White Blood Count 2.1 X10*3/uL (4.8-10.8)
[2025-04-28] MEDS: metroNIDAZOLE/NS 500 MG/100 ML PIGGYBACK 100 MG IV ×3 (06:15→22:19)
[2025-04-28 06:24] LABS: Anion Gap 12 (12-20); Blood Urea Nitrogen 7 mg/dL (9-16); Calcium 8.5 mg/dL (8.4-10.2); Carbon Dioxide 19 mmol/L (22-29); Chloride 112 mmol/L (96-108); Creatinine Clr Calc Pharmacy 85.2; Estimated Glomerular Filt Rate > 60; Potassium 3.7 mmol/L (3.3-5.1); Sodium 139 mmol/L (135-145)
[2025-04-28 07:36] VITALS: BP 161/72; PULSE 73; RESP 16; TEMP 36.8; O2SAT 98
[2025-04-28] MEDS: 0.9 % Sodium Chloride Flush 3 ML SYRINGE IVFLUSH (07:47)
[2025-04-28 08:58] LABS: PTT Heparin Drip 54.2 SEC (53-77.9)
--- NOTE | 2025-04-28 09:11 | P.PNGS_ITS ---
Subjective Subjective Date of Service: 04/28/25 Interval history: Feeling improved. Complaining of some mild left lower pain. Denies nausea. Reports decreased appetite. Did pass a bowel movement, states it was yellow in color Physical Exam 2 Vital Signs: Vital Signs: Last Vital Signs Temp 98.2 F 04/28/25 07:36 Pulse 73 04/28/25 07:36 Resp 16 04/28/25 07:36 BP 161/72 H 04/28/25 07:36 Pulse Ox 98 04/28/25 07:36 O2 Del Method Room Air 04/28/25 07:36 BMI result Body Mass Index 29.5 Const: General: comfortable and no acute distress O rientation/consciousness: patient oriented x3 Resp: Effort & Inspection: normal respiratory effort and able to speak in complete sentences GI: Inspection: No distended Palpation (GI): Soft to palpation, Tenderness to palpation present (GI) in the LLQ and no guarding Neuro: General: patient oriented x3 Objective Data Active Medications Acetaminophen (Acetaminophen 325 Mg Tablet) 650 mg PO Q6H PRN PRN Reason: Pain, Mild 1-3,fever,headache Last Admin: 04/28/25 04:12 Dose: 650 mg Documented By: MANDI Buspirone HCl (Buspirone Hcl 5 Mg Tablet) 5 mg PO BID [facility] Last Admin: 04/28/25 07:47 Dose: 5 mg Documented By: TAMRA Calcium Carbonate (Calcium Carbonate 750 Mg Tab.Chew) 750 mg PO Q4H PRN PRN Reason: Heartburn Heparin Sodium (Porcine) (Heparin Sodium,Porcine 5,000 Unit/Ml Vial) 3,100 unit 40 unit/kg (3100 unit) IVPUSH PROTOCOL BOLUS PRN; Protocol PRN Reason: 40 unit/kg - Heparin Protocol Last Admin: 04/28/25 02:33 Dose: 3,100 unit Documented By: MANDI Heparin Sodium (Porcine) (Heparin Sodium,Porcine 5,000 Unit/Ml Vial) 6,100 unit 80 unit/kg (6100 unit) IVPUSH PROTOCOL BOLUS PRN; Protocol PRN Reason: 80 unit/kg - Heparin Protocol Dextrose/Sodium Chloride (D51/2ns) 1,000 mls @ 100 mls/hr IVCONT .Q10H [facility] Last Infusion: 04/27/25 22:43 Dose: 100 mls/hr Documented By: TESSA Metronidazole (Flagyl) 500 mg in 100 mls @ 100 mls/hr IV Q8H [facility] Last Infusion: 04/28/25 07:48 Dose: Infused Documented By: TAMRA Heparin Sodium/Sodium Chloride (Heparin Sodium,Porcine/1/2ns) 25,000 unit in 250 mls @ 0 mls/hr IVCONT .Q0M [facility]; Protocol Last Titration: 04/28/25 09:01 Dose: 16 units/kg/hr, 12.29 mls/hr Documented By: TAMRA Co-signed By: CRUZITO Doxycycline Hyclate 100 mg/ (Sodium Chloride) 250 mls @ 166.67 mls/hr IV Q12H [facility] Last Admin: 04/28/25 07:46 Dose: 166.67 mls/hr Documented By: TAMRA Magnesium Hydroxide (Milk Of Magnesia 30 Ml Oral.Susp) 30 ml PO DAILY PRN PRN Reason: Constipation Melatonin (Melatonin 3 Mg Tablet) 6 mg PO BEDTIME PRN PRN Reason: Insomnia Ondansetron HCl (Ondansetron Hcl 4 Mg/2 Ml Vial) 4 mg IVPUSH Q8H PRN PRN Reason: Nausea and Vomiting Oxycodone HCl (Oxycodone Hcl Immed Release 5 Mg Tablet) 5 mg PO Q6H PRN PRN Reason: Pain, Severe (Pain Scale 7-10) Pantoprazole Sodium (Pantoprazole Sodium 40 Mg/10 Ml Vial) 40 mg IVPUSH DAILY@0630 [facility] Last Admin: 04/28/25 06:13 Dose: 40 mg Documented By: MANDI Sodium Chloride (0.9 % Sodium Chloride Flush 3 Ml Syringe) 3 ml IVFLUSH QSHIFT [facility] Last Admin: 04/28/25 07:47 Dose: 3 ml Documented By: TAMRA Labs 04/28/25 05:51 04/28/25 05:51 Labs: Laboratory Results - last 24 hr 04/27/25 04/27/25 04/27/25 11:11 12:06 12:24 MCV 81.0 MCH 26.7 L MCHC 32.9 RDW 13.6 Plt Count 288 D MPV 9.8 Immature Gran % (Auto) 0.4 Neut % (Auto) 55.3 Lymph % (Auto) 26.5 [place] % (Auto) 15.8 H Eos % (Auto) 1.2 Baso % (Auto) 0.8 Lymph # (Auto) 0.7 L [place] # (Auto) 0.4 Eos # (Auto) 0.0 Baso # (Auto) 0.0 Abs Immat Gran (auto) 0.01 Absolute Neuts (auto) 1.4 L Absolute Nucleated RBC 0.000 Nucleated RBC % (auto) 0.0 Smear Tech's Comments PT 19.3 H INR 1.6 H APTT 27.5 aPTT Heparin Protocol Anion Gap 16 Estim Creat Clear Calc 76.3 Estimated GFR > 60 Random Glucose 96 Lactic Acid Calcium 9.2 Total Bilirubin 0.5 AST 24 ALT < 6 Alkaline Phosphatase 101 Total Protein 7.6 Albumin 4.1 Urine Color Yellow Urine Appearance Clear Urine pH 5.5 Ur Specific [place] 1.015 Urine Protein Trace Urine Glucose (UA) Negative Urine Ketones Negative Urine Blood Negative Urine Nitrite Negative Ur Leukocyte Esterase Negative Stool Occult Blood NEGATIVE 04/27/25 04/27/25 04/28/25 14:24 19:04 01:42 MCV 81.7 MCH 26.9 L MCHC 33.0 RDW 13.7 Plt Count 252 MPV 10.0 Immature Gran % (Auto) Neut % (Auto) Lymph % (Auto) [place] % (Auto) Eos % (Auto) Baso % (Auto) Lymph # (Auto) [place] # (Auto) Eos # (Auto) Baso # (Auto) Abs Immat Gran (auto) Absolute Neuts (auto) Absolute Nucleated RBC 0.000 Nucleated RBC % (auto) 0.0 Smear Tech's Comments PT 17.3 H INR 1.4 H APTT aPTT Heparin Protocol 28.2 L 40.8 L D Anion Gap Estim Creat Clear Calc Estimated GFR Random Glucose Lactic Acid 0.8 Calcium Total Bilirubin AST ALT Alkaline Phosphatase Total Protein Albumin Urine Color Urine Appearance Urine pH Ur Specific [place] Urine Protein Urine Glucose (UA) Urine Ketones Urine Blood Urine Nitrite Ur Leukocyte Esterase Stool Occult Blood 04/28/25 04/28/25 04/28/25 05:51 05:51 05:51 MCV 80.9 Cancelled MCH 26.7 L Cancelled MCHC 33.0 RDW Plt Count MPV Immature Gran % (Auto) Neut % (Auto) Lymph % (Auto) [place] % (Auto) Eos % (Auto) Baso % (Auto) Lymph # (Auto) [place] # (Auto) Eos # (Auto) Baso # (Auto) Abs Immat Gran (auto) Absolute Neuts (auto) Absolute Nucleated RBC Nucleated RBC % (auto) Smear Tech's Comments PT INR APTT aPTT Heparin Protocol Anion Gap Estim Creat Clear Calc Estimated GFR Random Glucose Lactic Acid Calcium Total Bilirubin AST ALT Alkaline Phosphatase Total Protein Albumin Urine Color Urine Appearance Urine pH Ur Specific [place] Urine Protein Urine Glucose (UA) Urine Ketones Urine Blood Urine Nitrite Ur Leukocyte Esterase Stool Occult Blood 04/28/25 04/28/25 04/28/25 05:51 05:51 05:51 MCV MCH MCHC Cancelled RDW 13.6 Cancelled Plt Count 249 Cancelled MPV 9.7 Immature Gran % (Auto) Neut % (Auto) Lymph % (Auto) [place] % (Auto) Eos % (Auto) Baso % (Auto) Lymph # (Auto) [place] # (Auto) Eos # (Auto) Baso # (Auto) Abs Immat Gran (auto) Absolute Neuts (auto) Absolute Nucleated RBC Nucleated RBC % (auto) Smear Tech's Comments PT INR APTT aPTT Heparin Protocol Anion Gap Estim Creat Clear Calc Estimated GFR Random Glucose Lactic Acid Calcium Total Bilirubin AST ALT Alkaline Phosphatase Total Protein Albumin Urine Color Urine Appearance Urine pH Ur Specific [place] Urine Protein Urine Glucose (UA) Urine Ketones Urine Blood Urine Nitrite Ur Leukocyte Esterase Stool Occult Blood 04/28/25 04/28/25 04/28/25 05:51 05:51 05:51 MCV MCH MCHC RDW Plt Count MPV Cancelled Immature Gran % (Auto) 0.5 H Neut % (Auto) 47.5 Lymph % (Auto) 31.0 [place] % (Auto) 16.7 H Eos % (Auto) 1.9 Baso % (Auto) 2.4 H Lymph # (Auto) 0.7 L [place] # (Auto) 0.4 Eos # (Auto) 0.0 Baso # (Auto) 0.1 Abs Immat Gran (auto) 0.01 Absolute Neuts (auto) 1.0 L Absolute Nucleated RBC 0.000 Cancelled Nucleated RBC % (auto) 0.0 Cancelled Smear Tech's Comments VERIFIED PT INR APTT aPTT Heparin Protocol Anion Gap 12 Estim Creat Clear Calc 85.2 Estimated GFR > 60 Random Glucose 103 Lactic Acid Calcium 8.5 D Total Bilirubin AST ALT Alkaline Phosphatase Total Protein Albumin Urine Color Urine Appearance Urine pH Ur Specific [place] Urine Protein Urine Glucose (UA) Urine Ketones Urine Blood Urine Nitrite Ur Leukocyte Esterase Stool Occult Blood 04/28/25 08:40 MCV MCH MCHC RDW Plt Count MPV Immature Gran % (Auto) Neut % (Auto) Lymph % (Auto) [place] % (Auto) Eos % (Auto) Baso % (Auto) Lymph # (Auto) [place] # (Auto) Eos # (Auto) Baso # (Auto) Abs Immat Gran (auto) Absolute Neuts (auto) Absolute Nucleated RBC Nucleated RBC % (auto) Smear Tech's Comments PT INR APTT aPTT Heparin Protocol 54.2 D Anion Gap Estim Creat Clear Calc Estimated GFR Random Glucose Lactic Acid Calcium Total Bilirubin AST ALT Alkaline Phosphatase Total Protein Albumin Urine Color Urine Appearance Urine pH Ur Specific [place] Urine Protein Urine Glucose (UA) Urine Ketones Urine Blood Urine Nitrite Ur Leukocyte Esterase Stool Occult Blood Procedures Date of Service Date of Service: 04/28/25 Progress Note: A&P Assessment and plan (1) Colonic diverticular abscess: Status: Acute Plan 69 year old female with a history of DTV on eliquis, HTN, HLD, RA, diverticulosis found to have diverticulitis with colonic abscess, microperforation, treating conservatively with IV antibiotics. She feels some improvement, some mild pain left lower quadrant. Denying nausea or vomiting. Still reports decreased appetite. Did pass a bowel movement, describes this is yellow in color. Hospitalist consult appreciated currently holding Eliquis, we discussed case with Cardiology who recommended bridging with heparin. Patient is development consultant is Dr. Anguiano, hospitalist has ordered consult, further recommendations of anticoagulation to follow. Plan to continue IV antibiotics to note patient had a reaction to levofloxacin, IV site and vein appeared red no anaphylaxis or respiratory compromise. Now on doxycycline and Flagyl. H&H stable at this morning we will advance diet to clear liquids. Abdomen is soft with tender in the lower left quadrant but overall appears comfortable. We will continue with conservative management, no plan for surgery at this time Advanced to clear liquid diet Continue IV antibiotics IV fluids Hospitalist consult appreciated, hematology consult pending awaiting recommendations for anticoagulation. Patient will likely need colonoscopy down the road to rule out neoplasm as cause for rectal bleeding Time Spent With Patient Time: Total time managing care of this patient today ____ minutes. Quality Stroke Does the patient have a stroke diagnosis?: No VTE Prior VTE?: Yes VTE Risk Level:: Surgical - very high VTE Device Contraindication: N/A - Device Ordered VTE Drug Contraindication: Treatment Not Indicated
--- NOTE | 2025-04-28 10:16 | MHC.CM.PN ---
IMM 04/28/25, Pt. lives with her , she does not use home health services or DME. PCP confirmed: BRANDON [facility]. HCP discussed, she requested the blank form to be given and she will complete once at home. She will drive herself home at DC, DCP: home, self care, CM to follow for DC needs.
--- NOTE | 2025-04-28 10:21 | PM.HEMONCCN ---
Subjective - Subjective Chief complaint: History of DVT, abdominal pain/diverticulitis Patient: known to practice within the last 3 years Consult date: 04/28/25 Primary Care Provider: IRENE Bowens Rewinder Operator Utilized?: No - Bengali Speaking HPI - Consult Narrative Reason for consult: Recommendations about anticoagulation Narrative: Krista Liu is a 69 year old female with past medical history significant for recurrent left lower extremity DVT who is currently admitted for probable perforated diverticulitis. She had 2-3 weeks of lower abdominal pain associated with intermittent bloody diarrhea. She had night sweats, intermittent vomiting and hematuria. She had a CT scan of her abdomen which was concerning for perforated diverticulitis. She was started on antibiotics and admitted to the surgical service. She is being managed conservatively with bowel rest and IV antibiotics. She reports improvement in abdominal pain. She has had no recurrent bleeding. Her Eliquis has been stopped and she is on heparin drip. Review of Systems - Constitutional Reports as per [facility] Medical History: Medical History (Last Reviewed 04/27/25 @ 17:48 by STEPHEN Foster) ASCUS (atypical squamous cells of undetermined significance) on gynecologic Papanicolaou smear complicating , antepartum Cervical carcinoma JACQUE I (cervical intraepithelial neoplasia I) DDD (degenerative disc disease), lumbar Depression DVT (deep venous thrombosis) HTN (hypertension) Hyperlipemia Leukopenia Osteopenia Rheumatoid arthritis Seropositive rheumatoid arthritis Family History: Family History (Last Reviewed 04/27/25 @ 17:48 by STEPHEN Foster) Mother Colon cancer metastasized to multiple sites HTN (hypertension) Substance use disorder Maternal Aunt Breast cancer Father HTN (hypertension) Substance use disorder Brother HTN (hypertension) Heart attack Enlarged heart Brain aneurysm Brother HTN (hypertension) Sister HTN (hypertension) Sister HTN (hypertension) Sister HTN (hypertension) Surgical History: Surgical History (Last Reviewed 04/27/25 @ 17:48 by STEPHEN Foster) History of back surgery History of bunionectomy of both great toes History of esophagogastroduodenoscopy (EGD) Hx of colonoscopy S/P biopsy of cervix S/P lumbar microdiscectomy Social History: Social History (Last Reviewed 04/27/25 @ 17:48 by STEPHEN Foster) Living Situation History: Household Members: Spouse Housing: Apartment Are you a primary child care centre director to a significant other at home: No Do you presently have visiting nurse or other home services: No Tobacco History: Patient Tobacco Use Status: Former Tobacco user Tobacco use type: Cigarette Years Smoked: 40 years ago e-Cigarette/Vaping Use: Never Used Second Hand Smoke Exposure: No Occupation Assessmet: service: No Current occupational status: employed 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 Current occupational exposures/hazards: No Home Medications and Allergies Current Medications: Current Medications Acetaminophen (Acetaminophen 325 Mg Tablet) 650 mg PO Q6H PRN PRN Reason: Pain, Mild 1-3,fever,headache Last Admin: 04/28/25 04:12 Dose: 650 mg Buspirone HCl (Buspirone Hcl 5 Mg Tablet) 5 mg PO BID [facility] Last Admin: 04/28/25 07:47 Dose: 5 mg Calcium Carbonate (Calcium Carbonate 750 Mg Tab.Chew) 750 mg PO Q4H PRN PRN Reason: Heartburn Heparin Sodium (Porcine) (Heparin Sodium,Porcine 5,000 Unit/Ml Vial) 3,100 unit 40 unit/kg (3100 unit) IVPUSH PROTOCOL BOLUS PRN; Protocol PRN Reason: 40 unit/kg - Heparin Protocol Last Admin: 04/28/25 02:33 Dose: 3,100 unit Heparin Sodium (Porcine) (Heparin Sodium,Porcine 5,000 Unit/Ml Vial) 6,100 unit 80 unit/kg (6100 unit) IVPUSH PROTOCOL BOLUS PRN; Protocol PRN Reason: 80 unit/kg - Heparin Protocol Dextrose/Sodium Chloride (D51/2ns) 1,000 mls @ 100 mls/hr IVCONT .Q10H [facility] Last Infusion: 04/28/25 09:36 Dose: Infused Metronidazole (Flagyl) 500 mg in 100 mls @ 100 mls/hr IV Q8H [facility] Last Infusion: 04/28/25 07:48 Dose: Infused Heparin Sodium/Sodium Chloride (Heparin Sodium,Porcine/1/2ns) 25,000 unit in 250 mls @ 0 mls/hr IVCONT .Q0M [facility]; Protocol Last Titration: 04/28/25 09:01 Dose: 16 units/kg/hr, 12.29 mls/hr Doxycycline Hyclate 100 mg/ (Sodium Chloride) 250 mls @ 166.67 mls/hr IV Q12H [facility] Last Infusion: 04/28/25 09:36 Dose: Infused Magnesium Hydroxide (Milk Of Magnesia 30 Ml Oral.Susp) 30 ml PO DAILY PRN PRN Reason: Constipation Melatonin (Melatonin 3 Mg Tablet) 6 mg PO BEDTIME PRN PRN Reason: Insomnia Ondansetron HCl (Ondansetron Hcl 4 Mg/2 Ml Vial) 4 mg IVPUSH Q8H PRN PRN Reason: Nausea and Vomiting Oxycodone HCl (Oxycodone Hcl Immed Release 5 Mg Tablet) 5 mg PO Q6H PRN PRN Reason: Pain, Severe (Pain Scale 7-10) Pantoprazole Sodium (Pantoprazole Sodium 40 Mg/10 Ml Vial) 40 mg IVPUSH DAILY@0630 [facility] Last Admin: 04/28/25 06:13 Dose: 40 mg Sodium Chloride (0.9 % Sodium Chloride Flush 3 Ml Syringe) 3 ml IVFLUSH QSHIFT [facility] Last Admin: 04/28/25 07:47 Dose: 3 ml Home Medications ?Medication ?Instructions ?Recorded ?Confirmed ?Type acetaminophen 500 mg tablet 1,000 mg PO Q6H PRN Pain 07/02/21 04/27/25 History (Tylenol Extra Strength) folic acid 1 mg tablet 1 mg PO DAILY 04/03/25 04/27/25 History pantoprazole 40 mg tablet,delayed 40 mg PO DAILY@1630 04/27/25 04/27/25 History release Allergies Allergy/AdvReac Type Severity Reaction Status Date / Time penicillin G (PENICILLIN G) Allergy Severe ANAPHYLAXIS Verified 04/27/25 10:45 Physical Exam Vital signs: Vital Signs Temp 98.2 F 04/28/25 07:36 Pulse 73 04/28/25 07:36 Resp 16 04/28/25 07:36 BP 161/72 H 04/28/25 07:36 Pulse Ox 98 04/28/25 07:36 O2 Del Method Room Air 04/28/25 07:36 Intake & Output 04/27/25 04/28/25 04/28/25 18:59 06:59 18:59 Intake Total 406.667 / 1339.948 5129.474 / 3790.862 1598.938 / 1050.938 Balance 406.667 / 3628.423 7543.474 / 5748.739 6171.938 / 1050.938 Intake: Intake, Oral Amount 400 / 400 Intake, IV Amount 406.667 / 1210.141 803.474 / 9996.239 4607.938 / 1050.938 Azithromycin 500 mg In 0.9 % 250 / 250 Sodium Chloride 250 ml @ 125 mls/hr IV ONCE ONE Rx#: [id number] Doxycycline Hyclate 100 mg In 0 250 / 250 250 / 250 .9 % Sodium Chloride 250 ml @ 166.67 mls/hr IV Q12H [facility] Rx#: [id number] levoFLOXacin/D5W 750 mg In 150 56.667 / 56.667 0 / 56.667 ml @ 100 mls/hr IV Q24H [facility] Rx# :[id number] metroNIDAZOLE/NS 500 mg In 100 100 / 200 100 / 200 100 / 100 ml @ 100 mls/hr IV Q8H [facility] Rx#: [id number] Dextrose 5 % and 0.45 % NaCl 1, 378.333 / 378.333 621.667 / 621.667 000 ml @ 100 mls/hr IVCONT . Q10H [facility] Rx#:[id number] Heparin Sodium,Porcine/1/2NS 25 75.141 / 75.141 79.271 / 79.271 ,000 unit In 250 ml @ Per Protocol IVCONT .Q0M [facility] Rx#: [id number] Other: Number of Unmeasured Voids 1 Last Bowel Movement 04/27/25 Weight 76.839 kg 73.2 kg Weight 73.2 kg - Constitutional Present: no acute distress, obese - Routine HEENT Exam Head: Present: normal inspection Eye: Present: EOMI - Routine Neck Exam Present: supple - Routine Respiratory Exam Present: CTAB - Routine Cardiovascular Exam Cardiovascular: Present: RRR, S1, S2 - Routine Abdominal Exam Present: soft - Routine Extremities Exam Absent: calf tenderness - Routine Skin Exam Present: intact Hem/Onc Consult Result - Labs CBC & Chem 7: 04/28/25 05:51 04/28/25 05:51 Labs: Short CBC 04/27/25 04/27/25 04/28/25 Range/Units 11:11 19:04 05:51 WBC 2.5 L 2.0 L 2.1 L (4.8-10.8) X10*3/uL Hgb 11.4 L 9.7 L (12.0-16.0) g/dl Hct 34.6 L 29.4 L (37.0-47.0) % Plt Count 288 D 252 (160-400) X10*3/uL 04/28/25 04/28/25 04/28/25 Range/Units 05:51 05:51 05:51 WBC Cancelled (4.8-10.8) X10*3/uL Hgb 9.8 L Cancelled (12.0-16.0) g/dl Hct 29.7 L Cancelled (37.0-47.0) % Plt Count 249 (160-400) X10*3/uL 04/28/25 Range/Units 05:51 WBC (4.8-10.8) X10*3/uL Hgb (12.0-16.0) g/dl Hct (37.0-47.0) % Plt Count Cancelled (160-400) X10*3/uL BMP 04/27/25 04/28/25 11:11 05:51 Sodium 138 139 Potassium 4.1 3.7 Chloride 108 112 H Carbon Dioxide 18 L 19 L BUN 9 7 L Creatinine 0.69 0.60 Calcium 9.2 8.5 D Liver Function 04/27/25 Range/Units 11:11 Total Bilirubin 0.5 (0.0-1.0) mg/dL AST 24 (5-31) U/L ALT < 6 (0-31) U/L Alkaline Phosphatase 101 (39-117) U/L Albumin 4.1 (3.5-5.0) g/dL Urine 04/27/25 Range/Units 12:06 Urine Color Yellow Urine Appearance Clear Urine pH 5.5 (5.0-9.0) Ur Specific [place] 1.015 (1.005-1.025) Urine Protein Trace (Neg-Trace) mg/dL Urine Glucose (UA) Negative (Negative) mg/dL Assessment and Plan Patient Active problem list reviewed?: Yes (1) DVT (deep venous thrombosis) Status: Chronic Assessment and plan: 1. This is a 69-year-old woman with past medical history significant for recurrent left lower extremity DVT who is currently admitted for perforated diverticulitis. She presented with abdominal pain and bloody diarrhea, CT abdomen/pelvis revealed diverticulosis with a hypodense focus involving right side of sigmoid colon and surrounding soft tissue measuring 4.7 x 4.8 cm. Multiple air-fluid levels raising concern for possible bowel perforation. She is being managed conservatively with bowel rest and IV antibiotics. She reports improvement in her symptoms. She no longer has hematochezia. H/H is stable. She has been on IV heparin. Past medical history significant for left lower extremity DVT initially diagnosed in December 2018 which occurred in the postoperative setting. In June 2024 patient stopped anticoagulation. Underwent colonoscopy in September 2024 and subsequently developed recurrent left lower extremity DVT. CT angiogram was negative for PE. She was restarted on Eliquis. Because of recurrent clot patient has been recommended long-term anticoagulation. Thrombophilia workup was negative. Agree with holding Eliquis for now. If patient does not need surgery and she has no further hematochezia, she can be started back on Eliquis 5 mg b.i.d.. She should be closely monitored for recurrent bleed. She can follow up with Dr. Anguiano in the next couple of weeks. Thank you for the consultation. - Time Spent With Patient Time Spent with Patient (in minutes): 25 Additional Coding: - Additional E/M codes Complex E/M visit Add On: CPT G2211
[2025-04-28] MEDS: Dextrose 5 % and 0.45 % NaCl 1,000 ML 100 ML IVCONT ×2 (10:34→14:45)
[2025-04-28 15:10] LABS: PTT Heparin Drip 48.8 SEC (53-77.9)
[2025-04-28 15:38] VITALS: BP 164/80; PULSE 88; RESP 18; TEMP 36.4; O2SAT 99
[2025-04-28] MEDS: Heparin Sodium,Porcine/1/2NS 25,000 UNIT/250 ML IV.SOLN 13.83 UNIT IVCONT (15:45)
--- NOTE | 2025-04-28 16:21 | P.CNID_ITS ---
History of Present Illness Data of Consult Service Date: 04/28/25 Requesting physician: Jesús Farris Primary Care Provider: Dennis Hsu [facility]- HPI Reason for consult: abdominal abscess She has LLQ abdominal pain,8/10 for last day and 5/10 over last week. She also had two weeks blood in stool and urine. She has RA and has had cervical cancer and DJD. There is right sigmoid colon abscess 4.7 x 4.8 x 3.4 cm abscess. She has anaphylaxis to PCN. Review of Systems 2 Review of Systems: Yes all other systems are reviewed and are negative [facility] Past Medical History Medical History Osteopenia Leukopenia Depression Cervical carcinoma DDD (degenerative disc disease), lumbar JACQUE I (cervical intraepithelial neoplasia I) ASCUS (atypical squamous cells of undetermined significance) on gynecologic Papanicolaou smear complicating , antepartum Seropositive rheumatoid arthritis HTN (hypertension) Rheumatoid arthritis Hyperlipemia DVT (deep venous thrombosis) Family History Family History Mother Colon cancer metastasized to multiple sites HTN (hypertension) Substance use disorder Maternal Aunt Breast cancer Father HTN (hypertension) Substance use disorder Brother HTN (hypertension) Heart attack Enlarged heart Brain aneurysm Brother HTN (hypertension) Sister HTN (hypertension) Sister HTN (hypertension) Sister HTN (hypertension) Family history: reviewed and not pertinent Surgical History Surgical History History of esophagogastroduodenoscopy (EGD) Hx of colonoscopy History of back surgery S/P lumbar microdiscectomy S/P biopsy of cervix History of bunionectomy of both great toes Social History Social History Household Members: Spouse Housing: Apartment Are you a primary care process manager to a significant other at home: No Do you presently have visiting nurse or other home services: No Alcohol intake: current Alcohol intake frequency: does not drink Alcohol type: beer Patient Tobacco Use Status: Former Tobacco user Tobacco use type: Cigarette Years Smoked: 40 years ago e-Cigarette/Vaping Use: Never Used Second Hand Smoke Exposure: No service: No Current occupational status: employed 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 Current occupational exposures/hazards: No Cognitive needs: No Hearing needs: No Vision needs: No Meds Allergies Allergy/AdvReac Type Severity Reaction Status Date / Time penicillin G (PENICILLIN G) Allergy Severe ANAPHYLAXIS Verified 04/27/25 10:45 Active Medications: Current Medications Acetaminophen (Acetaminophen 325 Mg Tablet) 650 mg PO Q6H PRN PRN Reason: Pain, Mild 1-3,fever,headache Last Admin: 04/28/25 04:12 Dose: 650 mg Buspirone HCl (Buspirone Hcl 5 Mg Tablet) 5 mg PO BID [facility] Last Admin: 04/28/25 07:47 Dose: 5 mg Calcium Carbonate (Calcium Carbonate 750 Mg Tab.Chew) 750 mg PO Q4H PRN PRN Reason: Heartburn Heparin Sodium (Porcine) (Heparin Sodium,Porcine 5,000 Unit/Ml Vial) 3,100 unit 40 unit/kg (3100 unit) IVPUSH PROTOCOL BOLUS PRN; Protocol PRN Reason: 40 unit/kg - Heparin Protocol Last Admin: 04/28/25 15:48 Dose: 3,100 unit Heparin Sodium (Porcine) (Heparin Sodium,Porcine 5,000 Unit/Ml Vial) 6,100 unit 80 unit/kg (6100 unit) IVPUSH PROTOCOL BOLUS PRN; Protocol PRN Reason: 80 unit/kg - Heparin Protocol Dextrose/Sodium Chloride (D51/2ns) 1,000 mls @ 100 mls/hr IVCONT .Q10H [facility] Last Admin: 04/28/25 14:45 Dose: 100 mls/hr Metronidazole (Flagyl) 500 mg in 100 mls @ 100 mls/hr IV Q8H [facility] Last Infusion: 04/28/25 15:52 Dose: Infused Heparin Sodium/Sodium Chloride (Heparin Sodium,Porcine/1/2ns) 25,000 unit in 250 mls @ 0 mls/hr IVCONT .Q0M [facility]; Protocol Last Admin: 04/28/25 15:45 Dose: 18 units/kg/hr, 13.83 mls/hr Doxycycline Hyclate 100 mg/ (Sodium Chloride) 250 mls @ 166.67 mls/hr IV Q12H [facility] Last Infusion: 04/28/25 09:36 Dose: Infused Magnesium Hydroxide (Milk Of Magnesia 30 Ml Oral.Susp) 30 ml PO DAILY PRN PRN Reason: Constipation Melatonin (Melatonin 3 Mg Tablet) 6 mg PO BEDTIME PRN PRN Reason: Insomnia Ondansetron HCl (Ondansetron Hcl 4 Mg/2 Ml Vial) 4 mg IVPUSH Q8H PRN PRN Reason: Nausea and Vomiting Oxycodone HCl (Oxycodone Hcl Immed Release 5 Mg Tablet) 5 mg PO Q6H PRN PRN Reason: Pain, Severe (Pain Scale 7-10) Pantoprazole Sodium (Pantoprazole Sodium 40 Mg/10 Ml Vial) 40 mg IVPUSH DAILY@0630 [facility] Last Admin: 04/28/25 06:13 Dose: 40 mg Sodium Chloride (0.9 % Sodium Chloride Flush 3 Ml Syringe) 3 ml IVFLUSH QSHIFT [facility] Last Admin: 04/28/25 15:53 Dose: Not Given Home Medications ?Medication ?Instructions ?Recorded ?Confirmed ?Last Taken ?Type acetaminophen 500 mg tablet 1,000 mg PO Q6H PRN Pain 0 07/02/21 04/27/25 Unknown History (Tylenol Extra Strength) folic acid 1 mg tablet 1 mg PO DAILY 04/03/2504/2704/27/25 History pantoprazole 40 mg tablet,delayed 40 mg PO DAILY@1630 04/27/25 04/27/25 04/27/25 History release Physical Exam 2 Vital Signs: Vital Signs: Last Vital Signs Temp 97.6 F 04/28/25 15:38 Pulse 88 04/28/25 15:38 Resp 18 04/28/25 15:38 BP 164/80 H 04/28/25 15:38 Pulse Ox 99 04/28/25 15:38 O2 Del Method Room Air 04/28/25 15:38 BMI result Body Mass Index 29.5 Const: General: cooperative HEENT: Head: Yes normal to inspection Face and sinus: Yes normal facial exam Mouth: Normal oral and palatal mucosa present Teeth and gingiva: d entition normal Eyes: General: appearance normal, both eyes and all related structures P upils: Equal, round and reactive pupils present Resp: Effort & Inspection: normal respiratory effort Cardio: Rate: regular rate Rhythm: regular rhythm GI: Other: mild abdominal discomfort remains Palpation (GI): Soft to palpation and nontender : General: Yes no CVA tenderness Back/Spine/Pelvis: Back: no CVA tenderness Skin: General skin exam: no rashes or lesions noted Neuro: General: moves all extremities Cranial nerves: Yes Equal, round and reactive pupils present Extrem: General: Yes normal to inspection Psych: Appearance: grossly normal Results Labs 04/28/25 05:51 04/28/25 05:51 Labs: Short CBC 04/27/25 04/28/25 04/28/25 Range/Units 19:04 05:51 05:51 WBC 2.0 L 2.1 L Cancelled (4.8-10.8) X10*3/uL Hgb 9.7 L 9.8 L (12.0-16.0) g/dl Hct 29.4 L (37.0-47.0) % Plt Count 252 (160-400) X10*3/uL 04/28/25 04/28/25 04/28/25 Range/Units 05:51 05:51 05:51 WBC (4.8-10.8) X10*3/uL Hgb Cancelled (12.0-16.0) g/dl Hct 29.7 L Cancelled (37.0-47.0) % Plt Count 249 Cancelled (160-400) X10*3/uL BMP 04/28/25 05:51 Sodium 139 Potassium 3.7 Chloride 112 H Carbon Dioxide 19 L BUN 7 L Creatinine 0.60 Calcium 8.5 D Assessment and Plan (1) Diverticulitis: Status: Acute Plan Aztreonam due to allergy to PCN as well as maintain metronidazole Probable IV until improving abscess, 3-5 days IV and check CT abdomen and if less than or equal to 3.5 cm then po Doxycycline and metronidazole.
[2025-04-28 20:00] VITALS: BP 137/66; PULSE 96; RESP 18; TEMP 36.6; O2SAT 99
[2025-04-28 21:46] LABS: PTT Heparin Drip 65.5 SEC (53-77.9)
[2025-04-29 03:32] VITALS: BP 146/70; PULSE 78; RESP 16; TEMP 36.3; O2SAT 95
[2025-04-29 04:00] LABS: PTT Heparin Drip 67.3 SEC (53-77.9)
[2025-04-29] MEDS: Dextrose 5 % and 0.45 % NaCl 1,000 ML 100 ML IVCONT (04:48)
--- NOTE | 2025-04-29 07:33 | PC.NURSE ---
0600 flagyl and protonix late due to patient lost iv access; charge nurse attempted new iv, nursing automotive fleet supervisor aware. ED nurse attempting new iv access at this time. Day shift nurse made aware.
[2025-04-29 08:00] VITALS: BP 164/82; PULSE 80; RESP 16; TEMP 36; O2SAT 97
[2025-04-29] MEDS: 0.9 % Sodium Chloride Flush 3 ML SYRINGE IVFLUSH (08:23)
[2025-04-29] MEDS: metroNIDAZOLE/NS 500 MG/100 ML PIGGYBACK 100 MG IV ×3 (08:23→21:23)
[2025-04-29] MEDS: Heparin Sodium,Porcine/1/2NS 25,000 UNIT/250 ML IV.SOLN 13.83 UNIT IVCONT (09:54)
--- NOTE | 2025-04-29 11:18 | HO.PM.IMPN ---
Subjective Subjective Date of Service: 04/29/25 Interval History: Feels well overall. Reports having 1 episode of mucoid bloody [id number] and self-resolved No urge to defecate at this time, no abdominal pain. Has been eating and drinking well. Review of Systems Review of Systems: Yes all other systems are reviewed and are negative Physical Exam Exam: Exam: General: A&O x3, oriented to time place person and situation, comfortable, no pain Cardiac: S1, S2 auscultated with no S3/4, no MRG. Well perfused. Respiratory: Normal breath sounds auscultated throughout all lung zones, without wheezing, rales. Normal rate. GI/ : No abdominal pain on palpation, no masses or distentions. MSK: Normal ambulation without pain at bony prominences or musculature Neurological: Normal neurological examination on overview, without obvious CN II-XII abnormalities. Vital Signs: Vital Signs: Last Vital Signs Temp 96.8 F 04/29/25 08:00 Pulse 80 04/29/25 08:00 Resp 16 04/29/25 08:00 BP 164/82 H 04/29/25 08:00 Pulse Ox 97 04/29/25 08:00 O2 Del Method Room Air 04/29/25 08:00 BMI result Body Mass Index 29.5 Objective Data Active Medications Acetaminophen (Acetaminophen 325 Mg Tablet) 650 mg PO Q6H PRN PRN Reason: Pain, Mild 1-3,fever,headache Last Admin: 04/28/25 04:12 Dose: 650 mg Documented By: MANDI Buspirone HCl (Buspirone Hcl 5 Mg Tablet) 5 mg PO BID KANDICE Last Admin: 04/29/25 08:28 Dose: 5 mg Documented By: MARIE Calcium Carbonate (Calcium Carbonate 750 Mg Tab.Chew) 750 mg PO Q4H PRN PRN Reason: Heartburn Heparin Sodium (Porcine) (Heparin Sodium,Porcine 5,000 Unit/Ml Vial) 3,100 unit 40 unit/kg (3100 unit) IVPUSH PROTOCOL BOLUS PRN; Protocol PRN Reason: 40 unit/kg - Heparin Protocol Last Admin: 04/28/25 15:48 Dose: 3,100 unit Documented By: BETTYE Heparin Sodium (Porcine) (Heparin Sodium,Porcine 5,000 Unit/Ml Vial) 6,100 unit 80 unit/kg (6100 unit) IVPUSH PROTOCOL BOLUS PRN; Protocol PRN Reason: 80 unit/kg - Heparin Protocol Dextrose/Sodium Chloride (D51/2ns) 1,000 mls @ 100 mls/hr IVCONT .Q10H [facility] Last Admin: 04/29/25 10:04 Dose: Not Given Documented By: MARIE Non-Admin Reason: IV Running Metronidazole (Flagyl) 500 mg in 100 mls @ 100 mls/hr IV Q8H [facility] Last Infusion: 04/29/25 09:25 Dose: Infused Documented By: MARIE Heparin Sodium/Sodium Chloride (Heparin Sodium,Porcine/1/2ns) 25,000 unit in 250 mls @ 0 mls/hr IVCONT .Q0M [facility]; Protocol Last Admin: 04/29/25 09:54 Dose: 18 units/kg/hr, 13.83 mls/hr Documented By: MARIE Co-signed By: SON Aztreonam 1 gm/ Sodium (Chloride) 50 mls @ 100 mls/hr IV Q8H [facility] Last Admin: 04/29/25 10:44 Dose: 100 mls/hr Documented By: MARIE Magnesium Hydroxide (Milk Of Magnesia 30 Ml Oral.Susp) 30 ml PO DAILY PRN PRN Reason: Constipation Melatonin (Melatonin 3 Mg Tablet) 6 mg PO BEDTIME PRN PRN Reason: Insomnia Ondansetron HCl (Ondansetron Hcl 4 Mg/2 Ml Vial) 4 mg IVPUSH Q8H PRN PRN Reason: Nausea and Vomiting Oxycodone HCl (Oxycodone Hcl Immed Release 5 Mg Tablet) 5 mg PO Q6H PRN PRN Reason: Pain, Severe (Pain Scale 7-10) Pantoprazole Sodium (Pantoprazole Sodium 40 Mg/10 Ml Vial) 40 mg IVPUSH DAILY@0630 [facility] Last Admin: 04/29/25 08:19 Dose: 40 mg Documented By: MARIE Sodium Chloride (0.9 % Sodium Chloride Flush 3 Ml Syringe) 3 ml IVFLUSH QSHIFT [facility] Last Admin: 04/29/25 08:23 Dose: 3 ml Documented By: MARIE Labs 04/28/25 05:51 04/28/25 05:51 Labs: Laboratory Results - last 24 hr 04/28/25 04/28/25 04/29/25 14:54 21:31 03:30 aPTT Heparin Protocol 48.8 L 65.5 D 67.3 Microbiology Microbiology Results: Microbiology 04/27/25 14:24 Blood Culture - Preliminary Blood - Venous No growth after 24 hours. 04/27/25 14:24 Blood Culture - Preliminary Blood - Venous No growth after 24 hours. 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 Perforated diverticulitis Supplemented GI bleeding Management as per surgical team. Conservative management currently underway. No NG tube in place. Patient has soft abdomen, nontender. Small episode of GI bleeding this morning, that was self-limited and non concerning and quantity. We will continue to monitor closely especially given patient is on heparin drip Maintain active type and screen Monitor CBC Diverticular abscess Infectious diseases has been consulted on the patient. Recommendations greatly appreciated Currently patient is on aztreonam (due to penicillin allergy) Patient currently on metronidazole Recommendations on duration of IV antibiotics and transitioned to oral antibiotics as per Infectious diseases Recurrent left lower extremity DVT On apixaban Normally on apixaban at home. This was discontinued on admission, and patient was started on heparin drip. 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 MDD Continue buspirone 5 mg b.i.d. p.o. GERD Continue PPI [employer] - VTE: Heparin drip - CODE STATUS: Full code - DIET: Clear liquid diet Thank you for involving us on this patient's care. We will continue to follow up with you. Total time managing care of this patient today: 35 minutes. Quality Stroke Does the patient have a stroke diagnosis?: No VTE Prior VTE?: Yes VTE Risk Level:: Surgical - very high VTE Device Contraindication: N/A - Device Ordered VTE Drug Contraindication: Treatment Not Indicated
--- NOTE | 2025-04-29 13:04 | PM.HEMONCPN ---
Medical Summary - Medical Summary Date of Service: 04/29/25 Primary [facility] Quality Specialist Utilized?: No - Chinese Speaking Interval History Interval history: Krista Liu is a 69 year old female with past medical history significant for recurrent left lower extremity DVT who is currently admitted for probable perforated diverticulitis. She had 2-3 weeks of lower abdominal pain associated with intermittent bloody diarrhea. She had night sweats, intermittent vomiting and hematuria. She had a CT scan of her abdomen which was concerning for perforated diverticulitis. She was started on antibiotics and admitted to the surgical service. She is being managed conservatively with bowel rest and IV antibiotics. She reports improvement in abdominal pain. She has had no recurrent bleeding. Her Eliquis has been stopped and she is on heparin drip. Review of Systems - Constitutional Reports malaise - ENT Reports hearing loss - Cardiovascular Reports shortness of breath with activity - Respiratory Reports dyspnea on exertion - Gastrointestinal Reports abdominal pain - Musculoskeletal Reports muscle weakness PMFSH Medical History: Medical History (Last Reviewed 04/28/25 @ 16:24 by Cher He MD) ASCUS (atypical squamous cells of undetermined significance) on gynecologic Papanicolaou smear complicating , antepartum Cervical carcinoma JACQUE I (cervical intraepithelial neoplasia I) DDD (degenerative disc disease), lumbar Depression DVT (deep venous thrombosis) HTN (hypertension) Hyperlipemia Leukopenia Osteopenia Rheumatoid arthritis Seropositive rheumatoid arthritis Family History: Family History (Last Reviewed 04/28/25 @ 16:24 by Cher He MD) Mother Colon cancer metastasized to multiple sites HTN (hypertension) Substance use disorder Maternal Aunt Breast cancer Father HTN (hypertension) Substance use disorder Brother HTN (hypertension) Heart attack Enlarged heart Brain aneurysm Brother HTN (hypertension) Sister HTN (hypertension) Sister HTN (hypertension) Sister HTN (hypertension) Family history: reviewed and not pertinent Surgical History: Surgical History (Last Reviewed 04/28/25 @ 16:24 by Cher He MD) History of back surgery History of bunionectomy of both great toes History of esophagogastroduodenoscopy (EGD) Hx of colonoscopy S/P biopsy of cervix S/P lumbar microdiscectomy Social History: Social History (Last Reviewed 04/28/25 @ 16:24 by Cher He MD) Living Situation History: Household Members: Spouse Housing: Apartment Are you a primary senior care assistant to a significant other at home: No Do you presently have visiting nurse or other home services: No Tobacco History: Patient Tobacco Use Status: Former Tobacco user Tobacco use type: Cigarette Years Smoked: 40 years ago e-Cigarette/Vaping Use: Never Used Second Hand Smoke Exposure: No Occupation Assessmet: service: No Current occupational status: employed 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 Current occupational exposures/hazards: No Home Medications and Allergies Current Medications: Current Medications Acetaminophen (Acetaminophen 325 Mg Tablet) 650 mg PO Q6H PRN PRN Reason: Pain, Mild 1-3,fever,headache Last Admin: 04/28/25 04:12 Dose: 650 mg Buspirone HCl (Buspirone Hcl 5 Mg Tablet) 5 mg PO BID KANDICE Last Admin: 04/29/25 08:28 Dose: 5 mg Calcium Carbonate (Calcium Carbonate 750 Mg Tab.Chew) 750 mg PO Q4H PRN PRN Reason: Heartburn Heparin Sodium (Porcine) (Heparin Sodium,Porcine 5,000 Unit/Ml Vial) 3,100 unit 40 unit/kg (3100 unit) IVPUSH PROTOCOL BOLUS PRN; Protocol PRN Reason: 40 unit/kg - Heparin Protocol Last Admin: 04/28/25 15:48 Dose: 3,100 unit Heparin Sodium (Porcine) (Heparin Sodium,Porcine 5,000 Unit/Ml Vial) 6,100 unit 80 unit/kg (6100 unit) IVPUSH PROTOCOL BOLUS PRN; Protocol PRN Reason: 80 unit/kg - Heparin Protocol Dextrose/Sodium Chloride (D51/2ns) 1,000 mls @ 100 mls/hr IVCONT .Q10H [facility] Last Admin: 04/29/25 10:04 Dose: Not Given Metronidazole (Flagyl) 500 mg in 100 mls @ 100 mls/hr IV Q8H [facility] Last Infusion: 04/29/25 09:25 Dose: Infused Heparin Sodium/Sodium Chloride (Heparin Sodium,Porcine/1/2ns) 25,000 unit in 250 mls @ 0 mls/hr IVCONT .Q0M [facility]; Protocol Last Admin: 04/29/25 09:54 Dose: 18 units/kg/hr, 13.83 mls/hr Aztreonam 1 gm/ Sodium (Chloride) 50 mls @ 100 mls/hr IV Q8H [facility] Last Infusion: 04/29/25 11:38 Dose: Infused Lisinopril (Lisinopril 20 Mg Tablet) 20 mg PO DAILY [facility]; Protocol Last Admin: 04/29/25 11:45 Dose: 20 mg Magnesium Hydroxide (Milk Of Magnesia 30 Ml Oral.Susp) 30 ml PO DAILY PRN PRN Reason: Constipation Melatonin (Melatonin 3 Mg Tablet) 6 mg PO BEDTIME PRN PRN Reason: Insomnia Ondansetron HCl (Ondansetron Hcl 4 Mg/2 Ml Vial) 4 mg IVPUSH Q8H PRN PRN Reason: Nausea and Vomiting Oxycodone HCl (Oxycodone Hcl Immed Release 5 Mg Tablet) 5 mg PO Q6H PRN PRN Reason: Pain, Severe (Pain Scale 7-10) Pantoprazole Sodium (Pantoprazole Sodium 40 Mg/10 Ml Vial) 40 mg IVPUSH DAILY@0630 [facility] Last Admin: 04/29/25 08:19 Dose: 40 mg Sodium Chloride (0.9 % Sodium Chloride Flush 3 Ml Syringe) [facility] Last Admin: 04/29/25 08:23 Dose: 3 ml Home Medications ?Medication ?Instructions ?Recorded ?Confirmed ?Type acetaminophen 500 mg tablet 1,000 mg PO Q6H PRN Pain 07/02/21 04/27/25 History (Tylenol Extra Strength) folic acid 1 mg tablet 1 mg PO DAILY 04/03/25 04/27/25 History pantoprazole 40 mg tablet,delayed 40 mg PO DAILY@1630 04/27/25 04/27/25 History release Allergies Allergy/AdvReac Type Severity Reaction Status Date / Time penicillin G (PENICILLIN G) Allergy Severe ANAPHYLAXIS Verified 04/27/25 10:45 Exam Vital signs: Vital Signs Temp 96.8 F 04/29/25 08:00 Pulse 80 04/29/25 08:00 Resp 16 04/29/25 08:00 BP 164/82 H 04/29/25 08:00 Pulse Ox 97 04/29/25 08:00 O2 Del Method Room Air 04/29/25 08:00 Intake & Output 04/28/25 04/29/25 04/29/25 18:59 06:59 18:59 Intake Total 1872.024 / 3901.441 2029.417 / 3901.441 230.583 / 230.583 Balance 1872.024 / 3901.441 2029.417 / 3901.441 230.583 / 230.583 Intake: Intake, Oral Amount 220 / 880 660 / 880 Intake, IV Amount 1652.024 / 3021.441 1369.417 / 3021.441 230.583 / 230.583 Aztreonam 1 gm In 0.9 % Sodium 100 / 100 50 / 50 Chloride 50 ml @ 100 mls/hr IV Q8H [facility] Rx#:[id number] Doxycycline Hyclate 100 mg In 0 250 / 250 .9 % Sodium Chloride 250 ml @ 166.67 mls/hr IV Q12H [facility]ICE Rx#: [id number] metroNIDAZOLE/NS 500 mg In 100 200 / 300 100 / 300 100 / 100 ml @ 100 mls/hr IV Q8H KANDICE Rx#: [id number] Dextrose 5 % and 0.45 % NaCl 1, 1040.000 / 2040.000 1000 / 2040.000 000 ml @ 100 mls/hr IVCONT . Q10H KANDICE Rx#:[id number] Heparin Sodium,Porcine/1/2NS 25 162.024 / 331.441 169.417 / 331.441 80.583 / 80.583 ,000 unit In 250 ml @ Per Protocol IVCONT .Q0M [facility] Rx#: [id number] Other: Lunch % Eaten 100% Number of Unmeasured Voids 2 2 Urine Bathroom Bathroom Last Bowel Movement 04/28/25 04/28/25 Weight 73.2 kg BMI result Body Mass Index 29.5 - Constitutional Present: no acute distress, obese - Routine HEENT Exam Head: Present: atraumatic, normal inspection - Routine Neck Exam Present: full ROM - Routine Respiratory Exam Present: decreased breath sounds, CTAB - Routine Cardiovascular Exam Cardiovascular: Present: RRR, S1, S2 - Routine Abdominal Exam Present: diminished bowel sounds, soft - Routine Extremities Exam Absent: calf tenderness - Routine Skin Exam Present: intact Data - Labs CBC & Chem 7: 04/28/25 05:51 04/28/25 05:51 Labs: Laboratory Last Values WBC 2.1 X10*3/uL (4.8-10.8) L 04/28/25 05:51 WBC Cancelled 04/28/25 05:51 RBC 3.67 X10*6/uL (4.20-5.50) L 04/28/25 05:51 RBC Cancelled 04/28/25 05:51 Hgb 9.8 g/dl (12.0-16.0) L 04/28/25 05:51 Hgb Cancelled 04/28/25 05:51 Hct 29.7 % (37.0-47.0) L 04/28/25 05:51 Hct Cancelled 04/28/25 05:51 MCV 80.9 fL (80.0-98.0) 04/28/25 05:51 MCV Cancelled 04/28/25 05:51 MCH 26.7 pg (27.0-33.0) L 04/28/25 05:51 MCH Cancelled 04/28/25 05:51 MCHC 33.0 g/dl (31.0-35.0) 04/28/25 05:51 MCHC Cancelled 04/28/25 05:51 RDW 13.6 % (11.0-16.0) 04/28/25 05:51 RDW Cancelled 04/28/25 05:51 Plt Count 249 X10*3/uL (160-400) 04/28/25 05:51 Plt Count Cancelled 04/28/25 05:51 MPV 9.7 fL (9.4-12.3) 04/28/25 05:51 MPV Cancelled 04/28/25 05:51 Immature Gran % (Auto) 0.5 % (0.0-0.4) H 04/28/25 05:51 Neut % (Auto) 47.5 % (45-73) 04/28/25 05:51 Lymph % (Auto) 31.0 % (20-40) 04/28/25 05:51 [place] % (Auto) 16.7 % (2-11) H 04/28/25 05:51 Eos % (Auto) 1.9 % (0-4) 04/28/25 05:51 Baso % (Auto) 2.4 % (0-2) H 04/28/25 05:51 Lymph # (Auto) 0.7 X10*3/uL (1.2-4.9) L 04/28/25 05:51 [place] # (Auto) 0.4 X10*3/uL (0.1-1.2) 04/28/25 05:51 Eos # (Auto) 0.0 X10*3/uL (0.0-0.4) 04/28/25 05:51 Baso # (Auto) 0.1 X10*3/uL (0.0-0.2) 04/28/25 05:51 Abs Immat Gran (auto) 0.01 X10*3/uL (0.00-0.03) 04/28/25 05:51 Absolute Neuts (auto) 1.0 x10*3/uL (2.0-8.3) L 04/28/25 05:51 Absolute Nucleated RBC 0.000 X10*3/uL (0.0-0.012) 04/28/25 05:51 Absolute Nucleated RBC Cancelled 04/28/25 05:51 Nucleated RBC % (auto) 0.0 /100WBC (0.0-0.2) 04/28/25 05:51 Nucleated RBC % (auto) Cancelled 04/28/25 05:51 Smear Tech's Comments VERIFIED 04/28/25 05:51 PT 17.3 SEC (11.2-13.5) H 04/27/25 19:04 INR 1.4 (0.9-1.1) H 04/27/25 19:04 APTT 27.5 SEC (26.7-34.1) 04/27/25 11:11 aPTT Heparin Protocol 67.3 SEC (53-77.9) 04/29/25 03:30 Sodium 139 mmol/L (135-145) 04/28/25 05:51 Potassium 3.7 mmol/L (3.3-5.1) 04/28/25 05:51 Chloride 112 mmol/L (96-108) H 04/28/25 05:51 Carbon Dioxide 19 mmol/L (22-29) L 04/28/25 05:51 Anion Gap 12 (12-20) 04/28/25 05:51 BUN 7 mg/dL (9-16) L 04/28/25 05:51 Creatinine 0.60 mg/dL (0.5-1.4) 04/28/25 05:51 Estim Creat Clear Calc 85.2 04/28/25 05:51 Estimated GFR > 60 04/28/25 05:51 Random Glucose 103 mg/dL (60-115) 04/28/25 05:51 Lactic Acid 0.8 mmol/L (0.5-2.0) 04/27/25 14:24 Calcium 8.5 mg/dL (8.4-10.2) D 04/28/25 05:51 Total Bilirubin 0.5 mg/dL (0.0-1.0) 04/27/25 11:11 AST 24 U/L (5-31) 04/27/25 11:11 ALT < 6 U/L (0-31) 04/27/25 11:11 Alkaline Phosphatase 101 U/L (39-117) 04/27/25 11:11 Total Protein 7.6 g/dL (6.5-8.0) 04/27/25 11:11 Albumin 4.1 g/dL (3.5-5.0) 04/27/25 11:11 Urine Color Yellow 04/27/25 12:06 Urine Appearance Clear 04/27/25 12:06 Urine pH 5.5 (5.0-9.0) 04/27/25 12:06 Ur Specific [place] 1.015 (1.005-1.025) 04/27/25 12:06 Urine Protein Trace mg/dL (Neg-Trace) 04/27/25 12:06 Urine Glucose (UA) Negative mg/dL (Negative) 04/27/25 12:06 Urine Ketones Negative mg/dL (Negative) 04/27/25 12:06 Urine Blood Negative (Negative) 04/27/25 12:06 Urine Nitrite Negative (Negative) 04/27/25 12:06 Ur Leukocyte Esterase Negative (Negative) 04/27/25 12:06 Stool Occult Blood NEGATIVE (NEGATIVE) 04/27/25 12:24 - Imaging Radiologist's impression: ITS Impressions Abdomen/Pelvis CT 04/27/25 12:56 IMPRESSION: *Sigmoid diverticulosis. Hypodense focus associated with the anterior/right side of the sigmoid colon, measuring 4.8 x 3.4 x 4.7 cm. (Hounsfield units 6). There is associated inflammatory changes present. Findings are suggestive of diverticulitis,, phlegmon/abscess or a combination of these. There are multiple foci of air in the hypodense region, region of inflammatory changes,, which raises concern for possible bowel perforation, pneumoperitoneum. Recommend surgical consultation. *Diverticulosis of the transverse, descending and sigmoid colon otherwise, with wall thickening which could be related to lack of distention or colitis. Given the clinical history of rectal bleeding, recommend follow-up workup such as colonoscopy to exclude neoplasm. *Hepatic steatosis. *Splenomegaly. *Redemonstrated haziness of the central mesentery with small lymph nodes. Findings similar to previous. This is nonspecific, could represent panniculitis. This result was discussed with and 1:50 PM on 04/27/2025 * Fleischner guidelines were followed. Electronically signed by: Dallas Greenberg MD 04/27/2025 01:54 PM [facility] Assessment and Plan Patient Active problem list reviewed?: Yes (1) Diverticulitis Status: Acute Assessment and plan: She is appropriately anticoagulated with the heparin infusion. She reports some rectal bleeding yesterday but none today. She is medically stable with normal vital signs. She says the abdominal pain is beginning to be slightly better. Recommend continuing current therapy. - Time Spent With Patient Time Spent with Patient (in minutes): 15
[2025-04-29 15:10] VITALS: BP 159/72; PULSE 81; RESP 16; TEMP 36.4; O2SAT 98
--- NOTE | 2025-04-29 15:13 | P.PNGS_ITS ---
Subjective Subjective Date of Service: 04/29/25 Interval history: pt had two bowel movements today with some bloody jelly material overall belly feeling better tolerating liquids Physical Exam 2 Vital Signs: Vital Signs: Last Vital Signs Temp 96.8 F 04/29/25 08:00 Pulse 80 04/29/25 08:00 Resp 16 04/29/25 08:00 BP 164/82 H 04/29/25 08:00 Pulse Ox 97 04/29/25 08:00 O2 Del Method Room Air 04/29/25 08:00 BMI result Body Mass Index 29.5 Const: General: cooperative, healthy appearing, comfortable and no acute distress GI: Other: soft tender in the left lower area with some guarding no peritoneal signs Objective Data Active Medications Acetaminophen (Acetaminophen 325 Mg Tablet) 650 mg PO Q6H PRN PRN Reason: Pain, Mild 1-3,fever,headache Last Admin: 04/28/25 04:12 Dose: 650 mg Documented By: MANDI Buspirone HCl (Buspirone Hcl 5 Mg Tablet) 5 mg PO BID [facility] Last Admin: 04/29/25 08:28 Dose: 5 mg Documented By: MARIE Calcium Carbonate (Calcium Carbonate 750 Mg Tab.Chew) 750 mg PO Q4H PRN PRN Reason: Heartburn Heparin Sodium (Porcine) (Heparin Sodium,Porcine 5,000 Unit/Ml Vial) 3,100 unit 40 unit/kg (3100 unit) IVPUSH PROTOCOL BOLUS PRN; Protocol PRN Reason: 40 unit/kg - Heparin Protocol Last Admin: 04/28/25 15:48 Dose: 3,100 unit Documented By: BETTYE Heparin Sodium (Porcine) (Heparin Sodium,Porcine 5,000 Unit/Ml Vial) 6,100 unit 80 unit/kg (6100 unit) IVPUSH PROTOCOL BOLUS PRN; Protocol PRN Reason: 80 unit/kg - Heparin Protocol Dextrose/Sodium Chloride (D51/2ns) 1,000 mls @ 100 mls/hr IVCONT .Q10H [facility] Last Admin: 04/29/25 10:04 Dose: Not Given Documented By: MARIE Non-Admin Reason: IV Running Metronidazole (Flagyl) 500 mg in 100 mls @ 100 mls/hr IV Q8H [facility] Last Admin: 04/29/25 14:25 Dose: 100 mls/hr Documented By: MARIE Heparin Sodium/Sodium Chloride (Heparin Sodium,Porcine/1/2ns) 25,000 unit in 250 mls @ 0 mls/hr IVCONT .Q0M [facility]; Protocol Last Admin: 04/29/25 09:54 Dose: 18 units/kg/hr, 13.83 mls/hr Documented By: MARIE Co-signed By: SON Aztreonam 1 gm/ Sodium (Chloride) 50 mls @ 100 mls/hr IV Q8H [facility] Last Infusion: 04/29/25 11:38 Dose: Infused Documented By: MARIE Lisinopril (Lisinopril 20 Mg Tablet) 20 mg PO DAILY [facility]; Protocol Last Admin: 04/29/25 11:45 Dose: 20 mg Documented By: MARIE Magnesium Hydroxide (Milk Of Magnesia 30 Ml Oral.Susp) 30 ml PO DAILY PRN PRN Reason: Constipation Melatonin (Melatonin 3 Mg Tablet) 6 mg PO BEDTIME PRN PRN Reason: Insomnia Ondansetron HCl (Ondansetron Hcl 4 Mg/2 Ml Vial) 4 mg IVPUSH Q8H PRN PRN Reason: Nausea and Vomiting Oxycodone HCl (Oxycodone Hcl Immed Release 5 Mg Tablet) 5 mg PO Q6H PRN PRN Reason: Pain, Severe (Pain Scale 7-10) Pantoprazole Sodium (Pantoprazole Sodium 40 Mg/10 Ml Vial) 40 mg IVPUSH DAILY@0630 [facility] Last Admin: 04/29/25 08:19 Dose: 40 mg Documented By: MARIE Sodium Chloride (0.9 % Sodium Chloride Flush 3 Ml Syringe) 3 ml IVFLUSH QSHIFT [facility] Last Admin: 04/29/25 08:23 Dose: 3 ml Documented By: MARIE Labs 04/28/25 05:51 04/28/25 05:51 Labs: Laboratory Results - last 24 hr 04/28/25 04/29/25 21:31 03:30 aPTT Heparin Protocol 65.5 D 67.3 Microbiology Microbiology Results: Microbiology 04/27/25 14:24 Blood Culture - Preliminary Blood - Venous No growth after 24 hours. 04/27/25 14:24 Blood Culture - Preliminary Blood - Venous No growth after 24 hours. Procedures Date of Service Date of Service: 04/29/25 Progress Note: A&P Assessment and plan (1) Diverticulitis: Status: Acute Assessment and Plan: pt anticoagulated on heparin drip with diverticulitis - some clot material passing with stool today hemodynamics good - says red color - pt to stay liquids, iv antibx cont with heparin drip. will check H&H tomorrow Time Spent With Patient Time: Total time managing care of this patient today ____ minutes. Quality Stroke Does the patient have a stroke diagnosis?: No VTE Prior VTE?: Yes VTE Risk Level:: Surgical - very high VTE Device Contraindication: N/A - Device Ordered VTE Drug Contraindication: Treatment Not Indicated
[2025-04-29 20:00] VITALS: BP 146/82; PULSE 84; RESP 16; TEMP 37.1; O2SAT 97
[2025-04-30] MEDS: Heparin Sodium,Porcine/1/2NS 25,000 UNIT/250 ML IV.SOLN 13.83 UNIT IVCONT (03:10)
[2025-04-30 03:40] LABS: Hematocrit 29.7 % (37.0-47.0); Hemoglobin 9.8 g/dl (12.0-16.0)
[2025-04-30 03:45] VITALS: BP 155/84; PULSE 77; RESP 16; TEMP 36; O2SAT 96
[2025-04-30 03:48] LABS: PTT Heparin Drip 78.7 SEC (53-77.9)
[2025-04-30] MEDS: metroNIDAZOLE/NS 500 MG/100 ML PIGGYBACK 100 MG IV (05:48)
[2025-04-30 07:40] VITALS: BP 174/76; PULSE 76; RESP 18; TEMP 36.4; O2SAT 98
[2025-04-30 09:49] LABS: PTT Heparin Drip 54.9 SEC (53-77.9)
--- NOTE | 2025-04-30 10:07 | PC.NURSE ---
PTT at 9:30 per lab 54.9 requiring no change to heparin drip rate. Will remain at 16 units/kg/hr - 12.29 ml/hr . Next lab draw for PTT at 1530 today.
--- NOTE | 2025-04-30 11:05 | P.PNHO-ONC_ITS ---
Medical Summary - Medical Summary Date of Service: 04/30/25 Primary Care Provider: Dennis Hsu [facility] Manuscript Editor Utilized?: No - Croatian Speaking Interval History Interval history: Krista Liu is a 69 year old female with past medical history significant for recurrent left lower extremity DVT who is currently admitted for probable perforated diverticulitis. She had 2-3 weeks of lower abdominal pain associated with intermittent bloody diarrhea. She had night sweats, intermittent vomiting and hematuria. She had a CT scan of her abdomen which was concerning for perforated diverticulitis. She was started on antibiotics and admitted to the surgical service. She is being managed conservatively with bowel rest and IV antibiotics. She reports improvement in abdominal pain. Her Eliquis has been stopped and she is on heparin drip. She is having intermittent hematochezia of low volume. Will watch carefully. If this increases, sto;p heparin. [facility] Medical History: Medical History (Last Reviewed 04/28/25 @ 16:24 by Cher He MD) ASCUS (atypical squamous cells of undetermined significance) on gynecologic Papanicolaou smear complicating , antepartum Cervical carcinoma JACQUE I (cervical intraepithelial neoplasia I) DDD (degenerative disc disease), lumbar Depression DVT (deep venous thrombosis) HTN (hypertension) Hyperlipemia Leukopenia Osteopenia Rheumatoid arthritis Seropositive rheumatoid arthritis Family History: Family History (Last Reviewed 04/28/25 @ 16:24 by Cher He MD) Mother Colon cancer metastasized to multiple sites HTN (hypertension) Substance use disorder Maternal Aunt Breast cancer Father HTN (hypertension) Substance use disorder Brother HTN (hypertension) Heart attack Enlarged heart Brain aneurysm Brother HTN (hypertension) Sister HTN (hypertension) Sister HTN (hypertension) Sister HTN (hypertension) Family history: reviewed and not pertinent Surgical History: Surgical History (Last Reviewed 04/28/25 @ 16:24 by Cher He MD) History of back surgery History of bunionectomy of both great toes History of esophagogastroduodenoscopy (EGD) Hx of colonoscopy S/P biopsy of cervix S/P lumbar microdiscectomy Social History: Social History (Last Reviewed 04/28/25 @ 16:24 by Cher He MD) Living Situation History: Household Members: Spouse Housing: Apartment Are you a primary adult live in caregiver to a significant other at home: No Do you presently have visiting nurse or other home services: No Tobacco History: Patient Tobacco Use Status: Former Tobacco user Tobacco use type: Cigarette Years Smoked: 40 years ago e-Cigarette/Vaping Use: Never Used Second Hand Smoke Exposure: No Occupation Assessmet: service: No Current occupational status: employed 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 Current occupational exposures/hazards: No Home Medications and Allergies Current Medications: Current Medications Acetaminophen (Acetaminophen 325 Mg Tablet) 650 mg PO Q6H PRN PRN Reason: Pain, Mild 1-3,fever,headache Last Admin: 04/30/25 08:54 Dose: 650 mg Buspirone HCl (Buspirone Hcl 5 Mg Tablet) 5 mg PO BID [facility] Last Admin: 04/30/25 08:44 Dose: 5 mg Calcium Carbonate (Calcium Carbonate 750 Mg Tab.Chew) 750 mg PO Q4H PRN PRN Reason: Heartburn Heparin Sodium (Porcine) (Heparin Sodium,Porcine 5,000 Unit/Ml Vial) 3,100 unit 40 unit/kg (3100 unit) IVPUSH PROTOCOL BOLUS PRN; Protocol PRN Reason: 40 unit/kg - Heparin Protocol Last Admin: 04/28/25 15:48 Dose: 3,100 unit Heparin Sodium (Porcine) (Heparin Sodium,Porcine 5,000 Unit/Ml Vial) 6,100 unit 80 unit/kg (6100 unit) IVPUSH PROTOCOL BOLUS PRN; Protocol PRN Reason: 80 unit/kg - Heparin Protocol Heparin Sodium/Sodium Chloride (Heparin Sodium,Porcine/1/2ns) 25,000 unit in 250 mls @ 0 mls/hr IVCONT .Q0M [facility]; Protocol Last Titration: 04/30/25 10:03 Dose: 16 units/kg/hr, 12.29 mls/hr Aztreonam 1 gm/ Sodium (Chloride) 50 mls @ 100 mls/hr IV Q8H [facility] Last Admin: 04/30/25 10:11 Dose: 100 mls/hr Lisinopril (Lisinopril 20 Mg Tablet) 20 mg PO DAILY [facility]; Protocol Last Admin: 04/30/25 08:44 Dose: 20 mg Magnesium Hydroxide (Milk Of Magnesia 30 Ml Oral.Susp) 30 ml PO DAILY PRN PRN Reason: Constipation Melatonin (Melatonin 3 Mg Tablet) 6 mg PO BEDTIME PRN PRN Reason: Insomnia Metronidazole (Metronidazole 500 Mg Tablet) 500 mg PO Q8H [facility] Ondansetron HCl (Ondansetron Hcl 4 Mg/2 Ml Vial) 4 mg IVPUSH Q8H PRN PRN Reason: Nausea and Vomiting Oxycodone HCl (Oxycodone Hcl Immed Release 5 Mg Tablet) 5 mg PO Q6H PRN PRN Reason: Pain, Severe (Pain Scale 7-10) Pantoprazole Sodium (Pantoprazole Sodium 40 Mg/10 Ml Vial) 40 mg IVPUSH DAILY@0630 [facility] Last Admin: 04/30/25 05:42 Dose: 40 mg Sodium Chloride (0.9 % Sodium Chloride Flush 3 Ml Syringe) 3 ml IVFLUSH QSHIFT [facility] Last Admin: 04/30/25 07:03 Dose: Not Given Home Medications ?Medication ?Instructions ?Recorded ?Confirmed ?Type acetaminophen 500 mg tablet 1,000 mg PO Q6H PRN Pain 07/02/21 History (Tylenol Extra Strength) folic acid 1 mg tablet 1 mg PO DAILY 04/03/25 04/27/25 History pantoprazole 40 mg tablet,delayed 40 mg PO DAILY@1630 04/27/25 04/27/25 Hi story release Allergies Allergy/AdvReac Type Severity Reaction Status Date / Time penicillin G (PENICILLIN G) Allergy Severe ANAPHYLAXIS Verified 04/27/25 10:45 Exam Vital signs: Vital Signs Temp 97.6 F 04/30/25 07:40 Pulse 76 04/30/25 07:40 Resp 18 04/30/25 07:40 BP 174/76 H 04/30/25 07:40 Pulse Ox 98 04/30/25 07:40 O2 Del Method Room Air 04/30/25 07:40 Intake & Output 04/29/25 04/30/25 04/30/25 18:59 06:59 18:59 Intake Total 1930.583 / 2862.750 932.167 / 2862.750 172.716 / 172.716 Balance 1930.583 / 2862.750 932.167 / 2862.750 172.716 / 172.716 Intake: Intake, Oral Amount 600 / 1080 480 / 1080 Intake, IV Amount 1330.583 / 1782.750 452.167 / 1782.750 172.716 / 172.716 Aztreonam 1 gm In 0.9 % Sodium 50 / 150 100 / 150 Chloride 50 ml @ 100 mls/hr IV Q8H [facility] Rx#:[id number] metroNIDAZOLE/NS 500 mg In 100 200 / 300 100 / 300 100 / 100 ml @ 100 mls/hr IV Q8H [facility] Rx#: [id number] Dextrose 5 % and 0.45 % NaCl 1, 1000 / 1000 000 ml @ 100 mls/hr IVCONT . Q10H [facility] Rx#:[id number] Heparin Sodium,Porcine/1/2NS 25 80.583 / 332.750 252.167 / 332.750 72.716 / 72.716 ,000 unit In 250 ml @ Per Protocol IVCONT .Q0M [facility] Rx#: [id number] Other: Meal Refused No NPO No Eating (Feeding) Ability Independent Number of Unmeasured Voids 2 1 Urine Bathroom Bathroom Last Bowel Movement 04/29/25 04/30/25 Weight 73.2 kg BMI result Body Mass Index 29.5 - Constitutional Present: no acute distress, obese - Routine HEENT Exam Head: Present: atraumatic, normal inspection - Routine Neck Exam Present: full ROM - Routine Respiratory Exam Present: decreased breath sounds, CTAB - Routine Cardiovascular Exam Cardiovascular: Present: RRR, S1, S2 - Routine Abdominal Exam Present: diminished bowel sounds, soft - Routine Extremities Exam Absent: calf tenderness - Routine Skin Exam Present: intact Data - Labs CBC & Chem 7: 04/30/25 03:32 04/28/25 05:51 - Imaging Radiologist's impression: ITS Impressions Abdomen/Pelvis CT 04/27/25 12:56 IMPRESSION: *Sigmoid diverticulosis. Hypodense focus associated with the anterior/right side of the sigmoid colon, measuring 4.8 x 3.4 x 4.7 cm. (Hounsfield units 6). There is associated inflammatory changes present. Findings are suggestive of diverticulitis,, phlegmon/abscess or a combination of these. There are multiple foci of air in the hypodense region, region of inflammatory changes,, which raises concern for possible bowel perforation, pneumoperitoneum. Recommend surgical consultation. *Diverticulosis of the transverse, descending and sigmoid colon otherwise, with wall thickening which could be related to lack of distention or colitis. Given the clinical history of rectal bleeding, recommend follow-up workup such as colonoscopy to exclude neoplasm. *Hepatic steatosis. *Splenomegaly. *Redemonstrated haziness of the central mesentery with small lymph nodes. Findings similar to previous. This is nonspecific, could represent panniculitis. This result was discussed with and 1:50 PM on 04/27/2025 * Fleischner guidelines were followed. Electronically signed by: Dallas Greenberg MD 04/27/2025 01:54 PM [facility] [place] and Plan Patient Active problem list reviewed?: Yes (1) Diverticulitis Status: Acute Assessment and plan: She is appropriately anticoagulated with the heparin infusion. She reports some rectal bleeding yesterday but none today. She is medically stable with normal vital signs. She says the abdominal pain is beginning to be slightly better. Recommend continuing current therapy. Will need to closely monitor for significant lower GI bleeding. - Time Spent With Patient Time Spent with Patient (in minutes): 15
--- NOTE | 2025-04-30 14:43 | PM.PNGS ---
Subjective Subjective Date of Service: 04/30/25 Interval history: Patient this morning was having a lot of abdominal pain secondary to passing gas and being crampy but feeling much improved in the afternoon. Denies any fevers or chills. She is passing more gas and her abdomen feels comfortable. She is definitely less tender in the lower abdomen. No fevers or chills. She has not passed any blood again Physical Exam Vital Signs: Vital Signs: Last Vital Signs Temp 97.6 F 04/30/25 07:40 Pulse 76 04/30/25 07:40 Resp 18 04/30/25 07:40 BP 174/76 H 04/30/25 07:40 Pulse Ox 98 04/30/25 07:40 O2 Del Method Room Air 04/30/25 07:40 BMI result Body Mass Index 29.5 Const: General: cooperative, healthy appearing, comfortable and no acute distress GI: Other: Abdomen is soft mildly tender to deep palpation in the left lower quadrant to suprapubic area no guarding no rebound no peritoneal sign Objective Data Active Medications Acetaminophen (Acetaminophen 325 Mg Tablet) 650 mg PO Q6H PRN PRN Reason: Pain, Mild 1-3,fever,headache Last Admin: 04/30/25 08:54 Dose: 650 mg Documented By: MARIE Buspirone HCl (Buspirone Hcl 5 Mg Tablet) 5 mg PO BID [facility] Last Admin: 04/30/25 08:44 Dose: 5 mg Documented By: MARIE Calcium Carbonate (Calcium Carbonate 750 Mg Tab.Chew) 750 mg PO Q4H PRN PRN Reason: Heartburn Heparin Sodium (Porcine) (Heparin Sodium,Porcine 5,000 Unit/Ml Vial) 3,100 unit 40 unit/kg (3100 unit) IVPUSH PROTOCOL BOLUS PRN; Protocol PRN Reason: 40 unit/kg - Heparin Protocol Last Admin: 04/28/25 15:48 Dose: 3,100 unit Documented By: BETTYE Heparin Sodium (Porcine) (Heparin Sodium,Porcine 5,000 Unit/Ml Vial) 6,100 unit 80 unit/kg (6100 unit) IVPUSH PROTOCOL BOLUS PRN; Protocol PRN Reason: 80 unit/kg - Heparin Protocol Heparin Sodium/Sodium Chloride (Heparin Sodium,Porcine/1/2ns) 25,000 unit in 250 mls @ 0 mls/hr IVCONT .Q0M [facility]; Protocol Last Titration: 04/30/25 10:03 Dose: 16 units/kg/hr, 12.29 mls/hr Documented By: MARIE Co-signed By: JUANITA Aztreonam 1 gm/ Sodium (Chloride) 50 mls @ 100 mls/hr IV Q8H [facility] Last Infusion: 04/30/25 11:10 Dose: Infused Documented By: MARIE Lisinopril (Lisinopril 20 Mg Tablet) 20 mg PO DAILY [facility]; Protocol Last Admin: 04/30/25 08:44 Dose: 20 mg Documented By: MARIE Magnesium Hydroxide (Milk Of Magnesia 30 Ml Oral.Susp) 30 ml PO DAILY PRN PRN Reason: Constipation Melatonin (Melatonin 3 Mg Tablet) 6 mg PO BEDTIME PRN PRN Reason: Insomnia Metronidazole (Metronidazole 500 Mg Tablet) 500 mg PO Q8H [facility] Last Admin: 04/30/25 13:54 Dose: 500 mg Documented By: MARIE Ondansetron HCl (Ondansetron Hcl 4 Mg/2 Ml Vial) 4 mg IVPUSH Q8H PRN PRN Reason: Nausea and Vomiting Oxycodone HCl (Oxycodone Hcl Immed Release 5 Mg Tablet) 5 mg PO Q6H PRN PRN Reason: Pain, Severe (Pain Scale 7-10) Pantoprazole Sodium (Pantoprazole Sodium 40 Mg/10 Ml Vial) 40 mg IVPUSH DAILY@0630 [facility] Last Admin: 04/30/25 05:42 Dose: 40 mg Documented By: DENISE Sodium Chloride (0.9 % Sodium Chloride Flush 3 Ml Syringe) 3 ml IVFLUSH QSHIFT [facility] Last Admin: 04/30/25 07:03 Dose: Not Given Documented By: MARIE Non-Admin Reason: IV Running Labs 04/30/25 03:32 04/28/25 05:51 Labs: Laboratory Results - last 24 hr 04/30/25 04/30/25 03:32 09:26 aPTT Heparin Protocol 78.7 H 54.9 D Microbiology Microbiology Results: Microbiology 04/27/25 14:24 Blood Culture - Preliminary Blood - Venous No growth after 48 hours. 04/27/25 14:24 Blood Culture - Preliminary Blood - Venous No growth after 48 hours. Procedures Date of Service Date of Service: 04/30/25 Progress Note: A&P Assessment and plan (1) Colonic diverticular abscess: Status: Acute Assessment and Plan: 69-year-old female with diverticulitis and history of DVT anticoagulated currently on a heparin drip. Diverticulitis being successfully treated with IV antibiotics and she seems to be improving. No further bleeding per rectum. H&H was stable on today's blood draw. At this point we will slowly advance diet give her some toast with a clear liquids continue with the IV antibiotics. At some point we will want to reimage to ensure that the abscess areas improving. Clinically she is doing better. Time Spent With Patient Time: Total time managing care of this patient today ____ minutes. Quality Stroke Does the patient have a stroke diagnosis?: No VTE Prior VTE?: Yes VTE Risk Level:: Surgical - very high VTE Device Contraindication: N/A - Device Ordered VTE Drug Contraindication: Treatment Not Indicated
[2025-04-30 15:52] LABS: PTT Heparin Drip 57.6 SEC (53-77.9)
[2025-04-30 16:00] VITALS: BP 175/80; PULSE 85; RESP 16; TEMP 36.4; O2SAT 98
[2025-04-30] MEDS: 0.9 % Sodium Chloride Flush 3 ML SYRINGE IVFLUSH (16:59)
[2025-04-30 18:00] VITALS: BP 168/90
[2025-04-30 20:00] VITALS: BP 178/91; PULSE 86; RESP 18; TEMP 36.3; O2SAT 97
[2025-04-30] MEDS: Heparin Sodium,Porcine/1/2NS 25,000 UNIT/250 ML IV.SOLN 12.29 UNIT IVCONT (22:43)
[2025-05-01 02:28] VITALS: BP 157/77; PULSE 78; RESP 16; TEMP 36.8; O2SAT 97
[2025-05-01 06:42] LABS: PTT Heparin Drip 64.5 SEC (53-77.9)
[2025-05-01 07:32] VITALS: BP 145/65; PULSE 86; RESP 16; TEMP 36.7; O2SAT 96
--- NOTE | 2025-05-01 07:48 | P.PNGS_ITS ---
<Statement entered by Jesús Farris MD - 05/01/25 15:03> Patient seen and examined events reviewed agree with findings, assessment and plan in note. I had a discussion with the patient and her daughter Karla. We reviewed the fact that when the patient eats she then developed abdominal cramping and diarrhea. White blood cell count not checked today but patient is afebrile and clinically improved. Because of her continued abdominal symptoms I told the patient I would like her to back down to a clear liquid diet and continue antibiotic therapy. Investigations are being pursued to try and determine the etiology behind her recurrent lower extremity deep venous thromboses. Be that as it may her current condition precludes long-term anticoagulation. If a mechanical etiology for her clotting issue is not discovered and amended then the next step would be an IVC filter to prevent pulmonary embolism. I reviewed this with both the patient and her daughter today and they indicated they understood the line of reasoning and agreed. We will continue antibiotic therapy, back patient down to a clear liquid diet and monitor her response. Subjective Subjective Date of Service: 05/01/25 Interval history: feeling better each day. Pain 3/10 at rest in lower abdomen. denies nausea, vomiting. No further bowel movements. states her last two have had blood, one was more like ditch inspector red jelly and one was much darker. Physical Exam 2 Vital Signs: Vital Signs: Last Vital Signs Temp 98.0 F 05/01/25 07:32 Pulse 86 05/01/25 07:32 Resp 16 05/01/25 07:32 BP 145/65 H 05/01/25 07:32 Pulse Ox 96 05/01/25 07:32 O2 Del Method Room Air 05/01/25 07:32 BMI result Body Mass Index 29.5 Const: General: comfortable and no acute distress O rientation/consciousness: patient oriented x3 Resp: Effort & Inspection: normal respiratory effort and able to speak in complete sentences GI: Inspection: No distended Palpation (GI): Soft to palpation, Tenderness to palpation present (GI) suprapubicly and no guarding Neuro: General: patient oriented x3 Objective Data Active Medications Acetaminophen (Acetaminophen 325 Mg Tablet) 650 mg PO Q6H PRN PRN Reason: Pain, Mild 1-3,fever,headache Last Admin: 04/30/25 08:54 Dose: 650 mg Documented By: MARIE Buspirone HCl (Buspirone Hcl 5 Mg Tablet) 5 mg PO BID [facility] Last Admin: 04/30/25 21:05 Dose: 5 mg Documented By: MARCELL Calcium Carbonate (Calcium Carbonate 750 Mg Tab.Chew) 750 mg PO Q4H PRN PRN Reason: Heartburn Heparin Sodium (Porcine) (Heparin Sodium,Porcine 5,000 Unit/Ml Vial) 3,100 unit 40 unit/kg (3100 unit) IVPUSH PROTOCOL BOLUS PRN; Protocol PRN Reason: 40 unit/kg - Heparin Protocol Last Admin: 04/28/25 15:48 Dose: 3,100 unit Documented By: BETTYE Heparin Sodium (Porcine) (Heparin Sodium,Porcine 5,000 Unit/Ml Vial) 6,100 unit 80 unit/kg (6100 unit) IVPUSH PROTOCOL BOLUS PRN; Protocol PRN Reason: 80 unit/kg - Heparin Protocol Heparin Sodium/Sodium Chloride (Heparin Sodium,Porcine/1/2ns) 25,000 unit in 250 mls @ 0 mls/hr IVCONT .Q0M [facility]; Protocol Last Titration: 05/01/25 06:53 Dose: 16 units/kg/hr, 12.29 mls/hr Documented By: MARIE Co-signed By: MARCELL Aztreonam 1 gm/ Sodium (Chloride) 50 mls @ 100 mls/hr IV Q8H [facility] Last Infusion: 05/01/25 02:28 Dose: Infused Documented By: MARCELL Lisinopril (Lisinopril 20 Mg Tablet) 20 mg PO DAILY [facility]; Protocol Last Admin: 04/30/25 08:44 Dose: 20 mg Documented By: MARIE Magnesium Hydroxide (Milk Of Magnesia 30 Ml Oral.Susp) 30 ml PO DAILY PRN PRN Reason: Constipation Melatonin (Melatonin 3 Mg Tablet) 6 mg PO BEDTIME PRN PRN Reason: Insomnia Metronidazole (Metronidazole 500 Mg Tablet) 500 mg PO Q8H [facility] Last Admin: 05/01/25 05:36 Dose: 500 mg Documented By: MARCELL Ondansetron HCl (Ondansetron Hcl 4 Mg/2 Ml Vial) 4 mg IVPUSH Q8H PRN PRN Reason: Nausea and Vomiting Oxycodone HCl (Oxycodone Hcl Immed Release 5 Mg Tablet) 5 mg PO Q6H PRN PRN Reason: Pain, Severe (Pain Scale 7-10) Sodium Chloride (0.9 % Sodium Chloride Flush 3 Ml Syringe) 3 ml IVFLUSH QSHIFT [facility] Last Admin: 04/30/25 22:46 Dose: Not Given Documented By: MARCELL Non-Admin Reason: IV Running Labs 04/30/25 03:32 04/28/25 05:51 Labs: Laboratory Results - last 24 hr 04/30/25 04/30/25 05/01/25 09:26 15:26 06:17 aPTT Heparin Protocol 54.9 D 57.6 64.5 Procedures Date of Service Date of Service: 05/01/25 Progress Note: A&P Assessment and plan (1) Colonic diverticular abscess: Status: Acute Assessment and Plan: 69-year-old female with diverticulitis and history of DVT anticoagulated currently on a heparin drip. Continuing to treat conservatively with ABX. She is overall improving. Pain controlled at rest, remains mild. No further bowel movements. H&H was stable yesterday. She is mildly tender in the suprapubic area. Advance diet to full liquid diet. Patients lower GI bleeding is likely perpetuated by her home eliquis, now on heparin drip. Recommend holding anticoagulation, if unable to toelrated would recommend IVC filter. Will reach out to [facility] today for their recommendations continue IV abx full liquid diet ambulation as tolerated vasuclar consult Time Spent With Patient Time: Total time managing care of this patient today ____ minutes. Quality Stroke Does the patient have a stroke diagnosis?: No VTE Prior VTE?: Yes VTE Risk Level:: Surgical - very high VTE Device Contraindication: N/A - Device Ordered VTE Drug Contraindication: Treatment Not Indicated
--- NOTE | 2025-05-01 12:27 | PM.CNGS ---
History of Present Illness Consult details Consult date: 05/01/25 Reason for consult: other (dvt) Narrative: Very pleasant 59-year-old female presents for evaluation regarding her DVT. Upon discussion with her her 1st episode of a DVT began in her left lower extremity 46 years ago during the of her 1st child. She developed significant phlebitis and left lower extremity swelling. After that she was treated with what sounds to be Lovenox injections. Over the past 10 12 years she has had DVTs of that left lower extremity when she comes off the anticoagulation she reports significant swelling of the left side and possibly superficial phlebitic vein coming across her abdomen. She now presents to us for evaluation regarding her DVT. Review of Systems Review of Systems: Yes all other systems are reviewed and are negative Constitutional: Constitutional: Reports no additional constitutional complaints ENT: Reports Normal hearing present Cardiovascular: Cardiovascular: Denies chest pain, Denies chest pain at rest, Denies chest pain with activity and Denies pedal edema Respiratory: Respiratory: Denies cough Gastrointestinal: Gastrointestinal: Denies abdominal pain Musculoskeletal: Musculoskeletal: Denies abnormal gait, Denies muscle cramps and Denies radiating pain into limb Integumentary/Breasts: Skin/Breast: Denies skin ulcer and Denies wounds Neurologic: Reports Normal hearing present and Denies abnormal gait Psychiatric: Psychiatric: Reports no additional psychiatric complaints PMFSH Past Medical History Medical History Osteopenia Leukopenia Depression Cervical carcinoma DDD (degenerative disc disease), lumbar JACQUE I (cervical intraepithelial neoplasia I) ASCUS (atypical squamous cells of undetermined significance) on gynecologic Papanicolaou smear complicating , antepartum Seropositive rheumatoid arthritis HTN (hypertension) Rheumatoid arthritis Hyperlipemia DVT (deep venous thrombosis) Family History Family History Mother Colon cancer metastasized to multiple sites HTN (hypertension) Substance use disorder Maternal Aunt Breast cancer Father HTN (hypertension) Substance use disorder Brother HTN (hypertension) Heart attack Enlarged heart Brain aneurysm Brother HTN (hypertension) Sister HTN (hypertension) Sister HTN (hypertension) Sister HTN (hypertension) Family history: reviewed and not pertinent Surgical History Surgical History History of esophagogastroduodenoscopy (EGD) Hx of colonoscopy History of back surgery S/P lumbar microdiscectomy S/P biopsy of cervix History of bunionectomy of both great toes Social History Social History Household Members: Spouse Housing: Apartment Are you a primary home care administrator to a significant other at home: No Do you presently have visiting nurse or other home services: No Alcohol intake: current Alcohol intake frequency: does not drink Alcohol type: beer Patient Tobacco Use Status: Former Tobacco user Tobacco use type: Cigarette Years Smoked: 40 years ago e-Cigarette/Vaping Use: Never Used Second Hand Smoke Exposure: No service: No Current occupational status: employed 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 Current occupational exposures/hazards: No Cognitive needs: No Hearing needs: No Vision needs: No Meds Allergies Allergy/AdvReac Type Severity Reaction Status Date / Time penicillin G (PENICILLIN G) Allergy Severe ANAPHYLAXIS Verified 04/27/25 10:45 Active Medications: Current Medications Acetaminophen (Acetaminophen 325 Mg Tablet) 650 mg PO Q6H PRN PRN Reason: Pain, Mild 1-3,fever,headache Last Admin: 04/30/25 08:54 Dose: 650 mg Buspirone HCl (Buspirone Hcl 5 Mg Tablet) 5 mg PO BID KANDICE Last Admin: 05/01/25 08:51 Dose: 5 mg Calcium Carbonate (Calcium Carbonate 750 Mg Tab.Chew) 750 mg PO Q4H PRN PRN Reason: Heartburn Heparin Sodium (Porcine) (Heparin Sodium,Porcine 5,000 Unit/Ml Vial) 3,100 unit 40 unit/kg (3100 unit) IVPUSH PROTOCOL BOLUS PRN; Protocol PRN Reason: 40 unit/kg - Heparin Protocol Last Admin: 04/28/25 15:48 Dose: 3,100 unit Heparin Sodium (Porcine) (Heparin Sodium,Porcine 5,000 Unit/Ml Vial) 6,100 unit 80 unit/kg (6100 unit) IVPUSH PROTOCOL BOLUS PRN; Protocol PRN Reason: 80 unit/kg - Heparin Protocol Heparin Sodium/Sodium Chloride (Heparin Sodium,Porcine/1/2ns) 25,000 unit in 250 mls @ 0 mls/hr IVCONT .Q0M KANDICE; Protocol Last Titration: 05/01/25 06:53 Dose: 16 units/kg/hr, 12.29 mls/hr Aztreonam 1 gm/ Sodium (Chloride) 50 mls @ 100 mls/hr IV Q8H [facility] Last Infusion: 05/01/25 10:21 Dose: Infused Lisinopril (Lisinopril 20 Mg Tablet) 20 mg PO DAILY [facility]; Protocol Last Admin: 05/01/25 08:51 Dose: 20 mg Magnesium Hydroxide (Milk Of Magnesia 30 Ml Oral.Susp) 30 ml PO DAILY PRN PRN Reason: Constipation Melatonin (Melatonin 3 Mg Tablet) 6 mg PO BEDTIME PRN PRN Reason: Insomnia Metronidazole (Metronidazole 500 Mg Tablet) 500 mg PO Q8H [facility] Last Admin: 05/01/25 05:36 Dose: 500 mg Ondansetron HCl (Ondansetron Hcl 4 Mg/2 Ml Vial) 4 mg IVPUSH Q8H PRN PRN Reason: Nausea and Vomiting Oxycodone HCl (Oxycodone Hcl Immed Release 5 Mg Tablet) 5 mg PO Q6H PRN PRN Reason: Pain, Severe (Pain Scale 7-10) Sodium Chloride (0.9 % Sodium Chloride Flush 3 Ml Syringe) 3 ml IVFLUSH QSHIFT [facility] Last Admin: 05/01/25 08:52 Dose: Not Given Home Medications ?Medication ?Instructions ?Recorded ?Confirmed ?Last Taken ?Type acetaminophen 500 mg tablet 1,000 mg PO Q6H PRN Pain 07/02/21 04/27/25 Unknown History (Tylenol Extra Strength) folic acid 1 mg tablet 1 mg PO DAILY 04/03/25 04/27/25 04/27/25 History pantoprazole 40 mg tablet,delayed 40 mg PO DAILY@1630 04/27/25 04/27/25 04/27/25 History release Physical Exam Vital Signs: Vital Signs: Last Vital Signs Temp 98.0 F 05/01/25 07:32 Pulse 86 05/01/25 07:32 Resp 16 05/01/25 07:32 BP 145/65 H 05/01/25 07:32 Pulse Ox 96 05/01/25 07:32 O2 Del Method Room Air 05/01/25 07:32 BMI result Body Mass Index 29.5 Const: General: cooperative, healthy appearing and comfortable Orientation/consciousness: oriented to person, oriented to place and oriented to time HEENT: Head: Yes normal to inspection Neck: Neck: Yes normal visual inspection Carotids: no bruits Chest: Chest palpation & inspection: normal inspection of the chest Resp: Effort & Inspection: normal respiratory effort and able to speak in complete sentences Auscultation: clear to auscultation bilaterally, no crackles, no rales, no rhonchi and no wheezes Cardio: Other: Bilateral palpable dorsalis pedis pulses Rate: regular rate Rhythm: regular rhythm Heart sounds: S1 normal heart sound present and S2 normal heart sound present Bruits: no carotid bruits Peripheral pulses: Peripheral pulses 2+ throughout GI: Inspection: Yes normal to inspection Skin: Wounds: no wounds Hair: normal Neuro: General: oriented to person, oriented to place and oriented to time Cranial nerves: Yes CN's II-XII intact bilaterally and Yes Normal hearing present Cognition (Neuro): normal cognition Motor exam (neuro): 5/5 motor strength present throughout Extrem: Other: venous exam: +1 edema left lower General: No clubbing, No cyanosis and Yes edema Psych: Appearance: grossly normal Mental Status: mental status grossly normal Speech and movement: Normal speech and movement present Results Labs 04/30/25 03:32 04/28/25 05:51 Labs: Urine 04/27/25 Range/Units 12:06 Urine Color Yellow Urine Appearance Clear Urine pH 5.5 (5.0-9.0) Ur Specific [place] 1.015 (1.005-1.025) Urine Protein Trace (Neg-Trace) mg/dL Urine Glucose (UA) Negative (Negative) mg/dL All other labs normal. Assessment and Plan (1) DVT (deep venous thrombosis): Qualifiers: DVT location: lower extremity Affected thrombotic vein of extremity: femoral Chronicity: chronic Laterality: left Qualified Code(s): I82.512 - Chronic embolism and thrombosis of left femoral vein Status: Chronic (2) May-Thurner syndrome: Status: Acute Plan In short patient has this chronic left lower extremity DVT. Concern here is the ability to anticoagulate she has had a GI bleed with diverticulitis. They are currently managing this conservatively no surgery is being planned for her at the current time. My bigger concern here is this recurrent DVT of the left lower extremity for nearly 46 years. I do think there may be an element of May-Thurner syndrome here. This would need some working up including a left lower extremity venous ultrasound and a more dedicated CT angiogram of the abdomen and pelvis which I have taken the liberty of ordering. In this type of scenario I would like to avoid placing a filter as we may be able to provide intervention to help relieve this chronic swelling and left lower extremity DVT as a source. Once the filter is in place this would complicate the issue. At the current time tolerating a heparin drip. Would continue to monitor H&H. We will follow up on her studies. Thank you for allowing us to assist in her care. Procedures Date of Service Date of Service: 05/01/25
--- NOTE | 2025-05-01 13:33 | P.PNIM_ITS ---
Subjective Subjective Date of Service: 05/01/25 Interval History: No new complaints today. No further bloody stools. Patient on clear liquid diet, eating well. Tolerating antibiotics. Review of Systems Review of Systems: Yes all other systems are reviewed and are negative Physical Exam 2 Exam: Exam: General: A&O x3, oriented to time place person and situation, comfortable, no pain HEENT: Possible Batsheva-Shara rings? Cardiac: S1, S2 auscultated with no S3/4, no MRG. Well perfused. Respiratory: Normal breath sounds auscultated throughout all lung zones, without wheezing, rales. Normal rate. GI/ : No abdominal pain on palpation, no masses or distentions. MSK: Normal ambulation without pain at bony prominences or musculature Neurological: Normal neurological examination on overview, without obvious CN II-XII abnormalities Vital Signs: Vital Signs: Last Vital Signs Temp 98.0 F 05/01/25 07:32 Pulse 86 05/01/25 07:32 Resp 16 05/01/25 07:32 BP 145/65 H 05/01/25 07:32 Pulse Ox 96 05/01/25 07:32 O2 Del Method Room Air 05/01/25 07:32 BMI result Body Mass Index 29.5 Objective Data Active Medications Acetaminophen (Acetaminophen 325 Mg Tablet) 650 mg PO Q6H PRN PRN Reason: Pain, Mild 1-3,fever,headache Last Admin: 04/30/25 08:54 Dose: 650 mg Documented By: MARIE Buspirone HCl (Buspirone Hcl 5 Mg Tablet) 5 mg PO BID KANDICE Last Admin: 05/01/25 08:51 Dose: 5 mg Documented By: MARIE Calcium Carbonate (Calcium Carbonate 750 Mg Tab.Chew) 750 mg PO Q4H PRN PRN Reason: Heartburn Heparin Sodium (Porcine) (Heparin Sodium,Porcine 5,000 Unit/Ml Vial) 3,100 unit 40 unit/kg (3100 unit) IVPUSH PROTOCOL BOLUS PRN; Protocol PRN Reason: 40 unit/kg - Heparin Protocol Last Admin: 04/28/25 15:48 Dose: 3,100 unit Documented By: BETTYE Heparin Sodium (Porcine) (Heparin Sodium,Porcine 5,000 Unit/Ml Vial) 6,100 unit 80 unit/kg (6100 unit) IVPUSH PROTOCOL BOLUS PRN; Protocol PRN Reason: 80 unit/kg - Heparin Protocol Heparin Sodium/Sodium Chloride (Heparin Sodium,Porcine/1/2ns) 25,000 unit in 250 mls @ 0 mls/hr IVCONT .Q0M [facility]; Protocol Last Titration: 05/01/25 06:53 Dose: 16 units/kg/hr, 12.29 mls/hr Documented By: MARIE Co-signed By: MARCELL Aztreonam 1 gm/ Sodium (Chloride) 50 mls @ 100 mls/hr IV Q8H [facility] Last Infusion: 05/01/25 10:21 Dose: Infused Documented By: MARIE Lisinopril (Lisinopril 20 Mg Tablet) 20 mg PO DAILY [facility]; Protocol Last Admin: 05/01/25 08:51 Dose: 20 mg Documented By: MARIE Magnesium Hydroxide (Milk Of Magnesia 30 Ml Oral.Susp) 30 ml PO DAILY PRN PRN Reason: Constipation Melatonin (Melatonin 3 Mg Tablet) 6 mg PO BEDTIME PRN PRN Reason: Insomnia Metronidazole (Metronidazole 500 Mg Tablet) 500 mg PO Q8H [facility] Last Admin: 05/01/25 05:36 Dose: 500 mg Documented By: MARCELL Ondansetron HCl (Ondansetron Hcl 4 Mg/2 Ml Vial) 4 mg IVPUSH Q8H PRN PRN Reason: Nausea and Vomiting Oxycodone HCl (Oxycodone Hcl Immed Release 5 Mg Tablet) 5 mg PO Q6H PRN PRN Reason: Pain, Severe (Pain Scale 7-10) Sodium Chloride (0.9 % Sodium Chloride Flush 3 Ml Syringe) 3 ml IVFLUSH QSHIFT [facility] Last Admin: 05/01/25 08:52 Dose: Not Given Documented By: MARIE Non-Admin Reason: IV Running Labs 04/30/25 03:32 04/28/25 05:51 Labs: Laboratory Results - last 24 hr 04/30/25 05/01/25 15:26 06:17 aPTT Heparin Protocol 57.6 64.5 Assessment and Plan (1) HTN (hypertension): Status: Acute (2) May-Thurner syndrome: Status: Acute (3) DVT (deep venous thrombosis): Status: Chronic (4) Osteopenia: Status: Acute (5) Acid reflux: Status: Acute (6) Chronic diarrhea: Status: Acute (7) Diverticulosis of colon: Status: Acute (8) Diverticulitis: Status: Acute (9) Colonic diverticular abscess: Status: Acute (10) Hyperkalemia: Status: Acute (11) Leukopenia: Status: Acute (12) half-way methotrexate user: Status: Acute (13) Seropositive rheumatoid arthritis: Status: Acute (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 Perforated diverticulitis Supplemented GI bleeding Management as per surgical team. Conservative management currently underway. No NG tube in place. Patient has soft abdomen, nontender. Small episode of GI bleeding this morning, that was self-limited and non concerning and quantity. We will continue to monitor closely especially given patient is on heparin drip Maintain active type and screen Monitor CBC Diverticular abscess Infectious diseases has been consulted on the patient. Recommendations greatly appreciated Currently patient is on aztreonam (due to penicillin allergy) Patient currently on metronidazole Recommendations on duration of IV antibiotics and transitioned to oral antibiotics as per Infectious diseases Recurrent left lower extremity DVT On apixaban Normally on apixaban at home. This was discontinued on admission, and patient was started on heparin drip. No concerning features at this time Hematology oncology currently following-recommendations greatly appreciated Monitor CBC Maintain active type and screen Rheumatoid arthritis Felty syndrome Was previously on methotrexate, currently on hold We will clarify the medication with the patient further Currently on leflunomide; this is on hold at the moment given presence of abscess HTN Lisinopril on hold - Can be resumed HLD Hold atorvastatin 10 mg OD p.o - can be resumed in oputpatient setting MDD Continue buspirone 5 mg b.i.d. p.o. GERD Continue PPI QUALITY [employer] - VTE: Heparin drip - CODE STATUS: Full code - DIET: Clear liquid diet Thank you for involving us on this patient's care. We will continue to follow up with you. Total time managing care of this patient today: 35 minutes. Quality Stroke Does the patient have a stroke diagnosis?: No VTE Prior VTE?: Yes VTE Risk Level:: Surgical - very high VTE Device Contraindication: N/A - Device Ordered VTE Drug Contraindication: Treatment Not Indicated
--- NOTE | 2025-05-01 15:01 | MHC.CLN ---
CONSULT CONSULT FOR FOODS TOO SWEET . VISITED WITH PATIENT AND HER DAUGHTER. MANY DISLIKES/INTOLERANCES. REPORTED NO SUGAR, ARTIFICIAL SWEETENER DAIRY (EXCEPT PLAIN YOGURT AND COTTAGE CHEESE), DELGADO AND ORANGE FLAVORS. THIS LIST AND OTHER ITEMS SENT TO DINING SERVICES AND DISCUSSED WITH DINING CUTTER INSPECTOR. CURRENT DIET RX: FULL LIQUIDS. MONITOR FOR DIET ADVANCEMENT AND DIET TOLERANCE.
--- NOTE | 2025-05-01 15:45 | P.PNID_ITS ---
Subjective Subjective Date of Service: 05/01/25 Critical Care Time (minutes): 15 Comment: patient feels well and has no complaints of abdominal pain Objective Data Labs 04/30/25 03:32 04/28/25 05:51 Labs: Laboratory Results - last 24 hr 04/30/25 05/01/25 15:26 06:17 aPTT Heparin Protocol 57.6 64.5 Microbiology Microbiology Results: Microbiology 04/27/25 14:24 Blood - Venous Blood Culture - Preliminary No growth after 48 hours. 04/27/25 14:24 Blood - Venous Blood Culture - Preliminary No growth after 48 hours. Physical Exam 2 Vital Signs: Vital Signs: Last Vital Signs Temp 98.0 F 05/01/25 07:32 Pulse 86 05/01/25 07:32 Resp 16 05/01/25 07:32 BP 145/65 H 05/01/25 07:32 Pulse Ox 96 05/01/25 07:32 O2 Del Method Room Air 05/01/25 07:32 BMI result Body Mass Index 29.5 Const: General: cooperative HEENT: Head: Yes normal to inspection Face and sinus: Yes normal facial exam Mouth: Normal oral and palatal mucosa present Teeth and gingiva: d entition normal Eyes: General: appearance normal, both eyes and all related structures P upils: Equal, round and reactive pupils present Resp: Effort & Inspection: normal respiratory effort Cardio: Rate: regular rate Rhythm: regular rhythm GI: Palpation (GI): Soft to palpation and nontender : General: Yes no CVA tenderness Back/Spine/Pelvis: Back: no CVA tenderness Skin: General skin exam: no rashes or lesions noted Neuro: General: moves all extremities Cranial nerves: Yes Equal, round and reactive pupils present Extrem: General: Yes normal to inspection Psych: Appearance: grossly normal Assessment and Plan Assessment and plan (1) Colonic diverticular abscess: Status: Acute Plan Diverticular abscess Day 4 Aztreonam and metronidazole Check CT abdomen and pelvis and if less than or equal to 3.5-4 cm then po Doxycycline and metronidazole for 10 days Time Spent With Patient Time: Total time managing care of this patient today ____ minutes.
--- NOTE | 2025-05-01 15:52 | MHC.CM.PN ---
PER MD ROUNDS, PT MAY BE READY TO DC TOMORROW DCP: HOME VIA PRIVATE TRANSPORT
[2025-05-01 16:13] VITALS: BP 196/91; PULSE 93; RESP 18; TEMP 36.3; O2SAT 96
[2025-05-01 17:35] VITALS: BP 159/90
[2025-05-01] MEDS: 0.9 % Sodium Chloride Flush 3 ML SYRINGE IVFLUSH ×2 (18:03→21:44)
[2025-05-01] MEDS: Heparin Sodium,Porcine/1/2NS 25,000 UNIT/250 ML IV.SOLN 12.29 UNIT IVCONT (18:28)
[2025-05-01] MEDS: iohexoL 350 MG/ML 100 ML INFUS..BTL IV (19:44)
[2025-05-01 20:00] VITALS: BP 159/81; PULSE 92; RESP 18; TEMP 36.4; O2SAT 97
[2025-05-02 03:26] VITALS: BP 156/73; PULSE 87; RESP 14; TEMP 36; O2SAT 97
[2025-05-02 06:06] LABS: Hematocrit 33.4 % (37.0-47.0); Hemoglobin 10.5 g/dl (12.0-16.0); Mean Corpuscular HGB Conc 31.4 g/dl (31.0-35.0); Mean Corpuscular Hemoglobin 26.3 pg (27.0-33.0); Mean Corpuscular Volume 83.7 fL (80.0-98.0); NRBC Abs Auto 0.000 X10*3/uL (0.0-0.012); NRBC Pct Auto 0.0 /100WBC (0.0-0.2); Platelet Count 265 X10*3/uL (160-400); Red Blood Count 3.99 X10*6/uL (4.20-5.50)
[2025-05-02 06:08] LABS: White Blood Count 1.5 X10*3/uL (4.8-10.8)
[2025-05-02 06:13] LABS: PTT Heparin Drip 76.3 SEC (53-77.9)
[2025-05-02 07:14] VITALS: BP 178/87; PULSE 92; RESP 18; TEMP 36.7; O2SAT 98
--- NOTE | 2025-05-02 07:49 | P.PNGS_ITS ---
<Statement entered by Jesús Farris MD - 05/02/25 15:43> Patient reports she feels better today and imaging from yesterday is indicative of abscess collection being 2 cm instead of 4. I reviewed with her the fact that were pursuing options for her DVT problem with vascular surgery and she might be that she is amenable to some sort of procedure that affords her the ability to not be on long-term anticoagulation through that service line and/or we will need a IVC filter to prevent pulmonary embolism. Be that as it may we will continue heparin drip, keep her on a clear liquid diet for now as she still has some abdominal discomfort and still is passing some blood per rectum and in the next day or so will start TPN to supplement her nutrition. In the meantime she will continue antibiotic therapy. I explained all of this to her in detail and she indicated that she understood and was happy with the plan as it was outlined to her. Subjective Subjective Date of Service: 05/02/25 Interval history: no acute changes overnight. Still complaining of intermitted abdominal pain, mild. Has had multiple additional bloody bowel movements. Describes them a s dark blood, mixed with stool. denies nausea, vomiting. Physical Exam 2 Vital Signs: Vital Signs: Last Vital Signs Temp 98.1 F 05/02/25 07:14 Pulse 92 05/02/25 07:14 Resp 18 05/02/25 07:14 BP 178/87 H 05/02/25 07:14 Pulse Ox 98 05/02/25 07:14 O2 Del Method Room Air 05/02/25 07:14 BMI result Body Mass Index 29.5 Const: General: comfortable and no acute distress O rientation/consciousness: patient oriented x3 Resp: Effort & Inspection: normal respiratory effort and able to speak in complete sentences GI: Inspection: No distended Palpation (GI): Soft to palpation, Tenderness to palpation present (GI) suprapubicly and no guarding Neuro: General: patient oriented x3 Objective Data Active Medications Acetaminophen (Acetaminophen 325 Mg Tablet) 650 mg PO Q6H PRN PRN Reason: Pain, Mild 1-3,fever,headache Last Admin: 04/30/25 08:54 Dose: 650 mg Documented By: MARIE Buspirone HCl (Buspirone Hcl 5 Mg Tablet) 5 mg PO BID [facility] Last Admin: 05/01/25 21:44 Dose: 5 mg Documented By: MARCELL Calcium Carbonate (Calcium Carbonate 750 Mg Tab.Chew) 750 mg PO Q4H PRN PRN Reason: Heartburn Heparin Sodium (Porcine) (Heparin Sodium,Porcine 5,000 Unit/Ml Vial) 3,100 unit 40 unit/kg (3100 unit) IVPUSH PROTOCOL BOLUS PRN; Protocol PRN Reason: 40 unit/kg - Heparin Protocol Last Admin: 04/28/25 15:48 Dose: 3,100 unit Documented By: BETTYE Heparin Sodium (Porcine) (Heparin Sodium,Porcine 5,000 Unit/Ml Vial) 6,100 unit 80 unit/kg (6100 unit) IVPUSH PROTOCOL BOLUS PRN; Protocol PRN Reason: 80 unit/kg - Heparin Protocol Heparin Sodium/Sodium Chloride (Heparin Sodium,Porcine/1/2ns) 25,000 unit in 250 mls @ 0 mls/hr IVCONT .Q0M [facility]; Protocol Last Titration: 05/02/25 06:20 Dose: 16 units/kg/hr, 12.29 mls/hr Documented By: MARCELL Co-signed By: CAROLYNN Aztreonam 1 gm/ Sodium (Chloride) 50 mls @ 100 mls/hr IV Q8H [facility] Last Infusion: 05/02/25 02:48 Dose: Infused Documented By: MARCELL Lisinopril (Lisinopril 20 Mg Tablet) 20 mg PO DAILY [facility]; Protocol Last Admin: 05/01/25 08:51 Dose: 20 mg Documented By: MARIE Magnesium Hydroxide (Milk Of Magnesia 30 Ml Oral.Susp) 30 ml PO DAILY PRN PRN Reason: Constipation Melatonin (Melatonin 3 Mg Tablet) 6 mg PO BEDTIME PRN PRN Reason: Insomnia Metronidazole (Metronidazole 500 Mg Tablet) 500 mg PO Q8H [facility] Last Admin: 05/02/25 05:28 Dose: 500 mg Documented By: MARCELL Ondansetron HCl (Ondansetron Hcl 4 Mg/2 Ml Vial) 4 mg IVPUSH Q8H PRN PRN Reason: Nausea and Vomiting Oxycodone HCl (Oxycodone Hcl Immed Release 5 Mg Tablet) 5 mg PO Q6H PRN PRN Reason: Pain, Severe (Pain Scale 7-10) Sodium Chloride (0.9 % Sodium Chloride Flush 3 Ml Syringe) 3 ml IVFLUSH QSHIFT [facility] Last Admin: 05/02/25 07:38 Dose: Not Given Documented By: BIJU Non-Admin Reason: IV Running Labs 05/02/25 05:35 04/28/25 05:51 Labs: Laboratory Results - last 24 hr 05/02/25 05:35 MCV 83.7 MCH 26.3 L MCHC 31.4 RDW 14.5 Plt Count 265 MPV 9.7 Absolute Nucleated RBC 0.000 Nucleated RBC % (auto) 0.0 aPTT Heparin Protocol 76.3 Procedures Date of Service Date of Service: 05/02/25 Progress Note: A&P Assessment and plan (1) Colonic diverticular abscess: Status: Acute Assessment and Plan: 69-year-old female with diverticulitis and history of DVT anticoagulated currently on a heparin drip. Continuing to treat conservatively with ABX. She is overall improving. Continues to have mild pain in the lower abdomen. Multiple dark bloody bowel movements. Diet improving, nutrition consult appreciate. Seen by vascular yesterday due to recommendations to DC anticoagulation, possible IVC filter, Dr Reyes working up possible May Thurner Syndrome, ordered CTA and US. US showing left mid and distal femoral vein are not fully compressible, likely represents an old DVT. CTA showing now venous abnormalities. Further recommendations per Dr Reyes. Additionally CT did show some improvement of the Pain controlled at rest, remains mild. No further bowel movements. H&H was stable, improved actually. She is mildly tender in the suprapubic area. Continue clear liquid diet. Recommend holding anticoagulation, if unable to tolerated would recommend IVC filter. Will reach out to Vascular today for their recommendations continue IV abx Clear liquid diet ambulation as tolerated vasuclar consult Time Spent With Patient Time: Total time managing care of this patient today ____ minutes. Quality Stroke Does the patient have a stroke diagnosis?: No VTE Prior VTE?: Yes VTE Risk Level:: Surgical - very high VTE Device Contraindication: N/A - Device Ordered VTE Drug Contraindication: Treatment Not Indicated
--- NOTE | 2025-05-02 10:22 | PM.HEMONCPN ---
Medical Summary - Medical Summary Date of Service: 05/02/25 Chief complaint: Follow-up Primary Care Provider: IRENE Bowens Sales And Service Engineer Utilized?: No - Colombian Speaking Interval History Interval history: Krista Liu is a 69 year old female with past medical history significant for recurrent left lower extremity DVT who is currently admitted for probable perforated diverticulitis. She had 2-3 weeks of lower abdominal pain associated with intermittent bloody diarrhea. She had night sweats, intermittent vomiting and hematuria. She had a CT scan of her abdomen which was concerning for perforated diverticulitis. She was started on antibiotics and admitted to the surgical service. She is being managed conservatively with bowel rest and IV antibiotics. She reports improvement in abdominal pain. Her Eliquis has been stopped and she is on heparin drip. She is having intermittent hematochezia of low volume. Her H&H is stable. Review of Systems - Neurologic Reports hearing normal, Denies abnormal gait PMFSH Medical History: Medical History (Last Reviewed 04/28/25 @ 16:24 by Cher He MD) ASCUS (atypical squamous cells of undetermined significance) on gynecologic Papanicolaou smear complicating , antepartum Cervical carcinoma JACQUE I (cervical intraepithelial neoplasia I) DDD (degenerative disc disease), lumbar Depression DVT (deep venous thrombosis) HTN (hypertension) Hyperlipemia Leukopenia Osteopenia Rheumatoid arthritis Seropositive rheumatoid arthritis Family History: Family History (Last Reviewed 04/28/25 @ 16:24 by Cher He MD) Mother Colon cancer metastasized to multiple sites HTN (hypertension) Substance use disorder Maternal Aunt Breast cancer Father HTN (hypertension) Substance use disorder Brother HTN (hypertension) Heart attack Enlarged heart Brain aneurysm Brother HTN (hypertension) Sister HTN (hypertension) Sister HTN (hypertension) Sister HTN (hypertension) Family history: reviewed and not pertinent Surgical History: Surgical History (Last Reviewed 04/28/25 @ 16:24 by Cher He MD) History of back surgery History of bunionectomy of both great toes History of esophagogastroduodenoscopy (EGD) Hx of colonoscopy S/P biopsy of cervix S/P lumbar microdiscectomy Social History: Social History (Last Reviewed 04/28/25 @ 16:24 by Cher He MD) Living Situation History: Household Members: Spouse Housing: Apartment Are you a primary care provider to a significant other at home: No Do you presently have visiting nurse or other home services: No Tobacco History: Patient Tobacco Use Status: Former Tobacco user Tobacco use type: Cigarette Years Smoked: 40 years ago e-Cigarette/Vaping Use: Never Used Second Hand Smoke Exposure: No Occupation Assessmet: service: No Current occupational status: employed 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 Current occupational exposures/hazards: No Home Medications and Allergies Current Medications: Current Medications Acetaminophen (Acetaminophen 325 Mg Tablet) 650 mg PO Q6H PRN PRN Reason: Pain, Mild 1-3,fever,headache Last Admin: 05/02/25 08:22 Dose: 650 mg Buspirone HCl (Buspirone Hcl 5 Mg Tablet) 5 mg PO BID [facility] Last Admin: 05/02/25 08:17 Dose: 5 mg Calcium Carbonate (Calcium Carbonate 750 Mg Tab.Chew) 750 mg PO Q4H PRN PRN Reason: Heartburn Heparin Sodium (Porcine) (Heparin Sodium,Porcine 5,000 Unit/Ml Vial) 3,100 unit 40 unit/kg (3100 unit) IVPUSH PROTOCOL BOLUS PRN; Protocol PRN Reason: 40 unit/kg - Heparin Protocol Last Admin: 04/28/25 15:48 Dose: 3,100 unit Heparin Sodium (Porcine) (Heparin Sodium,Porcine 5,000 Unit/Ml Vial) 6,100 unit 80 unit/kg (6100 unit) IVPUSH PROTOCOL BOLUS PRN; Protocol PRN Reason: 80 unit/kg - Heparin Protocol Heparin Sodium/Sodium Chloride (Heparin Sodium,Porcine/1/2ns) 25,000 unit in 250 mls @ 0 mls/hr IVCONT .Q0M [facility]; Protocol Last Titration: 05/02/25 06:20 Dose: 16 units/kg/hr, 12.29 mls/hr Aztreonam 1 gm/ Sodium (Chloride) 50 mls @ 100 mls/hr IV Q8H [facility] Last Infusion: 05/02/25 09:55 Dose: Infused Lisinopril (Lisinopril 20 Mg Tablet) 20 mg PO DAILY [facility]; Protocol Last Admin: 05/02/25 08:17 Dose: 20 mg Magnesium Hydroxide (Milk Of Magnesia 30 Ml Oral.Susp) 30 ml PO DAILY PRN PRN Reason: Constipation Melatonin (Melatonin 3 Mg Tablet) 6 mg PO BEDTIME PRN PRN Reason: Insomnia Metronidazole (Metronidazole 500 Mg Tablet) 500 mg PO Q8H [facility] Last Admin: 05/02/25 05:28 Dose: 500 mg Ondansetron HCl (Ondansetron Hcl 4 Mg/2 Ml Vial) 4 mg IVPUSH Q8H PRN PRN Reason: Nausea and Vomiting Oxycodone HCl (Oxycodone Hcl Immed Release 5 Mg Tablet) 5 mg PO Q6H PRN PRN Reason: Pain, Severe (Pain Scale 7-10) Sodium Chloride (0.9 % Sodium Chloride Flush 3 Ml Syringe) 3 ml IVFLUSH QSHIFT [facility] Last Admin: 05/02/25 07:38 Dose: Not Given Home Medications ?Medication ?Instructions ?Recorded ?Confirmed ?Type acetaminophen 500 mg tablet 1,000 mg PO Q6H PRN Pain 07/02/21 04/27/25 History (Tylenol Extra Strength) folic acid 1 mg tablet 1 mg PO DAILY 04/03/25 04/27/25 History pantoprazole 40 mg tablet,delayed 40 mg PO DAILY@1630 04/27/25 04/27/25 History release Allergies Allergy/AdvReac Type Severity Reaction Status Date / Time penicillin G (PENICILLIN G) Allergy Severe ANAPHYLAXIS Verified 04/27/25 10:45 Exam Vital signs: Vital Signs Temp 98.1 F 05/02/25 07:14 Pulse 92 05/02/25 07:14 Resp 18 05/02/25 07:14 BP 178/87 H 05/02/25 07:14 Pulse Ox 98 05/02/25 07:14 O2 Del Method Room Air 05/02/25 07:14 Intake & Output 05/01/25 05/02/25 05/02/25 18:59 06:59 18:59 Intake Total 412.359 / 758.200 345.841 / 758.200 50 / 50 Output Total 600 / 600 Balance -187.641 / 158.200 345.841 / 158.200 50 / 50 Urine Output (Average ml/kg/hr) 0.68 0.68 0.68 Intake: Intake, Oral Amount 220 / 320 100 / 320 Intake, IV Amount 192.359 / 438.200 245.841 / 438.200 50 / 50 Aztreonam 1 gm In 0.9 % Sodium 50 / 150 100 / 150 50 / 50 Chloride 50 ml @ 100 mls/hr IV Q8H [facility] Rx#:[id number] Heparin Sodium,Porcine/1/2NS 25 142.359 / 288.200 145.841 / 288.200 ,000 unit In 250 ml @ Per Protocol IVCONT .Q0M [facility] Rx#: [id number] Output: Output, Urine Amount 600 / 600 Other: NPO Yes Lunch % Eaten 100% Number of Unmeasured Voids 2 1 Number of Bowel Movements 0 Urine Bathroom Bathroom Urine Color Tea Yellow Last Bowel Movement 05/01/25 05/01/25 Weight 73.2 kg BMI result Body Mass Index 29.5 - Constitutional Present: no acute distress, obese - Routine HEENT Exam Head: Present: atraumatic, normal inspection - Routine Neck Exam Present: full ROM - Routine Respiratory Exam Present: decreased breath sounds, CTAB - Routine Cardiovascular Exam Cardiovascular: Present: RRR, S1, S2 - Routine Abdominal Exam Present: diminished bowel sounds, soft - Routine Extremities Exam Absent: calf tenderness - Routine Skin Exam Present: intact Data - Labs CBC & Chem 7: 05/02/25 05:35 04/28/25 05:51 - Imaging Radiologist's impression: ITS Impressions Abdomen/Pelvis CT 04/27/25 12:56 IMPRESSION: *Sigmoid diverticulosis. Hypodense focus associated with the anterior/right side of the sigmoid colon, measuring 4.8 x 3.4 x 4.7 cm. (Hounsfield units 6). There is associated inflammatory changes present. Findings are suggestive of diverticulitis,, phlegmon/abscess or a combination of these. There are multiple foci of air in the hypodense region, region of inflammatory changes,, which raises concern for possible bowel perforation, pneumoperitoneum. Recommend surgical consultation. *Diverticulosis of the transverse, descending and sigmoid colon otherwise, with wall thickening which could be related to lack of distention or colitis. Given the clinical history of rectal bleeding, recommend follow-up workup such as colonoscopy to exclude neoplasm. *Hepatic steatosis. *Splenomegaly. *Redemonstrated haziness of the central mesentery with small lymph nodes. Findings similar to previous. This is nonspecific, could represent panniculitis. This result was discussed with and 1:50 PM on 04/27/2025 * Fleischner guidelines were followed. Electronically signed by: Dallas Greenberg MD 04/27/2025 01:54 PM EST RP Venous Duplex 05/01/25 15:20 IMPRESSION: 1. The left mid and distal femoral vein are not fully compressible, although there is internal color Doppler flow present. This likely represents chronic changes of recannulated old thrombus. 2. There is otherwise no evidence of left lower extremity deep venous thrombosis. Electronically signed by: Ryan Tapia MD 05/01/2025 04:25 PM EST RP Assessment and Plan Patient Active problem list reviewed?: Yes (1) DVT (deep venous thrombosis) Status: Chronic Assessment and plan: 1. This is a 69-year-old woman with past medical history significant for recurrent left lower extremity DVT who is currently admitted for perforated diverticulitis. She presented with abdominal pain and bloody diarrhea, CT abdomen/pelvis revealed diverticulosis with a hypodense focus involving right side of sigmoid colon and surrounding soft tissue measuring 4.7 x 4.8 cm. Multiple air-fluid levels raising concern for possible bowel perforation. She is being managed conservatively with bowel rest and IV antibiotics. She reports improvement in her symptoms. She was taken off Eliquis and switch to unfractionated heparin. H/H is stable. She has been on IV heparin. Past medical history significant for left lower extremity DVT initially diagnosed in December 2018 which occurred in the postoperative setting. In June 2024 patient stopped anticoagulation. Underwent colonoscopy in September 2024 and subsequently developed recurrent left lower extremity DVT. CT angiogram was negative for PE. She was restarted on Eliquis. Because of recurrent clot patient has been recommended long-term anticoagulation. Thrombophilia workup was negative. Patient has been on IV heparin and has had intermittent hematochezia. Venous Doppler performed 05/01/2024 of the left lower extremity showed chronic changes, recannulated old thrombus. CT abdomen showed sigmoid colon diverticulitis with a 2.2 cm extraluminal abscess, stable, hepatic steatosis. At this time, it would be safe to discontinue unfractionated heparin. There is no need for therapeutic level of anticoagulation at this time. She can be put on prophylactic dose of Lovenox 40 mg subcu daily to prevent DVT. Once her rectal bleeding clears completely, she can be started back on Eliquis. - Time Spent With Patient Time Spent with Patient (in minutes): 15 Additional Coding: - Additional E/M codes Complex E/M visit Add On: CPT G2211
[2025-05-02] MEDS: Heparin Sodium,Porcine/1/2NS 25,000 UNIT/250 ML IV.SOLN 12.29 UNIT IVCONT (11:52)
--- NOTE | 2025-05-02 14:57 | HO.PM.IMPN ---
Subjective Subjective Date of Service: 05/02/25 Interval History: No new issues or complaints today. Feels well overall. Surgery and vascular unlikely to perform surgical intervention today. Ceruloplasmin level ordered yesterday returned at 51 Review of Systems Review of Systems: Yes all other systems are reviewed and are negative Physical Exam Exam: Exam: General: A&O x3, oriented to time place person and situation, comfortable, no pain Cardiac: S1, S2 auscultated with no S3/4, no MRG. Well perfused. Respiratory: Normal breath sounds auscultated throughout all lung zones, without wheezing, rales. Normal rate. GI/ : No abdominal pain on palpation, no masses or distentions. MSK: Normal ambulation without pain at bony prominences or musculature Neurological: Normal neurological examination on overview, without obvious CN II-XII abnormalities Vital Signs: Vital Signs: Last Vital Signs Temp 98.1 F 05/02/25 07:14 Pulse 92 05/02/25 07:14 Resp 18 05/02/25 07:14 BP 178/87 H 05/02/25 07:14 Pulse Ox 98 05/02/25 07:14 O2 Del Method Room Air 05/02/25 07:14 BMI result Body Mass Index 29.5 Objective Data Active Medications Acetaminophen (Acetaminophen 325 Mg Tablet) 650 mg PO Q6H PRN PRN Reason: Pain, Mild 1-3,fever,headache Last Admin: 05/02/25 08:22 Dose: 650 mg Documented By: BIJU Buspirone HCl (Buspirone Hcl 5 Mg Tablet) 5 mg PO BID [facility] Last Admin: 05/02/25 08:17 Dose: 5 mg Documented By: BIJU Calcium Carbonate (Calcium Carbonate 750 Mg Tab.Chew) 750 mg PO Q4H PRN PRN Reason: Heartburn Heparin Sodium (Porcine) (Heparin Sodium,Porcine 5,000 Unit/Ml Vial) 3,100 unit 40 unit/kg (3100 unit) IVPUSH PROTOCOL BOLUS PRN; Protocol PRN Reason: 40 unit/kg - Heparin Protocol Last Admin: 04/28/25 15:48 Dose: 3,100 unit Documented By: BETTYE Heparin Sodium (Porcine) (Heparin Sodium,Porcine 5,000 Unit/Ml Vial) 6,100 unit 80 unit/kg (6100 unit) IVPUSH PROTOCOL BOLUS PRN; Protocol PRN Reason: 80 unit/kg - Heparin Protocol Heparin Sodium/Sodium Chloride (Heparin Sodium,Porcine/1/2ns) 25,000 unit in 250 mls @ 0 mls/hr IVCONT .Q0M [facility]; Protocol Last Admin: 05/02/25 11:52 Dose: 16 units/kg/hr, 12.29 mls/hr Documented By: BIJU Co-signed By: TREVIN Aztreonam 1 gm/ Sodium (Chloride) 50 mls @ 100 mls/hr IV Q8H [facility] Last Infusion: 05/02/25 09:55 Dose: Infused Documented By: BIJU Lisinopril (Lisinopril 20 Mg Tablet) 20 mg PO DAILY [facility]; Protocol Last Admin: 05/02/25 08:17 Dose: 20 mg Documented By: BIJU Magnesium Hydroxide (Milk Of Magnesia 30 Ml Oral.Susp) 30 ml PO DAILY PRN PRN Reason: Constipation Melatonin (Melatonin 3 Mg Tablet) 6 mg PO BEDTIME PRN PRN Reason: Insomnia Metronidazole (Metronidazole 500 Mg Tablet) 500 mg PO Q8H [facility] Last Admin: 05/02/25 13:51 Dose: 500 mg Documented By: BIJU Ondansetron HCl (Ondansetron Hcl 4 Mg/2 Ml Vial) 4 mg IVPUSH Q8H PRN PRN Reason: Nausea and Vomiting Oxycodone HCl (Oxycodone Hcl Immed Release 5 Mg Tablet) 5 mg PO Q6H PRN PRN Reason: Pain, Severe (Pain Scale 7-10) Sodium Chloride (0.9 % Sodium Chloride Flush 3 Ml Syringe) 3 ml IVFLUSH QSHIFT [facility] Last Admin: 05/02/25 13:45 Dose: Not Given Documented By: BIJU Non-Admin Reason: Previously Administered Labs 05/02/25 05:35 04/28/25 05:51 Labs: Laboratory Results - last 24 hr 05/01/25 05/02/25 09:28 05:35 MCV 83.7 MCH 26.3 L MCHC 31.4 RDW 14.5 Plt Count 265 MPV 9.7 Absolute Nucleated RBC 0.000 Nucleated RBC % (auto) 0.0 aPTT Heparin Protocol 76.3 Ceruloplasmin 51 H Assessment and Plan (1) Anxiety with depression: Status: Acute (2) Depression: Status: Acute (3) May-Thurner syndrome: Status: Acute (4) HTN (hypertension): Status: Acute (5) DVT (deep venous thrombosis): Status: Chronic (6) Osteopenia: Status: Acute (7) Diverticulosis of colon: Status: Acute (8) Duodenal diverticulum: Status: Acute (9) Diarrhea: Status: Acute (10) Diverticulitis: Status: Acute (11) Colonic diverticular abscess: Status: Acute (12) Leukopenia: Status: Acute (13) Seropositive rheumatoid arthritis: Status: Acute (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 Perforated diverticulitis Supplemented GI bleeding Management as per surgical team. Conservative management currently underway. No NG tube in place. Patient has soft abdomen, nontender. Small episode of GI bleeding this morning, that was self-limited and non concerning and quantity. We will continue to monitor closely especially given patient is on heparin drip Maintain active type and screen Monitor CBC Diverticular abscess Infectious diseases has been consulted on the patient. Recommendations greatly appreciated Currently patient is on aztreonam (due to penicillin allergy) Patient currently on metronidazole Recommendations on duration of IV antibiotics and transitioned to oral antibiotics as per Infectious diseases Recurrent left lower extremity DVT On apixaban Normally on apixaban at home. This was discontinued on admission, and patient was started on heparin drip. No concerning features at this time Hematology oncology currently following-recommendations greatly appreciated Consider transition back to apixaban vs enoxaparin SQ BID inj Rheumatoid arthritis Felty syndrome Was previously on methotrexate, currently on hold We will clarify the medication with the patient further Currently on leflunomide; this is on hold at the moment given presence of abscess HTN Lisinopril on hold - Can be resumed HLD Hold atorvastatin 10 mg OD p.o - can be resumed in oputpatient setting MDD Continue buspirone 5 mg b.i.d. p.o. GERD Continue PPI QUALITY [employer] - VTE: Heparin drip - CODE STATUS: Full code - DIET: Clear liquid diet Thank you for involving us on this patient's care. We will continue to follow up with you. Total time managing care of this patient today: 35 minutes. Quality Stroke Does the patient have a stroke diagnosis?: No VTE Prior VTE?: Yes VTE Risk Level:: Surgical - very high VTE Device Contraindication: N/A - Device Ordered VTE Drug Contraindication: Treatment Not Indicated
--- NOTE | 2025-05-02 15:33 | PC.NURSE ---
informed Md of pt's BP
[2025-05-02 15:35] VITALS: BP 200/112
[2025-05-02 16:00] VITALS: PULSE 80; RESP 17; TEMP 36.8; O2SAT 99
--- NOTE | 2025-05-02 16:15 | HO.VASCPN ---
Subjective Subjective Date of Service: 05/02/25 Patient reports: no new complaints and feels better Interval history: Patient seen and examined. Appears to be doing significantly better. In terms of her diverticulitis she is now on a clear liquid diet and more ambulatory. She did undergo left lower extremity venous ultrasound along with CAT scan. Now for routine vascular follow-up. She complains of minimal discomfort of the left lower extremity. Physical Exam Vital Signs: Vital Signs: Last Vital Signs Temp 98.2 F 05/02/25 16:00 Pulse 80 05/02/25 16:00 Resp 17 05/02/25 16:00 BP 200/112 H 05/02/25 15:35 Pulse Ox 99 05/02/25 16:00 O2 Del Method Room Air 05/02/25 16:00 BMI result Body Mass Index 29.5 Const: General: cooperative, healthy appearing and no acute distress Orientation/consciousness: oriented to person, oriented to place and oriented to time HEENT: Head: Yes normal to inspection Neck: Carotids: no bruits Chest: Chest palpation & inspection: normal inspection of the chest Resp: Effort & Inspection: normal respiratory effort and able to speak in complete sentences Auscultation: clear to auscultation bilaterally Cardio: Rate: regular rate Heart sounds: S1 normal heart sound present and S2 normal heart sound present GI: Inspection: Yes normal to inspection Skin: General skin exam: no rashes or lesions noted Wounds: no wounds Neuro: General: oriented to person, oriented to place, oriented to time and CN's II-XI intact bilaterally Extrem: Other: Plus one edema left greater than right General: Yes normal to inspection, Yes full ROM and Yes no clubbing, cyanosis or edema Psych: Appearance: grossly normal and well kempt Speech and movement: Normal speech and movement present Affect: normal affect Progress Note: A&P Assessment and plan (1) DVT (deep venous thrombosis): Status: Chronic Assessment and Plan: I did have an opportunity to review the ultrasound in an does appear to be more of a chronic DVT. I did have an opportunity to discuss with Hematology-Oncology and both agree that stopping anticoagulation is appropriate. There is no need for a filter at the current time. This was discussed with the patient and she is aware. (2) May-Thurner syndrome: Status: Acute Plan The bigger concern here is that she has May-Thurner syndrome. I did have an opportunity to review the CAT scan reviewed this with Dr. Tapia from Radiology. Clearly the left iliac vein is diminutive and half the size of the right iliac vein. There is definite concern of this May-Thurner in her. At the current time no intervention is required. I would like her to recover and get better from her acute diverticulitis episode. Once that does improve we can follow up with her as an outpatient to discuss potential endovascular interventions inclusive of stenting. Thank you for allowing us to assist in her care. If there are any questions or concerns please do not hesitate to contact us. Time Spent With Patient Time: Total time managing care of this patient today ____ minutes. Procedures Date of Service Date of Service: 05/02/25 Quality Stroke Does the patient have a stroke diagnosis?: No VTE Prior VTE?: Yes VTE Risk Level:: Surgical - very high VTE Device Contraindication: N/A - Device Ordered VTE Drug Contraindication: Treatment Not Indicated
[2025-05-02 19:30] VITALS: BP 162/79; PULSE 93; RESP 16; TEMP 36.2; O2SAT 98
[2025-05-02] MEDS: 0.9 % Sodium Chloride Flush 3 ML SYRINGE IVFLUSH (20:08)
[2025-05-03 03:21] VITALS: BP 176/81; PULSE 85; RESP 17; TEMP 36; O2SAT 97
[2025-05-03 06:03] LABS: PTT Heparin Drip 76.0 SEC (53-77.9)
[2025-05-03 06:08] LABS: Creatinine Clr Calc Pharmacy 79.9; Estimated Glomerular Filt Rate > 60
--- NOTE | 2025-05-03 07:26 | P.PNGS_ITS ---
<Statement entered by Jesús Farris MD - 05/03/25 14:59> Patient seen and examined events reviewed. Patient ambulating at time of visit. She reports she feels ?pretty good?. She still has vague sensation of abdominal pain. She has had no more blood per rectum as far as she can tell it is having loose stools. She is tolerating somewhat of a liquid/soft diet. I told the patient that vascular surgery had plans for stenting of her iliac vein that may alleviate her problems with recurrent lower extremity DVT formation. I added also that I was quite reluctant to send her home on oral anticoagulation (Eliquis) with her still healing the abscess in the wall of her sigmoid colon. I went on to say that I felt her chance of rebleeding was quite high in that scenario and I was reluctant to do it. I told the patient that I felt she warranted observation for at least another couple of days on a soft diet. I added also that I would advocate placement of an IVC filter and then having her go home without Eliquis therapy and accept the risk of DVT formation in that scenario. I feel it is the lesser of 2 potential evils, the other being potentially a high-volume lower GI bleed. She indicated that she understood this liner reasoning also indicated that she agreed with the plan as it was outlined to her. Subjective Subjective Date of Service: 05/03/25 Interval history: no pain at rest. denies nausea, vomiting. no further bloody bowel movements. Have been clear yellow per pt. Physical Exam 2 Vital Signs: Vital Signs: Last Vital Signs Temp 96.8 F 05/03/25 03:21 Pulse 85 05/03/25 03:21 Resp 17 05/03/25 03:21 BP 176/81 H 05/03/25 03:21 Pulse Ox 97 05/03/25 03:21 O2 Del Method Room Air 05/03/25 03:21 BMI result Body Mass Index 29.5 Const: General: comfortable and no acute distress O rientation/consciousness: patient oriented x3 Resp: Effort & Inspection: normal respiratory effort and able to speak in complete sentences GI: Inspection: No distended Palpation (GI): Soft to palpation and nontender Neuro: General: patient oriented x3 Objective Data Active Medications Acetaminophen (Acetaminophen 325 Mg Tablet) 650 mg PO Q6H PRN PRN Reason: Pain, Mild 1-3,fever,headache Last Admin: 05/02/25 08:22 Dose: 650 mg Documented By: BIJU Buspirone HCl (Buspirone Hcl 5 Mg Tablet) 5 mg PO BID [facility] Last Admin: 05/02/25 20:05 Dose: 5 mg Documented By: KASSANDRA Calcium Carbonate (Calcium Carbonate 750 Mg Tab.Chew) 750 mg PO Q4H PRN PRN Reason: Heartburn Heparin Sodium (Porcine) (Heparin Sodium,Porcine 5,000 Unit/Ml Vial) 3,100 unit 40 unit/kg (3100 unit) IVPUSH PROTOCOL BOLUS PRN; Protocol PRN Reason: 40 unit/kg - Heparin Protocol Last Admin: 04/28/25 15:48 Dose: 3,100 unit Documented By: BETTYE Heparin Sodium (Porcine) (Heparin Sodium,Porcine 5,000 Unit/Ml Vial) 6,100 unit 80 unit/kg (6100 unit) IVPUSH PROTOCOL BOLUS PRN; Protocol PRN Reason: 80 unit/kg - Heparin Protocol Hydralazine HCl (Hydralazine Hcl 20 Mg/Ml Vial) 5 mg IVPUSH Q4H PRN; Protocol PRN Reason: hypertension > 180mmHg Last Admin: 05/02/25 15:45 Dose: 5 mg Documented By: BIJU Heparin Sodium/Sodium Chloride (Heparin Sodium,Porcine/1/2ns) 25,000 unit in 250 mls @ 0 mls/hr IVCONT .Q0M [facility]; Protocol Last Admin: 05/02/25 11:52 Dose: 16 units/kg/hr, 12.29 mls/hr Documented By: BIJU Co-signed By: TREVIN Aztreonam 1 gm/ Sodium (Chloride) 50 mls @ 100 mls/hr IV Q8H [facility] Last Infusion: 05/03/25 03:42 Dose: Infused Documented By: KASSANDRA Lisinopril (Lisinopril 20 Mg Tablet) 20 mg PO DAILY [facility]; Protocol Last Admin: 05/02/25 08:17 Dose: 20 mg Documented By: BIJU Magnesium Hydroxide (Milk Of Magnesia 30 Ml Oral.Susp) 30 ml PO DAILY PRN PRN Reason: Constipation Melatonin (Melatonin 3 Mg Tablet) 6 mg PO BEDTIME PRN PRN Reason: Insomnia Metronidazole (Metronidazole 500 Mg Tablet) 500 mg PO Q8H [facility] Last Admin: 05/03/25 05:41 Dose: 500 mg Documented By: KASSANDRA Ondansetron HCl (Ondansetron Hcl 4 Mg/2 Ml Vial) 4 mg IVPUSH Q8H PRN PRN Reason: Nausea and Vomiting Sodium Chloride (0.9 % Sodium Chloride Flush 3 Ml Syringe) 3 ml IVFLUSH QSHIFT [facility] Last Admin: 05/03/25 07:23 Dose: Not Given Documented By: LUL Non-Admin Reason: IV Running Labs 05/02/25 05:35 05/03/25 05:41 Labs: Laboratory Results - last 24 hr 05/01/25 05/03/25 09:28 05:41 Hold Purple Top SEE NOTE aPTT Heparin Protocol 76.0 Estim Creat Clear Calc 79.9 Estimated GFR > 60 Ceruloplasmin 51 H Microbiology Microbiology Results: Microbiology 04/27/25 14:24 Blood Culture - Final Blood - Venous No growth after 5 days. 04/27/25 14:24 Blood Culture - Final Blood - Venous No growth after 5 days. Procedures Date of Service Date of Service: 05/03/25 Progress Note: A&P Assessment and plan (1) Colonic diverticular abscess: Status: Acute Assessment and Plan: 69-year-old female with diverticulitis and history of DVT. Continuing to treat conservatively with ABX. She is much improved today. Denies pain at rest, nausea. has had a small nonbloody bowel movement. Dr Reyes working up possible May Thurner Syndrome, he discussed case with mohini, who believe it is appropriate to hold anticoagulation, no plan for IVC filter at this time. Abdomen is soft and benign. Advance diet to full liquid diet. would slowly advance while continues to imrpove continue IV abx full liquid diet ambulation as tolerated hold anticoagulation per elizabeth Time Spent With Patient Time: Total time managing care of this patient today ____ minutes. Quality Stroke Does the patient have a stroke diagnosis?: No VTE Prior VTE?: Yes VTE Risk Level:: Surgical - very high VTE Device Contraindication: N/A - Device Ordered VTE Drug Contraindication: Treatment Not Indicated
[2025-05-03 07:57] LABS: Hematocrit 31.5 % (37.0-47.0); Hemoglobin 10.2 g/dl (12.0-16.0); Mean Corpuscular HGB Conc 32.4 g/dl (31.0-35.0); Mean Corpuscular Hemoglobin 26.7 pg (27.0-33.0); Mean Corpuscular Volume 82.5 fL (80.0-98.0); NRBC Abs Auto 0.000 X10*3/uL (0.0-0.012); NRBC Pct Auto 0.0 /100WBC (0.0-0.2); Platelet Count 241 X10*3/uL (160-400); Red Blood Count 3.82 X10*6/uL (4.20-5.50); White Blood Count 1.2 X10*3/uL (4.8-10.8)
[2025-05-03 07:58] VITALS: BP 178/82; PULSE 85; RESP 18; TEMP 36.4; O2SAT 98
[2025-05-03 08:11] LABS: Anion Gap 20 (12-20); Blood Urea Nitrogen 5 mg/dL (9-16); Calcium 8.6 mg/dL (8.4-10.2); Carbon Dioxide 13 mmol/L (22-29); Chloride 111 mmol/L (96-108); Creatinine Clr Calc Pharmacy 82.5; Estimated Glomerular Filt Rate > 60; Potassium 3.5 mmol/L (3.3-5.1); Sodium 140 mmol/L (135-145)
[2025-05-03] MEDS: Heparin Sodium,Porcine/1/2NS 25,000 UNIT/250 ML IV.SOLN 12.29 UNIT IVCONT (08:12)
--- NOTE | 2025-05-03 13:27 | HO.PM.IMPN ---
Subjective Subjective Date of Service: 05/03/25 Interval History: Feels well today. No abdominal pain. No rectal bleeding. Patient reports feeling back to clinical baseline Review of Systems Review of Systems: Yes all other systems are reviewed and are negative Physical Exam Exam: Exam: General: A&O x3, oriented to time place person and situation, comfortable, no pain Cardiac: S1, S2 auscultated with no S3/4, no MRG. Well perfused. Respiratory: Normal breath sounds auscultated throughout all lung zones, without wheezing, rales. Normal rate. GI/ : No abdominal pain on palpation, no masses or distentions. MSK: Normal ambulation without pain at bony prominences or musculature Neurological: Normal neurological examination on overview, without obvious CN II-XII abnormalities. Vital Signs: Vital Signs: Last Vital Signs Temp 97.6 F 05/03/25 07:58 Pulse 85 05/03/25 07:58 Resp 18 05/03/25 07:58 BP 178/82 H 05/03/25 07:58 Pulse Ox 98 05/03/25 07:58 O2 Del Method Room Air 05/03/25 07:58 BMI result Body Mass Index 29.5 Objective Data Active Medications Acetaminophen (Acetaminophen 325 Mg Tablet) 650 mg PO Q6H PRN PRN Reason: Pain, Mild 1-3,fever,headache Last Admin: 05/02/25 08:22 Dose: 650 mg Documented By: BIJU Buspirone HCl (Buspirone Hcl 5 Mg Tablet) 5 mg PO BID [facility] Last Admin: 05/03/25 08:10 Dose: 5 mg Documented By: LUL Calcium Carbonate (Calcium Carbonate 750 Mg Tab.Chew) 750 mg PO Q4H PRN PRN Reason: Heartburn Doxycycline Monohydrate (Doxycycline Monohydrate 100 Mg Capsule) 100 mg PO Q12H [facility] Last Admin: 05/03/25 08:19 Dose: 100 mg Documented By: LUL Heparin Sodium (Porcine) (Heparin Sodium,Porcine 5,000 Unit/Ml Vial) 3,100 unit 40 unit/kg (3100 unit) IVPUSH PROTOCOL BOLUS PRN; Protocol PRN Reason: 40 unit/kg - Heparin Protocol Last Admin: 04/28/25 15:48 Dose: 3,100 unit Documented By: HO.MCGINNM Heparin Sodium (Porcine) (Heparin Sodium,Porcine 5,000 Unit/Ml Vial) 6,100 unit 80 unit/kg (6100 unit) IVPUSH PROTOCOL BOLUS PRN; Protocol PRN Reason: 80 unit/kg - Heparin Protocol Hydralazine HCl (Hydralazine Hcl 20 Mg/Ml Vial) 5 mg IVPUSH Q4H PRN; Protocol PRN Reason: hypertension > 180mmHg Last Admin: 05/02/25 15:45 Dose: 5 mg Documented By: BIJU Heparin Sodium/Sodium Chloride (Heparin Sodium,Porcine/1/2ns) 25,000 unit in 250 mls @ 0 mls/hr IVCONT .Q0M [facility]; Protocol Last Admin: 05/03/25 08:12 Dose: 16 units/kg/hr, 12.29 mls/hr Documented By: LUL Co-signed By: FAUSTO Lisinopril (Lisinopril 20 Mg Tablet) 20 mg PO DAILY [facility]; Protocol Last Admin: 05/03/25 08:10 Dose: 20 mg Documented By: LUL Magnesium Hydroxide (Milk Of Magnesia 30 Ml Oral.Susp) 30 ml PO DAILY PRN PRN Reason: Constipation Melatonin (Melatonin 3 Mg Tablet) 6 mg PO BEDTIME PRN PRN Reason: Insomnia Metronidazole (Metronidazole 500 Mg Tablet) 500 mg PO Q8H [facility] Last Admin: 05/03/25 05:41 Dose: 500 mg Documented By: KASSANDRA Ondansetron HCl (Ondansetron Hcl 4 Mg/2 Ml Vial) 4 mg IVPUSH Q8H PRN PRN Reason: Nausea and Vomiting Sodium Chloride (0.9 % Sodium Chloride Flush 3 Ml Syringe) 3 ml IVFLUSH QSHIFT [facility] Last Admin: 05/03/25 07:23 Dose: Not Given Documented By: LUL Non-Admin Reason: IV Running Labs 05/03/25 07:41 05/03/25 07:41 Labs: Laboratory Results - last 24 hr 05/03/25 05/03/25 05:41 07:41 MCV 82.5 MCH 26.7 L MCHC 32.4 RDW 14.6 Plt Count 241 MPV 9.6 Absolute Nucleated RBC 0.000 Nucleated RBC % (auto) 0.0 Hold Purple Top SEE NOTE aPTT Heparin Protocol 76.0 Anion Gap 20 Estim Creat Clear Calc 79.9 82.5 Estimated GFR > 60 > 60 Random Glucose 65 Calcium 8.6 Microbiology Microbiology Results: Microbiology 04/27/25 14:24 Blood Culture - Final Blood - Venous No growth after 5 days. 04/27/25 14:24 Blood Culture - Final Blood - Venous No growth after 5 days. 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 Perforated diverticulitis Supplemented GI bleeding Management as per surgical team. Conservative management currently underway. No NG tube in place. Patient has soft abdomen, nontender. Small episode of GI bleeding this morning, that was self-limited and non concerning and quantity. We will continue to monitor closely especially given patient is on heparin drip Maintain active type and screen Monitor CBC Diverticular abscess Infectious diseases has been consulted on the patient. Recommendations greatly appreciated Currently patient is on aztreonam (due to penicillin allergy) Patient currently on metronidazole Recommendations on duration of IV antibiotics and transitioned to oral antibiotics as per Infectious diseases May-Thurner syndrome (left) Recurrent left lower extremity DVT On apixaban Normally on apixaban at home. This was discontinued on admission, and patient was started on heparin drip. No concerning features at this time Hematology oncology currently following-recommendations greatly appreciated Vascular surgery evaluated patient, confirming May-Thurner syndrome. Recommendation from both services are: - stop heparin drip - start enoxaparin 40 mg SQ (for VTE prevention - okay to discharge on this) - once bleeding resolves completely, restart apixaban Rheumatoid arthritis Felty syndrome Was previously on methotrexate, currently on hold We will clarify the medication with the patient further Currently on leflunomide; this is on hold at the moment given presence of abscess HTN Lisinopril continue Hydralazine 5 mg IV was administered yesterday for hypertensive urgency. HLD Hold atorvastatin 10 mg OD p.o - can be resumed in oputpatient setting MDD Continue buspirone 5 mg b.i.d. p.o. GERD Continue PPI Thank you for involving us on this patient's care. We will continue to follow up with you. Total time managing care of this patient today: 45 minutes. Quality Stroke Does the patient have a stroke diagnosis?: No VTE Prior VTE?: Yes VTE Risk Level:: Surgical - very high VTE Device Contraindication: N/A - Device Ordered VTE Drug Contraindication: Treatment Not Indicated
--- NOTE | 2025-05-03 14:38 | MHC.CM.PN ---
per rounds pt may be dcd today home n/s
[2025-05-03 15:33] VITALS: BP 182/83; PULSE 86; RESP 18; TEMP 36.2; O2SAT 97
--- NOTE | 2025-05-03 16:29 | P.PNID_ITS ---
Subjective Subjective Date of Service: 05/03/25 Critical Care Time (minutes): 15 Comment: She feels well,is taking po Objective Data Labs 05/03/25 07:41 05/03/25 07:41 Labs: Laboratory Results - last 24 hr 05/03/25 05/03/25 05:41 07:41 WBC 1.2 L RBC 3.82 L Hgb 10.2 L Hct 31.5 L MCV 82.5 MCH 26.7 L MCHC 32.4 RDW 14.6 Plt Count 241 MPV 9.6 Absolute Nucleated RBC 0.000 Nucleated RBC % (auto) 0.0 Hold Purple Top SEE NOTE aPTT Heparin Protocol 76.0 Sodium 140 Potassium 3.5 Chloride 111 H Carbon Dioxide 13 L Anion Gap 20 BUN 5 L Creatinine 0.64 0.62 Estim Creat Clear Calc 79.9 82.5 Estimated GFR > 60 > 60 Random Glucose 65 Calcium 8.6 Microbiology Microbiology Results: Microbiology 04/27/25 14:24 Blood - Venous Blood Culture - Final No growth after 5 days. 04/27/25 14:24 Blood - Venous Blood Culture - Final No growth after 5 days. Physical Exam 2 Vital Signs: Vital Signs: Last Vital Signs Temp 97.2 F 05/03/25 15:33 Pulse 86 05/03/25 15:33 Resp 18 05/03/25 15:33 BP 182/83 H 05/03/25 15:33 Pulse Ox 97 05/03/25 15:33 O2 Del Method Room Air 05/03/25 15:33 BMI result Body Mass Index 29.5 Const: General: cooperative HEENT: Head: Yes normal to inspection Face and sinus: Yes normal facial exam Mouth: Normal oral and palatal mucosa present Teeth and gingiva: d entition normal Eyes: General: appearance normal, both eyes and all related structures P upils: Equal, round and reactive pupils present Resp: Effort & Inspection: normal respiratory effort Cardio: Rate: regular rate Rhythm: regular rhythm GI: Palpation (GI): Soft to palpation and nontender : General: Yes no CVA tenderness Back/Spine/Pelvis: Back: no CVA tenderness Skin: General skin exam: no rashes or lesions noted Neuro: General: moves all extremities Cranial nerves: Yes Equal, round and reactive pupils present Extrem: General: Yes normal to inspection Psych: Appearance: grossly normal Assessment and Plan Assessment and plan (1) Colonic diverticular abscess: Problem details: She is feeling well Abscess is 2.2 cm tolerating antibiotics 10 d total Doxycycline and flagyl Follow PCP outpatient Status: Acute Time Spent With Patient Time: Total time managing care of this patient today ____ minutes.
[2025-05-03 16:42] VITALS: BP 165/90
[2025-05-03 19:35] VITALS: BP 132/78; PULSE 100; RESP 17; TEMP 36.7; O2SAT 97
[2025-05-03] MEDS: 0.9 % Sodium Chloride Flush 3 ML SYRINGE IVFLUSH (20:46)
[2025-05-04 03:15] VITALS: BP 128/66; PULSE 78; RESP 16; TEMP 36.1; O2SAT 97
[2025-05-04] MEDS: Heparin Sodium,Porcine/1/2NS 25,000 UNIT/250 ML IV.SOLN 12.29 UNIT IVCONT ×2 (03:47→20:36)
[2025-05-04 07:34] LABS: PTT Heparin Drip 76.0 SEC (53-77.9)
[2025-05-04 07:42] VITALS: BP 146/72; PULSE 82; RESP 18; TEMP 36.3; O2SAT 98
--- NOTE | 2025-05-04 09:23 | P.PNGS_ITS ---
Subjective Subjective Date of Service: 05/04/25 Interval history: Patient reports no abdominal pain, feels much improved, no bloody stools. She would like to try a soft diet. Physical Exam 2 Vital Signs: Vital Signs: Last Vital Signs Temp 97.4 F 05/04/25 07:42 Pulse 82 05/04/25 07:42 Resp 18 05/04/25 07:42 BP 146/72 H 05/04/25 07:42 Pulse Ox 98 05/04/25 07:42 O2 Del Method Room Air 05/04/25 07:42 BMI result Body Mass Index 29.5 Const: General: healthy appearing and well developed Nutritional Appearance: well nourished Orientation/consciousness: patient oriented x3 Resp: Effort & Inspection: normal respiratory effort, no audible wheezes, no cough and no respiratory distress GI: Inspection: Yes normal to inspection Palpation (GI): Soft to palpation, nontender, no guarding and not rigid Percussion: Yes normal to percussion Skin: General skin exam: no rashes or lesions noted Neuro: General: patient oriented x3 Extrem: General: Yes no pedal edema Objective Data Active Medications Acetaminophen (Acetaminophen 325 Mg Tablet) 650 mg PO Q6H PRN PRN Reason: Pain, Mild 1-3,fever,headache Last Admin: 05/02/25 08:22 Dose: 650 mg Documented By: BIJU Buspirone HCl (Buspirone Hcl 5 Mg Tablet) 5 mg PO BID [facility] Last Admin: 05/04/25 08:35 Dose: 5 mg Documented By: LUL Calcium Carbonate (Calcium Carbonate 750 Mg Tab.Chew) 750 mg PO Q4H PRN PRN Reason: Heartburn Doxycycline Monohydrate (Doxycycline Monohydrate 100 Mg Capsule) 100 mg PO Q12H [facility] Last Admin: 05/04/25 08:35 Dose: 100 mg Documented By: LUL Heparin Sodium (Porcine) (Heparin Sodium,Porcine 5,000 Unit/Ml Vial) 3,100 unit 40 unit/kg (3100 unit) IVPUSH PROTOCOL BOLUS PRN; Protocol PRN Reason: 40 unit/kg - Heparin Protocol Last Admin: 04/28/25 15:48 Dose: 3,100 unit Documented By: BETTYE Heparin Sodium (Porcine) (Heparin Sodium,Porcine 5,000 Unit/Ml Vial) 6,100 unit 80 unit/kg (6100 unit) IVPUSH PROTOCOL BOLUS PRN; Protocol PRN Reason: 80 unit/kg - Heparin Protocol Hydralazine HCl (Hydralazine Hcl 20 Mg/Ml Vial) 5 mg IVPUSH Q4H PRN; Protocol PRN Reason: hypertension > 180mmHg Last Admin: 05/03/25 15:41 Dose: 5 mg Documented By: LUL Heparin Sodium/Sodium Chloride (Heparin Sodium,Porcine/1/2ns) 25,000 unit in 250 mls @ 0 mls/hr IVCONT .Q0M [facility]; Protocol Last Titration: 05/04/25 07:41 Dose: 16 units/kg/hr, 12.29 mls/hr Documented By: LUL Co-signed By: ERICK Lisinopril (Lisinopril 20 Mg Tablet) 20 mg PO DAILY [facility]; Protocol Last Admin: 05/04/25 08:35 Dose: 20 mg Documented By: LUL Magnesium Hydroxide (Milk Of Magnesia 30 Ml Oral.Susp) 30 ml PO DAILY PRN PRN Reason: Constipation Melatonin (Melatonin 3 Mg Tablet) 6 mg PO BEDTIME PRN PRN Reason: Insomnia Metronidazole (Metronidazole 500 Mg Tablet) 500 mg PO Q8H [facility] Last Admin: 05/04/25 06:03 Dose: 500 mg Documented By: KASSANDRA Ondansetron HCl (Ondansetron Hcl 4 Mg/2 Ml Vial) 4 mg IVPUSH Q8H PRN PRN Reason: Nausea and Vomiting Sodium Chloride (0.9 % Sodium Chloride Flush 3 Ml Syringe) 3 ml IVFLUSH QSHIFT [facility] Last Admin: 05/04/25 08:30 Dose: Not Given Documented By: LUL Non-Admin Reason: IV Running Labs 05/03/25 07:41 05/03/25 07:41 Labs: Laboratory Results - last 24 hr 05/04/25 07:09 aPTT Heparin Protocol 76.0 Procedures Date of Service Date of Service: 05/04/25 Progress Note: A&P Assessment and plan (1) DVT (deep venous thrombosis): Status: Chronic (2) Diverticulosis of colon: Status: Acute (3) Colonic diverticular abscess: Status: Acute Assessment and Plan: 69-year-old female patient with history of diverticulitis and DVT. She continues on antibiotics for the diverticulitis in is asymptomatic today. She has had no further bloody bowel movements at this time. She feels much improved and would like to have her diet advanced. Plan for further management of May Aragon syndrome as an outpatient with Dr. Reyes. Time Spent With Patient Time: Total time managing care of this patient today ____ minutes. Quality Stroke Does the patient have a stroke diagnosis?: No VTE Prior VTE?: Yes VTE Risk Level:: Surgical - very high VTE Device Contraindication: N/A - Device Ordered VTE Drug Contraindication: Treatment Not Indicated
[2025-05-04 15:29] VITALS: BP 151/76; PULSE 89; RESP 18; TEMP 36.6; O2SAT 98
[2025-05-04 20:00] VITALS: BP 144/73; PULSE 102; RESP 98; TEMP 36.2; O2SAT 94
[2025-05-05 03:36] VITALS: BP 153/76; PULSE 85; RESP 18; TEMP 36.4; O2SAT 96
[2025-05-05 07:11] LABS: PTT Heparin Drip 77.8 SEC (53-77.9)
[2025-05-05 07:36] VITALS: BP 176/81; PULSE 83; RESP 18; TEMP 36.4; O2SAT 97
[2025-05-05] MEDS: 0.9 % Sodium Chloride Flush 3 ML SYRINGE IVFLUSH ×3 (08:24→20:40)
--- NOTE | 2025-05-05 09:21 | P.PNGS_ITS ---
Subjective Subjective Date of Service: 05/05/25 Interval history: She feels well this morning Denies abdominal pain He denies bleeding per rectum Tolerating diet Physical Exam 2 Vital Signs: Vital Signs: Last Vital Signs Temp 97.6 F 05/05/25 07:36 Pulse 83 05/05/25 07:36 Resp 18 05/05/25 07:36 BP 176/81 H 05/05/25 07:36 Pulse Ox 97 05/05/25 07:36 O2 Del Method Room Air 05/05/25 07:36 BMI result Body Mass Index 29.5 Const: General: comfortable and no acute distress Resp: Effort & Inspection: normal respiratory effort Cardio: Rate: regular rate GI: Palpation (GI): Soft to palpation, not firm, nontender and no guarding Objective Data Active Medications Acetaminophen (Acetaminophen 325 Mg Tablet) 650 mg PO Q6H PRN PRN Reason: Pain, Mild 1-3,fever,headache Last Admin: 05/02/25 08:22 Dose: 650 mg Documented By: BIJU Buspirone HCl (Buspirone Hcl 5 Mg Tablet) 5 mg PO BID [facility] Last Admin: 05/05/25 08:23 Dose: 5 mg Documented By: TAMRA Calcium Carbonate (Calcium Carbonate 750 Mg Tab.Chew) 750 mg PO Q4H PRN PRN Reason: Heartburn Doxycycline Monohydrate (Doxycycline Monohydrate 100 Mg Capsule) 100 mg PO Q12H [facility] Last Admin: 05/05/25 08:22 Dose: 100 mg Documented By: TAMRA Heparin Sodium (Porcine) (Heparin Sodium,Porcine 5,000 Unit/Ml Vial) 3,100 unit 40 unit/kg (3100 unit) IVPUSH PROTOCOL BOLUS PRN; Protocol PRN Reason: 40 unit/kg - Heparin Protocol Last Admin: 04/28/25 15:48 Dose: 3,100 unit Documented By: BETTYE Heparin Sodium (Porcine) (Heparin Sodium,Porcine 5,000 Unit/Ml Vial) 6,100 unit 80 unit/kg (6100 unit) IVPUSH PROTOCOL BOLUS PRN; Protocol PRN Reason: 80 unit/kg - Heparin Protocol Hydralazine HCl (Hydralazine Hcl 20 Mg/Ml Vial) 5 mg IVPUSH Q4H PRN; Protocol PRN Reason: hypertension > 180mmHg Last Admin: 05/03/25 15:41 Dose: 5 mg Documented By: LUL Heparin Sodium/Sodium Chloride (Heparin Sodium,Porcine/1/2ns) 25,000 unit in 250 mls @ 0 mls/hr IVCONT .Q0M [facility]; Protocol Last Titration: 05/05/25 09:13 Dose: 16 units/kg/hr, 12.29 mls/hr Documented By: TAMRA Co-signed By: CRUZITO Lisinopril (Lisinopril 20 Mg Tablet) 20 mg PO DAILY [facility]; Protocol Last Admin: 05/05/25 08:22 Dose: 20 mg Documented By: TAMRA Magnesium Hydroxide (Milk Of Magnesia 30 Ml Oral.Susp) 30 ml PO DAILY PRN PRN Reason: Constipation Melatonin (Melatonin 3 Mg Tablet) 6 mg PO BEDTIME PRN PRN Reason: Insomnia Last Admin: 05/04/25 20:31 Dose: 6 mg Documented By: SOHEILA Comments: per patient request Metronidazole (Metronidazole 500 Mg Tablet) 500 mg PO Q8H [facility] Last Admin: 05/05/25 05:07 Dose: 500 mg Documented By: SOHEILA Ondansetron HCl (Ondansetron Hcl 4 Mg/2 Ml Vial) 4 mg IVPUSH Q8H PRN PRN Reason: Nausea and Vomiting Sodium Chloride (0.9 % Sodium Chloride Flush 3 Ml Syringe) 3 ml IVFLUSH QSHIFT [facility] Last Admin: 05/05/25 08:24 Dose: 3 ml Documented By: TAMRA Labs 05/03/25 07:41 05/03/25 07:41 Labs: Laboratory Results - last 24 hr 05/05/25 06:16 aPTT Heparin Protocol 77.8 Procedures Date of Service Date of Service: 05/05/25 Progress Note: A&P Assessment and plan (1) Diverticulitis: Status: Acute Assessment and Plan: Much improved overall Abdomen is soft and benign No tenderness No fever or leukocytosis Okay problems with regards to her May-Thurner syndrome Possible DC home tomorrow Looks well overall Time Spent With Patient Time: Total time managing care of this patient today ____ minutes. Quality Stroke Does the patient have a stroke diagnosis?: No VTE Prior VTE?: Yes VTE Risk Level:: Surgical - very high VTE Device Contraindication: N/A - Device Ordered VTE Drug Contraindication: Treatment Not Indicated
[2025-05-05 15:53] VITALS: BP 164/78; PULSE 83; RESP 18; TEMP 36.6; O2SAT 98
--- NOTE | 2025-05-05 16:05 | MHC.CM.PN ---
PER MD NOTES, PT MAY DC HOME TOMORROW CM FOLLOWING
[2025-05-05] MEDS: Heparin Sodium,Porcine/1/2NS 25,000 UNIT/250 ML IV.SOLN 12.29 UNIT IVCONT (16:43)
[2025-05-05 19:32] VITALS: BP 154/70; PULSE 83; RESP 18; TEMP 36.4; O2SAT 97
[2025-05-06 03:27] VITALS: BP 162/77; PULSE 80; RESP 18; TEMP 36.4; O2SAT 97
[2025-05-06 06:55] LABS: PTT Heparin Drip 83.7 SEC (53-77.9)
[2025-05-06 08:00] VITALS: BP 153/79; PULSE 82; RESP 16; TEMP 36.3; O2SAT 98
[2025-05-06 08:58] VITALS: BP 153/79
[2025-05-06] MEDS: 0.9 % Sodium Chloride Flush 3 ML SYRINGE IVFLUSH ×3 (08:58→16:17)
--- NOTE | 2025-05-06 09:48 | P.PNGS_ITS ---
Subjective Subjective Date of Service: 05/06/25 Interval history: Feels well this morning Denies abdominal pain Tolerating diet On heparin drip still Physical Exam 2 Vital Signs: Vital Signs: Last Vital Signs Temp 97.4 F 05/06/25 08:00 Pulse 82 05/06/25 08:00 Resp 16 05/06/25 08:00 BP 153/79 H 05/06/25 08:58 Pulse Ox 98 05/06/25 08:00 O2 Del Method Room Air 05/06/25 08:00 BMI result Body Mass Index 29.5 Const: General: comfortable and no acute distress Resp: Effort & Inspection: normal respiratory effort Cardio: Rate: regular rate GI: Palpation (GI): Soft to palpation, not firm and nontender Objective Data Active Medications Acetaminophen (Acetaminophen 325 Mg Tablet) 650 mg PO Q6H PRN PRN Reason: Pain, Mild 1-3,fever,headache Last Admin: 05/02/25 08:22 Dose: 650 mg Documented By: BIJU Buspirone HCl (Buspirone Hcl 5 Mg Tablet) 5 mg PO BID [facility] Last Admin: 05/06/25 08:57 Dose: 5 mg Documented By: TAMRA Calcium Carbonate (Calcium Carbonate 750 Mg Tab.Chew) 750 mg PO Q4H PRN PRN Reason: Heartburn Doxycycline Monohydrate (Doxycycline Monohydrate 100 Mg Capsule) 100 mg PO Q12H [facility] Last Admin: 05/06/25 08:57 Dose: 100 mg Documented By: TAMRA Heparin Sodium (Porcine) (Heparin Sodium,Porcine 5,000 Unit/Ml Vial) 3,100 unit 40 unit/kg (3100 unit) IVPUSH PROTOCOL BOLUS PRN; Protocol PRN Reason: 40 unit/kg - Heparin Protocol Last Admin: 04/28/25 15:48 Dose: 3,100 unit Documented By: BETTYE Heparin Sodium (Porcine) (Heparin Sodium,Porcine 5,000 Unit/Ml Vial) 6,100 unit 80 unit/kg (6100 unit) IVPUSH PROTOCOL BOLUS PRN; Protocol PRN Reason: 80 unit/kg - Heparin Protocol Hydralazine HCl (Hydralazine Hcl 20 Mg/Ml Vial) 5 mg IVPUSH Q4H PRN; Protocol PRN Reason: hypertension > 180mmHg Last Admin: 05/03/25 15:41 Dose: 5 mg Documented By: LUL Heparin Sodium/Sodium Chloride (Heparin Sodium,Porcine/1/2ns) 25,000 unit in 250 mls @ 0 mls/hr IVCONT .Q0M [facility]; Protocol Last Titration: 05/06/25 07:19 Dose: 14 units/kg/hr, 10.76 mls/hr Documented By: TAMRA Co-signed By: ETHAN Lisinopril (Lisinopril 20 Mg Tablet) 20 mg PO DAILY [facility]; Protocol Last Admin: 05/06/25 08:58 Dose: 20 mg Documented By: TAMRA Magnesium Hydroxide (Milk Of Magnesia 30 Ml Oral.Susp) 30 ml PO DAILY PRN PRN Reason: Constipation Melatonin (Melatonin 3 Mg Tablet) 6 mg PO BEDTIME PRN PRN Reason: Insomnia Last Admin: 05/04/25 20:31 Dose: 6 mg Documented By: SOHEILA Comments: per patient request Metronidazole (Metronidazole 500 Mg Tablet) 500 mg PO Q8H [facility] Last Admin: 05/06/25 05:51 Dose: 500 mg Documented By: ART Ondansetron HCl (Ondansetron Hcl 4 Mg/2 Ml Vial) 4 mg IVPUSH Q8H PRN PRN Reason: Nausea and Vomiting Sodium Chloride (0.9 % Sodium Chloride Flush 3 Ml Syringe) 3 ml IVFLUSH QSHIFT [facility] Last Admin: 05/06/25 08:58 Dose: 3 ml Documented By: TAMRA Labs 05/03/25 07:41 05/03/25 07:41 Labs: Laboratory Results - last 24 hr 05/06/25 05/06/25 05:48 06:36 Hold Purple Top SEE NOTE aPTT Heparin Protocol 83.7 H Procedures Date of Service Date of Service: 05/06/25 Progress Note: A&P Assessment and plan (1) Diverticulitis: Status: Acute Assessment and Plan: Symptoms have resolved Remains on heparin drip Plan to start Eliquis We will discuss with hospitalist went to stop heparin drip Very well overall Abdomen is soft and benign Good oral intake Time Spent With Patient Time: Total time managing care of this patient today ____ minutes. Quality Stroke Does the patient have a stroke diagnosis?: No VTE Prior VTE?: Yes VTE Risk Level:: Surgical - very high VTE Device Contraindication: N/A - Device Ordered VTE Drug Contraindication: Treatment Not Indicated
[2025-05-06 13:37] LABS: PTT Heparin Drip 33.9 SEC (53-77.9)
[2025-05-06 15:20] VITALS: BP 156/70; PULSE 98; RESP 18; TEMP 36.2; O2SAT 96
[2025-05-06 19:56] VITALS: BP 167/74; PULSE 100; RESP 18; TEMP 36.4; O2SAT 98
[2025-05-07 02:56] VITALS: BP 138/65; PULSE 78; RESP 18; TEMP 36.7; O2SAT 98
[2025-05-07 07:56] VITALS: BP 166/73; PULSE 73; RESP 16; TEMP 36.2; O2SAT 98
[2025-05-07] MEDS: 0.9 % Sodium Chloride Flush 3 ML SYRINGE IVFLUSH (08:43)
--- NOTE | 2025-05-07 09:31 | P.PNGS_ITS ---
Subjective Subjective Date of Service: 05/07/25 Interval history: Continues to feel well Denies abdominal pain Tolerating regular diet Has good bowel functions Heparin drip DC yesterday Physical Exam 2 Vital Signs: Vital Signs: Last Vital Signs Temp 97.2 F 05/07/25 07:56 Pulse 73 05/07/25 07:56 Resp 16 05/07/25 07:56 BP 166/73 H 05/07/25 07:56 Pulse Ox 98 05/07/25 07:56 O2 Del Method Room Air 05/07/25 07:56 BMI result Body Mass Index 29.5 Const: General: comfortable and no acute distress Resp: Effort & Inspection: normal respiratory effort Cardio: Rate: regular rate GI: Palpation (GI): Soft to palpation, not firm, nontender and no guarding Objective Data Active Medications Acetaminophen (Acetaminophen 325 Mg Tablet) 650 mg PO Q6H PRN PRN Reason: Pain, Mild 1-3,fever,headache Last Admin: 05/02/25 08:22 Dose: 650 mg Documented By: BIJU Apixaban (Apixaban 5 Mg Tablet) 5 mg PO BID [facility] Last Admin: 05/07/25 08:41 Dose: 5 mg Documented By: TAMRA Buspirone HCl (Buspirone Hcl 5 Mg Tablet) 5 mg PO BID [facility] Last Admin: 05/07/25 08:41 Dose: 5 mg Documented By: TAMRA Calcium Carbonate (Calcium Carbonate 750 Mg Tab.Chew) 750 mg PO Q4H PRN PRN Reason: Heartburn Last Admin: 05/06/25 20:19 Dose: 750 mg Documented By: ART Doxycycline Monohydrate (Doxycycline Monohydrate 100 Mg Capsule) 100 mg PO Q12H [facility] Last Admin: 05/07/25 08:41 Dose: 100 mg Documented By: TAMRA Hydralazine HCl (Hydralazine Hcl 20 Mg/Ml Vial) 5 mg IVPUSH Q4H PRN; Protocol PRN Reason: hypertension > 180mmHg Last Admin: 05/03/25 15:41 Dose: 5 mg Documented By: LUL Lisinopril (Lisinopril 20 Mg Tablet) 20 mg PO DAILY [facility]; Protocol Last Admin: 05/07/25 08:41 Dose: 20 mg Documented By: HO.MOHAMER Magnesium Hydroxide (Milk Of Magnesia 30 Ml Oral.Susp) 30 ml PO DAILY PRN PRN Reason: Constipation Melatonin (Melatonin 3 Mg Tablet) 6 mg PO BEDTIME PRN PRN Reason: Insomnia Last Admin: 05/04/25 20:31 Dose: 6 mg Documented By: SOHEILA Comments: per patient request Metronidazole (Metronidazole 500 Mg Tablet) 500 mg PO Q8H [facility] Last Admin: 05/07/25 05:30 Dose: 500 mg Documented By: ART Ondansetron HCl (Ondansetron Hcl 4 Mg/2 Ml Vial) 4 mg IVPUSH Q8H PRN PRN Reason: Nausea and Vomiting Sodium Chloride (0.9 % Sodium Chloride Flush 3 Ml Syringe) 3 ml IVFLUSH QSHIFT [facility] Last Admin: 05/07/25 08:43 Dose: 3 ml Documented By: TAMRA Labs 05/03/25 07:41 05/03/25 07:41 Labs: Laboratory Results - last 24 hr 05/06/25 13:22 aPTT Heparin Protocol 33.9 L D Procedures Date of Service Date of Service: 05/07/25 Progress Note: A&P Assessment and plan (1) Diverticulitis: Status: Acute Assessment and Plan: Symptoms have resolved She has been feeling well and asymptomatic for several days now Off of heparin drip Good bowel functions Okay to DC home on Eliquis She is to follow up with Hematology as well as vascular surgery in view of her May-Thurner syndrome She understands the plan well and is comfortable with this Time Spent With Patient Time: Total time managing care of this patient today ____ minutes. Quality Stroke Does the patient have a stroke diagnosis?: No VTE Prior VTE?: Yes VTE Risk Level:: Surgical - very high VTE Device Contraindication: N/A - Device Ordered VTE Drug Contraindication: Treatment Not Indicated
--- NOTE | 2025-05-07 09:51 | MHC.CM.PN ---
PT CLEARED TO DC HOME TODAY NO SERVICES INDICATED FAMILY TO TRANSPORT
[2025-05-07 11:47] VITALS: BP 158/72; PULSE 78; RESP 18; TEMP 36.2; O2SAT 98
--- NOTE | 2025-05-08 12:27 | P.DS_ITS ---
DS: Providers Provider Date of Service: 05/07/25 Date of admission: 04/27/25 16:32 Date of discharge: 05/07/25 Primary care physician[facility] Admitting clinician: Jesús Farris Attending physician on admission: Jesús Farris Consults: 04/27/25 15:34 Consult to General Surgery Stat Consulting Provider: [facility] [place] General Surgeons Reason for consultation: abdominal pain, diverticular abscess Has provider been notified: Yes 04/27/25 16:32 Consult to Hospitalist Routine Comment: Consulting Provider: [facility] [place] Hospitalists Reason For Exam: Multiple medical problems 04/27/25 17:35 Consult to Hematology / Oncology Routine Consulting Provider: [facility] [place] Oncology/Hematology Reason for consultation: h/o DVT on Eliquis; here with bleeding Has provider been notified: No 04/27/25 18:50 Consult to Infectious Diseases Routine Consulting Provider: [facility] [place] Infectious Disease Center Reason for consultation: Needs antibiotic coverage for intra-abdominal infection with allergies Has provider been notified: No 05/01/25 09:10 Consult to Vascular Surgery Routine Consulting Provider: [facility] [place] Vascular Services Reason for consultation: lower GI bleed, on anticoagulation, IVC filter? Attending physician on discharge: López Whiting DS: Diagnosis Discharge Diagnosis (1) Diverticulitis: Status: Acute DS: Summary Hospital Course Hospital Course: admission HPI: 69 year old female with a history of DTV on eliquis, HTN, HLD, RA, diverticulosis, seen in consult for diverticulitis with abscess and microperf oration. Patient states her symptoms started about 1 month ago vague abdominal pain after exercising and continued to progress and worsen. States that about 2 weeks ago she began having intermittent bloody stools, nausea, diarrhea, fevers at home. Her pain began getting worse so she presented to the emergency department after seeing her primary care who recommended she be seen at the ED. Workup in the ED significant for CT scan showing diffuse diverticulosis and acute diverticulitis in the sigmoid with a 4 x 3 x 4 abscess microperforations. Heme-negative stool in the ED. She was started on azithromycin and metronidazole, IV fluids, NPO. Currently pain is manageable. Mostly tender in the left lower quadrant denies nausea, fevers currently. Hospital course: Patient was admitted for management of acute diverticulitis with abscess, microperforation and LGIB. She was made NPO. She continued IV antibiotic therapy, doxycycline due to reaction to levofloxacin and flagyl, due to her anticoagulation,it was likely that her bleeding was contributing to her symtpoms, medicine and vascular surgery were consulted to manage this while inpatient. This was held while workup was performed. Admission day 2 feeling some improvement in pain. H&H remained stable. diet advanced to clear liquid diet. Did pass a small bowel movement. Admission date 3, multiple jelly like bloody bowel movements. Overall feeling better. Tolerating CLD. Now on heparin drip. Admission day 4 no further bleeding from rectum. H&H remained stable. Patietn seen by vascular, working up for possible mzay thurner syndrome, repeat CTA showing improvement in abscess, findings also suggestive of may thurner syndrome. Vascular no recommending continued anticoagulation or IVC. Plan to continue heparin drip while inpatient and follow up with vascular as outpatient. Again it was recommended from general surgery that she should have IVC placed if not on anticoagulation to prevent PE. ADmission day 5 continues to feel improved, diet advanced to full liquid diet. Admission day 6, feeling improved, abdomen is soft and benign. She feels ready to try solids. No further bloody bowel movements. Admission day 7 she feels well, no abdominal pain, tolerating diet. Admission day 8 and 9, no acute changes, abdomen is soft and benign, she has good oral intake. Plan for anticoagulation and discharge discussed with hospitalist service who decided continue heparin while inpatient, resume Eliquis 2 hours after at the time of discharge. Admission day 10 patient unchanged. Abdomen is soft and benign, nontender. Tolerating diet. Plan to discharge home with follow-up in our office for discussion of possible resection in the future, also to follow up with vascular in regards to May-Thurner syndrome. At the time of discharge patient's abdomen is soft and benign, vital signs were in stable condition. Status at Discharge Functional status at discharge: independent ambulation Overall status at discharge: patient is progressing back to baseline Time Attestation Discharge Coordination Time (in mins): 45 Quality: Safe Use of Opioids Does Pt have an Active Cancer Diagnosis on the Problem List?: No Quality: Stroke Does the patient have a stroke diagnosis?: No Physical Exam Vital Signs: Vital Signs: Last Vital Signs Temp 97.2 F 05/07/25 11:47 Pulse 78 05/07/25 11:47 Resp 18 05/07/25 11:47 BP 158/72 H 05/07/25 11:47 Pulse Ox 98 05/07/25 11:47 O2 Del Method Room Air 05/07/25 11:47 BMI result Body Mass Index 29.5 Const: General: comfortable and no acute distress Resp: Effort & Inspection: normal respiratory effort Cardio: Rate: regular rate GI: Palpation (GI): Soft to palpation, not firm, nontender and no guarding Discharge Plan Discharge Anticipated Discharge Date/Time: 05/07/25 09:35 Patient Disposition: Home, Self-Care Discharge Diagnosis: Acute diverticulitis Referrals: Dennis Hsu FNP-BC [Primary Care Provider, Internal Medicine] - 1 Week Sam Reyes MD [Physician, Vascular Surgery] - 2 Weeks Silvio (AC)Nikhil MD [Physician, Hematology & Oncology] - 2 Weeks Discharge Medications: New metronidazole 500 mg Tablet 500 mg PO Q8H Qty: 12 0RF doxycycline monohydrate 100 mg Capsule 100 mg PO Q12H Qty: 10 0RF Continued buspirone 5 mg tablet 5 mg PO BID 90 Days Qty: 180 1RF leflunomide 20 mg tablet 20 mg PO DAILY Qty: 90 1RF atorvastatin 10 mg tablet 10 mg PO BEDTIME 30 Days Qty: 30 2RF lisinopril 20 mg tablet 20 mg PO DAILY 90 Days Qty: 90 1RF Eliquis 5 mg Tablet 5 mg PO BID Qty: 180 1RF pantoprazole 40 mg tablet,delayed release (DR/EC) 40 mg PO DAILY@1630 acetaminophen [Tylenol Extra Strength] 500 mg tablet 1,000 mg PO Q6H PRN (Reason: Pain) folic acid 1 mg tablet 1 mg PO DAILY Discharge Orders: Discharge Order (Routine); Ordered 05/07/25 Ordered By: Lpóez Whiting Diet: Low fat, low cholesterol Activity on Discharge: As tolerated Stand Alone Forms: Patient Portal Discharge page Print Language: Icelandic Activity Restrictions/Additional Instructions: Please call Dr. Gaston office at [phone] for 2 week upon discharge for evaluation of your leg veins and swelling of the left leg. Care Plan Goals: Return to baseline Health Concerns: Has May-Thurner's syndrome Diverticular disease Plan of Treatment: Oral antibiotics Follow up with vascular surgery and hematology Assessment: Doing very well Discharge Date/Time: 05/07/25 11:49
== END 2025-05-07 11:49 | disposition home or self-care (01) | DRG 378 ==
LOC: HO.ED 14:32 → HO.EDOVER 16:41 → HO.S3 19:05
PROVIDERS: Hospitalist; Physician Assistant; Physician Assistant Medical; Student in an Organized Health Care Education/Training Program; Surgery; Admitting Provider Surgery; Emergency Provider Emergency Medicine; PCP Nurse Practitioner Family; Visit Provider Surgery
DX: K57.21 Diverticulitis of large intestine with perforation and abscess with bleeding (principal); D68.32 Hemorrhagic disorder due to extrinsic circulating anticoagulants; I87.1 Compression of vein; I82.512 Chronic embolism and thrombosis of left femoral vein; M05.9 Rheumatoid arthritis with rheumatoid factor, unspecified; M05.00 Felty's syndrome, unspecified site; I10 Essential (primary) hypertension; E78.5 Hyperlipidemia, unspecified; F32.9 Major depressive disorder, single episode, unspecified; K21.9 Gastro-esophageal reflux disease without esophagitis; T45.515A Adverse effect of anticoagulants, initial encounter; Z87.891 Personal history of nicotine dependence; Z79.01 Long term (current) use of anticoagulants; Z79.899 Other long term (current) drug therapy
CPT/HCPCS: 36415; 74174; 74177; 80048; 80053; 81003; 82272; 82390; 82565; 83605; 85014; 85018; 85025; 85027; 85610; 85730; 87040; 93971; 96127; 99212; 99285; J0360; J0456; J0457; J1271; J1644; J1836; J1956; J2470; Q9967

== ENCOUNTER → 2025-04-27 11:36 | Outpatient (BNV) | payer MEDICARE, SELFPAY | PROVIDERS: Emergency Provider Emergency Medicine; PCP Nurse Practitioner Family | DX: I82.512 Chronic embolism and thrombosis of left femoral vein (principal); K57.30 Diverticulosis of large intestine without perforation or abscess without bleeding; K57.20 Diverticulitis of large intestine with perforation and abscess without bleeding | CPT/HCPCS: 99232 ==

== ENCOUNTER → 2025-04-27 12:20 | Outpatient (BNV) | payer MEDICARE, SELFPAY | PROVIDERS: Emergency Provider Emergency Medicine; PCP Nurse Practitioner Family; Visit Provider Radiology Diagnostic Ultrasound | DX: R10.32 Left lower quadrant pain (principal); R19.5 Other fecal abnormalities; R31.9 Hematuria, unspecified | CPT/HCPCS: 74177 ==

== ENCOUNTER 2025-04-27 16:32 | Outpatient (BNV) | payer MEDICARE, SELFPAY | END 2025-05-01 15:20 | PROVIDERS: Admitting Provider Surgery; Emergency Provider Emergency Medicine; PCP Nurse Practitioner Family; Visit Provider Radiology Diagnostic Radiology | DX: K57.32 Diverticulitis of large intestine without perforation or abscess without bleeding (principal); K65.1 Peritoneal abscess; K76.0 Fatty (change of) liver, not elsewhere classified; I82.402 Acute embolism and thrombosis of unspecified deep veins of left lower extremity | CPT/HCPCS: 74174; 93971 ==

== ENCOUNTER → 2025-04-27 16:32 | Outpatient (BNV) | payer MEDICARE, SELFPAY | PROVIDERS: Admitting Provider Surgery; Emergency Provider Emergency Medicine; PCP Nurse Practitioner Family; Visit Provider Internal Medicine | DX: K57.20 Diverticulitis of large intestine with perforation and abscess without bleeding (principal) | CPT/HCPCS: 99232 ==

== ENCOUNTER → 2025-04-27 16:32 | Outpatient (BNV) | payer MEDICARE, SELFPAY | PROVIDERS: Admitting Provider Surgery; Emergency Provider Emergency Medicine; PCP Nurse Practitioner Family; Visit Provider Surgery Vascular Surgery | DX: I82.512 Chronic embolism and thrombosis of left femoral vein (principal); I87.1 Compression of vein | CPT/HCPCS: 99222; 99232 ==

== ENCOUNTER → 2025-04-27 16:32 | Outpatient (BNV) | payer MEDICARE, SELFPAY | PROVIDERS: Admitting Provider Surgery; Emergency Provider Emergency Medicine; PCP Nurse Practitioner Family; Visit Provider Internal Medicine | DX: I82.402 Acute embolism and thrombosis of unspecified deep veins of left lower extremity (principal); Z79.01 Long term (current) use of anticoagulants | CPT/HCPCS: 99222 ==

== ENCOUNTER → 2025-04-27 16:32 | Outpatient (BNV) | payer MEDICARE, SELFPAY | PROVIDERS: Admitting Provider Surgery; Emergency Provider Emergency Medicine; PCP Nurse Practitioner Family; Visit Provider Physician Assistant Medical | DX: K57.92 Diverticulitis of intestine, part unspecified, without perforation or abscess without bleeding (principal) | CPT/HCPCS: 99223 ==

== ENCOUNTER 2025-05-10 10:46 | Outpatient (AMB) | payer MEDICARE, SELFPAY ==
--- NOTE | 2025-05-10 11:35 | MHC.PC.OV ---
Vital Signs 05/10/25 11:37 Weight 168 lb BP 160/92 H Blood Pressure Location Lt brachial Position Sitting Respiration 18 Pulse 82 Pulse Oximetry (%) 99 Intake Visit Reasons: HDF ~ Post hospital discharge FU Acquisition Cost Estimator Required: No Allergies penicillin G (PENICILLIN G) Allergy (Severe, Verified 05/10/25 11:40) ANAPHYLAXIS Tobacco use date assessed: 05/10/25 Fall risk assessment: No Falls in past year Last assessed Fall Risk: 05/10/25 Dental Screening Dental Screen Date: 05/10/25 Did you have a dental visit in the last 12 months?: No Did you have a dental problem in the last 6 months where you did not have access to dental care?: No Was dental information given to patient?: Patient has dentist HPI HDF ~ Post hospital discharge FU HPI Details Chief Complaint The patient presents for a follow-up visit after a hospital discharge. History of Present Illness The patient is a 69 year old individual presenting for a hospital discharge follow-up. On 04/27/2025, the patient presented with ongoing diarrhea, which was sometimes bloody, and left lower quadrant pain, leading to a referral to the emergency room. The patient was subsequently diagnosed with acute diverticulitis with an abscess and microperforation. The patient was hospitalized for 10 days, being discharged on the . During this time, the patient was made NPO, started on IV antibiotics, and the diet was eventually advanced as the condition improved. A CTA performed during admission showed findings suggestive of May-Thurner syndrome, and the diverticular abscess was noted to have decreased in size. Since discharge, the patient feels well but reports some fatigue. The patient denies any abdominal pain, is tolerating a diet, and is having soft, non-bloody bowel movements. The patient also lost a significant amount of weight during the hospitalization. Social History - Functional Status: The patient reports feeling fatigued after a 10-day hospital stay but otherwise feels well. - Nutritional Intake: The patient is tolerating a diet. - Weight Management: The patient lost a significant amount of weight during the hospitalization. Health Maintenance Review of Systems - Constitutional: Reports feeling fatigued post-hospitalization. - Gastrointestinal: Denies abdominal pain. - Reports soft, non-bloody bowel movements. -denies any cp, sob, dizziness, [place], blurred vision Physical Exam General: Cooperative, healthy appearing, comfortable, no acute distress and well developed Orientation: Patient oriented x3 Limitations: No limitations Head: Normal to inspection Ears: Hearing grossly normal bilaterally Nose: Normal external nose present Face and sinus: Normal facial exam Eyes: Appearance normal, both eyes and all related structures Neck: Normal visual inspection and Yes full ROM Respiratory: Normal respiratory effort and able to speak in complete sentences. Clear to auscultation bilaterally Cardiovascular: Regular rate and rhythm. Normal S1 and S2 GI: Normal to inspection. Soft to palpation and nontender. Bowel sounds present Skin: No rashes or lesions noted Neuro: Patient oriented x3 Extremities: Normal to inspection Results - CTA: Findings suggestive of May-Thurner syndrome. - Imaging: The diverticular abscess has decreased in size. Plan 1. Acute Diverticulitis With Abscess The patient is seen for follow-up after a 10-day hospitalization for acute diverticulitis with abscess and microperforation. The patient reports feeling well, denying abdominal pain, and tolerating a diet with soft, non-bloody bowel movements. The diverticular abscess has decreased in size. The plan is to continue monitoring, and the patient will call with any questions or concerns. 2. May-Thurner Syndrome A CTA during hospitalization revealed findings suggestive of May-Thurner syndrome. The plan is for the patient to follow up with vascular for further evaluation and management. 3. htn will have her take her BP at home, drop of values next week Discussion Notes I have reviewed the patient's recent hospitalization for acute diverticulitis with abscess and microperforation. We discussed that the patient is recovering well, tolerating a diet, and no longer experiencing abdominal pain or bloody stools. We also discussed the CTA finding suggestive of May-Thurner syndrome, and I have recommended a follow-up with a vascular specialist. The patient was advised to call with any further questions or concerns. Patient Instructions - You will need to schedule a follow-up appointment with a vascular specialist to discuss the finding of possible May-Thurner syndrome. - Continue to eat your current diet as you are tolerating it well. - Please call our office if you have any questions or if your symptoms, such as abdominal pain or bloody bowel movements, return. [facility] Medical History Osteopenia Leukopenia Depression Cervical carcinoma DDD (degenerative disc disease), lumbar JACQUE I (cervical intraepithelial neoplasia I) ASCUS (atypical squamous cells of undetermined significance) on gynecologic Papanicolaou smear complicating , antepartum Seropositive rheumatoid arthritis HTN (hypertension) Rheumatoid arthritis Hyperlipemia DVT (deep venous thrombosis) Surgical History (Reviewed 05/10/25 @ 12:15 by [facility] History of esophagogastroduodenoscopy (EGD) Hx of colonoscopy History of back surgery S/P lumbar microdiscectomy S/P biopsy of cervix History of bunionectomy of both great toes Family History Mother Colon cancer metastasized to multiple sites HTN (hypertension) Substance use disorder Maternal Aunt Breast cancer Father HTN (hypertension) Substance use disorder Brother HTN (hypertension) Heart attack Enlarged heart Brain aneurysm Brother HTN (hypertension) Sister HTN (hypertension) Sister HTN (hypertension) Sister HTN (hypertension) Social History (Reviewed 05/10/25 @ 12:15 by BRANDON [facility]) Household Members: Spouse Housing: Apartment Are you a primary senior care provider to a significant other at home: No Do you presently have visiting nurse or other home services: No Alcohol intake: current Alcohol intake frequency: does not drink Alcohol type: beer Patient Tobacco Use Status: Former Tobacco user Tobacco use type: Cigarette Years Smoked: 40 years ago e-Cigarette/Vaping Use: Never Used Second Hand Smoke Exposure: No service: No Current occupational status: employed 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 1. Little interest or pleasure in doing things: not at all 2. Feeling down, depressed, or hopeless: not at all 3. Trouble falling or staying asleep, or sleeping too much: not at all 4. Feeling tired or having little energy: not at all 5. Poor appetite or overeating: not at all 6. Feeling bad about yourself - or that you are a failure or have let yourself or your family down: not at all 8. Moving or speaking so slowly that other people could have noticed. Or the opposite - being so fidgety or restless that you have been moving around a lot more than usual: not at all 9. Thoughts that you would be better off or of hurting yourself in some way: not at all Depression Screening Interpretation: Negative Depression Screening Done: Yes 91281 - PHQ-9 Billing: Yes Source: Developed by Drs. Bobby Barton, Megan Wallace, Da Young and colleagues, with an educational rowan from [employer]. Thrive Questionnaire Date Thrive assessed: 10/03/24 I am a: Patient What is your living situation today?: I choose not to answer this question Within the past 12 months, did the food you bought not last and you didn't have the money to get more?: I choose not to answer this question Within the past 12 months, did you worry whether your food would run out before you got money to buy more?: I choose not to answer this question Do you have trouble paying for medicines?: I choose not to answer this question Do you have trouble getting transportation to medical appointments?: I choose not to answer this question Do you have trouble paying your heating and electricity bill?: I choose not to answer this question Do you have trouble taking care of your child, family member or friend?: I choose not to answer this question Do you have trouble with day-to-day activities such as bathing, preparing meals, shopping, managing finances, etc.?: I choose not to answer this question Are you currently unemployed and looking for a job?: I choose not to answer this question Are you interested in more education?: I choose not to answer this question Please select the resources that you would like help with: None Currently or been in a relationship where the following occur: I choose not to answer THRIVE Score: 0 ROSA-7 AMB Questionnaire ROSA-7 Date ROSA - 7 assessed: 05/10/25 Feeling nervous, anxious, or on edge: 0 = Not at all Not being able to stop or control worryin = Not at all Worrying too much about different things: 0 = Not at all Trouble relaxin = Not at all Being so restless that it is hard to sit still: 0 = Not at all Becoming easily annoyed or irritable: 0 = Not at all Feeling afraid as if something awful might happen: 0 = Not at all Total ROSA-7 score (0-4 normal; 5-9 mild; 10-14 moderate; 15-21 severe): 0 Source: Developed by Drs. Bobby Barton, Megan Wallace, Da Young and colleagues, with an educational rowan from [employer]. ROSA-7 Assessment Billing ROSA-7 Assessment Tool: ROSA-7 Assessment 95337 Physical exam (Primary Care) Vital Signs: Last Vital Signs Pulse 82 05/10/25 11:37 Resp 18 05/10/25 11:37 BP 160/92 H 05/10/25 11:37 Pulse Ox 99 05/10/25 11:37 Tobacco/Smoking Status: Tobacco use Status Tobacco use date assessed 05/10/25 05/10/25 11:41 Patient Tobacco Use Status Former Tobacco user 05/10/25 11:36 Tobacco use type Cigarette 05/10/25 11:36 e-Cigarette/Vaping Use Never Used 05/10/25 11:36 Depression Screening Interpretation: Negative Thrive Assessment: Date of Thrive Assessment Date Thrive assessed 10/03/24 05/10/25 11:36 Currently or been in a relationship where the following occur: I choose not to answer Coding Level of Care Code Est Pt Level 4 (09753) Diagnoses Diverticulosis of colon K57.30 Colonic diverticular abscess K57.20 Duodenal diverticulum K57.10 May-Thurner syndrome I87.1 Additional Codes ROSA-7 Assessment Billing - ROSA-7 Assessment Tool: ROSA-7 Assessment 98543 ([id number]) PHQ-9 - 04715 - PHQ-9 Billing: Yes ([id number]) Assessment & Plan Assessment & Plan (1) Diverticulosis of colon: Code(s): K57.30 - Diverticulosis of large intestine without perforation or abscess without bleeding Category: Medical (2) Colonic diverticular abscess: Comment: She is feeling well Code(s): K57.20 - Diverticulitis of large intestine with perforation and abscess without bleeding Category: Medical (3) Duodenal diverticulum: Code(s): K57.10 - Diverticulosis of small intestine without perforation or abscess without bleeding Category: Medical (4) May-Thurner syndrome: Code(s): I87.1 - Compression of vein Category: Medical Plan . Orders: Orders Complete Blood Count Auto Diff Today K57.20 - Diverticulitis of large intestine with perforation and abscess without bleeding, K57.30 - Diverticulosis of large intestine without perforation or abscess without bleeding Comprehensive Met. Panel Today K57.20 - Diverticulitis of large intestine with perforation and abscess without bleeding, K57.30 - Diverticulosis of large intestine without perforation or abscess without bleeding UA CC w/rflx Micro + Cult Today K57.20 - Diverticulitis of large intestine with perforation and abscess without bleeding, K57.30 - Diverticulosis of large intestine without perforation or abscess without bleeding TSH reflex Free T4 Today K57.20 - Diverticulitis of large intestine with perforation and abscess without bleeding, K57.30 - Diverticulosis of large intestine without perforation or abscess without bleeding Lipid Panel Today K57.10 - Diverticulosis of small intestine without perforation or abscess without bleeding, K57.20 - Diverticulitis of large intestine with perforation and abscess without bleeding, K57.30 - Diverticulosis of large intestine without perforation or abscess without bleeding
[2025-05-10 11:37] VITALS: BP 160/92; PULSE 82; RESP 18; O2SAT 99
--- OUTSIDE RECORDS SUMMARY | 2025-05-10 12:28 | XMS_ITS | Patient Health Record ---
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 Problems Problem Type SNOMED Code ICD Code Onset Dates Problem Status W/U Status Risk Notes Problem Colon cancer screening ([id number]) Colon cancer screening (Z12.11) Active confirmed Plan Of Treatment Future Test Test Name Order Date COLONOSCOPY 10/22/2017 Insurance Providers Payer Name Payer Address Payer Phone Subscriber Number Group Number Insured Name Patient Relationship to Insured Coverage Start Date Coverage End Date [facility] [employer] [facility] [employer] [facility] [address] [address] [place], [place] [id number] FRANCES BINGHAM Self - patient is the insured [facility] [address] [place] [address] [id number] FRANCES BINGHAM Self - patient is the insured Medical (General) History Medical History History ICD Code hypertension elevated cholesterol vitamin D deficiency
== END 2025-05-10 12:07 | disposition home or self-care (01) ==
PROVIDERS: PCP Nurse Practitioner Family; Visit Provider Nurse Practitioner Family
DX: K57.30 Diverticulosis of large intestine without perforation or abscess without bleeding (principal); K57.20 Diverticulitis of large intestine with perforation and abscess without bleeding; K57.10 Diverticulosis of small intestine without perforation or abscess without bleeding; I87.1 Compression of vein

== ENCOUNTER → 2025-05-10 10:46 | Outpatient (BNVA) | payer MEDICARE, SELFPAY | PROVIDERS: PCP Nurse Practitioner Family; Visit Provider Nurse Practitioner Family | DX: I10 Essential (primary) hypertension (principal); I87.1 Compression of vein; K57.20 Diverticulitis of large intestine with perforation and abscess without bleeding; K57.10 Diverticulosis of small intestine without perforation or abscess without bleeding; Z13.31 Encounter for screening for depression; Z13.39 Encounter for screening examination for other mental health and behavioral disorders | CPT/HCPCS: 96127; 99212 ==

== ENCOUNTER 2025-05-25 15:01 | Outpatient (AMB) | payer MEDICARE, SELFPAY ==
--- NOTE | 2025-05-25 15:05 | MHC.OFFVIS ---
Vital Signs 05/25/25 15:06 Height 5 ft 4 in Weight 168 lb BMI 28.8 Intake Visit Reasons: 2 week follow up May-Thurner Syndrome Intake Note: Hospital follow up for May-Thurner Syndrome s/p CTA Abd/Pelvis 04/27/25. Started having Left LE blood clots in 1979 with and reoccured 2 yrs ago Extrusion Die Repairer Required: No Accompanied by: Spouse Allergies penicillin G (PENICILLIN G) Allergy (Severe, Verified 05/25/25 15:10) ANAPHYLAXIS HPI HPI 2 week follow up May-Thurner Syndrome: Details: Very pleasant 69-year-old female presents for follow-up regarding May-Thurner syndrome. She was originally seen in the hospital for workup of diverticulitis/diverticulosis. At that time she was discovered to have a DVT. 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 In addition we did review the CAT scan and there was concern of the left iliac vein being quite diminutive compared to the right iliac vein. There is concern of May-Thurner syndrome. She now presents for follow-up. [facility] Medical History Osteopenia Leukopenia Depression Cervical carcinoma DDD (degenerative disc disease), lumbar JACQUE I (cervical intraepithelial neoplasia I) ASCUS (atypical squamous cells of undetermined significance) on gynecologic Papanicolaou smear complicating , antepartum Seropositive rheumatoid arthritis HTN (hypertension) Rheumatoid arthritis Hyperlipemia DVT (deep venous thrombosis) Surgical History History of esophagogastroduodenoscopy (EGD) Hx of colonoscopy History of back surgery S/P lumbar microdiscectomy S/P biopsy of cervix History of bunionectomy of both great toes Family History Mother Colon cancer metastasized to multiple sites HTN (hypertension) Substance use disorder Maternal Aunt Breast cancer Father HTN (hypertension) Substance use disorder Brother HTN (hypertension) Heart attack Enlarged heart Brain aneurysm Brother HTN (hypertension) Sister HTN (hypertension) Sister HTN (hypertension) Sister HTN (hypertension) Social History Household Members: Spouse Housing: Apartment Are you a primary resident caregiver to a significant other at home: No Do you presently have visiting nurse or other home services: No Alcohol intake: current Alcohol intake frequency: does not drink Alcohol type: beer Patient Tobacco Use Status: Former Tobacco user Tobacco use type: Cigarette Years Smoked: 40 years ago e-Cigarette/Vaping Use: Never Used Second Hand Smoke Exposure: No service: No Current occupational status: employed 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 Current occupational exposures/hazards: No Cognitive needs: No Hearing needs: No Vision needs: No Review of Systems Const Reports as per HPI ENT Reports no additional complaints Card Denies chest pain, Denies chest pain at rest and Denies chest pain with activity Resp Denies chest congestion and Denies cough GI Reports no additional complaints Musc Details: pain over varicosities, aching of lower extremities, swelling, cramping, heaviness and tiredness, itching Denies abnormal gait Skin/Breast Reports pruritus and Denies wounds Neuro Reports no additional complaints and Denies abnormal gait Psych Denies no additional complaints Physical Exam Vital Signs: BMI result Body Mass Index 28.8 Const General: cooperative, healthy appearing and comfortable Orientation/consciousness: oriented to person, oriented to place and oriented to time Neck Carotids: no bruits Chest Chest palpation & inspection: normal inspection of the chest and normal palpation of entire chest wall Resp Effort & Inspection: normal respiratory effort and able to speak in complete sentences Cardio Rate: regular rate Heart sounds: S1 normal heart sound present and S2 normal heart sound present Peripheral pulses: Peripheral pulses 2+ throughout GI Inspection: Yes normal to inspection Skin Other: +2 edema, left greater than right CEAP Classification C4 - skin color changes Ep - Etiology Primary As - superficial veins P - reflux General skin exam: dry skin Neuro General: oriented to person, oriented to place and oriented to time Extrem Right lower extremity: full ROM, normal capillary refill and edema Left lower extremity: full ROM, normal capillary refill and edema Psych Mental Status: mental status grossly normal Assessment & Plan Assessment & Plan (1) May-Thurner syndrome: Code(s): I87.1 - Compression of vein Category: Medical Plan: Patient notes left leg swelling. I have discussed the pathophysiology of peripheral vascular disease with the patient. I have also discussed risk factor modification. I have reviewed the patient's CT scan which demonstrates swelling of the stenosis of left iliac vein. the patient would benefit from a left leg endovascular peripheral angiogram with possible angioplasty, stent, and/or atherectomy. This has been discussed in detail with the patient along with risks, benefits, and complications. This includes but is not limited to bleeding, infection, heart attack, need for emergent surgical repair, limb ischemia, blood vessel damage, bleeding, puncture, kidney injury, bruising, allergic reaction, and skin reaction. The patient demonstrates a clear understanding. We will schedule for the next appropriate time. Thank you for allowing us to assist in this patient's care. Coding Level of Care Code Est Pt Level 4 (22006) Diagnoses May-Thurner syndrome I87.1
[2025-05-25 15:06] VITALS: BMI 28.8
--- OUTSIDE RECORDS SUMMARY | 2025-05-25 19:07 | XMS_ITS | Patient Health Record ---
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 Problems Problem Type SNOMED Code ICD Code Onset Dates Problem Status W/U Status Risk Notes Problem Colon cancer screening ([id number]) Colon cancer screening (Z12.11) Active confirmed Plan Of Treatment Future Test Test Name Order Date COLONOSCOPY 10/22/2017 Insurance Providers Payer Name Payer Address Payer Phone Subscriber Number Group Number Insured Name Patient Relationship to Insured Coverage Start Date Coverage End Date [facility] [employer] [facility] [address] [address] [place], [place] [id number] FRANCES BINGHAM Self - patient is the insured MEDICAID OF [facility] [address] [place] [address] [id number] FRANCES BINGHAM Self - patient is the insured Medical (General) History Medical History History ICD Code hypertension elevated cholesterol vitamin D deficiency
== END 2025-05-25 16:10 | disposition home or self-care (01) ==
LOC: HO.HVS 15:02
PROVIDERS: PCP Nurse Practitioner Family; Visit Provider Surgery Vascular Surgery
DX: I87.1 Compression of vein (principal)
CPT/HCPCS: 99214

== ENCOUNTER → 2025-05-25 15:01 | Outpatient (BNVA) | payer MEDICARE, SELFPAY | PROVIDERS: PCP Nurse Practitioner Family; Visit Provider Surgery Vascular Surgery | DX: Z71.2 Person consulting for explanation of examination or test findings (principal); I87.1 Compression of vein | CPT/HCPCS: 99212 ==